=== PATIENT | female | born 1950 | race Caucasian/White ===

== ENCOUNTER → 2021-08-30 08:57 | Outpatient (BNVA) | payer MEDICARE, OTHER, SELFPAY | PROVIDERS: PCP Internal Medicine; Visit Provider Psychiatry & Neurology Neurology | DX: G24.3 Spasmodic torticollis (principal) | CPT/HCPCS: 64616; 99211; J0585 ==

== ENCOUNTER → 2021-12-10 12:55 | Outpatient (BNVA) | payer MEDICARE, OTHER, SELFPAY | PROVIDERS: PCP Internal Medicine; Visit Provider Psychiatry & Neurology Neurology | DX: G24.3 Spasmodic torticollis (principal); Z79.899 Other long term (current) drug therapy | CPT/HCPCS: 64616; 99211; J0585 ==

== ENCOUNTER → 2022-03-28 10:54 | Outpatient (BNVA) | payer MEDICARE, OTHER, SELFPAY | PROVIDERS: PCP Internal Medicine; Visit Provider Psychiatry & Neurology Neurology | DX: G24.3 Spasmodic torticollis (principal); M62.838 Other muscle spasm | CPT/HCPCS: 64616; 99211; J0585 ==

== ENCOUNTER → 2022-07-18 09:16 | Outpatient (BNVA) | payer MEDICARE, OTHER, SELFPAY | PROVIDERS: PCP Internal Medicine; Visit Provider Psychiatry & Neurology Neurology | DX: G24.3 Spasmodic torticollis (principal); M62.838 Other muscle spasm | CPT/HCPCS: 64616; 99211; J0585 ==

== ENCOUNTER → 2022-10-24 12:22 | Outpatient (BNVA) | payer MEDICARE, OTHER, SELFPAY | PROVIDERS: PCP Internal Medicine; Visit Provider Psychiatry & Neurology Neurology | DX: G24.3 Spasmodic torticollis (principal); M62.838 Other muscle spasm | CPT/HCPCS: 64616; 99211; J0585 ==

== ENCOUNTER 2023-02-19 13:50 | Outpatient (AMB) | payer MEDICARE, OTHER, SELFPAY ==
--- NOTE | 2023-02-19 14:03 | MHC.OFFVIS ---
Intake Vital Signs 02/19/23 14:05 Height 5 ft 3 in Weight 131 lb BMI 23.2 BP 120/76 Blood Pressure Location Lt brachial Position Sitting Respiration 17 Pulse 69 Pulse Source Pulse Oximeter Pulse Oximetry (%) 99 Oxygen Delivery Method Room Air Intake Visit Reasons: Botox(B&B)-lvm Intake Note: Pt presents to office for Botox injections. Driver Utility Worker Required: No Allergies pseudoephedrine [From Sudafed] Allergy (Verified 02/19/23 14:04) Unknown Medication List - Last Reconciled 02/19/23 by Salma Zazueta MD albuterol sulfate 90 mcg/actuation 2 puffs inhalation Q4H PRN clonazepam 0.5 mg PO BEDTIME clonazepam 0.5 mg (1/2 x 1 mg) PO BEDTIME 30 days denosumab (Prolia) 60 mg subcut [id number] escitalopram oxalate 20 mg PO DAILY leucovorin calcium mg PO methotrexate (PF) (RediTrex (PF)) 22.5 mg subcut QWEEK omeprazole magnesium (Prilosec) 10 mg PO DAILY rosuvastatin 20 mg PO BEDTIME HPI HPI Comments History of Present Illness Details Spasmodic torticollis.. History of present illness: ? 73y/0 female comes for treatment of her dystonia with Botox.she reports truncal pain while sitting - more like a squeezing sensation for past 5 years . she had an extensive evaluation with imaging studies. ??? Side effects including spread of toxin effect, dysphagia, breathing difficulties , bronchitis etc was discussed in detail and the patient agreed to the procedure. ??? Botulinum toxin Lot [id number] 200 units ??? Expiration date 05/2025 ??? Botulinum toxin type A 200units was diluted with 4 cc of normal saline at a concentration of 25 units in 0.5cc saline. ??? Muscles injected ??? Right Splenius - 50units ??? Right levator 50 units ??? Right trapezius- 25 units Left trapezius 25 units Left levator 25 units ??? Right sternocleidomastoid- 25 units ??? Total used - 200 units PFSH Medical History Spasmodic torticollis Depression Anxiety Surgical History No pertinent past surgical history Family History Brother Colon cancer Social History Household Members: Spouse Alcohol intake: current Alcohol intake frequency: holidays/special occasions only Patient Tobacco Use Status: Former Tobacco user Quit Date: <40 yrs Current occupational status: retired Physical Exam Vital Signs: Last Vital Signs Pulse 69 02/19/23 14:05 Resp 17 02/19/23 14:05 BP 120/76 02/19/23 14:05 Pulse Ox 99 02/19/23 14:05 Oxygen Delivery Method Room Air 02/19/23 14:05 BMI result Body Mass Index 23.2 Neuro Other: Head tremors torticollis Office Procedures Botulinum toxin Injection 59466 - Dystonia Procedure code (CPT) selection complete Office Meds onabotulinumtoxinA 200 unit solution for injection Performing Provider: Salma Zazueta MD Performing Location: [facility] [place] [facility] Administered by: Salma Zazueta MD on 02/19/23 14:38 Dose Route Admin Location Dispensed Lot Number Expiration Date [facility] Metallurgist Helper 200 unit IM 200 units [id number] 05/29/25 8476-1302-72 ALLERGAN/BOTOX Comments: see HPI Assessment & Plan Assessment & Plan (1) Spasmodic torticollis: Code(s): G24.3 - Spasmodic torticollis (2) Muscle spasm: Code(s): M62.838 - Other muscle spasm Plan Patient tolerated the procedure well She will call with any side effects Orders: Orders AMB Botulinum toxin Injection Today G24.3 - Spasmodic torticollis Coding Level of Care Code Est Pt Level 1 (05623) Diagnoses Spasmodic torticollis G24.3 Muscle spasm M62.838 CPT Codes Botox Injection - Botox 4: 04955 - Dystonia ([id number])
[2023-02-19 14:05] VITALS: BP 120/76; PULSE 69; RESP 17; O2SAT 99; BMI 23.2
== END 2023-02-19 14:34 | disposition home or self-care (01) ==
PROVIDERS: PCP Internal Medicine; Visit Provider Psychiatry & Neurology Neurology
DX: G24.3 Spasmodic torticollis (principal)
CPT/HCPCS: 64616

== ENCOUNTER → 2023-02-19 13:50 | Outpatient (BNVA) | payer MEDICARE, OTHER, SELFPAY | PROVIDERS: PCP Internal Medicine; Visit Provider Psychiatry & Neurology Neurology | DX: G24.3 Spasmodic torticollis (principal); M62.838 Other muscle spasm | CPT/HCPCS: 64616; 99211; J0585 ==

== ENCOUNTER → 2023-05-28 12:35 | Outpatient (BNVA) | payer MEDICARE, OTHER, SELFPAY | PROVIDERS: PCP Internal Medicine; Visit Provider Psychiatry & Neurology Neurology ==

== ENCOUNTER 2023-06-02 11:48 | Outpatient (AMB) | payer MEDICARE, OTHER, SELFPAY ==
[2023-06-02 11:52] VITALS: BP 110/64; PULSE 104; RESP 17; O2SAT 97; BMI 23.0
--- NOTE | 2023-06-02 11:52 | A.OFFVIS_ITS ---
Intake Vital Signs 06/02/23 11:52 Height 5 ft 3 in Weight 130 lb BMI 23.0 BP 110/64 Blood Pressure Location Rt brachial Position Sitting Respiration 17 Pulse 104 H Pulse Source Pulse Oximeter Pulse Oximetry (%) 97 Oxygen Delivery Method Room Air Intake Visit Reasons: Botox - CONF Intake Note: Pt presents to the office for Botox injections. Tobacco Sampler Required: No Allergies pseudoephedrine [From Sudafed] Allergy (Verified 06/02/23 11:52) Unknown Medication List - Last Reconciled 06/02/23 by Salma Zzaueta MD albuterol sulfate 90 mcg/actuation 2 puffs inhalation Q4H PRN clonazepam 0.5 mg (1/2 x 1 mg) PO BEDTIME 30 days clonazepam 0.5 mg PO BEDTIME denosumab (Prolia) 60 mg subcut [id number] escitalopram oxalate 20 mg PO DAILY leucovorin calcium mg PO methotrexate (PF) (RediTrex (PF)) 22.5 mg subcut QWEEK omeprazole magnesium (Prilosec) 10 mg PO DAILY rosuvastatin 20 mg PO BEDTIME HPI HPI Comments History of Present Illness Details Spasmodic torticollis.. History of present illness: ? 73y/0 female comes for treatment of her dystonia with Botox.she reports truncal pain while sitting - more like a squeezing sensation for past 5 years . she had an extensive evaluation with imaging studies. ??? Side effects including spread of toxin effect, dysphagia, breathing difficulties , bronchitis etc was discussed in detail and the patient agreed to the procedure. ??? Botulinum toxin Lot [id number] 200 units ??? Expiration date 09/2025 ??? Botulinum toxin type A 200units was diluted with 4 cc of normal saline at a concentration of 25 units in 0.5cc saline. ??? Muscles injected ??? Right Splenius - 50units ??? Right levator 50 units ??? Right trapezius- 25 units Left trapezius 25 units Left levator 25 units ??? Right sternocleidomastoid- 25 units ??? Total used - 200 units PFSH Medical History Spasmodic torticollis Depression Anxiety Surgical History No pertinent past surgical history Family History Brother Colon cancer Social History Household Members: Spouse Alcohol intake: current Alcohol intake frequency: holidays/special occasions only Patient Tobacco Use Status: Former Tobacco user Quit Date: <40 yrs Current occupational status: retired Physical Exam Vital Signs: Last Vital Signs Pulse 104 H 06/02/23 11:52 Resp 17 06/02/23 11:52 BP 110/64 06/02/23 11:52 Pulse Ox 97 06/02/23 11:52 Oxygen Delivery Method Room Air 06/02/23 11:52 BMI result Body Mass Index 23.0 Neuro Other: Head tremors torticollis Office Procedures Botulinum toxin Injection 91574 - Dystonia Procedure code (CPT) selection complete Office Meds onabotulinumtoxinA 200 unit solution for injection Performing Provider: Salma Zazueta MD Performing [place] [facility] [place] [facility] Administered by: Salma Zazueta MD on 06/02/23 12:17 Dose Route Admin Location Dispensed Lot Number Expiration Date [facility] Financial Coordinator 200 unit IM 200 units [id number] 09/26/25 5461-0990-27 ALLERGAN/BOTOX Comments: see HPI Assessment & Plan Assessment & Plan (1) Spasmodic torticollis: Code(s): G24.3 - Spasmodic torticollis (2) Muscle spasm: Code(s): M62.838 - Other muscle spasm Plan Patient tolerated the procedure well She will call with any side effects Orders: Orders AMB Botulinum toxin Injection Today G24.3 - Spasmodic torticollis Coding Level of Care Code Est Pt Level 1 (90730) Diagnoses Spasmodic torticollis G24.3 Muscle spasm M62.838 CPT Codes Botox Injection - Botox 4: 13650 - Dystonia ([id number])
== END 2023-06-02 12:17 | disposition home or self-care (01) ==
PROVIDERS: PCP Internal Medicine; Visit Provider Psychiatry & Neurology Neurology
DX: G24.3 Spasmodic torticollis (principal)
CPT/HCPCS: 64616

== ENCOUNTER → 2023-06-02 11:48 | Outpatient (BNVA) | payer MEDICARE, OTHER, SELFPAY | PROVIDERS: PCP Internal Medicine; Visit Provider Psychiatry & Neurology Neurology | DX: G24.3 Spasmodic torticollis (principal); M62.838 Other muscle spasm | CPT/HCPCS: 64616; 99211; J0585 ==

== ENCOUNTER 2023-08-26 12:16 | Outpatient (AMB) | payer MEDICARE, OTHER, SELFPAY ==
--- NOTE | 2023-08-26 12:34 | MHC.OFFVIS ---
Vital Signs 08/26/23 12:35 Height 5 ft 3 in Weight 130 lb BMI 23.0 BP 104/60 Blood Pressure Location Rt brachial Position Sitting Respiration 16 Pulse 97 Pulse Source Pulse Oximeter Pulse Oximetry (%) 98 Oxygen Delivery Method Room Air Intake Visit Reasons: Botox(B&B)-CONF Intake Note: Pt presents to the office for Botox injections. 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 History of present illness: ? 73y/0 female comes for treatment of her dystonia with Botox.she reports truncal pain while sitting - more like a squeezing sensation for past 5 years . she had an extensive evaluation with imaging studies. ??? Side effects including spread of toxin effect, dysphagia, breathing difficulties , bronchitis etc was discussed in detail and the patient agreed to the procedure. ??? Botulinum toxin Lot [id number] 200 units ??? Expiration date 09/2025 ??? Botulinum toxin type A 200units was diluted with 4 cc of normal saline at a concentration of 25 units in 0.5cc saline. ??? Muscles injected ??? Right Splenius - 50units ??? Right levator 50 units ??? Right trapezius- 25 units Left trapezius 25 units Left levator 25 units ??? Right sternocleidomastoid- 25 units ??? Total used - 200 units PFSH Medical History Spasmodic torticollis Depression Anxiety Surgical History No pertinent past surgical history Family History Brother Colon cancer Social History Household Members: Spouse Alcohol intake: current Alcohol intake frequency: holidays/special occasions only Patient Tobacco Use Status: Former Tobacco user Quit Date: <40 yrs Current occupational status: retired Physical Exam Vital Signs: Last Vital Signs Pulse 97 08/26/23 12:35 Resp 16 08/26/23 12:35 BP 104/60 08/26/23 12:35 Pulse Ox 98 08/26/23 12:35 Oxygen Delivery Method Room Air 08/26/23 12:35 BMI result Body Mass Index 23.0 Neuro Other: Head tremors torticollis Office Procedures Botulinum toxin Injection 84245 - Dystonia Procedure code (CPT) selection complete Office Meds onabotulinumtoxinA 200 unit solution for injection Performing Provider: Salma Zazueta MD Performing [place] [facility] [place] [facility] Administered by: Salma Zazueta MD on 08/26/23 12:59 Dose Route Admin Location Dispensed Lot Number Expiration Date [employer] Intern 200 unit IM 200 units [id number] 09/26/25 4729-8468-95 ALLERGAN/BOTOX Comments: see HPI Assessment & Plan Assessment & Plan (1) Spasmodic torticollis: Code(s): G24.3 - Spasmodic torticollis Category: Medical (2) Muscle spasm: Code(s): M62.838 - Other muscle spasm Category: Medical Plan Patient tolerated the procedure well She will call with any side effects Orders: Orders AMB Botulinum toxin Injection Today G24.3 - Spasmodic torticollis Medications: New onabotulinumtoxinA 200 units IM ONCE 1 ea 0RF G24.3 - Spasmodic torticollis Coding Level of Care Code Est Pt Level 1 (63874) Diagnoses Spasmodic torticollis G24.3 Muscle spasm M62.838 CPT Codes Botox Injection - Botox 4: 14574 - Dystonia ([id number])
[2023-08-26 12:35] VITALS: BP 104/60; PULSE 97; RESP 16; O2SAT 98; BMI 23.0
== END 2023-08-26 13:00 | disposition home or self-care (01) ==
PROVIDERS: PCP Internal Medicine; Visit Provider Psychiatry & Neurology Neurology
DX: G24.3 Spasmodic torticollis (principal)
CPT/HCPCS: 64616

== ENCOUNTER → 2023-08-26 12:16 | Outpatient (BNVA) | payer MEDICARE, OTHER, SELFPAY | PROVIDERS: PCP Internal Medicine; Visit Provider Psychiatry & Neurology Neurology | DX: G24.3 Spasmodic torticollis (principal); M62.838 Other muscle spasm | CPT/HCPCS: 64616; 99211; J0585 ==

== ENCOUNTER 2023-11-26 12:26 | Outpatient (AMB) | payer MEDICARE, OTHER, SELFPAY ==
--- NOTE | 2023-11-26 12:32 | A.OFFVIS_ITS ---
Vital Signs 11/26/23 12:33 Height 5 ft 3 in Weight 130 lb BMI 23.0 BP 112/66 Blood Pressure Location Rt brachial Position Sitting Respiration 16 Pulse 81 Pulse Source Pulse Oximeter Pulse Oximetry (%) 96 Oxygen Delivery Method Room Air Intake Visit Reasons: Botox(B&B) - Confirmed Intake Note: Pt presents to the office for Botox injections for muscle spasms. Actuarial Consultant Required: No Allergies pseudoephedrine [From Sudafed] Allergy (Verified 11/26/23 12:33) Unknown Medication List - Last Reconciled 11/26/23 by Salma Zazueta MD albuterol sulfate 90 mcg/actuation 2 puffs inhalation Q4H PRN clonazepam 0.5 mg (1/2 x 1 mg) PO BEDTIME 30 days clonazepam 0.5 mg PO BEDTIME denosumab (Prolia) 60 mg subcut [id number] escitalopram oxalate 20 mg PO DAILY leucovorin calcium mg PO methotrexate (PF) (RediTrex (PF)) 22.5 mg subcut QWEEK omeprazole magnesium (Prilosec) 10 mg PO DAILY rosuvastatin 20 mg PO BEDTIME HPI Comments Details: Spasmodic torticollis.. History of present illness: ? 73y/0 female comes for treatment of her dystonia with Botox.she reports truncal pain while sitting - more like a squeezing sensation for past 5 years . she had an extensive evaluation with imaging studies. ??? Side effects including spread of toxin effect, dysphagia, breathing difficulties , bronchitis etc was discussed in detail and the patient agreed to the procedure. ??? Botulinum toxin Lot [id number] 200 units ??? Expiration date 03/2026 ??? Botulinum toxin type A 200units was diluted with 4 cc of normal saline at a concentration of 25 units in 0.5cc saline. ??? Muscles injected ??? Right Splenius - 50units ??? Right levator 50 units ??? Right trapezius- 25 units Left trapezius 25 units Left levator 25 units ??? Right sternocleidomastoid- 25 units ??? Total used - 200 units PFSH Medical History Spasmodic torticollis Depression Anxiety Surgical History No pertinent past surgical history Family History Brother Colon cancer Social History Household Members: Spouse Alcohol intake: current Alcohol intake frequency: holidays/special occasions only Patient Tobacco Use Status: Former Tobacco user Current occupational status: retired Physical Exam Vital Signs: Last Vital Signs Pulse 81 11/26/23 12:33 Resp 16 11/26/23 12:33 BP 112/66 11/26/23 12:33 Pulse Ox 96 11/26/23 12:33 Oxygen Delivery Method Room Air 11/26/23 12:33 BMI result Body Mass Index 23.0 Neuro Other: Head tremors torticollis Office Procedures Botulinum toxin Injection 44354 - Dystonia Procedure code (CPT) selection complete Office Meds onabotulinumtoxinA 200 unit solution for injection Performing Provider: Slama Zazueta MD Performing [place] [facility] [place] [facility] Administered by: Salma Zazueta MD on 11/26/23 13:03 Dose Route Admin Location Dispensed Lot Number Expiration Date [facility] Shirt Creaser 200 unit IM 200 units [id number] 03/28/26 0474-4690-16 ALLERGAN/BOTOX Comments: see HPI Assessment & Plan Assessment & Plan (1) Spasmodic torticollis: Code(s): G24.3 - Spasmodic torticollis Category: Medical (2) Muscle spasm: Code(s): M62.838 - Other muscle spasm Category: Medical Plan Patient tolerated the procedure well She will call with any side effects Orders: Orders AMB Botulinum toxin Injection Today G24.3 - Spasmodic torticollis Medications: New onabotulinumtoxinA 200 units IM ONCE 1 ea 0RF spasmodic torticollis G24.3 - Spasmodic torticollis Coding Level of Care Code Est Pt Level 1 (03035) Diagnoses Spasmodic torticollis G24.3 Muscle spasm M62.838 CPT Codes Botox Injection - Botox 4: 91101 - Dystonia ([id number])
[2023-11-26 12:33] VITALS: BP 112/66; PULSE 81; RESP 16; O2SAT 96; BMI 23.0
== END 2023-11-26 13:00 | disposition home or self-care (01) ==
PROVIDERS: PCP Internal Medicine; Visit Provider Psychiatry & Neurology Neurology
DX: G24.3 Spasmodic torticollis (principal)
CPT/HCPCS: 64616

== ENCOUNTER → 2023-11-26 12:26 | Outpatient (BNVA) | payer MEDICARE, OTHER, SELFPAY | PROVIDERS: PCP Internal Medicine; Visit Provider Psychiatry & Neurology Neurology | DX: G24.3 Spasmodic torticollis (principal); M62.838 Other muscle spasm | CPT/HCPCS: 64616; 99211; J0585 ==

== ENCOUNTER 2024-03-04 10:53 | Outpatient (AMB) | payer MEDICARE, OTHER, SELFPAY ==
[2024-03-04 10:56] VITALS: BMI 23.2
--- NOTE | 2024-03-04 10:56 | MHC.OFFVIS ---
Vital Signs 03/04/24 10:56 Height 5 ft 3 in Weight 131 lb BMI 23.2 Intake Visit Reasons: Botox(B&B) Intake Note: Patient presents for botox injection Allergies pseudoephedrine [From Sudafed] Allergy (Verified 03/04/24 10:57) Unknown Medication List - Last Reconciled 03/04/24 by Salma Zazueta MD albuterol sulfate 90 mcg/actuation 2 puffs inhalation Q4H PRN clonazepam 0.5 mg (1/2 x 1 mg) PO BEDTIME 30 days clonazepam 0.5 mg PO BEDTIME denosumab (Prolia) 60 mg subcut [id number] escitalopram oxalate 20 mg PO DAILY leucovorin calcium mg PO methotrexate (PF) (RediTrex (PF)) 22.5 mg subcut QWEEK omeprazole magnesium (Prilosec) 10 mg PO DAILY rosuvastatin 20 mg PO BEDTIME HPI Comments Details: Spasmodic torticollis.. History of present illness: ? 73y/0 female comes for treatment of her dystonia with Botox.she reports truncal pain while sitting - more like a squeezing sensation for past 5 years . she had an extensive evaluation with imaging studies. ??? Side effects including spread of toxin effect, dysphagia, breathing difficulties , bronchitis etc was discussed in detail and the patient agreed to the procedure. ??? Botulinum toxin Lot [id number] 200 units ??? Expiration date 05/2026 ??? Botulinum toxin type A 200units was diluted with 4 cc of normal saline at a concentration of 25 units in 0.5cc saline. ??? Muscles injected ??? Right Splenius - 50units ??? Right levator 50 units ??? Right trapezius- 25 units Left trapezius 25 units Left levator 25 units ??? Right sternocleidomastoid- 25 units ??? Total used - 200 units PFSH Medical History Spasmodic torticollis Depression Anxiety Surgical History No pertinent past surgical history Family History Brother Colon cancer Social History Household Members: Spouse Alcohol intake: current Alcohol intake frequency: holidays/special occasions only Patient Tobacco Use Status: Former Tobacco user Current occupational status: retired Physical Exam Vital Signs: BMI result Body Mass Index 23.2 Neuro Other: Head tremors torticollis Office Procedures Botulinum toxin Injection 14080 - Dystonia Procedure code (CPT) selection complete Office Meds onabotulinumtoxinA 200 unit solution for injection Performing Provider: Salma Zazueta MD [place] [facility] Administered by: Salma Zazueta MD on 03/04/24 11:24 Dose Route Admin Location Dispensed Lot Number Expiration Date [facility] Supervisor [employer] 200 unit IM 200 units [id number] 05/29/26 3083-6709-09 ALLERGAN/BOTOX Comments: see HPI Assessment & Plan Assessment & Plan (1) Spasmodic torticollis: Code(s): G24.3 - Spasmodic torticollis Category: Medical (2) Muscle spasm: Code(s): M62.838 - Other muscle spasm Category: Medical Plan Patient tolerated the procedure well She will call with any side effects Orders: Orders AMB Botulinum toxin Injection Today G24.3 - Spasmodic torticollis Medications: New onabotulinumtoxinA 200 units IM ONCE 1 ea 0RF spasmodic torticollis G24.3 - Spasmodic torticollis Coding Level of Care Code Est Pt Level 1 (33403) Diagnoses Spasmodic torticollis G24.3 Muscle spasm M62.838 CPT Codes Botox Injection - Botox 4: 25641 - Dystonia ([id number])
== END 2024-03-04 11:13 | disposition home or self-care (01) ==
LOC: HO.HSMS 10:53
PROVIDERS: PCP Internal Medicine; Visit Provider Psychiatry & Neurology Neurology
DX: G24.3 Spasmodic torticollis (principal)
CPT/HCPCS: 64616

== ENCOUNTER → 2024-03-04 10:53 | Outpatient (BNVA) | payer MEDICARE, OTHER, SELFPAY | PROVIDERS: PCP Internal Medicine; Visit Provider Psychiatry & Neurology Neurology | DX: G24.3 Spasmodic torticollis (principal) | CPT/HCPCS: 64616; 99211; J0585 ==

== ENCOUNTER 2024-07-06 12:30 | Outpatient (AMB) | payer MEDICARE, OTHER, SELFPAY ==
[2024-07-06 12:51] VITALS: BP 114/72; PULSE 77; O2SAT 99
--- NOTE | 2024-07-06 12:51 | A.OFFVIS_ITS ---
Vital Signs 07/06/24 12:51 Height 5 ft 3 in BP 114/72 Blood Pressure Location Rt brachial Position Sitting Pulse 77 Pulse Source Pulse Oximeter Pulse Oximetry (%) 99 Oxygen Delivery Method Room Air Intake Visit Reasons: Botox(B&B) Intake Note: patient here for botox injection. Practice supplied Allergies pseudoephedrine [From Sudafed] Allergy (Verified 07/06/24 12:56) Unknown Medication List - Last Reconciled 07/06/24 by Salma Zazueta MD albuterol sulfate 90 mcg/actuation 2 puffs inhalation Q4H PRN clonazepam 0.5 mg (1/2 x 1 mg) PO BEDTIME 30 days clonazepam 0.5 mg PO BEDTIME denosumab (Prolia) 60 mg subcut [id number] escitalopram oxalate 20 mg PO DAILY leucovorin calcium mg PO methotrexate (PF) (RediTrex (PF)) 22.5 mg subcut QWEEK omeprazole magnesium (Prilosec) 10 mg PO DAILY rosuvastatin 20 mg PO BEDTIME HPI Comments Details: Spasmodic torticollis.. History of present illness: ? 73y/0 female comes for treatment of her dystonia with Botox.she reports truncal pain while sitting - more like a squeezing sensation for past 5 years . she had an extensive evaluation with imaging studies. ??? Side effects including spread of toxin effect, dysphagia, breathing difficulties , bronchitis etc was discussed in detail and the patient agreed to the procedure. ??? Botulinum toxin Lot [id number] 200 units ??? Expiration date 11/2025 ??? Botulinum toxin type A 200units was diluted with 4 cc of normal saline at a concentration of 25 units in 0.5cc saline. ??? Muscles injected ??? Right Splenius - 50units ??? Right levator 50 units ??? Right trapezius- 25 units Left trapezius 25 units Left levator 25 units ??? Right sternocleidomastoid- 25 units ??? Total used - 200 units PFSH Medical History Spasmodic torticollis Depression Anxiety Surgical History No pertinent past surgical history Family History Brother Colon cancer Social History Household Members: Spouse Alcohol intake: current Alcohol intake frequency: holidays/special occasions only Patient Tobacco Use Status: Former Tobacco user Current occupational status: retired Physical Exam Vital Signs: Last Vital Signs Pulse 77 07/06/24 12:51 BP 114/72 07/06/24 12:51 Pulse Ox 99 07/06/24 12:51 Oxygen Delivery Method Room Air 07/06/24 12:51 Neuro Other: Head tremors torticollis Office Procedures Botulinum toxin Injection 54738 - Dystonia Procedure code (CPT) selection complete Office Meds onabotulinumtoxinA 200 unit solution for injection Performing Provider: Salma Zazueta MD Performing [place] [facility] Administered by: Salma Zazueta MD on 07/06/24 13:34 Dose Route Admin Location Dispensed Lot Number Expiration Date [facility] Heat Plant Specialist 200 unit IM 200 units [id number] ALLERGAN/BOTOX Comments: see HPI Assessment & Plan Assessment & Plan (1) Spasmodic torticollis: Code(s): G24.3 - Spasmodic torticollis Category: Medical (2) Muscle spasm: Code(s): M62.838 - Other muscle spasm Category: Medical Plan Patient tolerated the procedure well She will call with any side effects Orders: Orders AMB Botulinum toxin Injection Today G24.3 - Spasmodic torticollis Medications: New onabotulinumtoxinA 200 units IM ONCE 1 ea 0RF dystonia G24.3 - Spasmodic torticollis Coding Level of Care Code Est Pt Level 1 (64048) Diagnoses Spasmodic torticollis G24.3 Muscle spasm M62.838 CPT Codes Botox Injection - Botox 4: 93767 - Dystonia ([id number])
--- OUTSIDE RECORDS SUMMARY | 2024-07-06 15:05 | XMS_ITS | Encounter Summary ---
Author Organization [facility] Address [address] [place] [address] Care Team Providers Care Seasonal Customer Service Associate Name Role Phone Zia Finley MD Primary Care Provider [phone] Марина Skinner MD Unavailable Jose Alberto Vásquez MD Unavailable Encounter Details Date Type Department Care Team (Late Contact Info) Description 06/14/2024 Orders Only [facility] [address] [place] [address] Sarika Callahan PA-C [address] [place] [address] Social History Tobacco Use Types Packs/Day Years Used Date Smoking Tobacco: Former Smokeless Tobacco: Never Alcohol Use Standard Drinks/Week Comments Yes 0 (1 standard drink = 0.6 oz pur e alcohol) Once every 2 month Sex and Gender Information Value Date Recorded Sex Assigned at Female 04/02/2023 9:50 AM EST Gender Identity Female 04/02/2023 9:50 AM EST Sexual Orientation Heterosexual (straight) 04/02 9:50 AM EST documented as of this encounter Plan of Treatment Upcoming Encounters Date Type Department Care Team (Late Contact Info) Description 10/01/2024 2:40 PM EDT Office Visit [facility] Department of Rheumatology [place] [address] [place] [phone] Annie Correia MD [address] [place] [id number] 12/16/2024 11:00 AM EDT Clinical Support [facility] Department of Endocrinology [place] [address] [place] [phone] Марина Skinner MD [address] [place] [address] documented as of this encounter Procedures Procedure Name Priority Date/Time Associated Diagnosis Comments CT CHEST WITH CONTRAST Routine 06/14/2024 2:27 PM EST documented in this encounter Results * CT CHEST WITH CONTRAST (06/14/2024 2:27 PM EST) Anatomical Region Laterality Modality Other 06/14/2024 2:30 PM EST 06/14/2024 2:30 PM EST Narrative 06/17/2024 3:54 PM EST EXAMINATION: CT CHEST WITH CONTRAST CLINICAL INFORMATION: Pulmonary nodules. ?? COMPARISON: 02/03/2024. TECHNIQUE: Multidetector volumetric CT imaging of the chest was obtained after the administration of 50 mL of Omnipaque 300 intravenous contrast without immediate adverse reactions. Axial MIP volume rendering provided. Sagittal and coronal reformatted images were obtained. This CT examination was performed using dose optimization techniques as appropriate, variously including the following: *Automated exposure control *Adjustment of mA and/or kV according to patient size (this includes techniques or standardized protocols for targeted exams where dose is matched to indication/reason for exam; i.e. extremities or head) *Use of iterative reconstruction technique DLP: 176.14 FINDINGS: LOWER NECK: Slight heterogeneity again noted to both lobes of thyroid. LUNGS/PLEURA: Stable 10 mm nodule along the lateral aspect of the right middle lobe just anterior to the major fissure (image 44 series 3). Stable 4 mm nodule within the posterior aspect of the left lower lobe (image 32 series 3). Stable 3 mm peripheral nodule within the posterior aspect of the left upper lobe (image 14 series 3). Stable additional 3 mm nodule slightly inferior is also in the posterior left upper lobe (image 18 series 3). Stable biapical, left greater than right, pleural- parenchymal scarring. No new or additional significant pulmonary parenchymal or pleural- based abnormalities noted. No pleural effusions. The trachea and mainstem bronchi are patent. MEDIASTINUM: Atherosclerotic coronary artery calcifications. No hilar or mediastinal lymphadenopathy. Small hiatal hernia. AXILLA: No lymphadenopathy. ?? UPPER ABDOMEN: Unremarkable. ?? OSSEOUS STRUCTURES: Unremarkable. ?? IMPRESSION: Stable chest CT. Continued follow-up recommended based on guidelines and clinical grounds. Fleischner guidelines were followed. Electronically signed by: ??Gio Diop MD ??06/17/2024 03:54 PM EST Thank you for referring your patient to us, Gio Diop MD [phone] (Electronically Signed - 06/17/2024 15:54) Copy: [facility] [address] [place] [address] Procedure Note Gio Diop MD - 06/17/2024 EXAMINATION: CT CHEST WITH CONTRAST CLINICAL INFORMATION: Pulmonary nodules. COMPARISON: 02/03/2024. TECHNIQUE: Multidetector volumetric CT imaging of the chest was obtained after theadministration of 50 mL of Omnipaque 300 intravenous contrast withoutimmediate adverse reactions. Axial MIP volume rendering provided. [place]itt[place] coronal reformatted images were obtained. This CT examination was performed using dose optimization techniques asappropriate, variously including the following: *Automated exposure control *Adjustment of mA and/or kV according to patient size (this includestechniques or standardized protocols for targeted exams where dose ismatched to indication/reason for exam; i.e. extremities or head) *Use of iterative reconstruction technique DLP: 176.14 FINDINGS: LOWER NECK: Slight heterogeneity again noted to both lobes of thyroid. LUNGS/PLEURA: Stable 10 mm nodule along the lateral aspect of the rightmiddle lobe just anterior to the major fissure (image 44 series 3). Stable4 mm nodule within the posterior aspect of the left lower lobe (image 32series 3). Stable 3 mm peripheral nodule within the posterior aspect of the left upper lobe (image 14 series3). Stable additional 3 mm nodule slightly inferior is also in theposterior left upper lobe (image 18 series 3). Stable biapical, leftgreater than right, pleural- parenchymal scarring. No new or additional significant pulmonary parenchymal orpleural-based abnormalities noted. No pleural effusions. The trachea andmainstem bronchi are patent. MEDIASTINUM: Atherosclerotic coronary artery calcifications. No hilar ormediastinal lymphadenopathy. Small hiatal hernia. AXILLA: No lymphadenopathy. UPPER ABDOMEN: Unremarkable. OSSEOUS STRUCTURES: Unremarkable. IMPRESSION: Stable chest CT. Continued follow-up recommended based on guidelines andclinical grounds. Fleischner guidelines were followed. Electronically signed by: Gio Diop MD 06/17/2024 03:54 PM EST RPWorkstation: [id number] Thank you for referring your patient to us, Gio Diop MD [phone] (Electronically Signed - 06/17/2024 15:54) Copy: [facility] [address] [place], [place] [address] Sarika Callahan PA-C IMG LEGACY PROCEDURE S documented in this encounter Visit Diagnoses Not on filedocumented in this encounter Care Teams Seasonal Customer Service Associate Relationship Specialty Start Date End Date Zia Finley MD [address] [place] [address] PCP - General Internal Medicine 04/25/20 Марина Skinner MD [address] [facility] [address] [place] [address] Asphalt Patcher Endocrinology 11/27/22 Jose Alberto Vásquez MD [address] [facility] [address] [place] [address] Gastroenterology 07/02/23 documented as of this encounter
--- OUTSIDE RECORDS SUMMARY | 2024-07-06 15:05 | XMS_ITS | Encounter Summary ---
Author Organization [facility] Address [address] [place] [address] Care Team Providers Care Lens Polisher Name Role Phone Zia Finley MD Primary Care Provider [phone] Марина Skinner MD Unavailable Jose Alberto Vásquez MD Unavailable Encounter Details Date Type Department Care Team (Late Contact Info) Description 06/02/2024 Orders Only [facility] Department of Endocrinology [address] [place] [address] Марина Skinner MD [address] [place] [phone] Age-related osteoporosis without current pathological fracture; Vitamin D deficiency Social History Tobacco Use Types Packs/Day Years [...] Office Visit [facility] Department of Rheumatology [address] [place] [address] Annie Correia MD 160 [facility] 100 [place] [address] 12/16/2024 11:00 AM EDT Clinical Support [facility] Department of Endocrinology [place] [address] [facility] [address] [place] [phone] Марина Skinner MD [address] [place] [address] documented as of this encounter Procedures Procedure Name Priority Date/Time Associated Diagnosis Comments VITAMIN D, 25-HYDROXY Routine 06/07/2024 1:37 PM EST Age-related osteoporosis without current pathological fracture Vitamin D deficiency ALBUMIN Routine 06/07/2024 1:37 PM EST Age-related osteoporosis without current pathological fracture BASIC METABOLIC PANEL Routine 06/07/2024 1:37 PM EST Age-related osteoporosis without current pathological fracture documented in this encounter Results * VITAMIN D, 25-HYDROXY (06/07/2024 1:37 PM EST) Vitamin D, 25 OH, Total 50 30 - 100 ng/mL [facility] Blood Blood specimen / Unknown 06/07/2024 1:37 PM EST 06/07/2024 8:00 PM EST Марина Skinner MD LAB BLOOD ORDERABLES [facility] [address] [place] [address], * ALBUMIN (06/07/2024 1:37 PM EST) Albumin 4.3 3.2 - 4.8 g/dL [facility] Blood Blood specimen / Unknown 06/07/2024 1:37 PM EST 06/07/2024 8:00 PM EST Марина Skinner MD LAB BLOOD ORDERABLES Performing Organization Address City/[facility]/ZIP Co de Phone Number [facility] [address] [place] [address] * (ABNORMAL) BASIC METABOLIC PANEL (06/07/2024 1:37 PM EST) Glucose 115(H) 70 - 99 mg/dL [facility] Blood Urea Nitrogen 11 7 - 22 mg/dL [facility] Creatinine, Ser 0.8 0.5 - 1.2 mg/dL [facility] Bun / Creat Ratio 14 11 - 30 [facility] Sodium 146(H) 133 - 145 mmol/L [facility] Potassium 4.3 3.3 - 5.1 mmol/L [facility] Chloride 105 96 - 108 mmol/L [facility] CO2 27 22 - 31 mmol/L [facility] Anion Gap 14 3 - 19 mmol/L [facility] Calcium 10.1 8.8 - 10.6 mg/dL [facility] GFR Estimated (calculated) >60 >60 [facility] Comment: As of 2021, the [facility] has updated the creatinine- based estimated glomerular filtration rate (eGFRcr) to the updated CKD-EPI 2020 equation. ??This change removes the race coefficient of the older calculation, and was made based on recommendations from the National Kidney Foundation and the [place] [employer] Neph[employer]'s Task Force. ??The new eGFRcr has similar overall performance characteristics to the older equation and has been assessed to not have potential consequences that disproportionately affect any one group of individuals. ??However, some mild variation from the older eGFR equation can be expected especially in younger age patients and at higher eGFRcr values. Blood Blood specimen / Unknown 06/07/2024 1:37 PM EST 06/07/2024 8:00 PM EST Марина Skinner MD LAB BLOOD ORDERABLES Performing Organization Address City/[facility]/ZIP Co de Phone Number [facility] [address] [place] [address] documented in this encounter Visit Diagnoses Diagnosis Age-related osteoporosis without current pathological fracture Vitamin D deficiency documented in this encounter Care Teams Lens Polisher Relationship Specialty Start Date End Date Zia Finley MD [address] [place] [address] PCP - General Internal Medicine 04/25/20 Марина Skinner MD [address] [facility] [address] [place] [address] Recreation Attendant Endocrinology 11/27/22 Jose Alberto Vásquez MD [address] [facility] [address] [place] [address] Gastroenterology 07/02/23 documented as of this encounter
--- OUTSIDE RECORDS SUMMARY | 2024-07-06 15:05 | XMS_ITS | Clinical Summary ---
Author Organization [facility] [employer] Address [address] [place] [address] Care Team Providers Care Embossing Calender Operator Name Role Phone No, Pcp MD OPHTHALMOLOGIST Primary Care Provider Unavailabl e Social History Tobacco Use Types Packs/Day Years Used Date Smoking Tobacco: Never Assessed Comments Unknown Sex and Gender Information Value Date Recorded Sex Assigned at Not on file Legal Sex Female 5:02 PM EDT Gender Identity Not on file Sexual Orientation Not on file Plan of Treatment Health Maintenance Due Date Last Done Comments Depression: Screening Annual ly using PHQ-2/9 in Adults 18 yrs or above (or HM Modifier)([facility]) 02/13/1966 Hepatitis C Virus Infection in Adolescents and Adults: Screening (or Modifier) ([facility]) 02/13/1966 SDOH Screening Reminder: Cici liban for all adults ([facility]) 02/13/1966 Tobacco Smoking Cessation: i n Adults excluding Women: Behavioral and Pharmacotherapy Interventions ([facility]) 02/13/1966 Lipid Screening: Every 5 yrs for Women aged 45+ (or HM Modifier) ([facility]) 02/13/1994 Pneumococcal Vaccination Scr eening: Patients 65+ yrs of age ([facility]) (1 of 1 - PCV) 02/13/1998 Zoster/Shingles Vaccine Seri es Screening: Adults aged 18+ yrs (or HM Modifiers)([facility]) (1 of 2) 02/13/1998 Osteoporosis Screening to Pr event Fractures: Women aged 65 years+ ([facility]) 02/13/2013 RSV Vaccines (1 - 1-dose 75+ series) 02/13/2023 Flu Vaccination: Ages 65+: Y early High Dose Recommended (or Modifier)([facility]) 11/27/2023 COVID-19 Vaccine Screening: Initial Series and Booster Status ([facility]) (2023- season) 2023 07/07/2020, 06/14/2020 DTaP/Tdap/Td Vaccines ([facility]) (2 - Td or Tdap) 07/18/2026 07/18/2016 Medical Devices Not on file Insurance MEDICARE Care Teams Embossing Calender Operator Relationship Specialty Start Date End Date No, Pcp, MD OPHTHALMOLOGIST N/A Do not use PCP - General Family Medicine 09/15/19
--- OUTSIDE RECORDS SUMMARY | 2024-07-06 15:05 | XMS_ITS | Encounter Summary ---
Author Organization [facility] Address [address] [place] [address] Care Team Providers Care Train Reservation Clerk Name Role Phone Zia Finley MD Primary Care Provider [phone] Марина Skinner MD Unavailable Jose Alberto Vásquez MD Unavailable [phone] Encounter Details Date Type Department Care Team (Late Contact Info) Description 08/05/2022 Scanned Document [facility] Department Of Rheumatology [address] [place] [phone] Annie Correia MD [address] [place] [phone] Social History Tobacco Use Types Packs/Day Years Used Date Smoking Tobacco: Former Smokeless Tobacco: Never Alcohol Use Standard Drinks/Week Comments Yes 0 (1 standard drink = 0.6 oz pur e alcohol) Sex and Gender Information Value Date Recorded Sex Assigned at Female 04/02/2023 9:50 AM EST Gender Identity Female 04/02/2023 9:50 AM EST Sexual Orientation Heterosexual (straight) 04/02 9:50 AM EST documented as of this encounter Plan of Treatment Upcoming Encounters Date Type Department Care Team (Late Contact Info) Description 10/01/2024 2:40 PM EDT Office Visit [facility] Department of Rheumatology [place] [address] [facility] [address] [place] [phone] Annie Correia MD [address] [place] [phone] 12/16/2024 11:00 AM EDT Clinical Support [facility] Department of Endocrinology [place] [address] [place] [address] [address] [place] [phone] Марина Skinner MD [address] [place] [address] documented as of this encounter Visit Diagnoses Not on filedocumented in this encounter Care Teams Train Reservation Clerk Relationship Specialty Start Date End Date Zia Finley MD 139 [facility] [address] [place] [address] PCP - General Internal Medicine 04/25/20 Марина Skinner MD 1260 [facility] [address] [place] [address] Machine Shop Lead Man Endocrinology 11/27/22 Jose Alberto Vásquez MD 113 [facility] 301 [place] [address] Gastroenterology 07/02/23 documented as of this encounter
--- OUTSIDE RECORDS SUMMARY | 2024-07-06 15:05 | XMS_ITS | Encounter Summary ---
Author Organization Formerly [facility] Address [address] [place] [address] Care Team Providers Care Polystyrene Bead Molder Name Role Phone Zia Finley MD Primary Care Provider [phone] Марина Skinner MD Unavailable Jose Alberto Vásquez MD Unavailable [phone] Encounter Details Date Type Department Care Team (Late st Contact Info) Description 06/17/2024 11:45 AM EST Clinical Support [facility] Department of Endocrinology [place] [address] [facility] [address] [place] [address] Марина Skinner MD [address] [place] [address] [id number] Age-related osteoporosis without current pathological fracture (Primary Dx); Vitamin D deficiency; Post-menopausal Social History Tobacco Use Types Packs/Day Years [...] AM EST documented as of this encounter Progress Notes * Марина Skinner MD - 06/17/2024 11:45 AM EST Images from the original note were not included. [address] [facility] [address] Date: 06/17/2024 Patient Name: Kimmy Cheek Date of : 1950 Reason For Visit Osteoporosis Prolia injection HPI 74 yo F with PMH of neuritis, osteoporosis, vitamin D deficiency, rheumatoid arthritis, GERD on PPIpresenting to follow-up for osteoporosis and Prolia injection #6 today. Last seen by me 12/19. Please see initial consult note from 12/17 for details regarding presentation # Osteoporosis: Fracture history: over 30 yrs ago left foot metatarsal hair line fx. No low trauma fractures. Treatment history: Boniva 2008 - 2011. Prolia 02/2016 - 2016. Was prescribed Forteo at that time but did not take due to concern for side effects and did not want to pursue further tx per records from rheumatology. Started back on Prolia in 11/2021. Dental Work: has crowns. Dental abscess at site of old root canal - tooth was ground down and now covered with gum. Calcium intake: tums 750 mg once daily + milk, yogurt, cheese Vit D intake: 2000 IU daily Exercise: 30 mins walk a few days / week - less in the winter. Tries to go walk in the mall. Patient denies any back pain or height loss 11/2020 DXA: Lumbar spine -1.5 , Left hip -3.0 11/18 bone density: Lumbar spine -1.0, left total hip -2.9. There has been a 6% increase in bone density at the lumbar spine, left hip bone density is stable compared to prior. 06/19: Creatinine 0.7, EGFR >60, calcium 10.0, albumin 4.5, vitamin D 25 OH 47 11/17 albumin 4.5, vitamin D 25 OH 38, creatinine 0.8, calcium 9.6, EGFR >60. 06/21: Vitamin D 25 OH 42, creatinine 0.7, EGFR > 60, calcium 9.4, albumin 4.3 11/18: Vitamin D 25 OH 41, creatinine 0.8, EGFR> 60, calcium 9.3, albumin 4.1 06/22: Vitamin D 25 OH 50, creatinine 0.8, calcium 10.1, EGFR > 60, albumin 4.3 Active Problems Problem List Digestive Gastroesophageal reflux disease with esophagitis Musculoskeletal and Integument Rheumatoid arthritis (HCC) Age-related osteoporosis without current pathological fracture Relevant Medications denosumab (PROLIA) subcutaneous injection 60 mg (Completed) Other Relevant Orders BASIC METABOLIC PANEL ALBUMIN VITAMIN D, 25-HYDROXY Costochondritis Other Personal history of colonic polyps Constipation Diverticulosis of large intestine without hemorrhage Abdominal pain, generalized Breast pain, right Dense breast Atypical ductal hyperplasia of right breast Nausea Immunosuppression Vitamin D deficiency Relevant Orders VITAMIN D, 25-HYDROXY Post-menopausal Lower abdominal pain Family history of malignant neoplasm of breast Medical History Past Medical History: Diagnosis Date Asthma Atypical ductal hyperplasia of right breast 03/20/2021 Breast pain, right 03/20/2021 Cardiac arrhythmia COPD (chronic obstructive pulmonary disease) (HCC) Dense breast 03/20/2021 Depression Diverticulosis Essential tremor Botox Injection Fibrocystic breast GERD (gastroesophageal reflux disease) Hemorrhoids Hepatic hemangioma High cholesterol Hypothyroidism Iron deficiency anemia Osteoporosis Papilloma Pulmonary nodules Skin cancer Skin cancer basal Surgical History Past Surgical History: Procedure Laterality Date BREAST LUMPECTOMY Right 01/07/2000 Atypical Ductal Hyperplasia ENDOSCOPY 06/07/2022 TOE SURGERY Social History Social History Socioeconomic History Marital status: Spouse name: Not on file Number of children: Not on file Years of education: Not on file Highest education level: Not on file Occupational History Not on file Tobacco Use Smoking status: Former Smokeless tobacco: Never Vaping Use Vaping status: Never Used Substance and Sexual Activity Alcohol use: Yes Comment: Once every 2 month Drug use: Not Currently Sexual activity: Not on file Other Topics Concern Not on file Social History Narrative Not on file Social Determinants of Health Financial Resource Strain: Not on file Food Insecurity: Not on file Transportation Needs: Not on file Physical Activity: Not on file Stress: Not on file Social Connections: Not on file Housing Stability: Not on file Medications Current Outpatient Medications Medication Instructions albuterol (PROVENTIL HFA; VENTOLIN HFA) 108 (90 Base) MCG/ACT inhaler INHALE 2 PUFFS NEEDED SHORTNESS OF BREATH NO SOONER THAN EVERY 4 HOURS BD Insulin Syringe U/F 31G X 5/16 1 ML Misc To be used with methotrexate weekly (allowed to substitute for any 1 ml syringe, 1/2 inch needle, 27-31 g) clonazePAM (KlonoPIN) 0.5 MG tablet 1 tablet, Oral, Nightly PRN docusate sodium (COLACE) 100 MG capsule 1 capsule, Oral, 3 times daily escitalopram (LEXAPRO) 20 MG tablet 1 tablet, Oral, Daily fluticasone (FloNASE) 50 mcg/spray nasal spray 1 spray, Nasal, As needed Insulin Syringe-Needle U-100 31G X 5/16 1 ML Misc To be used with methotrexate weekly (Can substitute with 1 ml syringe with 0.5 inch needle (27g through 31 g) leuCOVORIN (WELLCOVORIN) 15 mg, Oral, Weekly methoTREXate (RHEUMATREX) 2.5 mg tablet 25 mg po q week methoTREXate 25 MG/ML injection 22.5 mg subcutaneous q week OMEprazole 20 mg, Oral, Daily before breakfast onabotulinum toxin type A (BOTOX) 100 units Recon Soln injection Intradermal, Every 3 months, For tremors Prolia 60 mg, Subcutaneous, Every 6 months rosuvastatin (CRESTOR) 20 MG tablet Daily Vitamin D 2,000 Units, Oral, Daily Allergies Allergies Allergen Reactions Baclofen Other (See Comments) Feels like she is melting into the ground after taking it Pseudoephedrine Palpitations Family History Family History Problem Relation Age of Onset No Known Problems Mother Lung cancer Father 65 Blood Clots Brother Hypertension Brother Heart attack Brother Rectal cancer Brother Breast cancer Paternal Grandmother 90s Heart attack Paternal Grandfather Review of Systems 12 point ROS completed. As per HPI or if noted below per patient answers, otherwise negative. Vital Signs There were no vitals filed for this visit. There is no height or weight on file to calculate BMI. Physical Exam Physical Exam Constitutional: Appearance: Normal appearance. She is normal weight. She is not ill-appearing. HENT: Head: Atraumatic. Eyes: General: No scleral icterus. Extraocular Movements: Extraocular movements intact. Conjunctiva/sclera: Conjunctivae normal. Pulmonary: Effort: Pulmonary effort is normal. Musculoskeletal: General: Normal range of motion. Cervical back: Normal range of motion. Skin: Findings: No rash. Neurological: General: No focal deficit present. Mental Status: She is alert and oriented to person, place, and time. Mental status is at baseline. Psychiatric: Mood and Affect: Mood normal. Behavior: Behavior normal. Thought Content: Thought content normal. Judgment: Judgment normal. Assessment 74 yo F with PMH of neuritis, osteoporosis, vitamin D deficiency, rheumatoid arthritis, GERD on PPIpresenting to follow-up for osteoporosis and Prolia injection # 6 today. Last seen by me 12/19. Please see initial consult note from 12/17 for details regarding presentation # Osteoporosis: Fracture history: over 30 yrs ago left foot metatarsal hair line fx. No low trauma fractures. Treatment history: Boniva 2008 - 2011. Prolia 02/2016 - 2016. Was prescribed Forteo at that time but did not take due to concern for side effects and did not want to pursue further tx per records from rheumatology. Started back on Prolia in 11/2021. Dental Work: has crowns. Dental abscess at site of old root canal - tooth was ground down and now covered with gum. Calcium intake: tums 750 mg once daily + milk, yogurt, cheese Vit D intake: 2000 IU daily Exercise: 30 mins walk a few days / week - less in the winter. Tries to go walk in the mall. Patient denies any back pain or height loss 11/2020 DXA: Lumbar spine -1.5 , Left hip -3.0 11/18 bone density: Lumbar spine -1.0, left total hip -2.9. There has been a 6% increase in bone density at the lumbar spine, left hip bone density is stable compared to prior. 06/19: Creatinine 0.7, EGFR >60, calcium 10.0, albumin 4.5, vitamin D 25 OH 47 11/17 albumin 4.5, vitamin D 25 OH 38, creatinine 0.8, calcium 9.6, EGFR >60. 06/21: Vitamin D 25 OH 42, creatinine 0.7, EGFR > 60, calcium 9.4, albumin 4.3 11/18: Vitamin D 25 OH 41, creatinine 0.8, EGFR> 60, calcium 9.3, albumin 4.1 06/22: Vitamin D 25 OH 50, creatinine 0.8, calcium 10.1, EGFR > 60, albumin 4.3 - Patient given Prolia injection # 6, 60 mg subcutaneously, left arm, lot # [id number], expiration 10/22 - Continue current calcium and vitamin D supplementation - Continue current exercise. Encouraged at least 30 minutes of weightbearing exercise 3 days a week. - Fall prevention encouraged - Repeat labs in 6 months for calcium, vitamin D 25 OH, albumin, BMP-ordered Follow up in 6 months for next Prolia injection for management of chronic condition of osteoporosis. Medical / Legal: This dictation was performed using voice recognition software, word substitution may have occurred and may have gone unnoticed and uncorrected. Plan Orders Placed This Encounter Procedures BASIC METABOLIC PANEL ALBUMIN VITAMIN D, 25-HYDROXY Марина Skinner MD 06/17/2024 documented in this encounter Plan of Treatment Upcoming Encounters Date Type Department Care Team (Late st Contact Info) Description 10/01/2024 2:40 PM EDT Office Visit [facility] Department of Rheumatology [place] [address] [phone] Annie Correia MD [address] [address] 12/16/2024 11:00 AM EDT Clinical Support [facility] Department of Endocrinology [place] [address] [facility] [address] [place] [address] Марина Skinner MD [address] [place] [address] Scheduled Orders Name Type Priority Associated Diagnoses Orde r Schedule BASIC METABOLIC PANEL Lab Routine Age-related osteoporosis without current pathological fracture Expected: 12/15/2024, Expires: 06/17/2025 ALBUMIN Lab Routine Age-related osteoporosis without current pathological fracture Expected: 12/15/2024, Expires: 06/17/2025 VITAMIN D, 25-HYDROXY Lab Routine Age-related osteoporosis without current pathological fracture Vitamin D deficiency Expected: 12/15/2024, Expires: 06/17/2025 documented as of this encounter Visit Diagnoses Diagnosis Age-related osteoporosis without current pathological fracture- Primary Vitamin D deficiency Post-menopausal Asymptomatic postmenopausal status (age-related) (natural) documented in this encounter Administered Medications Inactive Administered Medications - up to 1 most recent administrations Medication Order MAR Action Action Date Dose Rate Site denosumab (PROLIA) subcutaneous injection 60 mg 60 mg, Subcutaneous, Once, On [place] 2/20/25 at 1200, For 1 dose, Bring to room temp in original container (allow to stand ~15-30 minutes); do not warm by any other method. Avoid vigorous shaking. Administer in the upper arm, upper thigh, or abdomen. Solution may contain trace amounts of translucent to white protein particles; do not use if cloudy, discolored or contains excessive particles or foreign matter. Given 06/17/2024 12:02 PM EST 60 mg Left Arm documented in this encounter Care Teams Polystyrene Bead Molder Relationship Specialty Start Date End Date Zia Finley MD [address] [place] [address] PCP - General Internal Medicine 04/25/20 Марина Skinner MD [address] [facility] [address] [place] [address] Nursing Specialist Endocrinology 11/27/22 Jose Alberto Vásquez MD [address] [facility] [address] [place] [address] Gastroenterology 07/02/23 documented as of this encounter
--- OUTSIDE RECORDS SUMMARY | 2024-07-06 15:05 | XMS_ITS | Encounter Summary ---
Author Organization [facility] Address [address] [place] [id number] Care Team Providers Care Account Strategist Name Role Phone Zia Finley MD Primary Care Provider Марина Skinner MD Unavailable Jose Alberto Vásquez MD Unavailable [phone] Encounter Details Date Type Department Care Team (Late st Contact Info) Description 10/30/2022 Scanned Document [facility] Department of Endocrinology [place] [address] [place] [address] Endocrinology, Scan Social History Tobacco Use Types Packs/Day Years [...] Description 10/01/2024 2:40 PM EDT Office Visit [facility] Department of Rheumatology [address] [place] [phone] Annie Correia MD [address] [place] [address] [address] [place] [address] 12/16/2024 11:00 AM EDT Clinical Support [facility] Department of Endocrinology [place] [address] [facility] [address] [place] [phone] Марина Skinner MD [address] [place] [address] documented as of this encounter Visit Diagnoses Not on filedocumented in this encounter Care Teams Account Strategist Relationship Specialty Start Date End Date Zia Finley MD [address] [facility] [address] [place] [address] PCP - General Internal Medicine 04/25/20 Марина Skinner MD [address] [facility] [address] [place], [place] [phone] Wallcovering Texturer Endocrinology 11/27/22 Jose Alberto Vásquez MD [address] [facility] [address] [place] [address] Gastroenterology 07/02/23 documented as of this encounter
--- OUTSIDE RECORDS SUMMARY | 2024-07-06 15:05 | XMS_ITS ---
Author Name [facility] Organization Unknown Results Test Name/Text Value Interpretation Date Range Source CALCIUM SERPL MCNC 8.9mg/dL Normal [id number] 8.4 - 10 .2 [facility] ANION GAP SERPL SCNC 4mmol/L Below low normal [id number] 5 - 14 [facility] Glomerular filtration rate/1.73 sq M. predicted 90 Normal [id number] 60 - [facility] HCO3 SER SCNC 31mmol/L Normal [id number] 24 - 32 [facility] AST SERPL [facility]NC 15U/L Normal [id number] 5 - [facility] BUN SERPL MCNC 10mg/dL Normal [id number] 7 - 17 [facility] CHLORIDE SERPL SCNC 108mmol/L Above high normal [id number] 98 - 107 [facility] ALBUMIN SERPL BCG MCNC 3.9g/dL Normal [id number] 3.5 - 5 [facility] ALP SERPL-CCNC 53U/L Normal [id number] 34 - 104 [facility] ALT SERPL [facility]NC 16U/L Normal [id number] 7 - 52 [facility] CREAT SERPL MCNC 0.7mg/dL Normal [id number] 0.5 - 1 [facility] SODIUM SERPL SCNC 143mmol/L Normal [id number] 135 - 145 [facility] PROT SERPL MCNC 6.1g/dL Below low normal [id number] 6.4 - 8.5 [facility] BILIRUB SERPL MCNC 0.5mg/dL Normal [id number] 0.3 - 1 [facility] GLUCOSE P FAST SERPL MCNC 85mg/dL Normal [id number] 70 - 99 [facility] POTASSIUM SERPL SCNC 4mmol/L Normal [id number] 3.5 - 5.1 [facility] DIFFERENTIAL TYPE AUTOMATED Normal [id number] [facility] LYMPHOCYTES NO. BLD AUTO 1.6K/uL Normal 1 - 3.2 [facility] EOSINOPHIL NO. BLD AUTO 0.1K/uL Normal 0 - 0.5 [facility] MONOCYTES NFR BLD AUTO 7.5% Normal 2 - 12 [facility] LYMPHOCYTES NFR BLD AUTO 33.3% Normal 20 - 48 [facility] EOSINOPHIL NFR BLD AUTO 2.7% Normal 0 - 6 [facility] NEUTROPHILS NO. BLD AUTO 2.7K/uL Normal 1.8 - 7.8 [facility] BASOPHILS NFR BLD AUTO 0.4% Normal 0 - 2 [facility] MONOCYTES NO. BLD AUTO 0.4K/uL Normal 0 - 0.8 [facility] NEUTROPHILS NFR BLD AUTO 56.1% Normal 44 - 74 [facility] BASOPHILS IN BLOOD BY AUTOMATED COUNT 0K/uL Normal 0 - 0.2 [facility] TSH SerPl DL<=0.005 mIU/L-aCnc 1.13uIU/mL Normal [id number] 0.45 - 5.33 [facility] PLATELET NO. BLD AUTO 279K/uL Normal 150 - 450 [facility] RBC NO. BLD AUTO 3.85M/uL Below low normal 4.2 - 5.4 [facility] MCH RBC QN AUTO 30pg Normal 25 - 33 [facility] MCHC RBC AUTO MCNC 33.2g/dL Normal 32 - 36 [facility] HGB BLD MCNC 11.6g/dL Below low normal 12.5 - 16 [facility] WBC NO. BLD AUTO 4.8K/uL Normal 4 - 10.5 [facility] MCV RBC AUTO 90.5fL Normal 78 - 100 [facility] PMV BLD AUTO 8.1fL Normal 7.4 - 11.4 [facility] RDW RBC AUTO RTO 15.9% Normal [id number] 12.1 - 16. 2 [facility] HCT VFR BLD AUTO 34.8% Below low normal [id number] 37 - 47 [facility] CALCIUM SERPL MCNC 9.5mg/dL Normal [id number] 8.4 - 10 .2 [facility] ANION GAP SERPL SCNC 6mmol/L Normal [id number] 5 - 14 [facility] Glomerular filtration rate/1.73 sq M. predicted 77 Normal [id number] 60 - [facility] HCO3 SER SCNC 30mmol/L Normal [id number] 24 - 32 [facility] AST SERPL CCNC 14U/L Normal [id number] 5 - 40 [facility] BUN SERPL MCNC 11mg/dL Normal [id number] 7 - 17 [facility] CHLORIDE SERPL SCNC 106mmol/L Normal [id number] 98 - 10 7 [facility] ALBUMIN SERPL BCG MCNC 4.1g/dL Normal [id number] 3.5 - 5 [facility] ALP SERPL-CCNC 49U/L Normal [id number] 34 - 104 [facility] ALT SERPL CCNC 9U/L Normal [id number] 7 - 52 [facility] CREAT SERPL MCNC 0.8mg/dL Normal [id number] 0.5 - 1 [facility] SODIUM SERPL SCNC 142mmol/L Normal [id number] 135 - 145 [facility] PROT SERPL MCNC 6.8g/dL Normal [id number] 6.4 - 8.5 [facility] BILIRUB SERPL MCNC 0.4mg/dL Normal [id number] 0.3 - 1 [facility] GLUCOSE P FAST SERPL MCNC 86mg/dL Normal [id number] 70 - 99 [facility] POTASSIUM SERPL SCNC 4.2mmol/L Normal [id number] 3.5 - 5.1 [facility] LDLc SerPl Calc-mCnc 92mg/dL Normal [id number] 50 - 1 30 [facility] TRIGL SERPL-MCNC 56mg/dL Normal [id number] - 150 [facility] CHOLEST SERPL-MCNC 157mg/dL Normal [id number] 0 - 200 [facility] HDLC SERPL-MCNC 54mg/dL Normal [id number] 33 - 92 C [facility] History of Medication Use Medication Directions Dispensed Refills Start Date End Date Status clonazepam 1 mg tablet TAKE 1/2 OF 1MG TABLET BY MOUTH AT BEDTIME 30 MINUTES BEFORE BEDTIME 2023 completed Vimovo 500mg-20mg delayed-release tablet 02/26/202016 active omeprazole (PriLOSEC) 40 MG capsule Take 20 mg by mouth daily. 02/14/20 active Cholecalciferol (VITAMIN D) 2000 units tablet Take 2,000 Units by mouth daily. active moxifloxacin 0.5 % eye drops INSTILL 1 DROP IN RIGHT EYE THREE TIMES DAILY. BEGIN 3 DAYS BEFORE SURGERY 2021 completed predniSONETake 3 Tablet (oral) 1 time per day for 5 [id number] time per [id number] 0mg 04/26/20 suspended pravastatinTakeNo da te recordedNo form recordedNo frequency recordedNo route recordedNo set duration recordedNo set duration amount recordedsuspendedNo dosage strength recordedNo dosage strength units of measure recorded suspended LexaproTakeNo date recordedNo form recordedNo frequency recordedNo route recordedNo set duration recordedNo set duration amount recordedactiveNo dosage strength recordedNo dosage strength units of measure recorded active pantoprazole (PROTONIX) 40 MG tablet Take 1 tablet (40 mg total) by mouth daily. activ e omeprazole (PriLOSEC) [address] capsule 02/14/20 active Lotemax SM 0.38 % eye gel drops INSTILL 1 DROP IN RIGHT EYE THREE TIMES DAILY. BEGIN DIRECTED AFTER SURGERY 2021 completed clonazePAM (KlonoPIN) 0.5 MG tablet TK 1 T PO QD 07/22/19 active insulin syringe-needle U-100 1 mL 27 gauge x 5/8 syringe TO BE USED WITH METHOTREXATE ONCE WEEKLY 01/04/20 active loratadine 10 mg tablet 2017 completed moxifloxacin 0.5 % eye drops 02/19/20 22 2021 completed omeprazole 40 mg capsule,delayed release 2023 completed gabapentin 100 mg capsule 2019 completed omeprazole 40 mg capsule,delayed release active ipratropium bromide 42 mcg (0.06 %) nasal spray 2016 completed oxycodone-acetaminoph en 5 mg-325 mg tablet 2017 completed fluticasone (FLONASE) 50 MCG/ACT nasal spray spray/apply 2 sprays in each nostril as needed. 07/14/19 18 active clonazepam 0.5 mg tablet TAKE 1 TABLET BY MOUTH AT BEDTIME active escitalopram (LEXAPRO) 20 mg tablet TAKE 1 TABLET(20 MG) BY MOUTH DAILY 10/10/19 active promethazine 6.25 mg-codeine 10 mg/5 mL syrup Take 10 mL by mouth every night at bedtime. 07/18/19 19 2018 completed ipratropium bromide 42 mcg (0.06 %) nasal spray 08/21/19 16 2015 completed ondansetron HCl 4 mg tablet 2017 completed omeprazole (PriLOSEC) 40 MG capsule Take 20 mg by mouth daily. 02/14/20 active rosuvastatin 20 mg tablet TAKE 1 TABLET(20 MG) BY MOUTH DAILY active OnabotulinumtoxinA (BOTOX IJ) Inject 1 Dose as directed every 3 (three) months. active amitriptyline 10 mg tablet TAKE 1 TABLET BY MOUTH EVERY DAY AT BEDTIME 2021 completed methotrexate sodium 2.5 mg tablet methotrexate sodium 2.5 mg tablet completed doxycycline hyclate 100 mg capsule Take 1 capsule (100 mg total) by mouth 2 (two) times a day. 03/14/20 16 2015 completed clonazepam 1 mg tablet TAKE 1/2 OF 1MG TABLET BY MOUTH AT BEDTIME 30 MINUTES BEFORE BEDTIME 2023 completed leflunomide 10 mg tablet TAKE 1 TABLET BY MOUTH EVERY OTHER DAY active leucovorin calciumTakeNo date recordedNo form recordedNo frequency recordedNo route recordedNo set duration recordedNo set duration amount recordedactiveNo dosage strength recordedNo dosage strength units of measure recorded active tizanidine 4 mg tablet Take 1 tablet (4 mg total) by mouth every 8 (eight) hours as needed. 06/18/192018 completed rosuvastatin 20 mg tablet rosuvastatin 20 mg tablet completed Colace 1 tab po tid 1 tab po tid completed leucovorin (WELLCOVORIN) 15 MG tablet Take 1 tablet (15 mg total) by mouth every 7 days 02/14/20 active prednisone 10 mg tablet TAPER - 4 TABS DAY 1, 3 TABS DAYS 2 AND 3, 2 TABS DAYS 4 AND 5 ND 6, 1 TAB DAY 7. 07/16/19 18 2017 completed rabeprazole 20 mg tablet,delayed release 2017 completed leucovorin calcium 5 mg tablet active Cholecalciferol (VITAMIN D) 2000 units tablet Take by mouth. active clonazePAM (KLONOPIN) 0.5 MG tablet Take 1 tablet (0.5 mg total) by mouth every night at bedtime as needed. 10/05/19 active methotrexate sodium 25 mg/mL injection solution 22.5 MG SUBCUTANEOUS EVERY WEEK 2023 completed cholecalciferol (VITAMIN D-3) 50 mcg (2,000 unit) tablet Take 2,000 Units by mouth daily. Vitamin D TABS Refills: 0 Active activ e meloxicam 7.5 mg tablet Take 1 tablet (7.5 mg total) by mouth daily. 06/18/19 19 2018 completed azithromycin 250 mg tablet azithromycin 250 mg tablet completed benzonatate 100 mg capsule 2018 completed clonazePAM (KlonoPIN) 0.5 MG tablet Take 1 tablet by mouth nightly as needed. 07/22/19 active baclofen 10 mg tablet TAKE 1 TABLET BY M OUTH TWICE DAILY 2023 completed methotrexate sodium (PF) 25 mg/mL injection solution INJECT 0.8ML UNDER THE SKIN ONCE A WEEK 2023 completed Methotrexate 22.5 MG/0.9ML Solution Prefilled Syringe Inject 22.5 mg under the skin once a week. Inject 22.5 mg once weekly 07/02/19 23 2023 active methotrexate 2.5 mg tablet Take 8 tablets every week by oral route. Take 8 tablets every week by oral route. complete d amoxicillin 875 mg-potassium clavulanate 125 mg tablet TAKE 1 TABLET BY MOUTH TWICE DAILY FOR 10 DAYS TAKE WITH FOOD YOGURT PROBIOTIC 2023 completed escitalopram 20 mg tablet escitalopram 20 mg tablet completed Prolensa 0.07 % eye drops INSTILL 1 DROP IN RIGHT EYE EVERY DAY. BEGIN 3 DAYS BEFORE SURGERY 2021 completed Cholecalciferol (VITAMIN D) 2000 UNITS tablet Take 2,000 Units by mouth daily. Vitamin D TABS Refills: 0 Active activ e doxycycline monohydrate 100 mg tablet 2017 completed propranolol 10 mg tablet 10/05/19 16 2016 completed pantoprazole 40 mg tablet,delayed release Take 1 tablet (40 mg total) by mouth daily. 2023 completed metronidazole 0.75 % topical cream APPLY TWICE DAILY TO FACE active methoTREXate (RHEUMATREX) 2.5 mg tablet 25 mg po q week 07/22/19 19 2023 active acetaminophen 300 mg-codeine 30 mg tablet 2018 completed leuCOVORIN (WELLCOVORIN) 5 MG tablet Take 3 tablets (15 mg total) by mouth once a week. 05/13/19 19 2023 active Lotemax SM 0.38 % eye gel drops APPLY 1 DROP BOTH EYES FOUR TIMES DAILY DIRECTED BY INSTRUCTIONS GIVEN BY 2023 completed pravastatin (PRAVACHOL) 80 MG tablet 06/05/19 19 2022 active albuterol (PROVENTIL HFA; VENTOLIN HFA) 108 (90 Base) MCG/ACT inhaler INHALE 2 PUFFS NEEDED SHORTNESS OF BREATH NO SOONER THAN EVERY 4 HOURS active metronidazole 0.75 % topical cream APPLY TWICE DAILY TO FACE active mometasone 50 mcg/actuation nasal spray 2016 completed albuterol 108 (90 Base) MCG/ACT inhaler albuterol sulfate HFA 90 mcg/actuation aerosol inhaler active KlonopinTakeNo date recordedNo form recordedNo frequency recordedNo route recordedNo set duration recordedNo set duration amount recordedactiveNo dosage strength recordedNo dosage strength units of measure recorded active doxycycline hyclate 100 mg capsule 2016 completed Fluzone High-Dose (PF) 180 mcg/0.5 mL intramuscular syringe 2019 completed Allergies Allergen Reaction Severity Comment Documented Date Source Statu s PSEUDOEPHEDRINE HYDROCHLORIDE 05/05/2012 [facility] active Problems Problem Status Onset Date Problem Type Date of Resolution Source Inconclusive mammogram due to dense breasts active ProblemAct [facility] Rheumatoid arthritis involving multiple sites active ProblemAct [facility] Rib pain active ProblemAct [facility] Rheumatoid arthritis active ProblemAct [facility] Keratoconjunctivitis sicca active EncounterDiagnosisAct [facility] High risk medication use active EncounterDiagno sisAct [facility] Post-menopausal active ProblemAct [facility] Constipation active ProblemAct [facility] Lower abdominal pain active ProblemAct [facility] Costochondritis active ProblemAct [facility] Personal history of colonic polyps active ProblemAct [facility] Seropositive rheumatoid arthritis (HCC) active EncounterDiagnosisAct [facility] Atypical ductal hyperplasia of right breast active ProblemAct [facility] Breast pain, right active ProblemAct [facility] Osteoarthritis of spine, unspecified spinal osteoarthritis complication status, unspecified spinal region active EncounterDiagnosisAct [facility] Nuclear sclerotic cataract active ProblemAct [facility] Thoracic radiculopathy active ProblemAct [facility] Dysthymia active ProblemAct [facility] Gastroesophageal reflux disease active ProblemAct [facility] Contusion of left foot, initial encounter active ProblemAct [facility] Rheumatoid arthritis, right ankle and foot active EncounterDiagnosisAct [facility] Heel pain active ProblemAct [facility] [id number] - Tendonitis of right ankle active EncounterDiagnosisAct [facility] Thoracic radiculopathy active ProblemAct [facility] Dense breast active ProblemAct [facility] Gastroesophageal reflux disease with esophagitis active ProblemAct [facility] Diverticulosis of large intestine without hemorrhage active ProblemAct [facility] Abdominal pain, generalized active ProblemAct [facility] Acute bronchitis, unspecified active EncounterDiagnosisAct [facility] Nuclear sclerotic cataract of left eye active ProblemAct [facility] Nuclear sclerotic cataract of right eye active ProblemAct [facility] Other seasonal allergic rhinitis active ProblemAct [facility] Age-related osteoporosis without current pathological fracture active ProblemAct [facility] Acute upper respiratory infection, unspecified active ProblemAct [facility] Nodule of lung active ProblemAct [facility] Sinusitis active ProblemAct [facility] Mixed anxiety and depressive disorder active ProblemAct [facility] Rheumatoid arthritis active ProblemAct [facility] Taking high risk medication active ProblemAct [facility] Chest wall pain active ProblemAct [facility] Fibrocystic changes of bilateral breasts active ProblemAct [facility] Acute thoracic back pain active 2019-05 ProblemAct [facility] Hereditary essential tremor active ProblemAct [facility] Pain in thoracic spine active ProblemAct [facility] Rib pain active ProblemAct [facility] Body mass index 20-24 - normal active ProblemAct [facility] Thoracic spondylosis active ProblemAct [facility] Gastroesophageal reflux disease without esophagitis active ProblemAct [facility] Inconclusive mammography finding active ProblemAct [facility] ASCVD (arteriosclerotic cardiovascular disease) active EncounterDiagnosisAct [facility] Murmur active EncounterDiagnosisAct [facility] Mixed hyperlipidemia active EncounterDiagnosisA ct [facility] Pure hypercholesterolemia active ProblemAct [facility] Migraine active ProblemAct [facility] Rheumatoid arthritis active ProblemAct [facility] Chronic obstructive lung disease active ProblemAct [facility] Multiple nodules of lung active 2013-04 ProblemAct [facility] Diverticular disease active ProblemAct [facility] Depressive disorder active ProblemAct [facility] Concussion injury of brain active ProblemAct [facility] Pain of breast active ProblemAct [facility] Osteoporosis active ProblemAct [facility] Pain in right foot active EncounterDiagnosisAct [facility] Dropped object, strike by thrown, projected or falling object, subsequent encounter active ProblemAct [facility] Secondary osteoarthritis, right ankle and foot active ProblemAct [facility] Rheumatoid arthritis, left ankle and foot active ProblemAct [facility] Tendonitis of left ankle active 2021-06 ProblemAct [facility] Secondary osteoarthritis, left ankle and foot active ProblemAct [facility] Dropped object, strike by thrown, projected or falling object, initial encounter active ProblemAct [facility] Contusion of left foot, subsequent encounter active ProblemAct [facility] Thoracic spine pain active ProblemAct [facility] PSVT (paroxysmal supraventricular tachycardia) active ProblemAct [facility] Age-related osteoporosis without current pathological fracture active ProblemAct [facility] Immunosuppression active ProblemAct [facility] BMI 22.0-22.9, adult active ProblemAct [facility] High risk medication use active 2016-10 ProblemAct [facility] Gastro-esophageal reflux disease without esophagitis active ProblemAct [facility] Hyperlipidemia, unspecified active ProblemAct [facility] Immunodeficiency disorder active ProblemAct [facility] Seasonal allergic rhinitis due to pollen active ProblemAct [facility] Vitamin D deficiency active ProblemAct [facility] Family history of malignant neoplasm of breast active ProblemAct [facility] Nausea [facility] Thor[facility] spondylosis active ProblemAct [facility] Chest wall pain, chronic active 2022-03 ProblemAct [facility] Benign head tremor active ProblemAct [facility] Fibrocystic breast changes of both breasts active ProblemAct [facility] Nuclear sclerotic cataract active ProblemAct [facility] Spasmodic torticollis active ProblemAct [facility] Gastroesophageal reflux disease without esophagitis active ProblemAct [facility] Anxiety and depression active ProblemAct [facility] Senile osteoporosis active ProblemAct [facility] Palpitations active EncounterDiagnosisAct [facility] ASCVD (arteriosclerotic cardiovascular disease) active ProblemAct [facility] Intercostal neuralgia active ProblemAct [facility] Dyslipidemia active ProblemAct [facility] Immunizations Vaccine Date Source Lot Number Status SARS-COV-2 (COVID-19) vaccin e, mRNA, spike protein, LNP, bivalent booster, preservative free, 30 mcg/0.3 mL dose, kevin-sucrose formulation 04/24/2022 [facility] [id number] complet ed Influenza Quadravalent, 0.5m l (Fluad) 65yo and older 02/07/2023 [facility] [id number] completed Scaleogy (ages 12 & older) JUSTINA S-CoV-2 COVID-19, mRNA, LNP-S, kevin-sucrose, preservative free 07/22/2021 [facility] [id number] completed Pfizer SARS-CoV-2 COVID-19, mRNA, LNP-S, preservative free [facility] Covid-19 (Pfizer) Dilution Required 07/07/2020 [facility] [id number] completed Covid-19 (Pfizer) Dilution Required 06/14/2020 [facility] [id number] completed pneumococcal polysaccharide vaccine, 23 valent 05/06/2018 [facility] [id number] completed pneumococcal conjugate vaccine, 13 valent 02/20/2017 [facility] IVIA [id number] completed Tdap Tetanus diptheria acell ular pertussis (Boostrix; Adacel) 7yo and older 07/18/2016 [facility] [id number] completed Influenza Quadravalent, 0.5m l (Fluzone High-dose) 65yo and older 02/21/2021 [facility] [id number] comple casa Encounters Encounter Type Encounter Reason Primary Diagnosis Location Date Ambulatory [facility] 07/02/2024 Ambulatory Age-related osteoporosis without current pathological fracture Age-related osteoporosis without current pathological fracture [facility] 06/17/2024 Ambulatory Atherosclerotic hear t disease of [place] coronary artery without angina pectoris Atherosclerotic heart disease of [place] coronary artery without angina pectoris [facility] 04/15/2024 Ambulatory [facility] 04/02/2024 Ambulatory Acute bronchitis, unspecified Acute bronchitis, unspecified [facility] 02/23/2024 Ambulatory [facility] 02/19/2024 Ambulatory [facility] 02/03/2024 Ambulatory Follow-up Follow-up [facility] 12/12/2023 [facility] 12/04/2023 Ambulatory Age-related osteoporosis without current pathological fracture Age-related osteoporosis without current pathological fracture [facility] 12/02/2023 Ambulatory Mastodynia Mastodynia [facility] 10/07/2023 Ambulatory Personal history of colonic polyps Personal history of colonic polyps [facility] 09/19/2023 Ambulatory Rheumatoid arthritis , unspecified Rheumatoid arthritis, unspecified [facility] 07/04/2023 Ambulatory 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) (routine) w/o abn findings [facility] 06/04/2023 Ambulatory Age-related osteoporosis without current pathological fracture Age-related osteoporosis without current pathological fracture [facility] 06/03/2023 Ambulatory Gastro-esophageal reflux disease with esophagitis, without bleeding Gastro-esophageal reflux disease with esophagitis, without bleeding [facility] 05/01/2023 Ambulatory Rheumatoid arthritis with rheumatoid factor, unspecified Rheumatoid arthritis with rheumatoid factor, unspecified [facility] 04/04/2023 Ambulatory [facility] 03/04/20 Ambulatory Nausea Nausea [facility] 03/04/20 Ambulatory Hyperlipidemia, unspecified Hyperlipidemia, unspecified [facility] 02/25/2023 Ambulatory Hyperlipidemia, unspecified Hyperlipidemia, unspecified [facility] 02/25/2023 Ambulatory Nausea Nausea [facility] 02/13/2023 Ambulatory Rheumatoid arthritis with rheumatoid factor, unspecified Rheumatoid arthritis with rheumatoid factor, unspecified [facility] 12/27/2022 Ambulatory [facility] 11/28/2022 Ambulatory Rheumatoid arthr itis, unspecified [facility] 09/20/2022 Ambulatory Nausea [facility] 05/08/2022 Ambulatory [facility] 04/19/2022 Ambulatory [facility] 09/18/2021 Ambulatory Inconclusive mammogram [facility] 03/20/2021
--- OUTSIDE RECORDS SUMMARY | 2024-07-06 15:05 | XMS_ITS | Encounter Summary ---
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 Role Phone Zia Finley MD Primary Care Provider Марина Skinner MD Unavailable Jose Alberto Vásquez MD Unavailable [phone] Reason for Visit * Reason Comments Medication Refill Encounter Details Date Type Department Care Team ([facility] st Contact Info) Description 10/09/2021 Refill [facility] [address] [phone] Jose Alberto Vásquez MD [address] [place] [id number] Gastroesophageal reflux disease with esophagitis Social History Tobacco Use Types Packs/Day Years [...] AM EST documented as of this encounter Miscellaneous Notes * Telephone Encounter - Jose Alberto Vásquez MD - 10/09/2021 12:51 PM EDT Needs OV for refills * Telephone Encounter - Funmi Cedillo MA - 10/09/2021 8:10 AM EDT WON 09/26/20 documented in this encounter Plan of Treatment Upcoming Encounters Date Type Department Care Team (Late st Contact Info) Description 10/01/2024 2:40 PM EDT Office Visit [facility] Department of Rheumatology [place] [address] [place] [address] Annie Correia MD [address] [facility] [address] [place] [address] 12/16/2024 11:00 AM EDT Clinical Support [facility] Department of Endocrinology [place] [address] [facility] [address] [place] [phone] Марина Skinner MD [address] [place] [address] documented as of this encounter Visit Diagnoses Diagnosis Gastroesophageal reflux disease with esophagitis documented in this encounter Care Teams [employer] L[employer] Machinist Relationship Specialty Start Date End Date Zia Finley MD [address] [facility] [address] [place] [address] PCP - General Internal Medicine 04/25/20 Марина Skinner MD [address] [facility] [address] [place], [place] [id number] Veterinarian Assistant Endocrinology 11/27/22 Jose Alberto Vásquez MD [address] [facility] [address] [place] [address] Gastroenterology 07/02/23 documented as of this encounter
--- OUTSIDE RECORDS SUMMARY | 2024-07-06 15:05 | XMS_ITS | Clinical Summary ---
Author Organization [facility] Address [address] [place] [address] Care Team Providers Care Scaffolding Helper Name Role Phone Zia Finley MD Primary Care Provider [phone] Марина Skinner MD Unavailable Jose Alberto Vásquez MD Unavailable [phone] Allergies Active Allergy Reactions Criticality Noted Date Comments Baclofen Other (See Comments) Medium 04/03/2022 Feels like she is melting into the ground after taking it Pseudoephedrine Palpitations Medium 05/05/2012 Medications Medication Sig Dispensed Refills Start Date End Date Status onabotulinum toxin type A (BOTOX) 100 units Recon Soln injection Inject into the skin every 3 (three) months. For tremors Active escitalopram (LEXAPRO) 20 MG tablet Take 1 tablet (20 mg total) by mouth daily. 07/17/2018 Active fluticasone (FloNASE) 50 mcg/spray nasal spray 1 spray into each nostril as needed. Active clonazePAM (KlonoPIN) 0.5 MG tablet Take 1 tablet (0.5 mg total) by mouth nightly as needed. 1 07/21/2018 Active Cholecalciferol (VITAMIN D) 2000 units tablet Take 2,000 Units by mouth daily. Active docusate sodium (COLACE) 100 MG capsule Take 1 capsule (100 mg total) by mouth 3 (three) times a day. Active denosumab (Prolia) 60 mg/mL Solution Prefilled Syringe subcutaneous injection Inject 1 mL (60 mg total) under the skin every 6 (six) months. Active rosuvastatin (CRESTOR) 20 MG tablet daily. 05/18/2021 Active albuterol (PROVENTIL HFA; VENTOLIN HFA) 108 (90 Base) MCG/ACT inhaler INHALE 2 PUFFS NEEDED SHORTNESS OF BREATH NO SOONER THAN EVERY 4 HOURS Active OMEprazole 20 MG Tablet Delayed ResponseIndicatio ns:Gastroesophage al reflux disease with esophagitis without hemorrhage Take 20 mg by mouth every morning before breakfast. 90 tablet 4 05/01/2023 Active Insulin Syringe-Needle U-100 31G X 09/10 1 ML MiscIndications:R heumatoid arthritis, involving unspecified site, unspecified whether rheumatoid factor present (HCC) To be used with methotrexate weekly (Can substitute with 1 ml syringe with 0.5 inch needle (27g through 31 g) 12 each 11/27/2023 Active leuCOVORIN (WELLCOVORIN) 5 MG tabletIndications :Seropositive rheumatoid arthritis (HCC) Take 3 tablets (15 mg total) by mouth once a week. 36 tablet 3 04/02/2024 Active BD Insulin Syringe U/F 31G X 16 1 ML MiscIndications:S eropositive rheumatoid arthritis (HCC) To be used with methotrexate weekly (allowed to substitute for any 1 ml syringe, 1/2 inch needle, 27-31 g) 12 each 3 04/02/2024 Active methoTREXate 25 MG/ML injectionIndicati ons:Seropositive rheumatoid arthritis (HCC) 22.5 mg subcutaneous q week 24 mL 07/02/2024 Active methoTREXate (RHEUMATREX) 2.5 mg tabletIndications :Rheumatoid arthritis, involving unspecified site, unspecified whether rheumatoid factor present (HCC) 25 mg po q week 128 tablet 12/24/2023 5 Discontinue d(Therapy completed) methoTREXate 25 MG/ML injectionIndicati ons:Seropositive rheumatoid arthritis (HCC) 22.5 mg subcutaneous q week 24 mL 04/02/2024 5 Discontinue d(Reorder) Hospital, Clinic, or Other Facility Administered Medication Ordered Dose Route Frequency Start Date End Date Status denosumab (PROLIA) subcutaneous injection 60 mgIndications:Age-related osteoporosis without current pathological fracture 60 mg SC Once 06/17/2024 06/17/2024 Ended Active Problems Problem Noted Date Diagnosed Date Costochondritis 10/07/2023 Family history of malignant neoplasm of breast 0 10/07/2023 Lower abdominal pain 05/01/2023 Assessment & Plan (05/01/2023 12:02 PM EST): Large work up in past that has been negative Fleeting pain ?gas Denies constipation with TID colace Seeing LOT BOSS soon Plan for earlier colonoscopy was due this coming February Age-related osteoporosis wit hout current pathological fracture 11/28/2022 Vitamin D deficiency 11/28/2022 Post-menopausal 11/28/2022 Immunosuppression 09/21/2022 Rheumatoid arthritis 09/20/2022 Nausea 05/08/2022 Assessment & Plan (05/01/2023 12:00 PM EST): Improved with PPI switch from pantoprazole to omeprazole Doing well on omeprazole 20mg (ER) OTC - continue this Additionally her GES was noted to be abnormal with mild gastroparesis and her nausea that she has may be related to this. She already eats frequent small meals, continue this Call for worsening symptoms can do zofran prn and advised clear liquid diet until nausea resolves Since mild symptoms will hold on motility specialist Assessment & Plan (02/13/2023 11:42 AM EDT): Chronic CT a/p 12/2021 unremarkable Labs 12/2021 nl EGD 2018: GERD Will check GES If negative will consider pH study if no improvement with change/ increase PPI Doubt biliary without significant abd pain F/u visit in person recommended Assessment & Plan (05/08/2022 3:11 PM EST): Constant nausea x 5 days Some increased indigestion CT a/p 12/2021 unremarkable Labs 12/2021 nl EGD 2018: GERD Diff includes viral gastroenteritis, GERD, ulcers, hepatobiliary origin - obtain labs - continue Pantoprazole 40 mg daily - start Pepcid 40 mg nightly, may use additional dose during the day prn - Patient was advised lifestyle modifications: avoid dietary triggers, ETOH, NSAIDs, overeating or skipping meals, or late night eating. - pt will update on sx next week, consider EGD if no improvement Breast pain, right 03/20/2021 Dense breast 03/20/2021 Atypical ductal hyperplasia of right breast 02/27 Personal history of colonic polyps 08/16/2018 Assessment & Plan (05/01/2023 12:03 PM EST): High fiber diet. Adenoma-carcinoma sequence discussed. Last colon:??02/2019 5 year recall Recall colonoscopy due:??02/2024 - will plan for early colonoscopy due to ongoing pain A colonoscopy will be scheduled based on current indication. The indications, prep, alternatives and the procedure were thoroughly explained. There is no contraindication to colonoscopy. All questions were answered. The potential risks including but not limited to bleeding, infection, and perforation were also explained. Assessment & Plan (09/26/2020 3:27 PM EDT): High fiber diet. Adenoma-carcinoma sequence discussed. Last colon: 02/2019 5 year recall Recall colonoscopy due: 02/2024 Constipation 08/16/2018 Assessment & Plan (05/08/2022 3:10 PM EST): Longstanding h/o constipation Reportedly well controlled with colace TID Recommended 60 oz water daily and high fiber diet May use miralax daily prn Can consider abd xray to eval stool burden as possible cause of nausea Assessment & Plan (09/26/2020 3:27 PM EDT): Continue with colace Discussed patients diet and suggested changes, such as, increasing fiber with more fruits, veggies, or supplements. Pt should also increase fluid intake to at least 60 oz of water or water based drinks daily. We discussed different pharmaceutical options and their risks, benefits, and how to correctly take them and stay consistent. Follow clinically Diverticulosis of large intestine without hemorr arash 08/16/2018 Assessment & Plan (09/26/2020 3:26 PM EDT): High fiber diet Follow clinically Gastroesophageal reflux disease with esophagitis 08/16/2018 Assessment & Plan (05/01/2023 12:01 PM EST): Controlled with omeprazole 20mg ER daily, continue this. Avoid/limit tobacco, alcohol, chocolate, peppermint, caffeine, greasy foods, spicy foods, and acidic foods such as citrus and tomato. Eat smaller, more frequent meals, and do not eat within 2 hours of bedtime. If you have night-time symptoms, elevate the head of the bed 6 to 12 inches. Handout provided. Follow clinically. Assessment & Plan (09/26/2020 3:26 PM EDT): Continue with pantoprazole 40 mg once daily EGD performed in 2018 demonstrated GERD Avoid/limit tobacco, alcohol, chocolate, peppermint, caffeine, greasy foods, spicy foods, and acidic foods such as citrus and tomato. Eat smaller, more frequent meals, and do not eat within 2 hours of bedtime. If you have night-time symptoms, elevate the head of the bed 6 to 12 inches. Follow clinically Abdominal pain, generalized 08/16/2018 Assessment & Plan (09/26/2020 3:29 PM EDT): Will order CT of the abdomen/pelvis to rule out any intra-abdominal causes Currently being treated by Dr. Ott for pain management--pt scheduled for follow-up for further discussion in 2 weeks Will call patient with results Encounters Date Type Department Care Team Description 07/02/2024 10:40 AM EST Office Visit [facility] Department Of Rheumatology [place] [address] [place] [address] Annie Coreria MD Seropositive rheumatoid arthritis (HCC) (Primary Dx); High risk medication use; Immunosuppression; Osteoporosis, unspecified osteoporosis type, unspecified pathological fracture presence; Osteoarthritis of spine, unspecified spinal osteoarthritis complication status, unspecified spinal region; Keratoconjunctivitis sicca 07/02/2024 Orders Only [facility] Department Of Rheumatology [place] [address] [place] [address] Annie Correia MD Seropositive rheumatoid arthritis (HCC); High risk medication use 06/17/2024 11:45 AM EST Clinical Support [facility] Department of Endocrinology [place] [address] [place] [address] Марина Skinner MD Age-related osteoporosis without current pathological fracture (Primary Dx); Vitamin D deficiency; Post-menopausal 06/14/2024 Orders Only [facility] [address] [place] [address] Sarika Callahan PA-C 06/02/2024 Orders Only [facility] Department [facility] Endocrinology [place] [address] [facility] [address] [place] [address] Марина Skinner MD Age-related osteoporosis without current pathological fracture; Vitamin D deficiency 05/21/2024 Telephone [facility] Department of Endocrinology [place] [address] [place] [address] Марина Skinner MD from Last 3 Months Family History Medical History Relation Name Comments Blood Clots Brother Heart attack Brother Hypertension Brother Rectal cancer Brother Lung cancer Father No Known Problems Mother Heart attack Paternal Grandfather Breast cancer Paternal Grandmother 90s Relation Name Status Comments Brother Alive Father Mother Paternal Grandfather Paternal Grandmother Social History Tobacco Use Types Packs/Day Years Used Date Smoking Tobacco: Former Smokeless Tobacco: Never Tobacco Cessation:Counseling Given: Not Answered Alcohol Use Standard Drinks/Week Comments Yes 0 (1 standard drink = 0.6 oz pur e alcohol) Once every 2 month Sex and Gender Information Value Date Recorded Sex Assigned at Female 04/02/2023 9:50 AM EST Gender Identity Female 04/02/2023 9:50 AM EST Sexual Orientation Heterosexual (straight) 04/02 9:50 AM EST Last Filed Vital Signs Vital Sign Reading Time Taken Comments Blood Pressure 110/72 07/02/2024 11:11 AM EST Pulse 92 12/12/2023 3:41 PM EDT Temperature 36.6 ??C (97.8 ??F) 09/20/2022 9:05 AM ED T Respiratory Rate 16 12/02/2023 10:55 AM EDT Oxygen Saturation 96% 12/12/2023 3:41 PM EDT Inhaled Oxygen Concentration - - Weight 59 kg (130 lb) 07/02/2024 11:11 AM EST Height 161.3 cm (5' 3.5 ) 07/02/2024 11:11 AM ES T Body Mass Index 22.67 07/02/2024 11:11 AM EST Plan of Treatment Upcoming Encounters Date Type Department Care Team (Late st Contact Info) Description 10/01/2024 2:40 PM EDT Office Visit [facility] Department of Rheumatology [place] [address] [place] [phone] Annie Correia MD [address] [place] [address] 12/16/2024 11:00 AM EDT Clinical Support [facility] Department of Endocrinology [place] [address] [place] [address] [address] [facility] [address] [place] [address] Марина Skinner MD [address] [place], [place] [address] Health Maintenance Due Date Last Done Comments Hepatitis C Virus Screening 1950 DTaP/Tdap/Td Vaccines (1 - Tdap) 02/13/1967 Pneumococcal Vaccines 50+ (1 of 2 - PCV) 02/13/1967 Zoster (Shingles) Vaccine (1 of 2) 02/13/1967 DXA Bone Density (Females,Ages 65 and older) 02/13/2013 RSV Vaccine 60 years and older and Patients (1 - 1-dose 75+ series) 02/13/2023 COVID-19 Vaccine ( season) 2023 04/24/2022, 07/22/2021, 01/13/2021, Additional history exists Mammogram Discontinued 12/25/2020, 11/28, 01/19/2019, Additional history exists Influenza Vaccine Completed 02/20/2024, , 02/21/2021, Additional history exists Hepatitis B Vaccines Aged Out No long er eligible based on patient's age to complete this topic Procedures Procedure Name Priority Date/Time Associated Diagnosis Comments VITAMIN D, 25-HYDROXY Routine 06/30/2024 2:47 PM EST Vitamin D insufficiency C-REACTIVE PROTEIN Routine 06/30/2024 2: 47 PM EST Rheumatoid arthritis, involving unspecified site, unspecified whether rheumatoid factor present (HCC) ERYTHROCYTE SEDIMENTATION RATE (ESR) Routine 06/30/2024 2:47 PM EST Rheumatoid arthritis, involving unspecified site, unspecified whether rheumatoid factor present (HCC) COMPREHENSIVE METABOLIC PANEL Routine 06/30/2024 2:47 PM EST High risk medication use COMPLETE BLOOD COUNT, WITH DIFFERENTIAL Routine 06/30/2024 2:47 PM EST Rheumatoid arthritis, involving unspecified site, unspecified whether rheumatoid factor present (HCC) CT CHEST WITH CONTRAST Routine 06/14/2024 2:27 PM EST VITAMIN D, 25-HYDROXY Routine 06/07/2024 1:37 PM EST Age-related osteoporosis without current pathological fracture Vitamin D deficiency ALBUMIN Routine 06/07/2024 1:37 PM EST Age-related osteoporosis without current pathological fracture BASIC METABOLIC PANEL Routine 06/07/2024 1:37 PM EST Age-related osteoporosis without current pathological fracture MRI BREAST W W/O CONTRAST-BILATERAL Routine 05/19/2024 2:47 PM EST Family history of malignant neoplasm of breast Atypical ductal hyperplasia of right breast Dense breasts Abnormal finding on breast imaging IMAGING BREAST/BX/MAMMO Routine 12/25/2020 from Last 3 Months or Most Recently Relevant to Health Maintenance Results * (ABNORMAL) Complete Blood Count, with Differential (06/30/2024 2:47 PM EST) WBC 5.08 4.00 - 11.00 Thousand/u L [facility] RBC 4.19 4.04 - 5.48 Million/uL [facility] Hemoglobin 12.4 12.0 - 14.1 g/dL [facility] Hematocrit 38.4 33.5 - 43.3 % [facility] MCV 91.6 80.0 - 97.0 fL [facility] MCH 29.6 27.0 - 31.2 pg [facility] MCHC 32.3 31.8 - 35.4 g/dL [facility] RDW-CV 15.4(H) 11.6 - 14.8 % [facility] Platelet Count 322.0 142.0 - 424.0 Thousand/u L [facility] MPV 10.0 8.0 - 13.0 fL [facility] Neutrophil % 48.0 37.0 - 80.0 % [facility] Lymph % 44.9 10.0 - 50.0 % [facility] Monocytes % 4.9 1.0 - 11.9 % [facility] Eosinophils, % 1.6 0.0 - 6.9 % [facility] Basophils, % 0.4 0.0 - 2.4 % [facility] Absolute Neutrophil Count 2.4 2.0 - 6.9 Thousand/u L [facility] Absolute Lymphocytes 2.3 0.6 - 3.4 Thousand/u L [facility] Absolute Monocytes 0.3 0.1 - 0.8 Thousand/u L [facility] Absolute Eosinophils 0.1 0.0 - 0.6 Thousand/u L [facility] Absolute Basophils 0.0 0.0 - 0.1 Thousand/u L [facility] Immature Granulocytes 0.200 0.001 - 0.900 % [facility] Abs Immature Granulocytes 0.0100 0.0000 - 0.0700 Thousand/u L [facility] Nucleated RBCS (%) 0.0 0.0 - 0.2 % [facility] NRBC, Absolute 0.000 0.000 - 0.012 Thousand/u L [facility] Blood Blood specimen / Unknown 06/30/2024 2:47 PM EST 06/30/2024 9:18 PM EST Narrative [facility] - 06/30/2024 9:28 PM EST Copy to patient Annie Correia MD LAB BLOOD ORDERABLES [facility] [address] [place] [address], [place] * VITAMIN D, 25-HYDROXY (06/30/2024 2:47 PM EST) Only the most recent of2 resultswithin the time period is included. Pathologist [facility] Vitamin D, 25 OH, Total 53 30 - 100 ng/mL [facility] Blood Blood specimen / Unknown 06/30/2024 2:47 PM EST 06/30/2024 9:18 PM EST Narrative [facility] - 06/30/2024 9:56 PM EST Copy to patient Annie Correia MD LAB BLOOD ORDERABLES Performing Organization Address City/[facility] Co de Phone Number [address] * Erythrocyte Sedimentation Rate (ESR) (06/30/2024 2:47 PM EST) Pathologist [facility] Sedimentation Rate 4.0 0.0 - 30.0 mm/Hr [facility] Blood Blood specimen / Unknown 06/30/2024 2:47 PM EST 06/30/2024 9:18 PM EST Narrative [facility] - 06/30/2024 9:29 PM EST Copy to patient Annie Correia MD LAB BLOOD ORDERABLES Performing Organization Address [facility] Co de Phone Number [address] * C-REACTIVE PROTEIN (06/30/2024 2:47 PM EST) Pathologist [facility] C-Reactive Protein <3 <5.0 mg/L [facility] Blood Blood specimen / Unknown 06/30/2024 2:47 PM EST 06/30/2024 9:18 PM EST Narrative [facility] - 06/30/2024 9:56 PM EST Copy to patient Annie Correia MD LAB BLOOD ORDERABLES Performing Organization Address [facility] Co de Phone Number [address] * Comprehensive Metabolic Panel (06/30/2024 2:47 PM EST) Glucose 86 70 - 99 mg/dL [facility] Blood Urea Nitrogen 11 7 - 22 mg/dL [facility] Creatinine, Ser 0.7 0.5 - 1.2 mg/dL [facility] Bun / Creat Ratio 16 11 - 30 [facility] Sodium 145 133 - 145 mmol/L [facility] Potassium 4.8 3.3 - 5.1 mmol/L [facility] Chloride 107 96 - 108 mmol/L [facility] CO2 27 22 - 31 mmol/L [facility] Anion Gap 11 3 - 19 mmol/L [facility] Calcium 9.6 8.8 - 10.6 mg/dL [facility] Total Protein 6.9 6.0 - 8.3 g/dL [facility] Albumin 4.3 3.2 - 4.8 g/dL [facility] Globulin 2.6 2.0 - 3.5 g/dL [facility] Albumin/Globulin Ratio 1.7 1.0 - 5.0 [facility] Aspartate Aminotrans (AST) 19 8 - 37 IU/L [facility] Alanine Aminotrans (ALT) 13 5 - 40 IU/L [facility] Alkaline Phosphatase 69 37 - 145 IU/L [facility] Bilirubin, Total 0.5 0.0 - 1.0 mg/dL [facility] GFR Estimated (calculated) >60 >60 [facility] Comment: As of 2021, the [facility] Laboratory has updated the creatinine- based estimated glomerular filtration rate (eGFRcr) to the updated CKD-EPI 2020 equation. ??This change removes the race coefficient of the older calculation, and was made based on recommendations from the National Kidney Foundation and the [place] [employer]'s Task Force. ??The new eGFRcr has similar overall performance characteristics to the older equation and has been assessed to not have potential consequences that disproportionately affect any one group of individuals. ??However, some mild variation from the older eGFR equation can be expected especially in younger age patients and at higher eGFRcr values. Blood Blood specimen / Unknown 06/30/2024 2:47 PM EST 06/30/2024 9:18 PM EST Narrative [facility] - 06/30/2024 9:56 PM EST Copy to patient Annie Correia MD [place] [address], * CT CHEST WITH CONTRAST (06/14/2024 2:27 [...] your patient to us, Gio Diop MD [phone] (Electronically Signed - 06/17/2024 15:54) Copy: [facility] [address] [place] [address] Procedure Note Gio Diop MD - 06/17/2024 [...] Diop MD 06/17/2024 03:54 PM EST RPWorkstation: [id number] Thank you for referring your patient to us, Gio Diop MD [phone] (Electronically Signed - 06/17/2024 15:54) Copy: [facility] [address] [place] [address] Sarika Callahan PA-C IMG LEGACY PROCEDURE S * ALBUMIN (06/07/2024 1:37 PM EST) Albumin 4.3 3.2 - 4.8 g/dL [facility] Blood Blood specimen / Unknown 06/07/2024 1:37 PM EST 06/07/2024 8:00 PM EST Марина Skinner MD LAB BLOOD ORDERABLES [facility] [address] [place] [address] * (ABNORMAL) BASIC METABOLIC PANEL (06/07/2024 1:37 [...] [facility] GFR Estimated (calculated) >60 >60 [facility] Comment: As of 2021, the [facility] Laboratory has updated the creatinine- based estimated glomerular filtration rate (eGFRcr) to the updated CKD-EPI 2020 equation. ??This change removes the race coefficient of the older calculation, and was made based on recommendations from the National Kidney Foundation and the [place] [employer]'s Task Force. ??The new [...] MD LAB BLOOD ORDERABLES Performing Organization Address City/State/[facility] Co de Phone Number YAZAN LLOYD [address] [place] [id number], * MRI Breast w w/o contrast-Bilateral (05/19/2024 2:47 PM EST) Anatomical Region Laterality Modality Breast Bilateral Magnetic Resonan ce 05/19/2024 2:00 PM EST 05/19/2024 2:00 PM EST Impressions 05/21/2024 1:27 PM EST 1. No significant change in left breast mass at 7 oclock, a known tubular adenoma. Continue yearly follow up. 2. No significant change in left breast mass at 10 oclock. Continue yearly follow up. 3. Potential growth of pulmonary nodule at the right lung base. Short-term follow up chest CT is again recommended. ASSESSMENT: LEFT BREAST: BI-RADS 2 - Benign findings. RIGHT BREAST: BI-RADS 2 - Benign findings. RECOMMENDATIONS: 1. Yearly screening mammography. 2. Repeat bilateral breast MRI in 12 months. 3. Noncontrast chest CT. ?? Electronically signed by: ??Ricardo Ruiz MD ??05/21/2024 01:27 PM EST Thank you for referring your patient to us, Ricardo Ruiz MD [phone] (Electronically Signed - 05/21/2024 13:27) Copy: KAVEH SANTAMARIA MD [facility] [address] [address] PATIENT , ?? Narrative 05/21/2024 1:27 PM EST EXAMINATION: MR BREAST WITHOUT AND WITH CONTRAST, BILATERAL ?? CLINICAL INFORMATION: Short-term follow up of probably benign MR detected left breast mass 10 oclock. Previous benign left breast biopsy 6 oclock. (Tubular adenoma) A right lung nodule. High-risk patient, history of ADH. ?? COMPARISON: Breast MRI 10/29/2023. Chest CT 02/03/2024. TECHNIQUE: Utilizing a high-field scanner and dedicated breast coil, and prior to the administration of contrast, multiplanar localizer images were obtained. Bilateral axial T1-weighted sequences without fat-saturation and fat-saturated axial T2-weighted sequences were acquired. Before and after the administration of contrast, multiple sequential dynamic T1-weighted VIBRANT sequences were obtained through both breasts in the axial plane with fat-saturation. Subtracted images were obtained and reviewed. CAD postprocessing with 3-D reconstructions, maximum intensity projections and kinetic analysis was performed by the interpreting radiologist at an independent workstation and reviewed as a portion of this exam. CONTRAST DOSE: The patient received 6 mL of Gadavist intravenously without incident. FINDINGS: Bilaterally, there are scattered fibroglandular densities. The tissue undergoes mild background enhancement. ?? LEFT BREAST: An oval intensely-enhancing 7 mm mass at 7 oclock (series 100, image 96/150) contains a clip artifact. T2 bright. Type III rapid washout enhancement kinetics, a known tubular adenoma. No significant change compared with priors. Decreased conspicuity on mammography. Continue yearly follow up. An oval 12 mm weakly-enhancing left breast mass at 10 oclock (series 100, image 75), approximately 4 cm from the nipple. T2 bright. Subthreshold and type I enhancement kinetics. No significant interval change. Continue yearly follow up. Additional scattered foci of non-mass enhancement unchanged. RIGHT BREAST: Scattered foci of non-mass enhancement predominating inferiorly, unchanged. Duct ectasia in the lateral right breast with T2 signal void shows no enhancement. Stable MR and mammographic appearance. Clinical follow up. No new right breast mass, dominant non-mass enhancement or architectural distortion. The axillary lymph nodes are morphologically normal. No suspicious internal mammary lymph nodes are seen. An oval T2 bright nodule at the anterior right lung base (series 100, image 99/150) demonstrates weak enhancement. ??On MRI of lesion this currently measures 11 mm in transverse dimension (nonbreath-hold study). CT follow-up is again recommended. Recommend a CT scan of the chest without contrast at this time to reevaluate right lung base nodule. Procedure Note Ricardo Ruiz MD - 01/24/2025 EXAMINATION: MR BREAST WITHOUT AND WITH CONTRAST, BILATERAL CLINICAL INFORMATION: Short-term follow up of probably benign MR detected left breast mass 10oclock. Previous benign left breast biopsy 6 oclock. (Tubular adenoma) A right lung nodule. High-risk patient, history of ADH. COMPARISON: Breast MRI 10/29/2023. Chest CT 02/03/2024. TECHNIQUE: Utilizing a high-field scanner and dedicated breast coil, and prior to theadministration of contrast, multiplanar localizer images were obtained.Bilateral axial T1-weighted sequences without fat-saturation andfat-saturated axial T2- weighted sequences were acquired. Before and after the administration of contrast, multiplesequential dynamic T1-weighted VIBRANT sequences were obtained throughboth breasts in the axial plane with fat-saturation. Subtracted imageswere obtained and reviewed. CAD postprocessing with 3-D reconstructions, maximum intensity projections andkinetic analysis was performed by the interpreting radiologist at anindependent workstation and reviewed as a portion of this exam. CONTRAST DOSE: The patient received 6 mL of Gadavist intravenously without incident. FINDINGS: Bilaterally, there are scattered fibroglandular densities. The tissueundergoes mild background enhancement. LEFT BREAST: An oval intensely-enhancing 7 mm mass at 7 oclock ([id number], image 96/150) contains a clip artifact. T2 bright. Type III rapidwashout enhancement kinetics, a known tubular adenoma. No significantchange compared with priors. Decreased conspicuity on mammography. Continue yearly follow up. An oval 12 mm weakly-enhancing left breast mass at 10 oclock (series 100,image 75), approximately 4 cm from the nipple. T2 bright. Subthreshold andtype I enhancement kinetics. No significant interval change. Continueyearly follow up. Additional scattered foci of non-mass enhancement unchanged. RIGHT BREAST: Scattered foci of non-mass enhancement predominatinginferiorly, unchanged. Duct ectasia in the lateral right breast with T2 signal void shows noenhancement. Stable MR and mammographic appearance. Clinical follow up. No new right breast mass, dominant non-mass enhancement or architecturaldistortion. The axillary lymph nodes are morphologically normal. No suspiciousinternal mammary lymph nodes are seen. An oval T2 bright nodule at the anterior right lung base (series 100,image 99/150) demonstrates weak enhancement. On MRI of lesion thiscurrently measures 11 mm in transverse dimension (nonbreath-hold study).CT follow-up is again recommended. Recommend a CT scan of the chest without contrast at this time toreevaluate right lung base nodule. IMPRESSION: 1. No significant change in left breast mass at 7 oclock, a known tubularadenoma. Continue yearly follow up. 2. No significant change in left breast mass at 10 oclock. Continue yearlyfollow up. 3. Potential growth of pulmonary nodule at the right lung base. Short-termfollow up chest CT is again recommended. ASSESSMENT: LEFT BREAST: BI-RADS 2 - Benign findings. RIGHT BREAST: BI-RADS 2 - Benign findings. RECOMMENDATIONS: 1. Yearly screening mammography. 2. Repeat bilateral breast MRI in 12 months. 3. Noncontrast chest CT. Electronically signed by: Ricardo Ruiz MD 05/21/2024 01:27 PM EST RPWorkstation: [id number] Thank you for referring your patient to us, Ricardo Ruiz MD [phone] (Electronically Signed - 05/21/2024 13:27) Copy: KAVEH SANTAMARIA MD [address] [address] PATIENT , Fransisca SHARIF MRI ORDERABLES * IMAGING BREAST/BX/MAMMO (12/25/2020) Anatomical Region Laterality Modality Other External Provider MD SHARIF LEGAC[employer] PROCEDUR ES from Last 3 Months or Most Recently Relevant to Health Maintenance Care Teams Scaffolding Helper Relationship Specialty Start Date End Date Zia Finley MD [address] [place] [address] PCP - General Internal Medicine 04/25/20 Марина Skinner MD [address] [facility] [address] [place] [address] Children'S Attendant Endocrinology 11/27/22 Jose Alberto Vásquez MD [address] [facility] [address] [place] [address] Gastroenterology 07/02/23
--- OUTSIDE RECORDS SUMMARY | 2024-07-06 15:05 | XMS_ITS | Encounter Summary ---
Author Organization [facility] Address [address] [place] [address] Care Team Providers Care Lines Tender Name Role Phone Zia Finley MD Primary Care Provider [phone] Марина Skinner MD Unavailable Jose Alberto Vásquez MD Unavailable [phone] Encounter Details Date Type Department Care Team (Late st Contact Info) Description 06/18/2022 Scanned Document [facility]in[facility] [place] [address] [place] [address] [address] [place] [address] Endocrinology, Scan Social History Tobacco Use Types [...] Office Visit [facility] of Rheumatology [address] [place] [phone] Annie Correia MD [address] [facility] [address] [place] [address] 12/16/2024 11:00 AM EDT Clinical Support [facility] [place] [address] [facility] [address] [place] [phone] Марина Skinner MD [address] [place] [address] documented as of this encounter Visit Diagnoses Not on filedocumented in this encounter Care Teams Lines Tender Relationship Specialty Start Date End Date Zia Finley MD [address] [facility] [address] [place] [address] PCP - General Internal Medicine 04/25/20 Марина Skinner MD [address] [facility] [address] [place], [place] [id number] Admissions Representative Endocrinology 11/27/22 Jose Alberto Vásquez MD [address] [facility] [address] [place], [place] [phone] Gastroenterology 07/02/23 documented as of this encounter
--- OUTSIDE RECORDS SUMMARY | 2024-07-06 15:05 | XMS_ITS | Encounter Summary ---
Author Organization [facility] [place] [address] Care Team Providers Care Barrel Rifler Hook Name Role Phone Zia Finley Primary Care Provider [phone] Encounter Details Date Type Department Care Team (Latest Contact Info) Description 02/24/2024 9:59 AM EDT Hospital Encounter TH HISTORIC ENCOUNTERS EASTERN CONVERSION ONLY Rheumatoid arthritis, unspecified (CMS/HCC) Social History Tobacco Use Types Packs/Day Years [...] 04/14/2025 11:30 AM EST Office Visit [facility] [place] [address] [facility] [address] [place] [phone] Howie Jimenez MD [address] [address] documented as of this encounter Procedures Procedure Name Priority Date/Time Associated Diagnosis Comments XR ANKLE COMPLETE - BILATERAL Routine 02/24/2024 10:40 AM EDT Rheumatoid arthritis, unspecified (CMS/HCC) documented in this encounter Results * XR ANKLE COMPLETE - BILATERAL (02/24/2024 10:40 AM EDT) Anatomical Region Laterality Modality Radiographic Barb ging 02/20/2024 12:1 3 PM EDT Narrative 02/24/2024 11:16 AM EDT X-ray ankle complete bilateral Rheumatoid arthritis Prior 02/05/2023 FINDINGS: No erosive arthropathy. ??Small calcaneal spurs noted. ??No joint effusion. ??No fracture or dislocation. ??Mild degenerative OA. ??No joint effusion. ??The ankle mortises are symmetric bilaterally. IMPRESSION: No erosive arthropathy or acute process Report reviewed and signed by : Dr. Christiano Garland MD on 02/24/2024 11:16 AM. Workstation Name - [id number] Procedure Note Christiano Garland MD - 02/28/2024 X-ray ankle complete bilateral Rheumatoid arthritis Prior 02/05/2023 FINDINGS: No erosive arthropathy. Small calcaneal spurs noted. No joint effusion.No fracture or dislocation. Mild degenerative OA. No joint effusion.The ankle mortises are symmetric bilaterally. IMPRESSION: No erosive arthropathy or acute process Report reviewed and signed by : Dr. Christiano Garland MD on 1:16 AM. Workstation Name - [id number] Annie Correia MD IMG XR PROCEDURES Final Result documented in this encounter Visit Diagnoses Diagnosis Rheumatoid arthritis, unspecified (CMS/HCC) documented in this encounter Care Teams Barrel Rifler Hook Relationship Specialty Start Date End Date Zia Finley [address] [place] [address] PCP - General Internal Medicine 2/4/20 documented as of this encounter
--- OUTSIDE RECORDS SUMMARY | 2024-07-06 15:05 | XMS_ITS | Encounter Summary ---
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 of each region. 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 A mild degree of degenerative spurring is noted in the DIP joint of the right middle finger. Erosive arthritis within the wrists. Please see wrist films. CONCLUSION: Chronic erosive arthritis involving the 1st MCP joints, right worse than left. Mild degenerative arthritis in the DIP joint of the right middle finger. Report reviewed and signed by : Dr. Benson Morgan MD on 10/23/2021 8:42 AM. Workstation Name - [id number] Principle Associate Professor Of Chemistry: ALEX GUADALUPE Reports Copied To: CT ABD AND PELVIS W/ CONTRAST - [id number] 11:15AMProvider, CMG Referring Test NameResultFlagReferenceCT ABD AND PELVIS W/ CONTRAST - [id number] (Report) Ordering Provider: AMISH CONDON EXAMINATION: CT ABDOMEN AND PELVIS WITH CONTRAST CLINICAL INFORMATION: Pain COMPARISON: 04/16/2013 TECHNIQUE: Multidetector volumetric imaging was performed of the abdomen and pelvis following administration of oral and 100 mL Omnipaque 300 intravenous contrast. Sagittal and coronal reformatted images were obtained on the technologists workstation. This CT examination was performed using dose optimization techniques as appropriate, variously including the following: *Automated exposure control *Adjustment of mA and/or kV according to patient size (this includes techniques or standardized protocols for targeted exams where dose is matched to indication/reason for exam; i.e. extremities or head) *Use of iterative reconstruction technique DLP: 236 mGy-cm FINDINGS: LUNG BASES: Stable small nodule at the right lung base. This is incompletely visualized here and seen on the topmost cut only. Not significantly changed from 2013 study. LIVER, GALLBLADDER, AND BILIARY TREE: Some small areas of low density in the liver felt to be stable from previous exam. The gallbladder is unremarkable with no evidence of radiopaque gallstones, gallbladder wall thickening, or obvious pericholecystic inflammatory changes. PANCREAS: Unremarkable SPLEEN: Unremarkable ADRENAL GLANDS: Unremarkable KIDNEYS AND URETERS: The kidneys are normal in size, shape, and attenuation. No hydronephrosis, hydroureter, or calculi seen. No perinephric stranding. BLADDER: Unremarkable GASTROINTESTINAL TRACT: Possible small hiatal hernia. Some scattered areas of diverticulosis in the large bowel. No evidence for diverticulitis. ABDOMINAL WALL: No significant hernia is appreciated. LYMPH NODES: Normal VASCULAR: Unremarkable PELVIC VISCERA: Once again prominent uterus for age. Probable fibroid change associated. OSSEOUS STRUCTURES: Unremarkable IMPRESSION: No acute finding. The bowel pattern is within normal limits. No free fluid. Thank you for referring your patient to us, Harshil Esquivel MD [phone] (Electronically Signed - 10/18/2020 16:05) Copy: OLIVIA HUNTLEY MD [facility] [address] [place] [address] ZIA FINLEY MD [facility] [place] [address] [facility] [address] [place] [address] [email or web address] Principle Associate Professor Of Chemistry: Ayush BRYANT RADIOLOGYReports Copied To: OLIVIA FINLEY 22 Oct 2021 2:31 PM CBC w/diff - 58232 WBC 5.99 RBC 4.02 HGB 11.7 HCT 37.0 MCV 92.0 MCH 29.1 MCHC 31.6 RDW-CV 14.6 PLT 352.0 MPV 9.8 NEUT% 62.5 LYM% 27.9 MONO% 6.8 EOS% 1.7 BASO% 0.8 ABSOLUTE LUCILLE (ANC) 3.7 ABSOLUTE LYM 1.7 ABSOLUTE MONO 0.4 ABSOLUTE EOS (SI units) 0.1 ABSOLUTE BASO 0.1 IG% 0.300 IG# 0.0200 NRBC% 0.0 NRBC# 0.000 22 Oct 2021 2:31 PM Comprehensive Metabolic Panel - 45976 - STAR GLUCOSE 105 BUN 11 CREATININE,serum 0.8 B/C RATIO(calculated) 14 SODIUM 142 POTASSIUM 4.1 22 Oct 2021 2:31 PM Erythrocyte Sedimentation Rate ( ESR ) - 87386 SED RATE 9.0 CHLORIDE 106 CO2 28 ANION GAP (calculated) 8 CALCIUM 9.4 TOTAL PROTEIN 6.5 ALBUMIN 4.2 GLOBULIN (calculated) 2.3 A/G RATIO (calculated) 1.8 AST 12 ALT 9 ALK PHOS 84 TOTAL BILIRUBIN 0.3 GFR Estimated (calculated) >60 22 Oct 2021 2:31 PM C-Reactive Protein ( CRP ) - 79335 C-REACTIVE PROTEIN <3 22 Oct 2021 2:31 PM 25- Hydroxy Vitamin D, EIA - 76473 VITAMIN D, 25 OH, TOTAL 51 22 Oct 2021 12:00 AM [facility] - X-Ray Ankle Complete - Bilateral X-Ray Ankle Complete - Bilateral 22 Oct 2021 12:00 AM [facility] - X-Ray Wrist Complete - Bilateral X-Ray Wrist Complete - Bilateral 22 Oct 2021 12:00 AM [facility] - X-Ray Foot Complete Non Wt Bearing (3 view) - Bilateral X-Ray Foot Complete Non Wt Bearing (3 view) - Bilateral 22 Oct 2021 12:00 AM [facility] - X-Ray Hand Complete (3 view) - Bilateral X-Ray Hand Complete (3 view) - Bilateral Latest Reference Range & Units 07/30/22 12:23 Quantiferon NIL IU/mL 0.00 QFT Criteria Comment QFT Incubate Incubation performed. QFT Mitogen Value IU/mL >10.00 QFT TB1 Ag Value IU/mL 0.02 QFT TB2 Ag Value IU/mL 0.04 QFT-TB Gold Plus Negative Negative Latest Reference Range & Units 07/30/22 12:30 09/11/22 20:14 RBC 4.04 - 5.48 10 4.28 4.17 Hemoglobin 12.0 - 14.1 g/dL 12.2 12.2 Hematocrit 33.5 - 43.3 % 39.6 38.1 MCV 80.0 - 97.0 fL 92.5 91.4 MCH 27.0 - 31.2 pg 28.5 29.3 MCHC 31.8 - 35.4 g/dL 30.8 (L) 32.0 Platelet Count 142.0 - 424.0 10 340.0 321.0 MPV 8.0 - 13.0 fL 10.3 10.5 Immature Granulocytes 0.001 - 0.900 % 0.500 0.200 Abs Immature Granulocytes 0.0000 - 0.0700 10 0.0300 0.0100 Lymph % 10.0 - 50.0 % 27.9 35.4 NRBC, Absolute 0.000 - 0.012 10 0.000 0.000 Absolute Lymphocytes 0.6 - 3.4 10 1.8 2.1 WBC 4.00 - 11.00 10 6.42 6.01 Sedimentation Rate 0.0 - 30.0 mm/Hr 13.0 7.0 Sodium 133 - 145 mmol/L 141 139 Potassium 3.3 - 5.1 mmol/L 4.2 4.3 Chloride 96 - 108 mmol/L 106 102 CO2, POC 22 - 31 mmol/L 28 27 Anion Gap 3 - 19 mmol/L 7 10 BUN 7 - 22 mg/dL 11 11 Creatinine 0.5 - 1.2 mg/dL 0.7 0.7 Bun / Creat Ratio 11 - 30 16 16 Glucose 70 - 99 mg/dL 81 99 Calcium 8.8 - 10.6 mg/dL 9.2 9.3 Total Protein 6.0 - 8.3 g/dL 6.7 6.5 Albumin 3.2 - 4.8 g/dL 4.3 4.1 Globulin 2.0 - 3.5 g/dL 2.4 2.4 A/G Ratio 1.0 - 5.0 1.8 1.7 Bilirubin, Total 0.0 - 1.0 mg/dL 0.4 0.3 Aspartate Aminotrans (AST/SGOT) 8 - 37 IU/L 16 15 Alanine Aminotrans (ALT) 5 - 40 IU/L 9 8 Alkaline Phosphatase 37 - 145 IU/L 57 58 C-Reactive Protein <5.0 mg/L <3 <3 Vitamin D, 25 OH, Total 30 - 100 ng/mL 42 Absolute Basophils 0.0 - 0.1 10 0.0 0.0 Absolute Eosinophils 0.0 - 0.6 10 0.1 0.1 Absolute Monocytes 0.1 - 0.8 10 0.4 0.4 Absolute Neutrophil Count 2.0 - 6.9 10 4.1 3.4 Basophils % 0.0 - 2.4 % 0.5 0.5 Eosinophils % 0.0 - 6.9 % 0.9 1.8 GFR Estimated (calculated) >60 >60 >60 Monocytes % 1.0 - 11.9 % 6.4 5.8 Neutrophil % 37.0 - 80.0 % 63.8 56.3 Nucleated RBCS (%) 0.0 - 0.2 % 0.0 0.0 RDW-CV 11.6 - 14.8 % 15.4 (H) 14.9 (H) (L): Data is abnormally low (H): Data is abnormally high Latest Reference Range & Units 04/01/23 20:43 05/29/23 20:26 07/01/23 20:22 10/29/23 09:36 11/12/23 16:23 11/21/23 13:16 RBC 4.04 - 5.48 Million/uL 4.16 4.01 (L) 4.01 (L) Hemoglobin 12.0 - 14.1 g/dL 12.2 11.9 (L) 11.7 (L) Hematocrit 33.5 - 43.3 % 39.0 37.4 36.6 MCV 80.0 - 97.0 fL 93.8 93.3 91.3 MCH 27.0 - 31.2 pg 29.3 29.7 29.2 MCHC 31.8 - 35.4 g/dL 31.3 (L) 31.8 32.0 Platelet Count 142.0 - 424.0 Thousand/uL 337.0 280.0 328.0 MPV 8.0 - 13.0 fL 9.7 9.9 10.0 Immature Granulocytes 0.001 - 0.900 % 0.300 0.200 0.400 Abs Immature Granulocytes 0.0000 - 0.0700 Thousand/uL 0.0200 0.0100 0.0300 Lymph % 10.0 - 50.0 % 31.8 34.6 31.9 NRBC, Absolute 0.000 - 0.012 Thousand/uL 0.000 0.000 0.000 Absolute Lymphocytes 0.6 - 3.4 Thousand/uL 2.2 2.3 2.3 WBC 4.00 - 11.00 Thousand/uL 6.80 6.57 7.06 Sedimentation Rate 0.0 - 30.0 mm/Hr 5.0 6.0 7.0 Sodium 133 - 145 mmol/L 133 - 145 mmol/L 141 139 143 141 141 Potassium 3.3 - 5.1 mmol/L 3.3 - 5.1 mmol/L 4.4 4.5 4.4 4.1 4.1 Chloride 96 - 108 mmol/L 96 - 108 mmol/L 103 101 104 105 105 CO2, POC 22 - 31 mmol/L 22 - 31 mmol/L 29 30 30 25 25 Anion Gap 3 - 19 mmol/L 3 - 19 mmol/L 9 8 9 11 11 BUN 7 - 22 mg/dL 7 - 22 mg/dL 13 10 11 12 12 Creatinine 0.5 - 1.2 mg/dL 0.5 - 1.2 mg/dL 0.7 0.7 0.6 0.8 0.8 Bun / Creat Ratio 11 - 30 11 - 30 19 14 18 15 15 Glucose 70 - 99 mg/dL 70 - 99 mg/dL 122 (H) 77 83 101 (H) 101 (H) Calcium 8.8 - 10.6 mg/dL 8.8 - 10.6 mg/dL 9.7 9.4 9.3 9.3 9.3 Total Protein 6.0 - 8.3 g/dL 6.6 6.5 6.4 Albumin 3.2 - 4.8 g/dL 3.2 - 4.8 g/dL 4.3 4.3 3.9 4.1 4.1 Globulin 2.0 - 3.5 g/dL 2.3 2.6 2.3 A/G Ratio 1.0 - 5.0 1.9 1.5 1.8 Bilirubin, Total 0.0 - 1.0 mg/dL 0.3 0.2 0.3 Aspartate Aminotrans (AST/SGOT) 8 - 37 IU/L 14 12 16 Alanine Aminotrans (ALT) 5 - 40 IU/L 10 6 8 Alkaline Phosphatase 37 - 145 IU/L 65 67 56 C-Reactive Protein <5.0 mg/L <3 4.1 <3 Vitamin D, 25 OH, Total 30 - 100 ng/mL 37 42 41 MRI BREAST W W/O CONTRAST-BILATERAL Rpt Absolute Basophils 0.0 - 0.1 Thousand/uL 0.0 0.0 0.0 Absolute Eosinophils 0.0 - 0.6 Thousand/uL 0.1 0.1 0.1 Absolute Monocytes 0.1 - 0.8 Thousand/uL 0.5 0.5 0.4 Absolute Neutrophil Count 2.0 - 6.9 Thousand/uL 4.0 3.7 4.3 Basophils % 0.0 - 2.4 % 0.3 0.3 0.4 BONE DENSITY STUDY Rpt Eosinophils % 0.0 - 6.9 % 1.3 1.8 1.0 GFR Estimated (calculated) >60 >60 >60 >60 >60 >60 >60 Monocytes % 1.0 - 11.9 % 7.2 6.8 5.2 Neutrophil % 37.0 - 80.0 % 59.1 56.3 61.1 Nucleated RBCS (%) 0.0 - 0.2 % 0.0 0.0 0.0 RDW-CV 11.6 - 14.8 % 15.7 (H) 14.8 15.1 (H) (L): Data is abnormally low (H): Data is abnormally high Rpt: View report in Results Review for more information Latest Reference Range & Units 03/31/24 17:00 05/19/24 14:47 06/07/24 13:37 06/14/24 14:27 06/30/24 14:47 RBC 4.04 - 5.48 Million/uL 3.93 (L) 4.19 Hemoglobin 12.0 - 14.1 g/dL 12.1 12.4 Hematocrit 33.5 - 43.3 % 37.7 38.4 MCV 80.0 - 97.0 fL 95.9 91.6 MCH 27.0 - 31.2 pg 30.8 29.6 MCHC 31.8 - 35.4 g/dL 32.1 32.3 Platelet Count 142.0 - 424.0 Thousand/uL 281.0 322.0 MPV 8.0 - 13.0 fL 10.2 10.0 Immature Granulocytes 0.001 - 0.900 % 0.200 0.200 Abs Immature Granulocytes 0.0000 - 0.0700 Thousand/uL 0.0100 0.0100 Lymph % 10.0 - 50.0 % 33.6 44.9 NRBC, Absolute 0.000 - 0.012 Thousand/uL 0.000 0.000 Absolute Lymphocytes 0.6 - 3.4 Thousand/uL 2.2 2.3 WBC 4.00 - 11.00 Thousand/uL 6.40 5.08 Sedimentation Rate 0.0 - 30.0 mm/Hr 4.0 4.0 Sodium 133 - 145 mmol/L 141 146 (H) 145 Potassium 3.3 - 5.1 mmol/L 4.4 4.3 4.8 Chloride 96 - 108 mmol/L 104 105 107 CO2, POC 22 - 31 mmol/L 30 27 27 Anion Gap 3 - 19 mmol/L 7 14 11 BUN 7 - 22 mg/dL 12 11 11 Creatinine 0.5 - 1.2 mg/dL 0.7 0.8 0.7 Bun / Creat Ratio 11 - 30 17 14 16 Glucose 70 - 99 mg/dL 91 115 (H) 86 Calcium 8.8 - 10.6 mg/dL 9.1 10.1 9.6 Total Protein 6.0 - 8.3 g/dL 6.6 6.9 Albumin 3.2 - 4.8 g/dL 4.1 4.3 4.3 Globulin 2.0 - 3.5 g/dL 2.5 2.6 A/G Ratio 1.0 - 5.0 1.6 1.7 Bilirubin, Total 0.0 - 1.0 mg/dL 0.3 0.5 Aspartate Aminotrans (AST/SGOT) 8 - 37 IU/L 20 19 Alanine Aminotrans (ALT) 5 - 40 IU/L 10 13 Alkaline Phosphatase 37 - 145 IU/L 64 69 C-Reactive Protein <5.0 mg/L <3 <3 Vitamin D, 25 OH, Total 30 - 100 ng/mL [address] CHEST WITH CONTRAST Rpt MRI BREAST W W/O CONTRAST-BILATERAL Rpt Absolute Basophils 0.0 - 0.1 Thousand/uL 0.0 0.0 Absolute Eosinophils 0.0 - 0.6 Thousand/uL 0.1 0.1 Absolute Monocytes 0.1 - 0.8 Thousand/uL 0.4 0.3 Absolute Neutrophil Count 2.0 - 6.9 Thousand/uL 3.7 2.4 Basophils % 0.0 - 2.4 % 0.6 0.4 Eosinophils % 0.0 - 6.9 % 1.3 1.6 GFR Estimated (calculated) >60 >60 >60 >60 Monocytes % 1.0 - 11.9 % 6.7 4.9 Neutrophil % 37.0 - 80.0 % 57.6 48.0 Nucleated RBCS (%) 0.0 - 0.2 % 0.0 0.0 RDW-CV 11.6 - 14.8 % 14.9 (H) 15.4 (H) (L): Data is abnormally low (H): Data is abnormally high Rpt: View report in Results Review for more information Bone density study Indication and risk factors: Postmenopausal female. History of osteoporosis, assess for interval change. Comparisons: 12/25/2020 Study acquired on a [email or web address] densitometer. Imaging of the lumbar spine and hip was completed. FINDINGS: LUMBAR SPINE Averaged L1 through L4: Bone density: 1.06 g/cm2 Z score: 0.9 T score: -1.0 Lumbar spine bone density has increased by 6%. LEFT HIP Left total hip: Bone density: 0.65 g/cm2 Z score: -1.0 T score: -2.9 Left hip bone density has not changed significantly. CONCLUSION: 1. Lumbar spine: Interval increase in bone density, now measuring within normal limits. 2. Left hip: Stable osteoporosis. SESSION: Not applicable World Health Organization Definitions of Osteoporosis: T score at or below -1.0: Normal BMD T score between -1.0 and -2.5: Osteopenia T score at or below -2.5: Osteoporosis DEXA guidelines: Diagnosis : Treatment : Follow-up DEXA Normal BMD : Prevention : 2-3 years Osteopenia : Prevention/therapy :1-2 years Osteoporosis : Therapy : Yearly Report reviewed and signed by : Dr. Zuleika Church on 11/12/2023 4:20 PM. Workstation Name - [employer] X-ray wrist bilateral No erosive arthropathy, arthritis Prior: 02/05/2023 FINDINGS: Stable erosive arthropathy. Osteopenia and degenerative OA noted without fracture or destructive lesion. Again noted are erosive changes of the left distal ulna. IMPRESSION: Stable degenerative and erosive changes noted. Stable osteopenia. No fracture or dislocation. Report reviewed and signed by : Dr. Christiano Garland MD on 02/24/2024 11:22 AM. Workstation Name - [id number] X-ray hand complete bilateral History of osteoarthritis [...] on 02/24/2024 11:20 AM. Workstation Name - [id number] X-ray foot complete nonweightbearing bilateral Rheumatoid arthritis [...] on 02/24/2024 11:18 AM. Workstation Name - [id number] X-ray ankle complete bilateral Rheumatoid arthritis Prior 02/05/2023 FINDINGS: No erosive arthropathy. Small calcaneal spurs noted. No joint effusion. No fracture or dislocation.Mild degenerative OA. No joint effusion. The ankle mortises are symmetric bilaterally. IMPRESSION: No erosive arthropathy or acute process Report reviewed and signed by : Dr. Christiano Garland MD on 02/24/2024 11:16 AM. Workstation Name - [id number] Vitals Vitals: 07/02/24 1111 BP: 110/72 Weight: 59 kg (130 lb) Height: 1.613 m (5' 3.5 ) PE Pleasant, slim, older female with no acute distress Vital signs as noted HEENT- no scalp or sinus tenderness to palpation or percussion, eyes- eomi, sclera clear. Mask was in place (denial of oral ulcers). There was temporomandibular joint crepitus but no pain elicited with range of motion of the temporomandibular joints. No parotid gland fullness Neck- decreased range of motion with trapezial muscle spasms, no appreciable thyromegaly No appreciable cervical or supraclavicular lymphadenopathy Heart- rrr Lungs- no rales, no wheezes, no rhonchi Chest without costochondral tenderness to palpation but slight discomfort was noted overlying the right chest wall and ribs in March 2021 and which was not noted afterwards Abdomen- bowel sounds present, soft and no tenderness to palpation, no appreciable organomegaly Ext. 4. no edema, no witnessed Raynaud's, and distal pulses palpable in the arms and feet Back- no vertebral tenderness to palpation. Muscle spasms were present. Trigger points negative Joints- Right second finger with no triggering (previously affected by stenosing tenosynovitis) butthere was synovitis of the right second mcp joint on December 12, 2021 and there continued to be synovitis in this joint in January and February 2022, There was tenosynovitis noted of the right volar wrist on 03/15/2022. On 06/14/2022, the right second mcp synovitis and tenosynovitis of the right volar wrist were not prominent. In August 2022, there was slight pannus of the right second mcp joint but there was definition of the joint with no active synovitis and tenderness with palpation and with hand supervisor waterproofing. On 12/27/2022, there was synovial hypertrophy and tenderness of the right second mcp joint, and this findings was not prominent in March 2023. In June 2023, there was synovial hypertrophy ofthe right second mcp joint but no notable tenderness with palpation and with hand supervisor waterproofing. In November and March 2024 but less notably in June 2024, there was synovial hypertrophy of both second mcp joints (of which the right was more involved than the left) but no overt tenderness with hand supervisor waterproofing. Otherwise, there were no overt effusions or synovitis of the other joints. Left wrist with no synovitis. Feet with deformity of the toes but no active synovitis or metatarsalgia. Probable subluxation of mtps of which the left foot was more notable than right. No tenderness with palpation or with range of motion of the ankle joints, knees, hips, shoulders, elbows, wrists, and the other fingers. There was subtle ulnar deviation. Left hand finger did have prior stenosing flexor tenosynovitis Skin- sun-induced changes and freckling, no nodules, and no palpable purpura Neurologic- alert with appropriate affect, insight appeared intact, speech fluent, muscle strength 5/5. Sensation was perceived to soft touch. Tinel signs were negative. Continual tremor of the neck.Reflexes were present at the patellae but were equivocal at the Achilles and the plantar surfaces. Discussion/Summary The patient has a history of seropositive rheumatoid arthritis. The patient exhibited ulnar deviation of the hands but only her toes had marked deformities. There was a concern previously for possible pulmonary involvement from rheumatoid arthritis. The patient did appear to have control of the rheumatoid arthritis in March 2021 while taking methotrexate 20 mg po q week with leucovorin. The patient did not tolerate the taking of plaquenil because of headaches and did not continue to take it after trying this medication in July 2014. Previously, there had been consideration of the addition of sulfasalazine and/or switching to subcutaneous methotrexate which would have better bioavailability if there were a need for better control of rheumatoid arthritis prior to consideration ofbiologic treatments. Addition of leflunomide was a consideration at a low dose as well. She had an indeterminate quantiferon tb test, and we would consider repeating this test prior to any consideration of biologic treatment in the future. In the past, she was reluctant to consider biologic treatments anyway. The x-rays performed in July 2013 did reveal further erosive disease compared to prior films in . Her x-rays in October 2014 were consistent with disease in remission, and she stopped having joint swelling and prolonged morning stiffness. X-rays did not reveal disease progression in October 2015. However, those x-rays in May 2017 were not compared to prior x-rays, but although there was erosive disease, the erosions were deemed to be chronic. Further x-rays to monitor for disease progression were performed in November 2018, but once more, these x-rays were not compared to prior. The x-rays did not reveal further erosive disease in June 2020. Further x-rays were requested in June 2021 and they were performed in September 2021. There was evidence of progression of erosive disease in thewrists. In October 2021, the patient described having more notable symptoms of joint pain and swelling of the mcps but there was no synovitis at the time of the visit on October 26, 2021. She did note morning stiffness of approximately 30 minutes on average. We agreed to change the route of methotrexate to 20 mg sc q week with consideration of adding sulfasalazine in the subsequent few months. In November 2021, she did have synovitis of the right second mcp after taking methotrexate 20 mg sc q week for approximately six doses. The patient stated that she was traveling in December 2021 and requested a short course of prednisone 10 mg po qd for 14 days for the trip. The patient did not wish to add sulfasalazine on December 12, 2021. We planned to consider the addition of sulfasalazine further. Low dose leflunomide, 10 mg po qod was a consideration as well. The patient appeared to be clinically stable in January 2022. She stated that the right second mcp had been feeling better since her visit in November 2021. Nonetheless, there was mild synovial hypertrophy and synovitis of this joint but not of any other observed joints. The patient and I discussed apossible increase in the methotrexate or the addition of either sulfasalazine or leflunomide. She wished to continue taking methotrexate 20 mg sc q week with leucovorin 15 mg po q week, the day aftermethotrexate at that time. In February 2022, the patient had synovitis of the right second mcp joint and tenosynovitis of the volar right wrist. She stated that these symptoms were worse in the morning and would improve with progression of the day. The patient stated that she had difficulty with swallowing large pills such as those of sulfasalazine. Therefore, we agreed to to a trial of adding leflunomide 10 mg po qod to her medication regimen. I did request the noted tests prior to her reevaluation. The patient stated that she took leflunomide 10 mg po qod for 3 weeks but stopped the medication because of gastrointestinal distress. She continued to take methotrexate 20 mg sc q week. Although sheappeared to have improvement in the prior symptoms and signs of tenosynovitis of the right wrist and synovitis of the right second mcp joint on 06/14/2022, the concern was that she would have a flare again. The patient's laboratory tests revealed no toxicity or contraindication to a dose increase inthe methotrexate. Therefore, after discussion, the patient did agree to a trial of methotrexate 22.5 mg sc q week on June 14, 2022. The patient was advised to have laboratory tests in 3-4 weeks and if there were to be no contraindication, she would continue with this dose of methotrexate. In late August 2022, the patient appeared to be clinically stable. The patient did have slight pannus at the right second mcp joint but there was definition of the joint. Symptomatically, the patient denied having morning stiffness and did not have pain with hand supervisor waterproofing. There was no other synovitis. Laboratory tests were consistent with disease in remission. The plan was that she continue methotrexate 22.5 mg subcutaneously weekly (preference for prefilled syringes, non-generic). However, the patient was unable to get injectable Methotrexate. She did take split dosing methotrexate 22.5 mg po q week (5 tablets at night and 4 tablets in the morning), but she described more aches in December 2022 but not joint swelling. She did increase the methotrexate to 25 mg po q week (split dosing) after the visit in December 2022. The patient stated that she was feeling better in March 2023 with the joint pain, but she was having some abdominal discomfort. She did have a gastricemptying study which revealed gastroparesis by her report. The patient did have mild synovial hypertrophy of the right second mcp with tenderness on 12/27/2022 and although there continued to be mild synovial hypertrophy, there was no pain in that location. The patient did not describe morning stiffness. The patient did take oral methotrexate 25 mg po q week in split dosing and described gastrointestinal symptoms but had not had recurrent symptoms of joint pain associated with swelling and prolonged morning stiffness prior to the visit in March 2023. She had no synovitis at that time. There w as no toxicity and no immune system activation in March 2023. We had agreed that she continue taking methotrexate 25 mg po q week (split dosing of 5 tablets at night and 5 tablets in the morning). In June 2023, the patient did have synovial hypertrophy of the right second finger mcp joint but which was not significantly tender to palpation and hand supervisor waterproofing. She described intermittent soreness ofthe right shoulder, and the patient did have positive impingement testing consistent with a rotatorcuff disorder. Laboratory tests did not reveal toxicity and immune system activation. However, because the injectable methotrexate was available, the patient wished to have a trial of methotrexate 22.5 mg subcutaneous q week. The reason she wished to switch to subcutaneous methotrexate was because oral dosing of methotrexate 25 mg po q week led to gastrointestinal discomfort. I requested that shehave the noted tests prior to her reevaluation. The patient declined physical therapy for the rightshoulder rotator cuff tendonitis in June 2023. In March 2024, the patient did describe having similar pain in the second mcp joints. She statedthat the pain was intermittent and would vary with changes in barometric pressure. Otherwise, she denied having joint pain associated with swelling and prolonged morning stiffness. The patient deniedhaving mouth sores, shortness of breath, and cough. She did have synovial hypertrophy of the right s econd mcp joint but no active synovitis. The patient's laboratory tests revealed no toxicity and nonotable immune system activation. Previously, the patient reported having difficulty getting injectable methotrexate, and so, she did resume methotrexate 25 (split dosing) mg po q week. However, in March 2024, the patient requested subcutaneous methotrexate since she did experience more nausea with oral methotrexate. Therefore, methotrexate 22.5 mg subcutaneous q week was prescribed. In June 2024, the patient reported feeling better with the injectable methotrexate 22.5 mg subcutaneous q week with leucovorin 15 mg po q week, the day after methotrexate. She denied having morning stiffness. The patient stated that she had a flare of the left wrist with mild swelling which lasted1.5 days. She did not have synovitis on 07/02/2024 and her laboratory tests were consistent with disease in remission without toxicity. The plan was that she continue treatment with methotrexate 22.5 mg subcutaneous q week with leucovorin. I requested that she have laboratory tests prior to her reevaluation. X-rays were performed in January 2024. There was no evidence of progression of disease from rheumatoid arthritis. The patient had a ct scan of the chest which revealed pulmonary nodules of which one had grown prior to the visit in March 2024. She was advised to get a ct scan three months subsequently. By her report, the ct scan did not reveal notable findings upon repetition. She stated that she scheduled apulmonary evaluation in July 2024. The patient was aware that biologic therapy was the recommendation if her disease were refractory to subcutaneous methotrexate and if there were evidence of disease progression in the future. The patient reported having keratoconjunctivitis sicca in June 2016. I advised that she use preservative free artificial tears and to see the family law specialist. She reported seeing the ophthalmologistwho suggested systane eye drops. She stated that she was using systane eye drops which proved to behelpful subsequently. The symptoms of keratoconjunctivitis sicca had not had a notable exacerbationprior to November 2023. The patient was advised to get orthotics with metatarsal pads so that she would walk on the pad without putting pressure on the mtps of which the left appeared to be more subluxed than the right in June 2021. She did so prior to the visit in October 2021. She did have another fall and hit her head in late April 2014. She had tenderness of the right head with a headache. She was unaware of her reason for poor balance but she reported having this problem for years. She continued to have headaches but occasionally. She has a history of osteopenia/osteoporosis. The patient did have osteoporosis by dexa in July 2014. The patient and I discussed treatment for osteoporosis with reclast or prolia since she has severe gerd. She did take boniva in the past for at least 5 years. She did initiate treatment with prolia in February 2016. However, this medication was stopped in 2016. In late 2016, the patient stated that she would initiate treatment with forteo. However, it was not evident that she had initiated this therapy by the fall. She stated that she was concerned about the adverse effects and she did not wish to pursue this matter in 2018. Nonetheless, the patient did state that she did have another dexa scan after the visit in November 2018. The result of this test was not forwarded to my attention. The patient stated that she would be seeing an coordinator cardiopulmonary services in June 2019 to discuss treatment for osteopenia/ osteoporosis. She had not started treatment prior to December 2020 because of the COVID 19 pandemic. I advised the patient to consider getting an evaluation by an coordinator cardiopulmonary services and a plan for treatment in the first half 2020. She stated that she would be having an evaluationat an coordinator cardiopulmonary services at [facility]. She did not do so prior to December 2020. She scheduled an appointment with the coordinator cardiopulmonary services at [facility] in February 2021 and an coordinator cardiopulmonary services in [facility] in March 2021. The patient did have her appointment postponed until September 2021 and then to November 2021. She did have this evaluation with the coordinator cardiopulmonary services and was prescribed prolia every six months. I requested she have testing of the 25 hydroxy vitamin D periodically. 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 She was prescribed physical therapy in September 2017. The patient did describe having vice like pain in the thorax which radiated forward from the back. The question was thoracic spine nerve impingement syndrome. I requested x-rays of the thoracic spine. We did discuss a trial of gabapentin, but since the patient did have a neurologist, we deferred such a trial until she had an evaluation by the neurologist. The patient did start to take gabapentin 100 mg po qhs prior to the telemedicine evaluation in August 2019. The patient stated that the gabapentin was helpful and that she would be requesting a dose increase in the morning since she would have pain during the day as well. The patient was advised to have a trial of otc 4% lidocaine cream. The patient did have an evaluation by a cigar sorter later in 2019. The patient did participate in physical therapy but denied having improvement from this intervention. The patient stated that she did have physiatric care in 2020. In addition, she had treatment by other specialists. However, she continued to have symptoms afterwards. The quantiferon tb test was negative in July 2022. The patient did get the prevnar. The patient received the Pfizer COVID 19 vaccination prior to July 17, 2020. The patient did get the third dose of Pfizer COVID 19 vaccination in 2020. The patient did get the 4th dose of the COVID 19 vaccine in the spring. The patient did get COVID 19 infection in December 2021. She did take three days of paxlovid but was unable to tolerate the medication because of gastrointestinal adverse effects. The patient did get the bivalent COVID 19 vaccine for 2021- 2022. The patient was advised about theCOVID 19 vaccination boosters in her age group and because of immunosuppression in August 2022. She was advised to get the Shingrix. The patient did get the attenuated influenza vaccine for 2023- 2024. The patient and I spent the greater part of our visit in discussion of the presented medical problems, and I answered questions. The patient was advised to have a reevaluation in three months. Information is being carried forward from prior records for informational purposes only and is being cited so that the efficiency, safety, and quality of care are not compromised. Prep to see pt (e.g. review of tests) Performing the medically appropriate exam/hattie Counseling and educating pt / fam / caregiver Ordering meds, tests or procedures Independently interpreting resultsand communicating results Documenting clinical info in the EHR Total Time Spent: 30 minutes 1. Seropositive rheumatoid arthritis (HCC) - methoTREXate 25 MG/ML injection; 22.5 mg subcutaneous q week Dispense: 24 mL; Refill: 0 - Complete Blood Count, with Differential; Future - Erythrocyte Sedimentation Rate (ESR); Future - C-REACTIVE PROTEIN; Future 2. High risk medication use - Comprehensive Metabolic Panel; Future documented in this encounter Plan of Treatment Upcoming Encounters Date Type Department Care Team (Late st Contact Info) Description 10/01/2024 2:40 PM EDT Office Visit [facility] Department of Rheumatology [address] [place] [phone] Thao Esquivel MD [address] [place] [address] [address] [place] [address] 12/16/2024 11:00 AM EDT Clinical Support [facility] Department of Endocrinology [place] [address] [place] [address] [address] [place] [address] Марина Skinner MD [address] [place] [address] Scheduled Orders Name Type Priority Associated Diagnoses Orde r Schedule Complete Blood Count, with Differential Lab Routine Seropositive rheumatoid arthritis (HCC) Expected: 07/02/2024, Expires: 07/02/2025 Comprehensive Metabolic Panel Lab Routine High risk medication use Expected: 07/02/2024, Expires: 07/02/2025 Erythrocyte Sedimentation Rate (ESR) Lab Routine Seropositive rheumatoid arthritis (HCC) Expected: 07/02/2024, Expires: 07/02/2025 C-REACTIVE PROTEIN Lab Routine Seropositive rheumatoid arthritis (HCC) Expected: 07/02/2024, Expires: 07/02/2025 documented as of this encounter Visit Diagnoses Diagnosis Seropositive rheumatoid arthritis (HCC)- Primary High risk medication use Immunosuppression Osteoporosis, unspecified osteoporosis type, unspecified pathological fracture presence Osteoarthritis of spine, unspecified spinal osteoarthritis complication status, unspecified spinal region Keratoconjunctivitis sicca Sicca syndrome documented in this encounter Care Teams Child Day Care Provider Relationship Specialty Start Date End Date Zia Finley MD [address] [facility] [address] [place] [address] PCP - General Internal Medicine 04/25/20 Марина Skinner MD 12[address] [facility] [address] [place] [address] Orthopedic Nurse Endocrinology 11/27/22 Jose Alberto Vásquez MD 113 [facility] [address] [place] [address] Gastroenterology 07/02/23 documented as of this encounter
--- OUTSIDE RECORDS SUMMARY | 2024-07-06 15:05 | XMS_ITS | Encounter Summary ---
Author Organization [facility] Address [address] [place] [address] Care Team Providers Care Mobile Heavy Equipment Operator Name Role Phone Zia Finley MD Primary Care Provider [phone] Марина Skinner MD Unavailable Jose Alberto Vásquez MD Unavailable [phone] Encounter Details Date Type Department Care Team (Late st Contact Info) Description 11/27/2021 Scanned Document [address] [phone] Provider, Generic Social History Tobacco Use Types Packs/Day Years [...] Description 10/01/2024 2:40 PM EDT Office Visit [facility] Department of Rheumatology [place] [address] [phone] Annie Correia MD [address] [address] 12/16/2024 11:00 AM EDT Clinical Support [facility] Department of Endocrinology [place] [address] [facility] [address] [place] [address] Марина Skinner MD [address] [place] [address] documented as of this encounter Visit Diagnoses Not on filedocumented in this encounter Care Teams Mobile Heavy Equipment Operator Relationship Specialty Start Date End Date Zia Finley MD 139 [facility] [address] [place] [address] PCP - General Internal Medicine 04/25/20 Марина Skinner MD 1260 [facility] [address] [place] [address] Automobile Rental Agent Endocrinology 11/27/22 Jose Alberto Vásquez MD 113 [facility] 301 [place] [address] Gastroenterology 07/02/23 documented as of this encounter
--- OUTSIDE RECORDS SUMMARY | 2024-07-06 15:05 | XMS_ITS | Encounter Summary ---
Author Organization [facility] Address [address] [place] [address] Care Team Providers Care Analyzer Sales Name Role Phone Zia Finley MD Primary Care Provider Марина Skinner MD Unavailable Jose Alberto Vásquez MD Unavailable [phone] Encounter Details Date Type Department Care Team (Late Contact Info) Description 07/02/2024 Orders Only [facility] Department Of Rheumatology [address] [place] [phone] Annie Correia MD [address] [place] [address] Seropositive rheumatoid arthritis (HCC); High risk medication use Social History Tobacco Use Types Packs/Day Years [...] Office Visit [facility] Department of Rheumatology [place] [address] [facility] [address] [place] [phone] Annie Correia MD 160 [facility] 100 [place] [address] 12/16/2024 11:00 AM EDT Clinical Support [facility] Department of Endocrinology [place] [address] [facility] [address] [place] [phone] Марина Skinner MD 300 [place] [address] documented as of this encounter Visit Diagnoses Diagnosis Seropositive rheumatoid arthritis (HCC) High risk medication use documented in this encounter Care Teams Analyzer Sales Relationship Specialty Start Date End Date Zia Finley MD 139 [facility] [address] [place] [address] PCP - General Internal Medicine 04/25/20 Марина Skinner MD 1260 [facility] [address] [place] [address] Cigarette Making Machine Hopper Feeder Endocrinology 11/27/22 Jose Alberto Vásquez MD 113 [facility] [address] [place] [address] Gastroenterology 07/02/23 documented as of this encounter
--- OUTSIDE RECORDS SUMMARY | 2024-07-06 15:06 | XMS_ITS | Encounter Summary ---
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 ??Degenerative OA and osteopenia additionally noted. ??There is no evidence of fracture or dislocation. IMPRESSION: Stable appearance of erosive arthropathy, degenerative OA and osteopenia No fracture or dislocation Report reviewed and signed by : Dr. Christiano Garland MD on 02/24/2024 11:20 AM. Workstation Name - [id number] Procedure Note Christiano Garland MD - 02/28/2024 [...] MD on 1:20 AM. Workstation Name - [id number] Annie Correia MD IMG XR PROCEDURES Final Result documented in this encounter Visit Diagnoses Diagnosis Rheumatoid arthritis, unspecified (CMS/HCC) documented in this encounter Care Teams Forming Roll Operator Relationship Specialty Start Date End Date Tushar Zacharyaly [address] [place] [address] PCP - General Internal Medicine 06/01/19 documented as of this encounter
--- OUTSIDE RECORDS SUMMARY | 2024-07-06 15:06 | XMS_ITS | Clinical Summary ---
Author Organization [facility] Protection Analyst [place] Address [address] [place] [address] Phone Care Team Providers Care Account Executive Key Accounts Name Role Phone Zia Finley Primary Care Provider [phone] Allergies Active Allergy Reactions Criticality Noted Date Comments Baclofen Other Medium 04/03/2022 Feels like she is melting into the ground after taking it Pseudoephedrine Palpitations Medium 05/05/2012 Medications insulin syringe-needle U-100 1 mL 27 gauge x 5/8 syringe TO BE USED WITH METHOTREXATE ONCE WEEKLY 2 Active methotrexate sodium/PF (methotrexate PF) 25 mg/mL injection Inject under the skin every 7 days. 2 Active albuterol HFA (PROAIR HFA ; PROVENTIL HFA ; VENTOLIN HFA) 90 mcg/actuation inhaler albuterol sulfate HFA 90 mcg/actuation aerosol inhaler Active cholecalciferol (VITAMIN D-3) 50 mcg (2,000 unit) tablet Take 2,000 Units by mouth daily. Vitamin D TABS Refills: 0 Active Active clonazePAM (KlonoPIN) 0.5 mg tablet Take 1 tablet (0.5 mg total) by mouth every night at bedtime as needed. 6 Active denosumab (Prolia) 60 mg/mL syringe syringe Inject 1 mL (60 mg total) under the skin every 6 months. Active docusate sodium (COLACE) 100 mg capsule Take 1 capsule (100 mg total) by mouth 3 (three) times a day. Active escitalopram (LEXAPRO) 20 mg tablet TAKE 1 TABLET(20 MG) BY MOUTH DAILY 2 Active fluticasone propionate (FLONASE) 50 mcg/actuation nasal spray spray/apply 2 sprays in each nostril as needed. 8 Active leucovorin 15 mg tablet Take 1 tablet (15 mg total) by mouth once a week 2 Active loratadine (CLARITIN) 10 mg tablet TK 1 T PO PRN 7 Active omeprazole (PriLOSEC) [address] capsule 3 Active rosuvastatin (CRESTOR) 20 mg tablet TAKE 1 TABLET(20 MG) BY MOUTH DAILY 4 Active onabotulinumtox Al (BOTOX) 200 unit injection Inject 1 Dose as directed every 3 (three) months. Active Active Problems Problem Noted Date Diagnosed Date ASCVD (arteriosclerotic cardiovascular disease) 04/15/2024 PSVT (paroxysmal supraventricular tachycardia) 1 06/16/2023 Chest wall pain, chronic 04/04/2022 Thoracic spondylosis 02/21/2022 Thoracic radiculopathy 02/05/2022 Thoracic spine pain 02/05/2022 Intercostal neuralgia 08/12/2020 Nuclear sclerotic cataract 06/20/2020 Rib pain 06/22/2019 Acute bilateral thoracic back pain 06/22/2019 Benign head tremor 07/17/2018 Anxiety and depression 03/27/2017 Dyslipidemia 03/27/2017 Gastroesophageal reflux disease without esophagi tis 03/27/2017 Rheumatoid arthritis involving multiple sites Seasonal allergic rhinitis due to pollen 017 Senile osteoporosis 03/27/2017 Spasmodic torticollis 11/11/2016 Fibrocystic breast changes of both breasts 10/19 Inconclusive mammogram due to dense breasts 09/27 Encounters Date Type Department Care Team Description 04/15/2024 11:00 AM EST Office Visit [facility] - [place] [address] [phone] Howie Jimenez MD ASCVD (arteriosclerotic cardiovascular disease) (Primary Dx); Palpitations; PSVT (paroxysmal supraventricular tachycardia) (CMS/HCC) from Last 3 Months Immunizations Name Administration Dates Next Due Influenza Quadravalent, 0.5ml (Fluad) 65yo and o lder 02/07/2023 Influenza Quadravalent, 0.5m l (Fluzone High-dose) 65yo and older 02/21/2021 Pfizer (ages 12 & older) JUSTINA S-CoV-2 COVID-19, mRNA, LNP-S, kevin-sucrose, preservative free 07/22/2021 Pfizer SARS-CoV-2 COVID-19, mRNA, LNP-S, preservative free 01/13/2021 Tdap Tetanus diptheria acell ular pertussis (Boostrix; Adacel) 7yo and older 07/18/2016 Surgical History Surgery Date Site/Laterality Comments SKIN CANCER EXCISION PROCEDURE:SKIN CANCER EXCISION;COMMENT:basal cell- nose, squamos from hand UPPER GASTROINTESTINAL ENDOSCOPY PROCEDURE:UPPER GASTROINTESTINAL ENDOSCOPY UPPER GASTROINTESTINAL ENDOSCOPY 08/22/2017 N/A PROCEDURE:UPPER GASTROINTESTINAL ENDOSCOPY;COMMENT:Procedure: UPPER ENDOSCOPY-EGD with biopsies; Surgeon: Jose Alberto Vásquez MD; Location: [facility]; Service: Gastroenterology; Laterality: N/A; TOE SURGERY PROCEDURE:CORRECTION HAMMER TOE COLONOSCOPY PROCEDURE:COLONOSCOPY COLONOSCOPY 03/05/2019 N/A PROCEDURE:COLONOSCOPY;COMMENT :Procedure: COLONOSCOPY; Surgeon: Jose Alberto Vásquez MD; Location: [facility]; Service: Gastroenterology; Laterality: N/A; BREAST LUMPECTOMY W/ NEEDLE LOCALIZATION 01/07/2000 Right PROCEDURE:BREAST LUMPECTOMY W/ NEEDLE LOCALIZATION;COMMENT:ADH BREAST BIOPSY 1999 Right PROCEDURE:BREAST BIOPSY;COMMENT:atypical BREAST BIOPSY 2003 Right PROCEDURE:BREAST BIOPSY;COMMENT:BENIGN BREAST BIOPSY 2015 Left PROCEDURE:BREAST BIOPSY;COMMENT:BENIGN BREAST CYST ASPIRATION Right PROCEDURE:BREAST CYST ASPIRATION CATARACT EXTRACTION W/ INTRAOCULAR LENS IMPLANT 06/26/2020 Left PROCEDURE:CATARACT EXTRACTION W/ INTRAOCULAR LENS IMPLANT;COMMENT:Procedure: LEFT EXTRACTION CATARACT WITH IOL IMPLANT; Surgeon: Fransisca Connell MD; Location[facility]; Service: Ophthalmology; Laterality: Left; CATARACT EXTRACTION W/ INTRAOCULAR LENS IMPLANT 03/11/2022 Right PROCEDURE:CATARACT EXTRACTION W/ INTRAOCULAR LENS IMPLANT;COMMENT:Procedure: RIGHT EXTRACTION CATARACT WITH IOL IMPLANT; Surgeon: Fransisca Connell MD; Location: [facility]; Service: Ophthalmology; Laterality: Right; UPPER GASTROINTESTINAL ENDOSCOPY 06/06/2022 N/A PROCEDURE:UPPER GASTROINTESTINAL ENDOSCOPY;COMMENT:Procedure: UPPER ENDOSCOPY-EGD; Surgeon: Jose Alberto Vásquez MD; [place] [facility]; Service: Gastroenterology; Laterality: N/A; COLONOSCOPY 09/19/2023 N/A PROCEDURE:COLONOSCOPY;COMMENT :Procedure: COLONOSCOPY; Surgeon: Jose Alberto Vásquez MD; [place] [facility]; Service: Gastroenterology; Laterality: N/A; Medical History Medical History Date Comments Anxiety DX:Anxiety Abnormal finding on breast imaging DX:Abnormal finding on breas t imaging;COMMENT:left Hyperlipidemia DX:Hyperlipidemi a History of breast biopsy 07/1994, 12/1999, 09/2003 DX:History of breast biopsy;COMMENT:2 from right breast, 1 from left Osteoporosis DX:Osteoporosis Atypical ductal hyperplasia of right breast 12/1999 DX:Atypical ductal hyperplas ia of right breast Nipple discharge DX:Nipple discharge;COMMENT:left breast with intermittent burning Dystonia DX:Dystonia;COMM ENT:neck, botox injections Inconclusive mammogram due t o dense breasts 10/20/2015 DX:Inconclusive mammogram du e to dense breasts Fibrocystic breast changes o f both breasts 10/20/2015 DX:Fibrocystic breast change s of both breasts Acid reflux DX:Acid reflux Depression DX:Depression Rheumatoid arthritis (CMS/HCC) D X:Rheumatoid arthritis (HCC) Skin cancer DX:Skin cancer Tremor DX:Tremor;COMMEN T:head Bronchitis DX:Bronchitis Cataract DX:Cataract Covid-19 12/2021 DX:COVID-19 Anemia DX:Anemia Bronchitis DX:Bronchitis Nausea DX:Nausea Family History Medical History Relation Name Comments Cancer Brother Clotting disorder Brother Hyperlipidemia Brother Cancer Father Lung cancer Father smoker Hyperlipidemia Mother Breast cancer Paternal Grandmother 90's Colon cancer Neg Hx Endometrial cancer Neg Hx Ovarian cancer Neg Hx Relation Name Status Comments Brother Father Mother Paternal Grandmother Social History Tobacco Use Types [...] on file Sexual Orientation Not on file Obstetrics History Last Filed Vital Signs Vital Sign Reading Time Taken Comments Blood Pressure 106/72 04/15/2024 11:14 AM EST Pulse 86 04/15/2024 11:14 AM EST Temperature - - Respiratory Rate - - Oxygen Saturation 98% 04/15/2024 11:14 AM EST Inhaled Oxygen Concentration - - Weight 59 kg (130 lb) 04/15/2024 11:14 AM EST Height 161.3 cm (5' 3.5 ) 04/15/2024 11:14 AM ES T Body Mass Index 22.67 04/15/2024 11:14 AM EST Plan of Treatment Upcoming Encounters Date Type Department Care Team (Late st Contact Info) Description 04/14/2025 11:30 AM EST Office Visit [facility] - [place] [address] [facility] [address] [place] [id number] Howie Jimenez MD [address] [facility] [address] [place], [place] [id number] Health Maintenance Due Date Last Done Comments Zoster Vaccines (1 of 2) 02/13/1969 Depression Screening 04/04/2022 Falls Risk Assessment 04/04/2022 Social Influencers of Health Screening 04/04/2022 RSV Immunization Patients 60+ Years Old (1 - 1-dose 75+ series) 02/13/2023 COVID-19 Vaccine ( season) 2023 04/24/2022, 07/22/2021, 01/13/2021, Additional history exists Medicare Annual Wellness Visit 01/31/2024 01/30/2023 Hypertension/CHF/CAD Annual BMP Blood Test 02/22/2025 02/23/2024, 02/23/2024, 02/23/2024, Additional history exists DTaP,Tdap,and Td Vaccines (2 - Td or Tdap) 07/18/2026 07/18/2016 Cholesterol Screening (Lipid Panel) 04/15/2029 04/15/2024, 02/25/2023, 02/25/2023, Additional history exists Osteoporosis Screening (Bone Density Screening) 11/11/2033 11/12/2023, 12/25/2020, 12/21/2018 Pneumococcal Vaccine: 50+ Years Completed 05/06/2018, 02/20/2017 Hepatitis C Screening Completed 06/04/2019 Breast Cancer Screening Discontinued 02/22/20, 02/13/2022, 12/25/2020, Additional history exists Colorectal Cancer Screening: Colonoscopy Discontinued 09/19/2023 Influenza Vaccine Completed 02/20/2024, , 02/21/2021 HIB Vaccines Aged Out No longer eligi ble based on patient's age to complete this topic HPV Vaccines Aged Out No longer eligi ble based on patient's age to complete this topic Hepatitis A Vaccines Aged Out No long er eligible based on patient's age to complete this topic Hepatitis B Vaccines Aged Out No long er eligible based on patient's age to complete this topic IPV Vaccines Aged Out No longer eligi ble based on patient's age to complete this topic MMR Vaccines Aged Out No longer eligi ble based on patient's age to complete this topic Meningococcal ACWY Vaccine Aged Out N o longer eligible based on patient's age to complete this topic Meningococcal B Vacine Aged Out No lo nger eligible based on patient's age to complete this topic RSV Immunization Patients Under 20 months Aged Out No longer eligible based on patient's age to complete this topic Varicella Vaccines Aged Out No longer eligible based on patient's age to complete this topic Medical Devices Implanted Type Area Rn Oncology Clinical Device Identifier Shelf Expiration Date Model / Serial / Lot Lens Sky Swanson [employer] Prote[employer] Tri-Fix +20.5 Diopter - [id number] - [id number] Implanted:Qty: 1 on 06/26/2020 by Fransisca Connell MD Implants Left: Eye [employer] 07/19/2021 [id number] / [id number] / . Dib00 21.0 Implanted:Qty: 1 on 03/11/2022 by Fransisca Connell MD Implants Right: Eye [employer] 11/28/2024 [id number] / [id number] / Procedures Procedure Name Priority Date/Time Associated Diagnosis Comments ECG 12-LEAD Routine 04/15/2024 11:37 AM EST ASCVD (arteriosclerotic cardiovascular disease) LIPID PANEL Routine 04/15/2024 10:27 AM EST Hyperlipemia ANNUAL BMP BLOOD TEST Routine 02/23/2024 BONE DENSITY STUDY Routine 11/12/2023 11 :45 AM EDT Encounter for screening for osteoporosis Asymptomatic menopausal state Age-related osteoporosis without current pathological fracture MAMMOGRAM SCREENING BILATERAL 3D MAK WITH CAD Routine 02/21/2023 1:44 PM EDT Encounter for screening mammogram for malignant neoplasm of breast HEPATITIS C SCREENING Routine 06/04/2019 from Last 3 Months or Most Recently Relevant to Health Maintenance Results * ECG 12 lead (04/15/2024 11:37 AM EST) Narrative Howie Jimenez MD - 04/15/2024 11:37 AM EST Sinus rhythm. Normal ECG. us Howie Jimenez MD ECG ORDERABLES Final Result * Lipid panel (04/15/2024 10:27 AM EST) Cholesterol 188 0 - 200 mg/dL LAB CHEMISTRY METHOD 04/15/2024 3:34 PM EST [facility] Triglycerides 72 <150 mg/dL LAB CHEMISTRY METHOD 04/15/2024 3:34 PM EST [facility] HDL 67 33 - 92 mg/dL LAB CHEMISTRY METHOD 04/15/2024 3:34 PM EST [facility] LDL Calculated 107 50 - 130 mg/dL LAB CHEMISTRY METHOD 04/15/2024 3:34 PM EST [facility] VLDL Cholesterol Jovany 14.4 mg/dL LAB CHEMISTRY METHOD 04/15/2024 3:34 PM EST [facility] Comment:No established refer ence range. Blood Venous blood specimen / Unknown Venipuncture / Unknown 04/15/2024 10:27 AM EST 04/15/2024 10:27 AM EST us Sarika NAVAS LAB BLOOD ORDERABLES Final Resu lt [facility] [address] [place] [address], [place] [phone] * Annual BMP Blood Test (02/23/2024) Annual BMP Blood Test abstracted Historical Provider HEALTH MAINTENANCE Final Result * BONE DENSITY STUDY (11/12/2023 11:45 AM EDT) Anatomical Region Laterality Modality Bone Densitometr y 06/04/2023 11:3 1 AM EST Narrative 11/12/2023 4:20 PM EDT Bone density study Indication and risk factors: Postmenopausal female. ??History of osteoporosis, assess for interval change. ?? Comparisons: 12/25/2020 Study acquired on a Apokalyyis densitometer. Imaging of the lumbar spine and hip was completed. FINDINGS: LUMBAR SPINE Averaged L1 through L4: Bone density: 1.06 g/cm2 Z score: 0.9 T score: -1.0 Lumbar spine bone density has increased by 6%. LEFT HIP Left total hip: Bone density: 0.65 g/cm2 Z score: -1.0 T score: -2.9 Left hip bone density has not changed significantly. CONCLUSION: 1. ??Lumbar spine: ??Interval increase in bone density, now measuring within normal limits. 2. ??Left hip: ??Stable osteoporosis. SESSION: Not applicable World Health Organization [...] on 11/12/2023 4:20 PM. Workstation Name - ELIDA- Procedure Note Zuleika Church MD - 02/10/2024 Bone density study Indication and risk factors: Postmenopausal female. History ofosteoporosis, assess for interval change. Comparisons: 12/25/2020 Study acquired on a Apokalyyis densitometer. Imaging of thelumbar spine and hip was completed. FINDINGS: LUMBAR [...] Interval increase in bone density, now measuring withinnormal limits. 2. Left hip: Stable osteoporosis. SESSION: [...] : Dr. Zuleika Church on 11/12/2023 4:20 PM.Workstation Name - [id number]-PC Марина Skinner MD IMG DXA PROCEDURES Final Result * MAMMOGRAM SCREENING BILATERAL 3D MAK WITH CAD (02/21/2023 1:44 PM EDT) Anatomical Region Laterality Modality Mammography 01/30/2023 2:43 PM EDT Narrative 02/24/2023 8:22 AM EDT This is a summary report. The complete report is available in the patient's medical record. If you cannot access the medical record, please contact the sending organization for a detailed fax or copy. EXAM PERFORMED: ??MAMMOGRAM SCREENING BILATERAL 3D MAK WITH CAD EXAM HISTORY: Screening COMPARISON: 02/13/2022 TECHNIQUE: Bilateral full field digital mammography synthesized (2-D) and Tomosynthesis (3-D) was performed using standard CC and MLO projections. FINDINGS: Stable left breast anterior lower inner quadrant nodule and biopsy clip. ??Unremarkable right breast. There are no dominant mass lesions, skin thickening, or nipple retraction. No cluster of suspicious microcalcifications is seen. BREAST DENSITY: ??Heterogeneously dense breast parenchyma (50-75% fibroglandular tissue; density C).This may lower the sensitivity of mammography. IMPRESSION: 1. ??No radiographic evidence of malignancy. Followup is recommended in one year. The results of this examination have been communicated to the patient through a lay letter in accordance with the Mammography Quality Standards Act. BI-RADS 2: Benign. Session: Examination and interpretation performed during a separate session. [id number] Report reviewed and signed by : Dr. Christiano Bailon MD on 02/24/2023 8:22 AM. Workstation Name - [id number] Procedure Note Christiano Bailon MD - 06/03/2023 This is a summary report. The complete report is available in thepatient's medical record. If you cannot access the medical record, pleasecontact the sending organization for a detailed fax or copy. EXAM PERFORMED: MAMMOGRAM SCREENING BILATERAL 3D MAK WITH CAD EXAM HISTORY: Screening COMPARISON: 02/13/2022 TECHNIQUE: Bilateral full field digital mammography synthesized (2-D) andTomosynthesis (3-D) was performed using standard CC and MLO projections. FINDINGS: Stable left breast anterior lower inner quadrant nodule and biopsy clip.Unremarkable right breast. There are no dominant mass lesions, skinthickening, or nipple retraction. No cluster of suspiciousmicrocalcifications is seen. BREAST DENSITY: Heterogeneously dense breast parenchyma (50-75%fibroglandular tissue; density C).This may lower the sensitivity ofmammography. IMPRESSION: 1. No radiographic evidence of malignancy. Followup is recommended in oneyear. The results of this examination have been communicated to the patientthrough a lay letter in accordance with the Mammography Quality StandardsAct. BI-RADS 2: Benign. Session: Examination and interpretation performed during a separatesession. 3341 Report reviewed and signed by : Dr. Christiano Bailon MD on 02/24/2023 8:22AM. Workstation Name - [id number] us Cindy Garcia MD IMG BI PROCEDURES Final Resu lt * Hepatitis C Screening (06/04/2019) Pathologist [facility] Hepatitis C Screening abstracted us Historical Provider HEALTH MAINTENANCE Final Result from Last 3 Months or Most Recently Relevant to Health Maintenance Insurance [facility] [place] [id number] Care Teams Account Executive Key Accounts Relationship Specialty Start Date End Date Zia Finley [address] [place] [id number] PCP - General Internal Medicine 06/01/19
--- OUTSIDE RECORDS SUMMARY | 2024-07-06 15:06 | XMS_ITS | Clinical Summary ---
Author Organization [facility] Address [address] [place] [address] Care Team Providers Care Infrastructure Analyst Name Role Phone Zia Finley MD Primary Care Provider [phone] Allergies Active Allergy Reactions Criticality Noted Date Comments Baclofen Other (See Comments) Medium 04/03/2022 Feels like she is melting into the ground after taking it Pseudoephedrine Palpitations Medium 05/05/2012 Medications Medication Sig Dispensed Refills Start Date End Date Status clonazePAM (KLONOPIN) 0.5 MG tablet Take 1 tablet (0.5 mg total) by mouth every night at bedtime as needed. 5 10/05/2015 Active Cholecalciferol (VITAMIN D) 2000 UNITS tablet Take 2,000 Units by mouth daily. Vitamin D TABS Refills: 0 Active 0 Active OnabotulinumtoxinA (BOTOX IJ) Inject 1 Dose as directed every 3 (three) months. 0 Active loratadine (CLARITIN) 10 MG tablet TK 1 T PO PRN 2 02/12/2017 Active fluticasone (FLONASE) 50 MCG/ACT nasal spray spray/apply 2 sprays in each nostril as needed. 0 07/13/2017 Active docusate sodium (COLACE) 100 MG capsule Take 1 capsule (100 mg total) by mouth 3 (three) times a day. 0 Active escitalopram (LEXAPRO) 20 MG tablet TAKE 1 TABLET(20 MG) BY MOUTH DAILY 90 tablet 3 10/09/2021 Active albuterol 108 (90 Base) MCG/ACT inhaler albuterol sulfate HFA 90 mcg/actuation aerosol inhaler 0 Active leucovorin (WELLCOVORIN) 15 MG tablet Take 1 tablet (15 mg total) by mouth every 7 days 0 02/13/2022 Active BD SafetyGlide Syringe/Needle 27G X 5/8 1 ML MISC TO BE USED WITH METHOTREXATE ONCE WEEKLY 0 01/03/2022 Active Methotrexate Sodium (methotrexate, PF,) 50 MG/2ML injection Inject under the skin every 7 days. 0 02/08/2022 Active denosumab (Prolia) 60 MG/ML SOSY injection Inject 1 mL (60 mg total) under the skin every 6 (six) months. 0 Active omeprazole (PriLOSEC) 40 MG capsule Take 20 mg by mouth daily. 0 02/13/2023 Active rosuvastatin (CRESTOR) tablet 20 mgIndications:Mixed hyperlipidemia TAKE 1 TABLET(20 MG) BY MOUTH DAILY 90 tablet 3 09/08/2023 Active Active Problems Problem Noted Date Diagnosed Date Chest wall pain, chronic 04/04/2022 Nuclear sclerotic cataract of right eye 03/05/20 Thoracic spondylosis 02/21/2022 Thoracic spine pain 02/05/2022 Thoracic radiculopathy 02/05/2022 Intercostal neuralgia 08/12/2020 Nuclear sclerotic cataract of left eye 1 Rib pain 06/22/2019 Acute bilateral thoracic back pain 06/22/2019 Benign head tremor 07/17/2018 Seasonal allergic rhinitis due to pollen 017 Anxiety and depression 03/27/2017 Gastroesophageal reflux disease without esophagi tis 03/27/2017 Dyslipidemia 03/27/2017 BMI 22.0-22.9, adult 03/27/2017 Senile osteoporosis 03/27/2017 Rheumatoid arthritis involving multiple sites High risk medication use 11/11/2016 Spasmodic torticollis 11/11/2016 Inconclusive mammogram due to dense breasts 09/27 Fibrocystic breast changes of both breasts 10/19 Resolved Problems Problem Noted Date Diagnosed Date Resolved Date Acute bronchitis 07/15/2017 07/17/2018 Bronchospasm 07/15/2017 07/17/2018 Wellness examination 03/27/2017 020 Osteoporosis 11/11/2016 07/17/2018 Rheumatoid arthritis, unspecified 11/11/2016 07/17/2018 Depression 11/11/2016 07/17/2018 Discharge from left nipple 10/20/2015 0 07/17/2018 Atypical ductal hyperplasia of right breast 10/20/2015 12/06/2016 Immunizations Name Administration Dates Next Due Covid-19 (Pfizer) Dilution Required 01/13/2021,0 07/07/2020,06/14/2020 Influenza Quad (High Dose Fl uzone) 0.7mL >65Yrs (HD-IIV4) 02/21/2021 Tdap 07/18/2016 Family History Medical History Relation Name Comments Blood Clots Brother Cancer Brother Hyperlipidemia Brother Cancer Father Lung cancer Father smoker Hyperlipidemia Mother Breast cancer Paternal Grandmother 90's Colon cancer Neg Hx Endometrial cancer Neg Hx Ovarian cancer Neg Hx Relation Name Status Comments Brother Father Mother Paternal Grandmother Social History Tobacco Use Types Packs/Day Years Used Date Smoking Tobacco: Former Cigarettes 2 12 Q uit: 1970 Passive Smoke Exposure: Past Smokeless Tobacco: Never Alcohol Use Standard Drinks/Week Comments Yes 0 (1 standard drink = 0.6 oz pur e alcohol) rare Sex and Gender Information Value Date Recorded Sex Assigned at Female 12/01/2018 1:55 PM EDT Gender Identity Female 12/01/2018 1:55 PM EDT Sexual Orientation Straight 02/27/2022 2 :43 PM EDT Job Start Date Occupation Industry Not on file Not on file Not on file Last Filed Vital Signs Vital Sign Reading Time Taken Comments Blood Pressure 128/69 09/19/2023 10:24 AM EDT Pulse 75 09/19/2023 10:24 AM EDT Temperature 36.6 ??C (97.9 ??F) 09/19/2023 10:02 AM E DT Respiratory Rate 15 09/19/2023 10:24 AM EDT Oxygen Saturation 100% 09/19/2023 10:24 AM EDT Inhaled Oxygen Concentration - - Weight 59 kg (130 lb) 09/19/2023 9:20 AM EDT Height 160 cm (5' 3 ) 09/19/2023 9:20 AM EDT Body Mass Index 23.03 09/19/2023 9:20 AM EDT Plan of Treatment Health Maintenance Due Date Last Done Comments Shingrix-Zoster Vaccine (1 of 2) 02/13/1998 Depression Screening 12/27/2022 12/27/2021, 12/27/2021, 12/27/2021, Additional history exists Fall Risk Assessment 12/27/2022 12/27/2021, 12/27/2021, 12/27/2021, Additional history exists Preventative Health Evaluation 12/27/2022 12/27/2021, 12/27/2021, 12/25/2020, Additional history exists RSV Adult > 60+ Yrs or (1 - 1-dose 75+ series) 02/13/2023 COVID-19 Vaccine ( season) 2023 04/24/2022, 07/22/2021, 01/13/2021, Additional history exists Influenza Vaccine (#1) 2023 02/07/2023, 2020 Osteoporosis Screening (DEXA Scan) 11/11/2025 11/12/2023, 12/25/2020, 12/25/2020, Additional history exists DTap / Tdap / Td (2 - Td or Tdap) 07/18/2026 07/18/2016 Pneumococcal Vaccine Completed 05/06/2018, 02/21/20 17 Hepatitis C Screening Completed 06/04/2019 Hepatitis B Vaccines Aged Out No long er eligible based on patient's age to complete this topic RSV Ped < 20 months Aged Out No longe r eligible based on patient's age to complete this topic Medical Devices Implanted Type Area Drafter Directional Survey Device Identifier Shelf Expiration Date Model / Serial / Lot Lens Sky Swanson Itec Protec Tri-Fix +20.5 Diopter - [id number] - [id number] Implanted:Qty: 1 on 06/26/2020 by Fransisca Connell MD at [facility] Location Lens Left: Eye [employer] 07/19/2021 [id number] / [id number] / . [id number] 21.0 Implanted:Qty: 1 on 03/11/2022 by Fransisca Connell MD at [facility] Location Lens Right: Eye [employer] 11/28/2024 [id number] / [id number] / Advance Directives For more information, please contact: [phone] Documents on File Type Date Recorded Patient Marketing Database Coordinator Expl anation Advance Directive and Living Will 06/10/2017 10:14 AM Power of Recovery Assistant 09/26/2016 2:45 PM Latest Code Status on File Code Status Date Activated Date Inactivated Comments Full Code 09/19/2023 10:03 AM 09/19/2023 4:43 PM This code status was ascertained in the following way: discussion with patient. Code Status History Code Status Date Activated Date Inactivated Comments Full Code 06/06/2022 7:46 AM 06/06/2022 2:18 PM This co de status was ascertained in the following way: discussion with patient. Full Code 03/05/2019 1:13 PM 03/05/2019 7:55 PM This code status was ascertained in the following way: discussion with patient. Full Code 08/22/2017 3:16 PM 08/22/2017 9:53 PM This code status was ascertained in the following way: discussion with patient. Care Teams Infrastructure Analyst Relationship Specialty Start Date End Date Zia Finley MD PCP - General Internal Medicine 06/01/19
--- OUTSIDE RECORDS SUMMARY | 2024-07-06 15:06 | XMS_ITS | Clinical Summary ---
Author Organization [facility] Address [address] [place] [address] Care Team Providers Care Carpenter Ship Name Role Phone Pcp, No MD Primary Care Provider Unavailabl e Social History Tobacco Use Types Packs/Day Years Used Date Smoking Tobacco: Never Assessed Comments Unknown Sex and Gender Information Value Date Recorded Sex Assigned at Not on file Legal Sex Female 1:31 AM EST Gender Identity Not on file Sexual Orientation Not on file Plan of Treatment Health Maintenance Due Date Last Done Comments Bone Density Screening 1950 HIV Screening 1950 Zoster Vaccines (1 of 2) 02/13/1998 Pneumococcal Vaccine, 65+ Years (1 of 1 - PCV) 02/13/2013 COVID-19 Vaccine (3 - season) 2023 07/07/2020, 06/14/2020 Influenza Vaccine (#1) 2023 DTaP,Tdap,and Td Vaccines (2 - Td or Tdap) 07/18/2026 07/18/2016 Medicare Annual Wellness (AWV) Discontinued 12/25/2020, 12/22/2019, 12/10/2018, Additional history exists HPV Vaccines Aged Out No longer eligi ble based on patient's age to complete this topic Hepatitis A Vaccines Aged Out No long er eligible based on patient's age to complete this topic Meningococcal Vaccine Aged Out No supriya satinder eligible based on patient's age to complete this topic Insurance MEDICARE PART A & B Care Teams Carpenter Ship Relationship Specialty Start Date End Date Cheri Son MD [address] [place] [address] PCP - General Internal Medicine 03/01/21
--- OUTSIDE RECORDS SUMMARY | 2024-07-06 15:06 | XMS_ITS | Encounter Summary ---
Author Organization [facility] [place] [address] Care Team Providers Care Drosser Name Role Phone Zia Finley Primary Care Provider [phone] Encounter Details Date Type Department Care Team [...] 04/14/2025 11:30 AM EST Office Visit [facility] [place] [address] [facility] [address] [place] [phone] Howie Jimenez MD [address] [address] documented as of this encounter Procedures Procedure [...] FINDINGS: Stable degenerative changes without erosive arthropathy. ??Mild osteopenia noted. ??There is no fracture or dislocation. ??Soft tissues are unremarkable. ??Stable lateral subluxation of the 3rd and 4th digits bilaterally. IMPRESSION: Degenerative OA and osteopenia without erosive arthropathy or acute process Report reviewed and signed by : Dr. Christiano Garland MD on 02/24/2024 11:18 AM. Workstation Name - [employer] [id number] Procedure Note Christiano Garland MD - 02/28/2024 [...] MD on 1:18 AM. Workstation Name - [id number] Annie Correia MD IMG XR PROCEDURES Final Result documented in this encounter Visit Diagnoses Diagnosis Rheumatoid arthritis, unspecified (CMS/HCC) documented in this encounter Care Teams Drosser Relationship Specialty Start Date End Date Zia Finley [address] [place] [address] PCP - General Internal Medicine 06/01/19 documented as of this encounter
--- OUTSIDE RECORDS SUMMARY | 2024-07-06 15:06 | XMS_ITS | Encounter Summary ---
Author Organization [facility] Address [address] [place] [address] Care Team Providers Care Wort Extractor Name Role Phone Zia Finley MD Primary Care Provider [phone] Марина Skinner MD Unavailable Jose Alberto Vásquez MD Unavailable [phone] Encounter Details Date Type Department Care Team (Late st Contact Info) Description 06/03/2023 Scanned Document [facility] Department of Endocrinology [place] [address] [place] [address] [address] [place] [address] Endocrinology, Scan Social History Tobacco [...] Description 10/01/2024 2:40 PM EDT Office Visit [facility] Department of Rheumatology [place] [address] [place] [phone] Annie Correia MD [address] [facility] [address] [place] [address] 12/16/2024 11:00 AM EDT Clinical Support [facility] Department of Endocrinology [place] [address] [facility] [address] [place] [phone] Марина Skinner MD [address] [place] [address] documented as of this encounter Visit Diagnoses Not on filedocumented in this encounter Care Teams Wort Extractor Relationship Specialty Start Date End Date Zia Finley MD [address] [facility] [address] [place] [address] PCP - General Internal Medicine 04/25/20 Марина Skinner MD [address] [facility] [address] [place] [address] Cupola Operator Endocrinology 11/27/22 Jose Alberto Vásquez MD [address] [facility] [address] [place] [address] Gastroenterology 07/02/23 documented as of this encounter
--- OUTSIDE RECORDS SUMMARY | 2024-07-06 15:06 | XMS_ITS | Encounter Summary ---
Author Organization [facility] [place] [address] Care Team Providers Care Other Sports Official Name Role Phone Zia Finley Primary Care Provider [phone] Encounter Details Date Type Department Care Team [...] EST Office Visit [facility] [place] [facility] [place] [address] [facility] [address] [place] [phone] Howie Jimenez MD [address] [place] [address] documented as of this encounter Procedures Procedure [...] arthritis Prior: 02/05/2023 FINDINGS: Stable erosive arthropathy. ??Osteopenia and degenerative OA noted without fracture or destructive lesion. ??Again noted are erosive changes of the left distal ulna. IMPRESSION: Stable degenerative and erosive changes noted. ??Stable osteopenia. ??No fracture or dislocation. Report reviewed and signed by : Dr. Christiano Garland MD on 02/24/2024 11:22 AM. Workstation Name - [id number] Procedure Note Christiano Garland MD - 02/28/2024 [...] MD on 1:22 AM. Workstation Name - [id number] Annie Correia MD IMG XR PROCEDURES Final Result documented in this encounter Visit Diagnoses Diagnosis Rheumatoid arthritis, unspecified (CMS/HCC) documented in this encounter Care Teams Other Sports Official Relationship Specialty Start Date End Date Zia Finley [address] [place] [address] PCP - General Internal Medicine 06/01/19 documented as of this encounter
--- OUTSIDE RECORDS SUMMARY | 2024-07-06 15:06 | XMS_ITS | Data Portability ---
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 Lab pap, IG + reflex HPV 2021 022 [facility], [address] [place] [address], [id number] 2 07:37:59 pap, IG + reflex HPV 2019 020 [facility], [address] [place], [address] 0 10:05:04 urinalysis , dipstick 2019 020 [email or web address] 2 In-Office Order, Internal Use Only DO Not Attach Compendium DO Not Attach Compendium, Do Not Delete/merge, [id number] 0 12:07:37 Referral None recorded. Procedures None recorded. Surgeries None recorded. Imaging MAMMO, screening, digital, bilateral, w/ CAD 2023 024 [email or web address] 2 [facility], [address] [place] [address], [address], [place], [address], 4 14:46:37 US, breast, bilateral 2023 024 [email or web address] 2 [facility], [address], [address], [place], [address], 4 14:46:37 MAMMO, screening, digital, bilateral, w/ CAD 2021 022 [facility], [address], [address], [place], [address], 3 08:26:41 US, breast, bilateral 2021 022 [facility], [address], [address], [place], [address], 3 14:11:36 MAMMO, screening, digital, bilateral, w/ CAD 2021 022 [facility], [address], [address], [place], [address], 2 09:07:38 US, breast, bilateral 2021 022 [facility], [address], [address], [place], [address], 2 17:32:46 MAMMO, screening, digital, bilateral, w/ CAD 2019 020 [email or web address] 2 [facility], [address], [address], [place], [address], 0 12:07:37 Medication Orders None recorded. Patient TargetsNo targets recorded. Patient Instructions Encounter Date Encounter Id Patient Instructions Last Modified By Organization Details Last Modified Time 2020 [id number] mammogram: about this test Not available 2020 12:07:37 tips to help you stay healthy Not available 2020 12:07:37 [facility] screening completed and reviewed with patient. Negative findings. Not available 2020 12:59:33 04/19/2022 [id number] breast pain: car e instructions Not available 04/19/2022 16:35:00 tips to help you stay healthy Not available 04/19/2022 14:24:17 Behavioral healt h screening completed and reviewed with patient. Negative findings. Not available 04/18/2022 11:33:49 06/04/2023 [id number] tips to help you stay healthy Not available 06/04/2023 14:46:37 Behavioral healt h screening completed and reviewed with patient. Negative findings. Not available 06/03/2023 10:04:45 Reason for Referral None Reported. Results Created Date Observation Date Name Description Value Unit Range Abnormal Flag Note LastModifiedBy Organization Detail LastModifiedTime 02/14/2002/14/2020 urina lysis , dipst ick Interpretati on negati ve Not Available In-Office Order Internal Use Only DO Not Attach Compendium DO Not Attach Compendium, Do Not Delete/merge, [id number] 2020 11:23:37 02/14/2002/14/2020 pap, IG + refle x HPV report Report Final Gynec ologi danielle Cytol ogy Repor t ----- ----- ----- ----- ----- ----- ----- ----- ----- ----- ----- ----- ThinP rep Pap Test with HPV Refle x SPECI MEN ADEQU ACY: SATIS FACTO RY FOR EVALU ATION . INTER PRETA TION: NEGAT BERE FOR INTRA EPITH RENETTA Alfaro OR TAQUERIA CHO . Atrop hy Vini Li d: Barrett Hester, CT (ASCP ) ----- ----- ----- ----- ----- ----- ----- ----- ----- ----- ----- ----- CLINI DANIELLE INFOR ARISTEO N: LMP: NG Speci men [facility] e: Vagin a, Cervi x, Endoc ervix Previ ous Pap Date: 09/10 CPT Codes : 64704 ICD Codes : Z01.4 19 Not Available [facility] [address] [place], [address] 02/16/2020 10:05:04 04/19/20 22 04/25/2022 THINP REP TIS PAP W/REF L HPV MRNA E6/E7 clinical information: normal None given Not Available [facility] [address], [address], 04/26/2022 07:37:58 04/19/20 22 04/25/2022 THINP REP TIS PAP W/REF L HPV MRNA E6/E7 LMP: normal NONE GIVEN Not Available [facility] [address], [address], 04/26/2022 07:37:58 04/19/20 22 04/25/2022 THINP REP TIS PAP W/REF L HPV MRNA E6/E7 prev. Pap: normal NONE GIVEN Not Available [facility] [address], [address], 04/26/2022 07:37:58 04/19/20 22 04/25/2022 THINP REP TIS PAP W/REF L HPV MRNA E6/E7 prev. BX: normal NONE GIVEN Not Available [facility] [address], [address], 04/26/2022 07:37:58 04/19/20 22 04/25/2022 THINP REP TIS PAP W/REF L HPV MRNA E6/E7 source: normal Cervi x, Endoc ervix Not Available [facility] [address], [address], 04/26/2022 07:37:58 04/19/20 22 04/25/2022 THINP REP TIS PAP W/REF L HPV MRNA E6/E7 statement of adequacy: normal SATIS FACTO RY FOR EVALU ATION Not Available [facility] [address], [address], 04/26/2022 07:37:58 04/19/20 22 04/25/2022 THINP REP TIS PAP W/REF L HPV MRNA E6/E7 interpretati on/result: Negat bere for intra epith elial lesio n or malig bhavna . Atrop semaj marroquin rn; predo alecia sutton parab anthony cells Not Available [facility] [address], [address], 04/26/2022 07:37:58 04/19/20 22 04/25/2022 THINP REP TIS PAP W/REF L HPV MRNA E6/E7 comment: normal This Pap test has been evalu ated with compu ter carl casa techn ology . Not Available [facility] [address], [address], 04/26/2022 07:37:58 04/19/20 22 04/25/2022 THINP REP TIS PAP W/REF L HPV MRNA E6/E7 cytotechnolo gist: normal JNA, CT( CP) CT scree dominick locat ion: [facility] [address], [place] [address] Not Available [facility] [address], [address], 04/26/2022 07:37:58 04/19/20 22 04/25/2022 THINP REP TIS PAP W/REF L HPV MRNA E6/E7 comment EXPLA NATOR Y NOTE: The Pap is a scree dominick test for cervi danielle cance r. It is not a diagn ostic test and is subje ct to false negat bere and false posit bere resul ts. It is most relia ble when a satis facto ry sampl e, regul daiana obtai aleyda, is submi tted with relev ant clini danielle findi ngs and histo ry, and when the Pap resul t is evalu ated along with histo corina and curre nt clini danielle infor matio n. Not Available [facility] [address], [place], [address], 04/26/2022 07:37:58 12/26/19 21 12/25/2020 MAMMO , scree dominick, digit al, bilat eral, w/ CAD No observ ation record ed. [facility] [address] [place], [address], 12/26/2020 12:25:28 12/27/19 21 12/25/2020 DEXA, axial skele ton No observ ation record ed. [facility] [address] [place], [address], 12/26/2020 12:25:28 12/29/19 21 12/25/2020 US, ez alvarez, bilat eral No observ ation record ed. [address] ([facility]) [address] [place], [address], 12/29/2020 20:55:53 02/15/20 22 02/13/2022 US, ez alvarez, bilat eral No observ ation record ed. [place] [id number] [facility] ([facility]) [address] [place], [address], 02/15/2022 15:51:51 02/16/20 22 02/13/2022 MAMMO , scree dominick, digit al, bilat eral, w/ CAD No observ ation record ed. [place] [id number] [facility] ([facility]) [address], [place], [address], 02/15/2022 15:53:26 02/24/20 23 02/21/2023 US, breas t, bilat eral No observ ation record ed. [email or web address] [address], [place], [address], 02/23/2023 22:40:16 02/25/20 23 02/24/2023 MAMMO , scree dominick, digit al, bilat eral, w/ CAD No observ ation record ed. [facility] [address], [place], [address], 02/25/2023 08:54:31 11/06/19 24 10/29/2023 MRI, breas t, bilat eral, w/wo contr ast EXAMIN ATION: MR BREAST WITHOU T AND WITH CONTRA ST, BILATE RAL CLINIC AL INFORM ATION: rt breast pain. hx ADH. COMPAR AYAAN: 2022, 2021, 2018 TECHNI QUE: Utiliz ing a high-f ield scanne r and dedica casa breast coil, and prior to the admini strati on of contra st, multip lanar locali zer images were obtain ed. Bilate ral axial T1-oscar ghted sequen gera withou t fat-sa turati on and fat-sa turate d axial T2-oscar ghted sequen gera were acquir ed. Before and after the admini strati on of contra st, multip le sequen tial dynami c T1-oscar ghted VIBRAN T sequen gera were obtain ed throug h both breast s in the?ax ial?pl ane with fat-sa turati on. Subtra cted images were obtain ed and review ed. CAD postpr ocessi ng with 3-D recons tructi ons, maximu m intens ity projec tions and kineti c analys is was perfor [facility] and review ed as a portio n of this exam. CONTRA ST DOSE: The patien t receiv ed [address] intrav enousl y withou t incide nt. FINDIN GS: Bilate rally, there are scatte red fibrog landul ar densit ies. The tissue underg oes mild backgr ound enhanc ement. LEFT BREAST : Avidly enhanc ing round mass at 6:00 2 cm from the nipple measur ing 6 mm with associ ated biopsy clip. Biopsy reveal ed benign pathol ogy and has remain ed unchan ged in size on subseq uent imagin g since 2019. Oval enhanc ing circum scribe d mass at 10:00 4 cm from the nipple measur ing 1.1 cm with persis tent kineti cs and T2 hyperi ntensi ty (image 84/150 series 100, 39/128 series 6) no defini te correl ate is seen for this area on recent mammog jaylene or ultras ound from 2022. No additi onal suspic ious mass or nonmas s enhanc ement. Review of the T2-oscar ghted images and kineti c images reveal s no additi onal suspic ious findin gs. RIGHT BREAST : Ducts in the 9:00 area of the right breast with T1 hyperi ntense intrin sic signal and no suspic ious enhanc ement. No suspic ious mass or non-ma ss enhanc ement. Review of the T2-oscar ghted images and kineti c images reveal s no additi onal suspic ious findin gs. The axilla ry lymph nodes are morpho logica lly normal . No suspic ious program management intern al mammar y lymph nodes are seen. Hepati c cyst is visual ized. Right lung base nodule measur ing 9 mm (image 257/60 0 series 5, image 38/53 series 4) was partia lly visual ized on prior CT abdome n and pelvis from 2020 and has possib ly increa sed in size. IMPRES SOHEILA: 1. Probab ly benign oval enhanc ing circum scribe d mass at 10:00 4 cm from the nipple in the left breast . No defini te correl ate is seen for this area on recent mammog jaylene or ultras ound from 10/27/ 2023. MRI in 6 months is recomm ended. 2. Avidly enhanc ing round mass at 6:00 2 cm from the nipple measur ing 6 mm with associ ated biopsy clip in the left breast . Biopsy reveal ed benign pathol ogy and has remain ed unchan ged in size on subseq uent imagin g since 2019. 3. Indete rminat e stabil ity of right lung base nodule measur ing 9 mm, which has possib ly increa sed in size since CTAP from 021. Dedica casa CT chest is recomm ended. ASSESS MENT: LEFT BREAST : BI-RAD S 3 - Probab ly benign findin g(s) - short interv al follow -up sugges casa. RIGHT BREAST : BI-RAD S 2 - Benign findin gs. RECOMM ENDATI ONS: MRI in 6 months is recomm ended. Dedica casa CT chest is recomm ended. Recomm endati on given to Michael sunshine LPN on 4 @ 3:45pm by sheldon staff. Thank you for referr ing your patien t to us, Heather Wilhelmlety [phone] (Elect brittany ward Signed - 2023 16:01) Copy: KAVEH PERAZA IS [facility] D [address] [place] [address] [phone] [email or web address] [facility] ([facility]) [address], [address], 11/12/2023 09:28:21 05/21/19 25 05/19/2024 MRI, breas t, bilat eral, w/wo contr ast EXAMIN ATION: MR BREAST WITHOU T AND WITH CONTRA ST, BILATE RAL CLINIC AL INFORM ATION: Short- term follow up of probab ly benign MR detect ed left breast mass 10 oclock . Previo us benign left breast biopsy 6 oclock . (Tubul ar adenom a) A right lung nodule . High-r isk patien t, histor y of ADH. COMPAR AYAAN: Breast MRI 2023. Chest CT 2023. TECHNI QUE: Utiliz ing a high-f ield scanne r and dedica casa breast coil, and prior to the admini strati on of contra st, multip lanar locali zer images were obtain ed. Bilate ral axial T1-oscar ghted sequen gera withou t fat-sa turati on and fat-sa turate d axial T2-oscar ghted sequen gera were acquir ed. Before and after the admini strati on of contra st, multip le sequen tial dynami c T1-oscar ghted VIBRAN T sequen gera were obtain ed throug h both breast s in the axial plane with fat-sa turati on. Subtra cted images were obtain ed and review ed. CAD postpr ocessi ng with 3-D recons tructi ons, maximu m intens ity projec tions and kineti c analys is was perfor med by the [facility] reting radiol ogist at an indepe ndent workst ation and review ed as a portio n of this exam. CONTRA ST DOSE: The patien t receiv ed [address] intrav enousl y withou t incide nt. FINDIN GS: Bilate rally, there are scatte red fibrog landul ar densit ies. The tissue underg oes mild backgr ound enhanc ement. LEFT BREAST : An oval intens brody-en hancin g 7 mm mass at 7 oclock (serie s 100, image 96/150 ) contai ns a clip artifa ct. T2 bright . Type III rapid washou t enhanc ement kineti cs, a known tubula r adenom a. No signif icant change compar ed with priors . Decrea sed conspi cuity on mammog sharonda. Contin ue yearly follow up. An oval 12 mm weakly -enhan cing left breast mass at 10 oclock (serie s 100, image 75), approx imatel y 4 cm from the nipple . T2 bright . Subthr eshold and type I enhanc ement kineti cs. No signif icant interv al change . Contin ue yearly follow up. Additi onal scatte red foci of non-ma ss enhanc ement unchan ged. RIGHT BREAST : Scatte red foci of non-ma ss enhanc ement predom inatin g inferi gentry, unchan ged. Duct ectasi a in the latera l right breast with T2 signal void shows no enhanc ement. Stable MR and mammog raphic appear ance. Clinic al follow up. No new right breast mass, domina nt non-ma ss enhanc ement or bernardo ectura l distor tion. The axilla ry lymph nodes are morpho logica lly normal . No suspic ious program management intern al mammar y lymph nodes are seen. An oval T2 bright nodule at the anteri or right lung base (serie s 100, image 99/150 ) demons trates weak enhanc ement. On MRI of lesion this curren tly measur es 11 mm in transv erse dimens ion (nonbr eath-h old study) . CT follow -up is again recomm ended. Recomm end a CT scan of the chest withou t contra st at this time to reeval uate right lung base nodule . IMPRES SOHEILA: 1. No signif icant change in left breast mass at 7 oclock , a known tubula r adenom a. Contin ue yearly follow up. 2. No signif icant change in left breast mass at 10 oclock . Contin ue yearly follow up. 3. Potent ial growth of pulmon chantell nodule at the right lung base. Short- term follow up chest CT is again recomm ended. ASSESS MENT: LEFT BREAST : BI-RAD S 2 - Benign findin gs. RIGHT BREAST : BI-RAD S 2 - Benign findin gs. RECOMM ENDATI ONS: 1. Yearly screen ing mammog sharonda. 2. Repeat bilate ral breast MRI in 12 months . 3. Noncon trast chest CT. Electr onical ly signed by: Ricardo Ruiz MD 2024 01:27 PM EST RP Workst ation: [id number] Thank you for referr ing your erumen t to us, Ricardo Ruiz MD [phone] (Elect brittany ward Signed - 2024 13:27) Copy: KAVEH PERAZA IS [facility] [address] [place] [address], [place] [id number] [phone] MILADYS T , [address] [facility] ([facility]) [address] [place] [address], [place], [address], 05/24/2024 15:46:26 Result Notes None recorded. Problems Name Problem SNOMED Code Status Onset Date Resolution Date Notes Provider Name and Address Organization Details Recorded Time Essential tremor Completed 201305/08/2015 Gin bautista, [facility] 6 10:32:34 Diverticula r disease 862422441 Completed 201305/08/2015 Gin bautista, [facility] 6 10:32:34 Pure hypercholes terolemia 810330720 Completed 201205/08/2015 Gin Jean null, [facility] 6 10:32:34 Rheumatoid arthritis 22858661 Completed 201205/08/2015 Gin bautista, [facility] 6 10:32:34 Osteoporosi s 11772934 Completed 201205/08/2015 Gin Jean null, [facility] 6 10:32:34 Depressive disorder 08541580 Completed 201305/08/2015 Gin bautista, [facility] 6 10:32:34 Dysthymia 86129897 Completed 201205/08/2015 Gin bautista, [facility] 6 10:32:34 Gastroesoph ageal reflux disease 359719623 Completed 201205/08/2015 Gin Jean null, [facility] 6 10:32:34 Multiple nodules of lung 949687765 Completed 201305/08/2015 Gin bautisat, [facility] 6 10:32:34 Chronic obstructive pulmonary disease 35948434 Completed 201305/08/2015 Gin bautista, [facility] 6 10:32:34 Dysthymia 43489207 Active 2012 Gin Jean null, [place] - [facility] 6 10:32:34 Diverticula r disease 144121014 Active 2013 Gin Jean null, [facility] 6 10:32:34 Gastroesoph ageal reflux disease 613654392 Active 2012 Gin Jean null, [facility] 6 10:32:34 Chronic obstructive pulmonary disease 91232776 Active 2013 Gin Jean null, [facility] 6 10:32:34 Depressive disorder 34513251 Active 2013 Gin Jean null, [facility] 6 10:32:34 Pure hypercholes terolemia 909292465 Active 2012 Gin Jean null, [facility] 6 10:32:34 Multiple nodules of lung 541509751 Active 2013 Gin Jean null, [facility] 6 10:32:34 Rheumatoid arthritis 35666617 Active 2012 Gin Jean null, [facility] 6 10:32:34 Essential tremor Active 2013 Gin Jean null, [facility] 6 10:32:34 Osteoporosi s 77963246 Active 2012 KAVEH SANTAMARIA MD [address] [place] [address], [address] Floor, [place], [address] [place] [address] 6 11:50:58 Migraine 50329891 Active Gin Jean null, [facility] 6 10:32:34 Concussion injury of brain 958661761 Active Gin Jean null, [facility] 6 10:32:34 Pain of breast 04758417 Active Za Mac null, [place] - [facility] 6 12:00:50 Problem Notes None recorded. Procedures Surgical History Date Name Laterality Status Provider Name and Address Organization Details Recorded Time 4 [id number] completed Radha Casas [place] - [facility] 06/03/2023 10:04:44 3 Date of Last Mammogram completed Radha Casas [place] - [facility] 06/03/2023 10:06:27 2 [id number] completed Rylie Hollins CT - [facility] 04/18/2022 11:33:49 2 Date of Last Pap Smear completed Radhastephania Casas [place] - [facility] 06/03/2023 10:05:36 0 [id number] completed Janelle Abby [place] - [facility] 2020 06:52:41 9 Date of Last Colonoscopy completed Janelle Mora [place] - [facility] 2020 11:17:38 9 [id number]-KML completed Janelle Abby [place] - [facility] 10/06/2018 11:32:19 biopsy of breast completed KAVEH SANTAMARIA MD [address], [address] [place] [address], [phone], [facility] 02/20/2019 22:26:00 Breast Surgery completed KAVEH SANTAMARIA MD [address], [address] [place] [address], [phone], [facility] 01/21/2019 09:18:40 Breast Biopsy completed KAVEH SANTAMARIA MD [address], [address] [place] [address], [phone], [facility] 01/21/2019 09:20:43 Orthopedic Surgery completed KAVEH SANTAMARIA MD [address], [address] [place] [address], [phone], [facility] 12/08/2016 18:52:43 Other completed KAVEH SANTAMARIA MD [address] [facility], 3rd Floor, [place], [address], [place] - [facility] 12/08/2016 18:53:26 Imaging Results Imaging Date Name Status LastModified by Organiz ation Details LastModified Time 12/25/2020 MAMMO, screening, digital, bilateral, w/ CAD completed [facility] [address], [place], [address], 12/26/2020 12:25:28 12/25/2020 DEXA, axial skeleton completed [facility] [address] [place], [address], 12/26/2020 12:25:28 12/25/2020 US, breast, bilateral completed [facility]) [address] [place], [address], 12/29/2020 20:55:53 02/13/2022 US, breast, bilateral completed [facility] ([facility]) [address], [place], [address], 02/15/2022 15:51:51 02/13/2022 MAMMO, screening, digital, bilateral, w/ CAD completed [facility] ([facility]) [address], [place], [address], 02/15/2022 15:53:26 02/21/2023 US, breast, bilateral completed [facility] [address] [facility], [place], [address], 02/23/2023 22:40:16 02/24/2023 MAMMO, screening, digital, bilateral, w/ CAD completed [facility] [address], [place], [address], 02/25/2023 08:54:31 10/29/2023 MRI, breast, bilateral, w/wo contrast completed [email or web address] [facility] [address] [facility] [address], [place], [address], 11/12/2023 09:28:21 05/19/2024 MRI, breast, bilateral, w/wo contrast completed [email or web address] [facility]) [address] [facility] [address], [place], [address], 05/24/2024 15:46:26 Procedure Notes None recorded. Medical Equipment None Reported. Allergies Allergen ID Allergen Name Allergen Category Reaction Reaction Severity Criticality Documentation Date Start Date Code Code System Note Provider Name and Address Organization Details Recorded Time 494385 pseudoeph edrine hydrochlo ride medicatio n Not available Not available Not available 09/27/20142012 84451 RxNorm COMME NT: CAUSA TIVE AGENT : [facility] ED; Not Available [facility] 18:04:40 Medications Name Sig Start Date Stop Date Status Note LastModified by Organization Details LastModified Time cyclobenzap rine 10 mg tablet 09/10 completed Not Available Not Available Not Available prednisone 10 mg tablet TAKE 1 TABLET BY MOUTH EVERY DAY FOR 14 DAYS 04/19 completed Not Available Not Available Not Available rabeprazole 20 mg tablet,gill yed release 09/10 completed Not Available Not Available Not Available doxycycline hyclate 100 mg capsule 05/29 completed Not Available Not Available Not Available leucovorin calcium 25 mg tablet Take 1 tablet every day by oral route. 06/04 completed Not Available Not Available Not Available azithromyci n 250 mg tablet 06/04 completed Not Available Not Available Not Available tizanidine 4 mg tablet 10/06 completed Not Available Not Available Not Available sucralfate 100 mg/mL oral suspension 06/04 completed Not Available Not Available Not Available ondansetron HCl 4 mg tablet 09/10 completed Not Available Not Available Not Available famotidine 40 mg tablet 06/04 completed Not Available Not Available Not Available prednisone 20 mg tablet TAKE 3 TABLETS BY MOUTH ONCE DAILY FOR 5 DAYS 06/04 completed Not Available Not Available Not Available clonazepam 0.5 mg tablet TAKE 1 TABLET BY MOUTH AT BEDTIME active Not Available Not Available No t Available fluorouraci l 5 % topical cream 10/05 completed Not Available Not Available Not Available clonazepam 1 mg tablet TAKE 1/2 OF 1MG TABLET BY MOUTH AT BEDTIME 30 MINUTES BEFORE BEDTIME 06/04 completed Not Available Not Available Not Available promethazin e 6.25 mg-codeine 10 mg/5 mL syrup 10/06 completed Not Available Not Available Not Available leflunomide 10 mg tablet TAKE 1 TABLET BY MOUTH EVERY OTHER DAY active Not Available Not Available No t Available acetaminoph en 300 mg-codeine 30 mg tablet 10/06 completed Not Available Not Available Not Available omeprazole 40 mg capsule,del ayed release active Not Available Not Available Not Available doxycycline monohydrate 100 mg tablet 09/10 completed Not Available Not Available Not Available leucovorin calcium 15 mg tablet 06/04 completed Not Available Not Available Not Available meloxicam 7.5 mg tablet 10/06 completed Not Available Not Available Not Available oxycodone-a cetaminophe n 5 mg-325 mg tablet 09/10 completed Not Available Not Available Not Available propranolol 10 mg tablet 09/10 completed Not Available Not Available Not Available amoxicillin 875 mg tablet TAKE 1 TABLET BY MOUTH TWICE DAILY FOR 10 DAYS 06/04 completed Not Available Not Available Not Available pravastatin 80 mg tablet Take 1 tablet every day by oral route. 06/04 completed Not Available Not Available Not Available methotrexat e sodium 2.5 mg tablet TAKE 5 TABLETS BY MOUTH AT NIGHT AND 5 TABLETS THE FOLLOWING MORNING ONCE A WEEK active Not Available Not Available No t Available amitriptyli ne 10 mg tablet TAKE 1 TABLET BY MOUTH EVERY DAY AT BEDTIME 04/19 completed Not Available Not Available Not Available baclofen 10 mg tablet TAKE 1 TABLET BY MOUTH TWICE DAILY 06/04 completed Not Available Not Available Not Available benzonatate 100 mg capsule 10/06 completed Not Available Not Available Not Available pantoprazol e 40 mg tablet,gill yed release 06/04 completed Not Available Not Available Not Available metronidazo le 0.75 % topical cream APPLY TWICE DAILY TO FACE active Not Available Not Available No t Available Advair Diskus 250 mcg-50 mcg/dose powder for inhalation 09/10 completed Not Available Not Available Not Available mometasone 50 mcg/actuati on nasal spray 05/29 completed Not Available Not Available Not Available leucovorin calcium 5 mg tablet active Not Available Not Available No t Available montelukast 10 mg tablet 09/10 completed Not Available Not Available Not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
== END 2024-07-06 13:13 | disposition home or self-care (01) ==
LOC: HO.HSMS 12:31
PROVIDERS: PCP Internal Medicine; Visit Provider Psychiatry & Neurology Neurology
DX: G24.3 Spasmodic torticollis (principal)
CPT/HCPCS: 64616

== ENCOUNTER → 2024-07-06 12:30 | Outpatient (BNVA) | payer MEDICARE, OTHER, SELFPAY | PROVIDERS: PCP Internal Medicine; Visit Provider Psychiatry & Neurology Neurology | DX: G24.3 Spasmodic torticollis (principal); M62.838 Other muscle spasm | CPT/HCPCS: 64616; 99211; J0585 ==

== ENCOUNTER 2024-10-05 12:50 | Outpatient (AMB) | payer MEDICARE, OTHER, SELFPAY ==
--- NOTE | 2024-10-05 12:59 | A.OFFVIS_ITS ---
Vital Signs 10/05/24 12:59 Height 5 ft 3 in Intake Visit Reasons: Botox(B&B) Intake Note: Patient presents for botox injection. practice supplied Allergies pseudoephedrine [From Sudafed] Allergy (Verified 10/05/24 12:59) Unknown Medication List - Last Reconciled 10/05/24 by Salma Zazueta MD albuterol sulfate 90 mcg/actuation 2 puffs inhalation Q4H PRN clonazepam 0.5 mg (1/2 x 1 mg) PO BEDTIME 30 days clonazepam 0.5 mg PO BEDTIME denosumab (Prolia) 60 mg subcut [id number] escitalopram oxalate 20 mg PO DAILY leucovorin calcium mg PO methotrexate (PF) (RediTrex (PF)) 22.5 mg subcut QWEEK omeprazole magnesium (Prilosec) 10 mg PO DAILY rosuvastatin 20 mg PO BEDTIME HPI Comments Details: Spasmodic torticollis.. History of present illness: ? 74y/0 female comes for treatment of her dystonia with Botox.she reports truncal pain while sitting - more like a squeezing sensation for past 5 years . she had an extensive evaluation with imaging studies. ??? Side effects including spread of toxin effect, dysphagia, breathing difficulties , bronchitis etc was discussed in detail and the patient agreed to the procedure. ??? Botulinum toxin Lot [id number] 200 units ??? Expiration date 01/2027 ??? Botulinum toxin type A 200units was diluted with 4 cc of normal saline at a concentration of 25 units in 0.5cc saline. ??? Muscles injected ??? Right Splenius - 50units ??? Right levator 50 units ??? Right trapezius- 25 units Left trapezius 25 units Left levator 25 units ??? Right sternocleidomastoid- 25 units ??? Total used - 200 units PFSH Medical History Spasmodic torticollis Depression Anxiety Surgical History No pertinent past surgical history Family History Brother Colon cancer Social History Household Members: Spouse Alcohol intake: current Alcohol intake frequency: holidays/special occasions only Patient Tobacco Use Status: Former Tobacco user Current occupational status: retired Physical Exam Neuro Other: Head tremors torticollis Office Procedures Botulinum toxin Injection 53375 - Dystonia Procedure code (CPT) selection complete Office Meds onabotulinumtoxinA 200 unit solution for injection Performing Provider: Salma Zazueta MD Performing Location: [facility] Administered by: Salma Zazueta MD on 10/05/24 13:23 Dose Route Admin Location Dispensed Lot Number Expiration Date [facility] [employer] 200 unit IM 200 units [id number] ALLERGAN/BOTOX Comments: see HPI Assessment & Plan Assessment & Plan (1) Spasmodic torticollis: Code(s): G24.3 - Spasmodic torticollis Category: Medical (2) Muscle spasm: Code(s): M62.838 - Other muscle spasm Category: Medical Plan Patient tolerated the procedure well She will call with any side effects Orders: Orders AMB Botulinum toxin Injection Today G24.3 - Spasmodic torticollis Medications: New onabotulinumtoxinA 200 units IM ONCE 1 ea 0RF spasmodic torticollis G24.3 - Spasmodic torticollis Coding Level of Care Code Est Pt Level 1 (24375) Diagnoses Spasmodic torticollis G24.3 Muscle spasm M62.838 CPT Codes Botox Injection - Botox 4: 22843 - Dystonia ([id number])
--- OUTSIDE RECORDS SUMMARY | 2024-10-05 15:02 | XMS_ITS | Encounter Summary ---
Author Organization [facility] Address [address] [place] [address] Care Team Providers Care Entry Level Buyer Name Role Phone Zia Finley MD Primary Care Provider [phone] Марина Skinner MD Unavailable Jose Alberto Vásquez MD Unavailable [phone] Encounter Details Date Type Department Care Team (Late st Contact Info) Description 11/27/2021 Scanned Document [address] [phone] Provider, Generic Social History Tobacco Use Types Packs/Day Years Used Date Smoking Tobacco: Former Smokeless Tobacco: Never Alcohol Use Standard Drinks/Week Comments Yes 0 (1 standard drink = 0.6 oz pur e alcohol) Comments Unknown Sex and Gender Information Value Date Recorded Sex Assigned at Female 04/02/2023 9:50 AM EST Legal Sex Female 7:07 PM EST Gender Identity Female 04/02/2023 9:50 AM EST Sexual Orientation Heterosexual (straight) 04/02 9:50 AM EST documented as of this encounter Plan of Treatment Upcoming Encounters Date Type Department Care Team (Late st Contact Info) Description 12/16/2024 11:00 AM EDT Clinical Support [facility] Department of Endocrinology [place] [address] [facility] [address] [place] [address] Марина Skinner MD [address] [place], [place] [phone] 02/04/2025 1:00 PM EDT Office Visit [facility] Department of Rheumatology [place] [address] [place] [phone] Annie Correia MD 160 [facility] 100 [place] [address] 05/06/2025 1:00 PM EST Office Visit [facility] Department of Rheumatology [place] [address] [place] [address] Annie Correia MD 160 [facility] 100 [place] [address] documented as of this encounter Visit Diagnoses Not on filedocumented in this encounter Care Teams Entry Level Buyer Relationship Specialty Start Date End Date Zia Finley MD [address] [place] [address] PCP - General Internal Medicine 04/25/20 Марина Skinner MD [address] [facility] [address] [place] [address] Plant Mechanic Endocrinology 11/27/22 Jose Alberto Vásquez MD 113 [facility] [address] [place] [id number] Gastroenterology 07/02/23 documented as of this encounter
== END 2024-10-05 13:20 | disposition home or self-care (01) ==
LOC: HO.HSMS 12:51
PROVIDERS: PCP Internal Medicine; Visit Provider Psychiatry & Neurology Neurology
DX: G24.3 Spasmodic torticollis (principal); M62.838 Other muscle spasm
CPT/HCPCS: 64616

== ENCOUNTER → 2024-10-05 12:50 | Outpatient (BNVA) | payer MEDICARE, OTHER, SELFPAY | PROVIDERS: PCP Internal Medicine; Visit Provider Psychiatry & Neurology Neurology | DX: G24.3 Spasmodic torticollis (principal); M62.838 Other muscle spasm | CPT/HCPCS: 64616; 99211; J0585 ==

== ENCOUNTER 2025-01-11 10:56 | Outpatient (AMB) | payer MEDICARE, OTHER, SELFPAY ==
--- OUTSIDE RECORDS SUMMARY | 2024-02-24 09:59 | XMS_ITS | Encounter Summary ---
Author Organization [facility] [place] [address] Care Team Providers Care Tap And Die Maker Technician Name Role Phone Zia Finley Primary Care Provider [phone] Encounter Details Date Type Department Care Team (Latest Contact Info) Description 02/24/2024 9:59 AM EDT Hospital Encounter TH HISTORIC ENCOUNTERS [facility]AST[facility] CONVERSION ONLY Rheumatoid arthritis, unspecified (CMS/HCC V24, CMS/[facility] V28) Social History Tobacco Use Types Packs/Day Years Used Date Smoking Tobacco: Former Cigarettes Q uit: 04/28/1969 Smokeless Tobacco: Never Alcohol Use Standard Drinks/Week Comments Yes 0 (1 standard drink = 0.6 oz pur e alcohol) Comments Unknown Sex and Gender Information Value Date Recorded Sex Assigned at Not on file Legal Sex Female 7:23 PM EST Gender Identity Not on file Sexual Orientation Not on file documented as [...] Description 04/14/2025 11:30 AM EST Office Visit [facility] [place] [address] [place] [phone] Howie Jimenez MD [address] [address] documented as of this encounter Procedures Procedure Name Priority Date/Time Associated Diagnosis Comments XR FOOT COMPLETE NON WT BEARING (3 VIEW) - BILATERAL Routine 02/24/2024 10:40 AM EDT Rheumatoid arthritis, unspecified ([facility] V24, [facility] V28) documented in this encounter Results [...] on 02/24/2024 11:18 AM. Workstation Name - [id number] Procedure Note Christiano Garland MD - 02/28/2024 [...] MD on 1:18 AM. Workstation Name - [id number] Annie Correia MD IMG XR PROCEDURES Final Result documented in this encounter Visit Diagnoses Diagnosis Rheumatoid arthritis, unspecified ([facility] V24, [facility] V28) documented in this encounter Care Teams Tap And Die Maker Technician Relationship Specialty Start Date End Date Zia Finley [address] [place] [address] PCP - General Internal Medicine 06/01/19 documented as of this encounter
--- OUTSIDE RECORDS SUMMARY | 2024-02-24 09:59 | XMS_ITS | Encounter Summary ---
Author Organization [facility] [place] [address] Care Team Providers Care Social Media Marketer Name Role Phone Zia Finley Primary Care Provider [phone] Encounter Details Date Type Department Care Team (Latest Contact Info) Description 02/24/2024 9:59 AM EDT Hospital Encounter TH HISTORIC ENCOUNTERS [facility] CONVERSION ONLY Rheumatoid arthritis, unspecified (CMS/HCC V24, CMS/[facility] V28) Social History Tobacco Use Types Packs/Day [...] 04/14/2025 11:30 AM EST Office Visit [facility] [place] [facility] [place] [address] [place] [phone] Howie Jimenez MD 19 [facility] [address] [place] [address] documented as of this encounter Procedures Procedure Name Priority Date/Time Associated Diagnosis Comments XR ANKLE COMPLETE - BILATERAL Routine 02/24/2024 10:40 AM EDT Rheumatoid arthritis, unspecified ([facility] V24, [facility] V28) documented in this encounter Results * [...] on 02/24/2024 11:16 AM. Workstation Name - [id number] Procedure Note Christiano Garland MD - 02/28/2024 X-ray ankle complete bilateral Rheumatoid arthritis Prior 02/05/2023 FINDINGS: No erosive arthropathy. Small calcaneal spurs noted. No joint effusion.No fracture or dislocation. Mild degenerative OA. No joint effusion.The ankle mortises are symmetric bilaterally. IMPRESSION: No erosive arthropathy or acute process Report reviewed and signed by : Dr. Christiano Garland MD on 1:16 AM. Workstation Name - [id number] Annie Correia MD IMG XR PROCEDURES Final Result documented in this encounter Visit Diagnoses Diagnosis Rheumatoid arthritis, unspecified (CMS/HCC V24, CMS/[facility] V28) documented in this encounter Care Teams Social Media Marketer Relationship Specialty Start Date End Date Tushar Zia [address] [place] [id number] PCP - General Internal Medicine 06/01/19 documented as of this encounter
--- OUTSIDE RECORDS SUMMARY | 2024-02-24 10:00 | XMS_ITS | Encounter Summary ---
Author Organization [facility] [place] [place] [address] Care Team Providers Care Manager Market Development Name Role Phone Zia Finley Primary Care Provider [phone] Encounter Details Date Type Department Care Team (Latest Contact Info) Description 02/24/2024 10:00 AM EDT Hospital Encounter TH HISTORIC ENCOUNTERS [facility] CONVERSION ONLY Rheumatoid arthritis, unspecified (CMS/HCC V24, CMS/[facility] V28) Social History Tobacco Use Types [...] 04/14/2025 11:30 AM EST Office Visit [facility] [place] [facility] [place] [address] [place] [phone] Howie Jimenez MD 19 [facility] [address] [place] [address] documented as of this encounter Procedures Procedure Name Priority Date/Time Associated Diagnosis Comments XR WRIST COMPLETE - BILATERAL Routine 02/24/2024 10:40 AM EDT Rheumatoid arthritis, unspecified ([facility] V24, [facility] V28) documented in this encounter Results [...] on 02/24/2024 11:22 AM. Workstation Name - [id number] Procedure Note Christiano Garland MD - 02/28/2024 [...] MD on 1:22 AM. Workstation Name - [id number] Annie Correia MD IMG XR PROCEDURES Final Result documented in this encounter Visit Diagnoses Diagnosis Rheumatoid arthritis, unspecified ([facility] V24, [facility] V28) documented in this encounter Care Teams Manager Market Development Relationship Specialty Start Date End Date Zia Finley [address] [place] [phone] PCP - General Internal Medicine 06/01/19 documented as of this encounter
--- OUTSIDE RECORDS SUMMARY | 2024-02-24 10:00 | XMS_ITS | Encounter Summary ---
Author Organization [facility] [place] [address] Care Team Providers Care Boarding House Cook Name Role Phone Zia Finley Primary Care Provider [phone] Encounter Details Date Type Department Care Team (Latest Contact Info) Description 02/24/2024 10:00 AM EDT Hospital Encounter TH HISTORIC ENCOUNTERS [facility] CONVERSION ONLY Rheumatoid arthritis, unspecified (CMS/HCC V24, CMS/[facility] V28) Social History Tobacco Use Types [...] 04/14/2025 11:30 AM EST Office Visit [facility] [place] [facility] [place] [address] [place] [phone] Howie Jimenez MD 19 [facility] [address] [place] [address] documented as of this encounter Procedures Procedure Name Priority Date/Time Associated Diagnosis Comments XR HAND COMPLETE - BILATERAL Routine 02/24/2024 10:40 AM EDT Rheumatoid arthritis, unspecified (CMS/[facility] V24, CMS/[facility] V28) documented in this encounter Results [...] on 02/24/2024 11:20 AM. Workstation Name - [id number] Procedure Note Christiano Garland MD - 02/28/2024 [...] MD on 1:20 AM. Workstation Name - [id number] Annie Correia MD IMG XR PROCEDURES Final Result documented in this encounter Visit Diagnoses Diagnosis Rheumatoid arthritis, unspecified (CMS/HCC V24, CMS/[facility] V28) documented in this encounter Care Teams Boarding House Cook Relationship Specialty Start Date End Date Zia Finley [address] [place] [phone] PCP - General Internal Medicine 06/01/19 documented as of this encounter
--- NOTE | 2025-01-11 11:01 | A.OFFVIS_ITS ---
Vital Signs 01/11/25 11:02 Height 5 ft 3 in Weight 133 lb 8 oz BMI 23.6 BP 118/74 Blood Pressure Location Rt brachial Position Sitting Pulse 79 Pulse Source Pulse Oximeter Pulse Oximetry (%) 98 Oxygen Delivery Method Room Air Intake Visit Reasons: BOTOX Intake Note: Botox Thread Grinder Required: No Accompanied by: Self / Same As Patient Allergies pseudoephedrine (From Sudafed) Allergy (Verified 01/11/25 11:02) Unknown Medication List - Last Reconciled 01/11/25 by Salma Zazueta MD albuterol sulfate 90 mcg/actuation 2 puffs inhalation Q4H PRN clonazepam 0.5 mg PO BEDTIME denosumab (Prolia) 60 mg subcut [id number] escitalopram oxalate 20 mg PO DAILY ipratropium bromide 2 sprays intranasal BID leucovorin calcium mg PO methotrexate (PF) (RediTrex (PF)) 22.5 mg subcut QWEEK metronidazole 0.75% appl topical BID omeprazole magnesium (Prilosec) 10 mg PO DAILY rosuvastatin 20 mg PO BEDTIME syringe with needle (BD SafetyGlide Tuberculin Regular Bevel) As directed HPI Comments Details: Spasmodic torticollis.. History of present illness: ? 74y/0 female comes for treatment of her dystonia with Botox.she reports truncal pain while sitting - more like a squeezing sensation for past 5 years . she had an extensive evaluation with imaging studies. ??? Side effects including spread of toxin effect, dysphagia, breathing difficulties , bronchitis etc was discussed in detail and the patient agreed to the procedure. ??? Botulinum toxin Lot [id number] 200 units ??? Expiration date ??? Botulinum toxin type A 200units was diluted with 4 cc of normal saline at a concentration of 25 units in 0.5cc saline. ??? Muscles injected ??? Right Splenius - 50units ??? Right levator 50 units ??? Right trapezius- 25 units Left trapezius 25 units Left levator 25 units ??? Right sternocleidomastoid- 25 units ??? Total used - 200 units PFSH Medical History Spasmodic torticollis Depression Anxiety Surgical History No pertinent past surgical history Family History Brother Colon cancer Social History Household Members: Spouse Alcohol intake: current Alcohol intake frequency: holidays/special occasions only Patient Tobacco Use Status: Former Tobacco user Current occupational status: retired Physical Exam Vital Signs: Last Vital Signs Pulse 79 01/11/25 11:02 BP 118/74 01/11/25 11:02 Pulse Ox 98 01/11/25 11:02 Oxygen Delivery Method Room Air 01/11/25 11:02 BMI result Body Mass Index 23.6 Neuro Other: Head tremors torticollis Office Procedures Botulinum toxin Injection 11304 - Dystonia Procedure code (CPT) selection complete Office Meds onabotulinumtoxinA 200 unit solution for injection Performing Provider: Salma Zazueta MD Performing Location: [facility] Administered by: Salma Zazueta MD on 01/11/25 11:29 Dose Route Admin Location Dispensed Lot Number Expiration Date [facility] Political Reporter 200 unit IM 200 units [id number] ALLERGAN /BOTOX Total Dispensed Waste 200 units 0 % Comments: see HPI Assessment & Plan Assessment & Plan (1) Spasmodic torticollis: Code(s): G24.3 - Spasmodic torticollis Category: Medical (2) Muscle spasm: Code(s): M62.838 - Other muscle spasm Category: Medical Plan Patient tolerated the procedure well She will call with any side effects will check for antibodies for botulinum toxin next visit Orders: Orders AMB Botulinum toxin Injection Today G24.3 - Spasmodic torticollis Coding Level of Care Code Est Pt Level 1 (99960) Diagnoses Spasmodic torticollis G24.3 Muscle spasm M62.838 CPT Codes Botox Injection - Botox 4: 56563 - Dystonia ([id number])
[2025-01-11 11:02] VITALS: BP 118/74; PULSE 79; O2SAT 98; BMI 23.6
--- OUTSIDE RECORDS SUMMARY | 2025-01-11 14:47 | XMS_ITS | Encounter Summary ---
Author Organization [facility] Address [address] [place] [address] Care Team Providers Care Armature Varnisher Name Role Phone Zia Finley MD Primary Care Provider [phone] Марина Skinner MD Unavailable Jose Alberto Vásquez MD Unavailable [phone] Reason for Visit * Reason Comments Medication Refill Encounter Details Date Type Department Care Team ([facility] st Contact Info) Description 10/09/2021 Refill [facility] [address] [phone] Jose Alberto Vásquez MD [address] [place] [address] Gastroesophageal reflux disease with esophagitis Social History [...] Care Team (Late st Contact Info) Description 01/14/2025 10:40 AM EDT Office Visit [facility] Department of Rheumatology [place] [address] [place] [phone] Annie Correia MD [address] [address] 05/06/2025 1:00 PM EST Office Visit [facility] Department of Rheumatology [place] [address] [facility] [address] [phone] Annie Correia MD [address] [address] 06/30/2025 11:00 AM EST Clinical Support [facility] Department of Endocrinology [place] [address] [facility] [address] [place] [phone] Марина Skinner MD [address] [place] [address] documented as of this encounter Visit Diagnoses Diagnosis Gastroesophageal reflux disease with esophagitis documented in this encounter Care Teams Armature Varnisher Relationship Specialty Start Date End Date Zia Finley MD [address] [place] [address] PCP - General Internal Medicine 04/25/20 Марина Skinner MD 1260 [facility] [address] [place] [address] Hand Brush Filler Endocrinology 11/27/22 Jose Alberto Vásquez MD 113 [facility] 301 [place] [address] Gastroenterology 07/02/23 documented as of this encounter
--- OUTSIDE RECORDS SUMMARY | 2025-01-11 14:47 | XMS_ITS | Clinical Summary ---
Author Organization [facility] Address [address] [place] [address] Care Team Providers Care General Operator Name Role Phone No, Pcp ANALYSIS MANAGER Primary Care Provider Unavailabl e Social History [...] Adults 18 yrs or above (or HM Modifier)([facility]) 02/13/1966 Hepatitis C Virus Infection in Adolescents and Adults: Screening (or Modifier) ([facility]) 02/13/1966 SDOH Screening Reminder: Cici liban for all adults ([facility]) 02/13/1966 Tobacco Smoking Cessation: i n Adults excluding Women: Behavioral and Pharmacotherapy Interventions ([facility]) 02/13/1966 Pneumococcal Vaccination Scr eening: Patients 50+ yrs of age ([facility]) (1 of 1 - PCV) 02/13/1998 Zoster/Shingles Vaccine Seri es Screening: Adults aged 18+ yrs (or HM Modifiers)([facility]) (1 of 2) 02/13/1998 Osteoporosis Screening to Pr event Fractures: Women aged 65 years+ ([facility]) 02/13/2013 RSV Vaccines (1 - 1-dose 75+ series) 02/13/2023 Flu Vaccination: Ages 65+: Y early High Dose Recommended (or Modifier)([facility]) 11/26/2024 COVID-19 Vaccine Screening: Initial Series and Booster Status ([facility]) ( - 2023- season) 2024 07/07/2020, 06/14/2020 DTaP/Tdap/Td Vaccines ([facility]) (2 - Td or Tdap) 07/18/2026 07/18/2016 Medical Devices Not on file Insurance MEDICARE Care Teams General Operator Relationship Specialty Start Date End Date No, Pcp, ANALYSIS MANAGER N/A Do not use PCP - General Family Medicine 09/15/19
--- OUTSIDE RECORDS SUMMARY | 2025-01-11 14:47 | XMS_ITS | Encounter Summary ---
Author Organization [facility] Address [address] [place] [address] Care Team Providers Care Superintendent Landfill Operations Name Role Phone Zia Finley MD Primary Care Provider [phone] Марина Skinner MD Unavailable Jose Alberto Vásquez MD Unavailable [phone] Encounter Details Date Type Department Care Team (Late st Contact Info) Description 11/27/2021 Scanned Document [facility] 100 [facility] 101 [place] [phone] Provider, Generic Social History Tobacco Use Types [...] Department Care Team (Late Contact Info) Description 01/14/2025 10:40 AM EDT Office Visit [facility] Department of Rheumatology [place] 160 [facility] [address] [place] [phone] Annie Correia MD 160 [facility] 100 [place] [address] 05/06/2025 1:00 PM EST Office Visit [facility] Department of Rheumatology [place] 160 [facility] [address] [place] [phone] Annie Correia MD 160 [facility] 100 [place] [address] 06/30/2025 11:00 AM EST Clinical Support [facility] Department of Endocrinology [place] 1260 [facility] [address] [place] [address] Марина Skinner MD 300 [place] [address] documented as of this encounter Visit Diagnoses Not on filedocumented in this encounter Care Teams Superintendent Landfill Operations Relationship Specialty Start Date End Date Zia Finley MD 139 [facility] [address] [place] [phone] PCP - General Internal Medicine 04/25/20 Марина Skinner MD 1260 [facility] [address] [place] [address] Inspector Optical Instrument Endocrinology 11/27/22 Jose Alberto Vásquez MD 113 [facility] 301 [place] [address] Gastroenterology 07/02/23 documented as of this encounter
--- OUTSIDE RECORDS SUMMARY | 2025-01-11 14:48 | XMS_ITS | Clinical Summary ---
Author Organization [facility] [employer] [place] Address [address] [place] [address] Phone Care Team Providers Care Mesh Cutter Name Role Phone Zia Finley Primary Care Provider [phone] Allergies Active Allergy Reactions Criticality Noted Date [...] (PriLOSEC) [address] capsule 3 Active onabotulinumtox Al (BOTOX) 200 unit injection Inject 1 Dose as directed every 3 (three) months. Active rosuvastatin (CRESTOR) 20 mg tablet TAKE 1 TABLET(20 MG) BY MOUTH DAILY 90 tablet 2 5 Active Active Problems Problem Noted Date Diagnosed Date ASCVD (arteriosclerotic cardiovascular disease) 04/15/2024 PSVT (paroxysmal supraventri cular tachycardia) ([facility] V24) 04/15/2024 Chest wall pain, chronic 04/04/2022 Thoracic spondylosis 02/21/2022 Thoracic radiculopathy 02/05/2022 Thoracic spine pain 02/05/2022 Intercostal neuralgia 08/12/2020 Nuclear sclerotic cataract 06/20/2020 Rib pain 06/22/2019 Acute bilateral thoracic back pain 06/22/2019 Benign head tremor 07/17/2018 Anxiety and depression 03/27/2017 Dyslipidemia 03/27/2017 Gastroesophageal reflux disease without esophagi tis 03/27/2017 Rheumatoid arthritis involvi ng multiple sites ([facility] V24, [facility] V28) 03/27/2017 Seasonal allergic rhinitis due to pollen 017 Senile osteoporosis 03/27/2017 Spasmodic torticollis 11/11/2016 Fibrocystic breast changes of both breasts 10/19 Inconclusive mammogram due to dense breasts 09/27 Immunizations Name Administration Dates Next Due Influenza Quadravalent, 0.5ml (Fluad) 65yo and o lder 02/07/2023 Influenza Quadravalent, 0.5m l (Fluzone High-dose) 65yo and older 02/21/2021 Airspan (ages 12 & older) JUSTINA S-CoV-2 COVID-19, [...] biopsies; Surgeon: Jose Alberto Vásquez MD; Location: [facility]; Service: Gastroenterology; Laterality: N/A; TOE SURGERY PROCEDURE:CORRECTION HAMMER TOE COLONOSCOPY PROCEDURE:COLONOSCOPY COLONOSCOPY 03/05/2019 N/A PROCEDURE:COLONOSCOPY;COMMENT :Procedure: COLONOSCOPY; Surgeon: Jose Alberto Vásquez MD; Location: [facility]; Service: Gastroenterology; Laterality: N/A; BREAST LUMPECTOMY [...] IOL IMPLANT; Surgeon: Fransisca Connell MD; Location: [facility]; Service: Ophthalmology; Laterality: Left; CATARACT EXTRACTION W/ INTRAOCULAR LENS IMPLANT 03/11/2022 Right PROCEDURE:CATARACT EXTRACTION W/ INTRAOCULAR LENS IMPLANT;COMMENT:Procedure: RIGHT EXTRACTION CATARACT WITH IOL IMPLANT; Surgeon: Fransisca Connell MD; Location: [facility]; Service: Ophthalmology; Laterality: Right; UPPER GASTROINTESTINAL ENDOSCOPY 06/06/2022 N/A PROCEDURE:UPPER GASTROINTESTINAL ENDOSCOPY;COMMENT:Procedure: UPPER ENDOSCOPY-EGD; Surgeon: Jose Alberto Vásquez MD; Location: [facility]; Service: Gastroenterology; Laterality: N/A; COLONOSCOPY 09/19/2023 N/A PROCEDURE:COLONOSCOPY;COMMENT :Procedure: COLONOSCOPY; Surgeon: Jose Alberto Vásquez MD; Location: [facility]; Service: Gastroenterology; Laterality: N/A; Medical History [...] reflux DX:Acid reflux Depression DX:Depression Rheumatoid arthritis (CMS/HC C V24, CMS/HCC V28) DX:Rheumatoid arthritis (HCC ) Skin cancer DX:Skin cancer Tremor DX:Tremor;COMMEN T:head [...] 04/14/2025 11:30 AM EST Office Visit [facility] [place] [address] [place] [id number] Howie Jimenez MD [address] [facility] [address] [place], [place] [id number] Health Maintenance Due Date Last Done Comments Zoster Vaccines (1 of 2) 02/13/1969 Falls Risk Assessment 04/04/2022 Social Influencers of Health Screening 04/04/2022 RSV Immunization Adult Patients (1 - 1-dose 75+ series) 02/13/2023 Medicare Annual Wellness Visit 01/31/2024 01/30/2023 Depression Screening 04/28/2024 COVID-19 Vaccine ( season) 2024 04/24/2022, 07/22/2021, 01/13/2021, Additional history exists Influenza Vaccine (#1) 2024 , 02/07/2023, 02/21/2021 Hypertension/CHF/CAD Annual BMP Blood Test 06/07/2025 06/07/2024, 02/23/2024, 02/23/2024, Additional history exists DTaP,Tdap,and Td Vaccines (2 - Td or Tdap) 07/18/2026 07/18/2016 Cholesterol Screening (Lipid Panel) 04/15/2029 04/15/2024, 02/25/2023, 02/25/2023, Additional history exists Osteoporosis Screening (Bone Density Screening) 11/11/2033 11/12/2023, 12/25/2020, 12/21/2018 Pneumococcal Vaccine: 50+ Years Completed 05/06/2018, 02/20/2017 Hepatitis C Screening Completed 06/04/2019 Breast Cancer Screening Discontinued 02/22/20 23, 02/13/2022, 12/25/2020, Additional history exists Colorectal Cancer Screening: Colonoscopy Discontinued 09/19/2023 HIB Vaccines Aged Out No longer eligi [...] age to complete this topic Meningococcal B Vaccine Aged Out No l onger eligible based on patient's age to complete this topic RSV Immunization Patients Under 20 months Aged Out No longer eligible based on patient's age to complete this topic Varicella Vaccines Aged Out No longer eligible based on patient's age to complete this topic Medical Devices Implanted Type Area Supervisor Looping Device Identifier Shelf Expiration Date Model / Serial / Lot Lens Teccarlos Teccarlos [employer] Prote[employer] Tri-Fix +20.5 Diopter - [id number] - [id number] Implanted:Qty: 1 on 06/26/2020 by Fransisca Connell MD Implants Left: Eye [employer] 07/19/2021 [id number] / [id number] / . Dib00 21.0 Implanted:Qty: 1 on 03/11/2022 by Fransisca Connell MD Implants Right: Eye [employer] 11/28/2024 [id number] / [id number] / Procedures Procedure Name Priority Date/Time Associated Diagnosis Comments LIPID PANEL Routine 04/15/2024 10:27 AM EST [...] Recently Relevant to Health Maintenance Results * Lipid panel (04/15/2024 10:27 AM EST) Cholesterol 188 0 - 200 mg/dL LAB CHEMISTRY METHOD 04/15/2024 3:34 PM EST [facility] Triglycerides 72 <150 mg/dL LAB CHEMISTRY METHOD 04/15/2024 3:34 PM EST [facility] HDL 67 33 - 92 mg/dL LAB CHEMISTRY METHOD 04/15/2024 3:34 PM EST [facility] LDL Calculated 107 50 - 130 mg/dL LAB CHEMISTRY METHOD 04/15/2024 3:34 PM EST [facility] VLDL Cholesterol Jovany 14.4 mg/dL LAB CHEMISTRY METHOD 04/15/2024 3:34 PM EST [facility] Comment:No established refer ence range. Blood Venous blood specimen / Unknown Venipuncture / Unknown 04/15/2024 10:27 AM EST 04/15/2024 10:27 AM EST Sarika NAVAS LAB BLOOD ORDERABLES Final Resu lt [facility] [address] [place] [address], * Annual BMP Blood Test (02/23/2024) Annual BMP Blood Test abstracted us Historical Provider MD HEALTH MAINTENANCE Final Result * BONE DENSITY STUDY (11/12/2023 11:45 AM EDT) Anatomical Region Laterality Modality Bone Densitometr y 06/04/2023 11:3 1 AM EST Narrative 11/12/2023 4:20 PM EDT Bone density study Indication and risk factors: Postmenopausal female. History of osteoporosis, assess for interval change. Comparisons: 12/25/2020 Study acquired on a SuppreMol densitometer. Imaging of the lumbar spine and [...] on 11/12/2023 4:20 PM. Workstation Name - [id number] Procedure Note Zuleika Church MD - 02/10/2024 Bone density study Indication and risk factors: Postmenopausal female. History ofosteoporosis, assess for interval change. Comparisons: 12/25/2020 Study acquired on a SuppreMol densitometer. Imaging of thelumbar spine and hip [...] PM.Workstation Name - [id number] Марина Skinner MD IM DXA PROCEDURES Final Result * MAMMOGRAM SCREENING [...] lower inner quadrant nodule and biopsy clip. Unremarkable right breast. There are no dominant mass lesions, skin thickening, or nipple retraction. No cluster of suspicious microcalcifications is seen. BREAST DENSITY: Heterogeneously dense breast parenchyma (50-75% fibroglandular tissue; density C).This may lower the sensitivity of mammography. IMPRESSION: 1. No radiographic evidence of malignancy. Followup is recommended in one year. The results of this examination have been communicated to the patient through a lay letter in accordance with the Mammography Quality Standards Act. BI-RADS 2: Benign. Session: Examination and interpretation performed during a separate session. 3342 F Report reviewed and signed by : Dr. Christiaon Bailon MD on 02/24/2023 8:22 AM. Workstation Name - [id number] Procedure Note Christiano Bailon MD - 06/03/2023 [...] Examination and interpretation performed during a separatesession. 3342 F Report reviewed and signed by : Dr. Christiano Bailon MD on 02/24/2023 8:22AM. Workstation Name - [id number] Cindy Garcia MD IMG BI PROCEDURES Final Resu lt * Hepatitis C Screening (06/04/2019) Pathologist [facility] Hepatitis C Screening abstracted Historical Provider HEALTH MAINTENANCE Final Result from Last 3 Months or Most Recently Relevant to Health [place] [address] [facility] MEDICARE Care Teams Mesh Cutter Relationship Specialty Start Date End Date Zia Finley [address] [place] [id number] PCP - General Internal Medicine 06/01/19
--- OUTSIDE RECORDS SUMMARY | 2025-01-11 14:48 | XMS_ITS | Clinical Summary ---
Author Organization Formerly [facility] Address [address] [place] [address] Care Team Providers Care Program Lead Name Role Phone Zia Finley MD Primary Care Provider [phone] Марина Siknner MD Unavailable Jose Alberto Vásquez MD Unavailable [phone] Allergies Active Allergy Reactions Criticality Noted Date Comments Baclofen Other (See Comments) Medium 04/03/2022 Feels like she is melting into the ground after taking it Pseudoephedrine Palpitations Medium 05/05/2012 Medications onabotulinum toxin type A (BOTOX) 100 units Recon Soln injection Inject into the skin every 3 (three) months. For tremors Active escitalopram (LEXAPRO) 20 MG tablet Take 1 tablet (20 mg total) by mouth daily. 9 Active fluticasone (FloNASE) 50 mcg/spray nasal spray 1 spray into each nostril as needed. Active clonazePAM (KlonoPIN) 0.5 MG tablet Take 1 tablet (0.5 mg total) by mouth nightly as needed. 1 9 Active Cholecalciferol (VITAMIN D) 2000 units tablet Take 2,000 Units by mouth daily. Active docusate sodium (COLACE) 100 MG capsule Take 1 capsule (100 mg total) by mouth 3 (three) times a day. Active denosumab (Prolia) 60 mg/mL Solution Prefilled Syringe subcutaneous injection Inject 1 mL (60 mg total) under the skin every 6 (six) months. Active rosuvastatin (CRESTOR) 20 MG tablet daily. 2 Active albuterol (PROVENTIL HFA; VENTOLIN HFA) 108 (90 Base) MCG/ACT inhaler INHALE 2 PUFFS NEEDED SHORTNESS OF BREATH NO SOONER THAN EVERY 4 HOURS Active OMEprazole 20 MG Tablet Delayed ResponseIndicati ons:Gastroesopha geal reflux disease with esophagitis without hemorrhage Take 20 mg by mouth every morning before breakfast. 90 tablet 4 4 Active Insulin Syringe-Needle U-100 31G X 09/10 1 ML MiscIndications: Rheumatoid arthritis, involving unspecified site, unspecified whether rheumatoid factor present (HCC) To be used with methotrexate weekly (Can substitute with 1 ml syringe with 0.5 inch needle (27g through 31 g) 12 each 4 Active leuCOVORIN (WELLCOVORIN) 5 MG tabletIndication s:Seropositive rheumatoid arthritis (HCC) Take 3 tablets (15 mg total) by mouth once a week. 36 tablet 3 4 Active BD Insulin Syringe U/F 31G X 09/10 1 ML MiscIndications: Seropositive rheumatoid arthritis (HCC) To be used with methotrexate weekly (allowed to substitute for any 1 ml syringe, 1/2 inch needle, 27-31 g) 12 each 3 4 Active methoTREXate 25 MG/ML injectionIndicat ions:Seropositiv e rheumatoid arthritis (HCC) 22.5 mg subcutaneous q week 12 mL 5 Active Hospital, Clinic, or Other Facility Administered Medication Ordered Dose Route Frequency Start Date End Date Status denosumab (PROLIA) subcutaneous injection 60 mgIndications:Age-related osteoporosis without current pathological fracture 60 mg SC Once 12/30/2024 12/30/2024 Ended Active Problems Problem Noted Date Diagnosed Date Acute midline thoracic back pain 12/30/2024 Multinodular goiter 09/07/2024 Costochondritis 10/07/2023 Family history of malignant neoplasm of breast 0 10/07/2023 Lower abdominal pain 05/01/2023 Assessment & Plan (05/01/2023 12:02 PM EST): Large work up in past that has been negative Fleeting pain ?gas Denies constipation with TID colace Seeing PATIENT SERVICES CLERK soon Plan for earlier colonoscopy was due [...] 5 year recall Recall colonoscopy due: 02/2024 - will plan for early colonoscopy due [...] Encounters Date Type Department Care Team Description 12/30/2024 8:50 AM EDT Clinical Support [facility] Endocrinology [place] [address] [place] [phone] Марина Skinner MD Age-related osteoporosis without current pathological fracture (Primary Dx); Vitamin D deficiency; Post-menopausal; Acute midline thoracic back pain; Multinodular goiter 12/29/2024 Travel 12/15/2024 Orders Only [facility] [place], [facility] [address] [phone] Марина Skinner MD Age-related osteoporosis without current pathological fracture ; Vitamin D deficiency 11/01/2024 Telephone [facility] Department Endocrinology [place] [address] [place] [address] Марина Skinner MD 10/22/2024 Orders Only [facility] [place], [facility] [address] [place] [address] [address] [address] Angel Arevalo MD 10/19/2024 Telephone [facility] Endocrinology [place] [address] [place] [address] Марина Skinner MD 10/15/2024 3:30 PM EDT - 10/15/2024 11:59 PM EDT Hospital Encounter [facility] [address] [place] [address] Shalonda Hernandez PA Discharge Disposition: Home or Self Care 10/15/2024 Orders Only [facility] [address] [place] [address] Марина Skinner MD from Last 3 Months [...] pur e alcohol) Once every 2 month Comments Unknown Sex and Gender Information Value Date Recorded Sex Assigned at Female 04/02/2023 9:50 AM EST Legal Sex Female 7:07 PM EST Gender Identity Female 04/02/2023 9:50 AM EST Sexual Orientation Heterosexual (straight) 04/02 9:50 AM EST Last Filed Vital Signs Vital Sign Reading Time Taken Comments Blood Pressure 114/75 10/01/2024 2:46 PM EDT Pulse 83 10/01/2024 2:46 PM EDT Temperature 36.7 C (98.1 F) 10/01/2024 2:46 PM EDT Respiratory Rate 16 12/02/2023 10:55 AM EDT Oxygen Saturation 99% 10/01/2024 2:46 PM EDT Inhaled Oxygen Concentration - - Weight 60.6 kg (133 lb 9.6 oz) 10/01/2024 2:46 P M EDT Height 161.3 cm (5' 3.5 ) 10/01/2024 2:46 PM EDT Body Mass Index 23.29 10/01/2024 2:46 PM EDT Plan of Treatment Upcoming Encounters Date Type Department Care Team (Late st Contact Info) Description 01/14/2025 10:40 AM EDT Office Visit [facility] Department of Rheumatology [place] [address] [facility] [address] [place] [phone] Thao Correia MD [address] [phone] 05/06/2025 1:00 PM EST Office Visit [facility] Department of Rheumatology [place] [address] [facility] [address] [place] [phone] Thao Correia MD [address] [address] 06/30/2025 11:00 AM EST Clinical Support [facility] Department of Endocrinology [place] [address] [facility] [address] [place] [phone] Марина Skinner MD [address] [place] [address] Health Maintenance Due Date Last Done Comments Advance Care Planning 1950 Hepatitis C Virus Screening 1950 DTaP/Tdap/Td Vaccines (1 - Tdap) 02/13/1967 Pneumococcal Vaccines 50+ (1 of 2 - PCV) 02/13/1967 Zoster (Shingles) Vaccine (1 of 2) 02/13/1967 DXA Bone Density (Females,Ages 65 and older) 02/13/2013 RSV Vaccine 60 years and older and Patients (1 - 1-dose 75+ series) 02/13/2023 Influenza Vaccine 11/26/2024 02/20/2024, , 02/21/2021, Additional history exists COVID-19 Vaccine ( season) 2024 04/24/2022, 07/22/2021, 01/13/2021, Additional history exists Mammogram Discontinued 12/25/2020, 11/28, 01/19/2019, Additional history exists Hepatitis B Vaccines Aged Out No long er eligible based on patient's age to complete this topic Procedures Procedure Name Priority Date/Time Associated Diagnosis Comments VITAMIN D, 25-HYDROXY Routine 12/14/2024 3:24 PM EDT Age-related osteoporosis without current pathological fracture Vitamin D deficiency ALBUMIN Routine 12/14/2024 3:24 PM EDT Age-related osteoporosis without current pathological fracture BASIC METABOLIC PANEL Routine 12/14/2024 3:24 PM EDT Age-related osteoporosis without current pathological fracture HX OUTSIDE ORDER Routine 10/15/2024 9:51 PM EDT IR US GUIDED THYROID BIOPSY - [id number] Routine 10/15/2024 3:46 PM EDT CYTOLOGY REPORT Routine 10/15/2024 3:30 PM EDT PATHOLOGY ENDOCRINE Routine 10/15/2024 11:52 AM EDT IMAGING BREAST/BX/MAMMO Routine 12/25/2020 from Last 3 Months or Most Recently Relevant to Health Maintenance Results * VITAMIN D, 25-HYDROXY (12/14/2024 3:24 PM EDT) Vitamin D, 25 OH, Total 53 30 - 100 ng/mL [facility] Blood Blood specimen / Unknown 12/14/2024 3:24 PM EDT 12/14/2024 8:54 PM EDT us Марина Skinner MD LAB BLOOD ORDERABLES Final Resul t Performing Organization Address City/State/[facility] Co de Phone Number [facility] [address] [place] [phone], * ALBUMIN (12/14/2024 3:24 PM EDT) Albumin 4.2 3.2 - 4.8 g/dL [facility] Blood Blood specimen / Unknown 12/14/2024 3:24 PM EDT 12/14/2024 8:54 PM EDT Марина Skinner MD LAB BLOOD ORDERABLES Final Resul t Performing Organization Address City/[facility]/ZIP Co de Phone Number [facility] [address] [place] [address], * BASIC METABOLIC PANEL (12/14/2024 3:24 PM EDT) Glucose 85 70 - 99 mg/dL [facility] Blood Urea Nitrogen 8 7 - 22 mg/dL [facility] Creatinine, Ser 0.7 0.5 - 1.2 mg/dL [facility] Bun / Creat Ratio 11 11 - 30 [facility] Sodium 143 133 - 145 mmol/L [facility] Potassium 4.5 3.3 - 5.1 mmol/L [facility] Chloride 105 96 - 108 mmol/L [facility] CO2 27 22 - 31 mmol/L [facility] Anion Gap 11 3 - 19 mmol/L [facility] Calcium 9.7 8.8 - 10.6 mg/dL [facility] GFR Estimated (calculated) >60 >60 [facility] Comment: As of 2021, the [facility] has updated the creatinine- based estimated glomerular filtration rate (eGFRcr) to the updated CKD-EPI 2020 equation. This change removes the race coefficient of the older calculation, and was made based on recommendations from the National Kidney Foundation and the [place] [employer]'s Task Force. The new eGFRcr has similar overall performance characteristics to the older equation and has been assessed to not have potential consequences that disproportionately affect any one group of individuals. However, some mild variation from the older eGFR equation can be expected especially in younger age patients and at higher eGFRcr values. Blood Blood specimen / Unknown 12/14/2024 3:24 PM EDT 12/14/2024 8:54 PM EDT us Марина Skinner MD LAB BLOOD ORDERABLES Final Resul t Performing Organization Address [facility]/ZIP Co de Phone Number [facility] [address] [address], * OUTSIDE ORDER (10/15/2024 9:51 PM EDT) us External Provider HX AMB PROCEDURES Final Res ult * IR US GUIDED THYROID BIOPSY - [id number] (10/15/2024 3:46 PM EDT) Anatomical Region Laterality Modality Other 10/15/2024 3:00 PM EDT 10/15/2024 3:00 PM EDT Impressions 10/15/2024 7:22 PM EDT Image-guided biopsy of 2 thyroid nodules: 1.The 1.6 cm left superior lobe thyroid nodule 2.The 1.8 cm right midpole thyroid nodule PLAN: Specimen(s) sent for cytology with reflex to Af[facility] as requested. PROCEDURE SUMMARY: - Percutaneous ultrasound-guided fine-needle aspiration - Additional procedure(s): None PROCEDURE DETAILS: PREPROCEDURE: Reference imaging for biopsy target: Thyroid ultrasound September 21, 2024 Consent: Informed consent for the procedure including risks, benefits and alternatives was obtained and time-out was performed prior to the procedure. Preparation: The site was prepared and draped using maximal sterile barrier technique including cutaneous antisepsis. ANESTHESIA/SEDATION: Level of anesthesia/sedation: Not applicable Anesthesia/sedation administered by: Not applicable Total intra-service sedation time (minutes): Not applicable IMAGING PRIOR TO BIOPSY: The patient was positioned supine on the ultrasound table. Initial imaging was performed. Biopsy targets: Nodule #1 - Maximal diameter (cm): 1.6 - Location: Left thyroid - Other findings: None Nodule #2 - Maximal diameter (cm): 1.8 - Location: Right thyroid -Other findings: None BIOPSY: 4mL 1% Lidocaine local anesthesia was administered. Under direct ultrasound guidance as stated in the procedure summary, the biopsy needle was advanced to the target and biopsy was performed. Nodule #1 - Maximal diameter (cm): 1.6 - Location: Left thyroid - Other findings: None Fine needle aspiration device: 10 mL syringe Fine needle size: 25 gauge Number of FNA specimens: 5 Nodule #2 - Maximal diameter (cm): 1.8 - Location: Right thyroid - Other findings: None Fine needle aspiration device: 10 mL syringe Fine needle size: 25 gauge Number of FNA specimens: 5 On-site biopsy touch preparation: No Additional sampling recommendations: None Preliminary assessment of sample adequacy: Not applicable NEEDLE REMOVAL: The biopsy needle was removed and a sterile dressing was applied. IMAGING FOLLOWING BIOPSY: Postbiopsy imaging: Ultrasound Postbiopsy imaging findings: Expected post biopsy findings. No large hematoma. ADDITIONAL DETAILS: Additional description of procedure: None Equipment details: None Specimens removed: Biopsy samples as detailed above Estimated blood loss (mL): Less than 5 Standardized report: [email or web address] This procedure was performed and dictated by Shalonda Hernandez PA-C. Interpreted by: Shalonda Hernandez PA-C I personally reviewed the images and the residents preliminary report and AGREE with the report as it is now presented ([email or web address]). Electronically signed by: Nisha Garcia MD 10/15/2024 07:22 PM EDT Thank you for referring your patient to us, Nisha Garcia MD [phone] (Electronically Signed - 10/15/2024 19:22) Copy: THAO CORREIA MD [facility] [address] [facility] [address] [place] [address] LEONOR NAVAS [facility] [address] [place] [address] Narrative 10/15/2024 7:22 PM EDT Addendum: ADDENDUM #1 CYTOPATHOLOGY REPORT Spec #: [id number] DIAGNOSIS A. 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 B. 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 A copy of this addended report with the pathology findings will be sent to the referring provider. Electronically signed by: Nisha Garcia MD 11/01/2024 12:26 PM EDT RP Thank you for referring your patient to us, Nisha Garcia MD [phone] (Electronically Signed - 11/01/2024 12:26) Copy: THAO CORREIA MD [facility] [address] [place] [address] LEONOR DECKER [facility] [address] [facility] [place] [address] Original Report: PROCEDURE: IR THYROID FINE NEEDLE ASPIRATION REFERRING PROVIDER: Марина Skinner MD PROCEDURAL PERSONNEL: Advanced Practice Provider(s): Shalonda Hernandez PA-C PREPROCEDURE DIAGNOSIS: Thyroid nodules POSTPROCEDURE DIAGNOSIS: Same INDICATION: Histopathologic diagnosis Previous biopsy of same target (QCDR): No ADDITIONAL CLINICAL HISTORY: Thyroid nodules. COMPLICATIONS: No immediate complications. Procedure Note Nisha Garcia MD - 11/01/2024 Addendum: ADDENDUM #1 CYTOPATHOLOGY REPORT Spec #: [id number] DIAGNOSIS A. 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 B. 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 A copy of this addended report with the pathology findings will be sent tothe referring provider. Electronically signed by: Nisha Garcia MD 11/01/2024 12:26 PM EDT RPWorkstation: [id number] Thank you for referring your patient to us, Nisha Garcia MD [phone] (Electronically Signed - 11/01/2024 12:26) Copy: THAO CORREIA MD [facility] [address] [place] [address] LEONOR NAVAS [facility] [address] [place] [address] Original Report: PROCEDURE: IR THYROID FINE NEEDLE ASPIRATION REFERRING PROVIDER: Марина Skinner MD PROCEDURAL PERSONNEL: Advanced Practice Provider(s): Shalonda Hernandez PA-C PREPROCEDURE DIAGNOSIS: Thyroid nodules POSTPROCEDURE DIAGNOSIS: Same INDICATION: Histopathologic diagnosis Previous biopsy of same target (QCDR): No ADDITIONAL CLINICAL HISTORY: Thyroid nodules. COMPLICATIONS: No immediate complications. IMPRESSION: Image-guided biopsy of 2 thyroid nodules: 1.The 1.6 cm left superior lobe thyroid nodule 2.The 1.8 cm right midpole thyroid nodule PLAN: Specimen(s) sent for cytology with reflex to Afirma as requested. PROCEDURE SUMMARY: - Percutaneous ultrasound-guided fine-needle aspiration - Additional procedure(s): None PROCEDURE DETAILS: PREPROCEDURE: Reference imaging for biopsy target: Thyroid ultrasound September 21, 2024 Consent: Informed consent for the procedure including risks, benefits andalternatives was obtained and time-out was performed prior to theprocedure. Preparation: The site was prepared and draped using maximal sterilebarrier technique including cutaneous antisepsis. ANESTHESIA/SEDATION: Level of anesthesia/sedation: Not applicable Anesthesia/sedation administered by: Not applicable Total intra-service sedation time (minutes): Not applicable IMAGING PRIOR TO BIOPSY: The patient was positioned supine on the ultrasound table. Initial imagingwas performed. Biopsy targets: Nodule #1 - Maximal diameter (cm): 1.6 - Location: Left thyroid - Other findings: None Nodule #2 - Maximal diameter (cm): 1.8 - Location: Right thyroid -Other findings: None BIOPSY: 4mL 1% Lidocaine local anesthesia was administered. Under directultrasound guidance as stated in the procedure summary, the biopsy needlewas advanced to the target and biopsy was performed. Nodule #1 - Maximal diameter (cm): 1.6 - Location: Left thyroid - Other findings: None Fine needle aspiration device: 10 mL syringe Fine needle size: 25 gauge Number of FNA specimens: 5 Nodule #2 - Maximal diameter (cm): 1.8 - Location: Right thyroid - Other findings: None Fine needle aspiration device: 10 mL syringe Fine needle size: 25 gauge Number of FNA specimens: 5 On-site biopsy touch preparation: No Additional sampling recommendations: None Preliminary assessment of sample adequacy: Not applicable NEEDLE REMOVAL: The biopsy needle was removed and a sterile dressing was applied. IMAGING FOLLOWING BIOPSY: Postbiopsy imaging: Ultrasound Postbiopsy imaging findings: Expected post biopsy findings. No largehematoma. ADDITIONAL DETAILS: Additional description of procedure: None Equipment details: None Specimens removed: Biopsy samples as detailed above Estimated blood loss (mL): Less than 5 Standardized report: [email or web address] This procedure was performed and dictated by Shalonda Hernandez PA-C. Interpreted by: Shalonda Hernandez PA-C I personally reviewed the images and the residents preliminary report andAGREE with the report as it is now presented ([email or web address]). Electronically signed by: Nisha Garcia MD 10/15/2024 07:22 PM EDT RPWorkstation: [id number] Thank you for referring your patient to us, Nisha Garcia MD [phone] (Electronically Signed - 10/15/2024 19:22) Copy: THAO CORREIA MD [facility] [address] [facility] [address] [place] [address] LEONOR NAVAS [facility] [address] [place] [address] us Марина Skinner MD IMG LEGACY PROCEDURES Edited Res ult - Final * Cytology Report (10/15/2024 3:30 PM EDT) Report [facility] [id number] CLIA ID [id number] [address] [place] [address] / 4 [phone] Cytopathology Report PATIENT NAME: KIMMY MISHRA [facility] REC NUMBER: [id number] (AGE): 1950 (Age: 74) SPECIMEN NUMBER: [id number] DATE OBTAINED: 10/15/2024 DIAGNOSIS: A. LEFT SUPERIOR THYROID, FINE NEEDLE ASPIRATION: BENIGN (BETHESDA CATEGORY II); CONSISTENT WITH LYMPHOCYTIC (BARBARA'S) THYROIDITIS IN THE PROPER CLINICAL CONTEXT. B. RIGHT MID THYROID, FINE NEEDLE ASPIRATION: BENIGN (BETHESDA CATEGORY II); CONSISTENT WITH LYMPHOCYTIC (BARBARA'S) THYROIDITIS IN THE PROPER CLINICAL CONTEXT. 10/18/2024 Electronically Signed Out KAIN DARBY MD Clinical Diagnosis and History: FNA BIOPSY THYROID NODULES PART A- LEFT SUPERIOR 1.6 CM RELEX AFIRMA PART B- RIGHT MID 1.8 CM REFLEX AFIRMA Tissue(s) Submitted: A: LEFT SUPERIOR Thyroid, Fine Needle Aspiration B: RIGHT MID Thyroid, Fine Needle Aspiration Specimen Description: PART A- RECEIVED 30 MLS CLEAR PINK IN CYTOLYT [1 THINPREP MADE] PLUS 2 LABELED SMEARS IN ETOH 3 SLIDES TOTAL WITH AFIRMA PART B- RECEIVED 30 MLS CLEAR RED IN CYTOLYT [1 THINPREP MADE] PLUS 3 LABELED SMEARS IN ETOH 4 SLIDES TOTAL WITH AFIRMA ICD Codes: E04.2 Nontoxic multinodular goiter [facility] 10/15/2024 3:30 PM EDT 10/18/2024 3:00 AM EDT Comment:LEFT SUPERIOR Thyroi d, Fine Needle Aspiration&RIGHT MID Thyroid, Fine Needle Aspiration Марина Skinner MD PATHOLOGY/CYTOLOGY ORDERABLES Fi nal Result HOSPITAL LAB See Below * PATHOLOGY ENDOCRINE (10/15/2024 11:52 AM EDT) Angel Arevalo MD [facility] HX PATH PROCEDURES Fin al Result * IMAGING BREAST/BX/MAMMO (12/25/2020) Anatomical Region Laterality Modality Other External Provider IMG LEGACY PROCEDURES Final Result from Last 3 Months or Most Recently Relevant to Health Maintenance Insurance MEDICARE PART A & B [employer] MEDICARE PART A & B [employer] MEDICARE PART A & B FOR LIFE Care Teams Program Lead Relationship Specialty Start Date End Date Zia Finley MD [address] [place] [address] PCP - General Internal Medicine 04/25/20 Марина Skinner MD [address] [facility] [address] [place] [address] [employer] Endocrinology 11/27/22 Jose Alberto Vásquez MD [address] [facility] [address] [place] [address] Gastroenterology 07/02/23
--- OUTSIDE RECORDS SUMMARY | 2025-01-11 14:48 | XMS_ITS | Encounter Summary ---
Author Organization [facility] Address [address] [place] [address] Care Team Providers Care Property Insurance Agent Name Role Phone Zia Finley MD Primary Care Provider Марина Skinner MD Unavailable Jose Alberto Vásquez MD Unavailable [phone] Encounter Details Date Type Department Care Team (Late Contact Info) Description 08/05/2022 Scanned Document [facility] Department Of Rheumatology [address] [place] [phone] Annie Correia MD [address] [place] [address] Social History Tobacco Use Types Packs/Day Years [...] Description 01/14/2025 10:40 AM EDT Office Visit [facility] Department of Rheumatology [place] [address] [facility] [address] [place] [phone] Annie Correia MD [address] [facility] [address] [place] [address] 05/06/2025 1:00 PM EST Office Visit [facility] Department of Rheumatology [place] [address] [facility] [address] [place] [address] Annie Correia MD [address] [facility] [address] [place] [address] 06/30/2025 11:00 AM EST Clinical Support [facility] Department of Endocrinology [place] [address] [facility] [address] [place] [phone] Марина Skinner MD [address] [place] [address] documented as of this encounter Visit Diagnoses Not on filedocumented in this encounter Care Teams Property Insurance Agent Relationship Specialty Start Date End Date Zia Finley MD [address] [facility] [address] [place] [address] PCP - General Internal Medicine 04/25/20 Марина Skinner MD [address] [facility] [address] [place] [address] Professor Of Architecture Endocrinology 11/27/22 Jose Alberto Vásquez MD [address] [facility] [address] [place] [address] Gastroenterology 07/02/23 documented as of this encounter
--- OUTSIDE RECORDS SUMMARY | 2025-01-11 14:48 | XMS_ITS | Clinical Summary ---
Author Organization [facility] Address [address] [place] [address] Care Team Providers Care Shiatsu Therapist Name Role Phone Pcp, No MD Primary [...] Bone Density Screening 1950 HIV Screening 1950 Hepatitis C Screening 02/13/1966 Pneumococcal Vaccine, 50+ Years (1 of 2 - PCV) 02/13/1967 Zoster Vaccines (1 of 2) 02/13/1967 Medicare Annual Wellness (AWV) 12/28/2022 12/27/2021, 12/25/2020, 12/22/2019, Additional history exists COVID-19 Vaccine ( season) 2024 07/22/2021, 01/13/2021, 07/07/2020, Additional history exists Influenza Vaccine (#1) 2024 02/07/2023, 2020 DTaP,Tdap,and Td Vaccines (2 - Td or Tdap) 07/18/2026 07/18/2016 HPV Vaccines Aged Out No longer eligi ble based on patient's age to complete this topic Hepatitis A Vaccines Aged Out No long er eligible based on patient's age to complete this topic Meningococcal Vaccine Aged Out No supriya satinder eligible based on patient's age to complete this topic Insurance MEDICARE PART A & B Care Teams Shiatsu Therapist Relationship Specialty Start Date End Date Cheri Son MD [address] [place] [id number] PCP - General Internal Medicine 03/01/21
--- OUTSIDE RECORDS SUMMARY | 2025-01-11 14:48 | XMS_ITS ---
Author Name [facility] Organization Unknown Results Test Name/Text Value Interpretation Date Range Source LYMPHOCYTES NFR BLD AUTO 33.3 % Normal 02/23/2024 20 - 48 [facility] LYMPHOCYTES NO. BLD AUTO 1.6 K/uL Normal 02/23/2024 1 - 3.2 [facility] EOSINOPHIL NFR BLD AUTO 2.7 % Normal 02/23/2024 0 - 6 [facility] EOSINOPHIL NO. BLD AUTO 0.1 K/uL Normal 02/23/2024 0 - 0 .[facility] BASOPHILS NFR BLD AUTO 0.4 % Normal 02/23/2024 0 - 2 [facility] NEUTROPHILS NO. BLD AUTO 2.7 K/uL Normal 02/23/2024 1.8 - 7.8 [facility] MONOCYTES NO. BLD AUTO 0.4 K/uL Normal 02/23/2024 0 - 0. 8 [facility] DIFFERENTIAL TYPE AUTOMATED Normal 02/23/2024 C [facility] BASOPHILS IN BLOOD BY AUTOMATED COUNT 0.0 K/uL Normal 02/23/2024 0 - 0.2 [facility] MONOCYTES NFR BLD AUTO 7.5 % Normal 02/23/2024 2 - 12 [facility] NEUTROPHILS NFR BLD AUTO 56.1 % Normal 02/23/2024 44 - 74 [facility] PMV BLD AUTO 8.1 fL Normal 02/23/2024 7.4 - 11.4 [facility] MCV RBC AUTO 90.5 fL Normal 02/23/2024 78 - 100 [facility] MCHC RBC AUTO MCNC 33.2 g/dL Normal 02/23/2024 32 - 36 [facility] WBC NO. BLD AUTO 4.8 K/uL Normal 02/23/2024 4 - 10.5 CT [facility] RDW RBC AUTO RTO 15.9 % Normal 02/23/2024 12.1 - 16.2 [facility] PLATELET NO. BLD AUTO 279.0 K/uL Normal 02/23/2024 150 - 450 [facility] RBC NO. BLD AUTO 3.85 M/uL Below low normal 02/23/2024 4.2 - 5.4 [facility] MCH RBC QN AUTO 30.0 pg Normal 02/23/2024 25 - 33 [facility] HGB BLD MCNC 11.6 g/dL Below low normal 02/23/2024 12.5 - 16 [facility] HCT VFR BLD AUTO 34.8 % Below low normal 02/23/2024 37 - 47 [facility] ALP SERPL-CCNC 53.0 U/L Normal 02/23/2024 34 - 104 [facility] HCO3 SER SCNC 31.0 mmol/L Normal 02/23/2024 24 - 32 [facility] POTASSIUM SERPL SCNC 4.0 mmol/L Normal 02/23/2024 3.5 - 5 .1 [facility] CHLORIDE SERPL SCNC 108.0 mmol/L Above high normal 98 - 107 [facility] BUN SERPL MCNC 10.0 mg/dL Normal 02/23/2024 7 - 17 [facility] ALBUMIN SERPL BCG MCNC 3.9 g/dL Normal 02/23/2024 3.5 - 5 [facility] ALT SERPL CCNC 16.0 U/L Normal 02/23/2024 7 - 52 [facility] SODIUM SERPL SCNC 143.0 mmol/L Normal 02/23/2024 135 - 14 5 [facility] ANION GAP SERPL SCNC 4.0 mmol/L Below low normal 02/23/2024 5 - 14 [facility] GLUCOSE P FAST SERPL MCNC 85.0 mg/dL Normal 02/23/2024 70 - 99 [facility] AST SERPL CCNC 15.0 U/L Normal 02/23/2024 5 - 40 [facility] CREAT SERPL MCNC 0.7 mg/dL Normal 02/23/2024 0.5 - 1 [facility] BILIRUB SERPL MCNC 0.5 mg/dL Normal 02/23/2024 0.3 - 1 [facility] PROT SERPL MCNC 6.1 g/dL Below low normal 02/23/2024 6.4 - 8.5 [facility] CALCIUM SERPL MCNC 8.9 mg/dL Normal 02/23/2024 8.4 - 10.2 [facility] Glomerular filtration rate/1.73 sq M. predicted 90.0 Normal 02/23/2024 60 - [facility] TSH SerPl DL<=0.005 mIU/L-aCnc 1.13 uIU/mL Normal 02/23/2024 0.45 - 5.33 [facility] TRIGL SERPL-MCNC 56.0 mg/dL Normal 02/25/2023 - 150 [facility] LDLc SerPl Calc-mCnc 92.0 mg/dL Normal 02/25/2023 50 - 13 0 [facility] HDLC SERPL-MCNC 54.0 mg/dL Normal 02/25/2023 33 - 92 [facility] CHOLEST SERPL-MCNC 157.0 mg/dL Normal 02/25/2023 0 - 200 [facility] BILIRUB SERPL MCNC 0.4 mg/dL Normal 02/25/2023 0.3 - 1 [facility] CHLORIDE SERPL SCNC 106.0 mmol/L Normal 02/25/2023 98 - 1 07 [facility] ALBUMIN SERPL BCG MCNC 4.1 g/dL Normal 02/25/2023 3.5 - 5 [facility] PROT SERPL MCNC 6.8 g/dL Normal 02/25/2023 6.4 - 8.5 [facility] BUN SERPL MCNC 11.0 mg/dL Normal 02/25/2023 7 - 17 [facility] Glomerular filtration rate/1.73 sq M. predicted 77.0 Normal 02/25/2023 60 - [facility] ALP SERPL-CCNC 49.0 U/L Normal 02/25/2023 34 - 104 [facility] ALT SERPL CCNC 9.0 U/L Normal 02/25/2023 7 - 52 [facility] SODIUM SERPL SCNC 142.0 mmol/L Normal 02/25/2023 135 - 14 5 [facility] AST SERPL CCNC 14.0 U/L Normal 02/25/2023 5 - 40 [facility] CREAT SERPL MCNC 0.8 mg/dL Normal 02/25/2023 0.5 - 1 [facility] HCO3 SER SCNC 30.0 mmol/L Normal 02/25/2023 24 - 32 [facility] CALCIUM SERPL MCNC 9.5 mg/dL Normal 02/25/2023 8.4 - 10.2 [facility] POTASSIUM SERPL SCNC 4.2 mmol/L Normal 02/25/2023 3.5 - 5 .1 [facility] GLUCOSE P FAST SERPL MCNC 86.0 mg/dL Normal 02/25/2023 70 - 99 [facility] ANION GAP SERPL SCNC 6.0 mmol/L Normal 02/25/2023 5 - 14 [facility] History of Medication Use Medication Directions Dispensed Refills Start Date End Date Status benzonatate 100 mg capsule Take 1 capsule 3 times a day by oral route. 02/03/20 active predniSONETake 3 Tablet (oral) 1 time per day for 5 [id number] time per [id number] 0mg 04/26/20 suspended omeprazole (PriLOSEC) [address] capsule 02/14/20 active omeprazole (PriLOSEC) 40 MG capsule Take 20 mg by mouth daily. 02/14/20 23 active omeprazole (PriLOSEC) 40 MG capsule Take 20 mg by mouth daily. 02/14/20 active Methotrexate 22.5 MG/0.9ML Solution Prefilled Syringe Inject 22.5 mg under the skin once a week. Inject 22.5 mg once weekly 07/02/19 23 2023 active moxifloxacin 0.5 % eye drops 02/19/20 22 2021 completed leucovorin (WELLCOVORIN) 15 MG tablet Take 1 tablet (15 mg total) by mouth every 7 days 02/14/20 active insulin syringe-needle U-100 1 mL 27 gauge x 5/8 syringe TO BE USED WITH METHOTREXATE ONCE WEEKLY 01/04/20 active escitalopram (LEXAPRO) 20 mg tablet TAKE 1 TABLET(20 MG) BY MOUTH DAILY 10/10/19 22 active methoTREXate (RHEUMATREX) 2.5 mg tablet 25 mg po q week 07/22/19 19 2023 active clonazePAM (KlonoPIN) 0.5 MG tablet Take 1 tablet by mouth nightly as needed. 07/22/19 active clonazePAM (KlonoPIN) 0.5 MG tablet TK 1 T PO QD 07/22/19 active promethazine 6.25 mg-codeine 10 mg/5 mL syrup Take 10 mL by mouth every night at bedtime. 07/18/19 19 2018 completed meloxicam 7.5 mg tablet Take 1 tablet (7.5 mg total) by mouth daily. 06/18/19 19 2018 completed tizanidine 4 mg tablet Take 1 tablet (4 mg total) by mouth every 8 (eight) hours as needed. 06/18/19 19 2018 completed pravastatin (PRAVACHOL) 80 MG tablet 06/05/19 19 2022 active leuCOVORIN (WELLCOVORIN) 5 MG tablet Take 3 tablets (15 mg total) by mouth once a week. 05/13/19 19 2023 active prednisone 10 mg tablet TAPER - 4 TABS DAY 1, 3 TABS DAYS 2 AND 3, 2 TABS DAYS 4 AND 5 ND , 1 TAB DAY 7. 07/16/19 18 2017 completed fluticasone (FLONASE) 50 MCG/ACT nasal spray spray/apply 2 sprays in each nostril as needed. 07/14/19 18 active Vimovo 500mg-20mg delayed-release tablet 02/26/20 17 2016 active doxycycline hyclate 100 mg capsule Take 1 capsule (100 mg total) by mouth 2 (two) times a day. 03/14/20 16 2015 completed propranolol 10 mg tablet 10/05/19 16 2016 completed clonazePAM (KLONOPIN) 0.5 MG tablet Take 1 tablet (0.5 mg total) by mouth every night at bedtime as needed. 10/05/19 16 active ipratropium bromide 42 mcg (0.06 %) nasal spray 08/21/19 16 2015 completed amoxicillin 875 mg-potassium clavulanate 125 mg tablet TAKE 1 TABLET BY MOUTH TWICE DAILY FOR 10 DAYS TAKE WITH FOOD YOGURT PROBIOTIC 2023 completed clonazepam 1 mg tablet TAKE 1/2 OF 1MG TABLET BY MOUTH AT BEDTIME 30 MINUTES BEFORE BEDTIME 2023 completed Lotemax SM 0.38 % eye gel drops APPLY 1 DROP BOTH EYES FOUR TIMES DAILY DIRECTED BY INSTRUCTIONS GIVEN BY 2023 completed methotrexate sodium 25 mg/mL injection solution 22.5 MG SUBCUTANEOUS EVERY WEEK 2023 completed omeprazole 40 mg capsule,delayed release 2023 completed pantoprazole 40 mg tablet,delayed release Take 1 tablet (40 mg total) by mouth daily. 2023 completed baclofen 10 mg tablet TAKE 1 TABLET BY M OUTH TWICE DAILY 2023 completed clonazepam 1 mg tablet TAKE 1/2 OF 1MG TABLET BY MOUTH AT BEDTIME 30 MINUTES BEFORE BEDTIME 2023 completed methotrexate sodium (PF) 25 mg/mL injection solution INJECT 0.8ML UNDER THE SKIN ONCE A WEEK 2023 completed amitriptyline 10 mg tablet TAKE 1 TABLET BY MOUTH EVERY DAY AT BEDTIME 2021 completed Lotemax SM 0.38 % eye gel drops INSTILL 1 DROP IN RIGHT EYE THREE TIMES DAILY. BEGIN DIRECTED AFTER SURGERY 2021 completed moxifloxacin 0.5 % eye drops INSTILL 1 DROP IN RIGHT EYE THREE TIMES DAILY. BEGIN 3 DAYS BEFORE SURGERY 2021 completed Prolensa 0.07 % eye drops INSTILL 1 DROP IN RIGHT EYE EVERY DAY. BEGIN 3 DAYS BEFORE SURGERY 2021 completed Fluzone High-Dose 2019-20 (PF) 180 mcg/0.5 mL intramuscular syringe 2019 completed gabapentin 100 mg capsule 2019 completed acetaminophen 300 mg-codeine 30 mg tablet 2018 completed benzonatate 100 mg capsule 2018 completed doxycycline monohydrate 100 mg tablet 2017 completed loratadine 10 mg tablet 2017 completed ondansetron HCl 4 mg tablet 2017 completed oxycodone-acetaminoph en 5 mg-325 mg tablet 2017 completed rabeprazole 20 mg tablet,delayed release 2017 completed doxycycline hyclate 100 mg capsule 2016 completed ipratropium bromide 42 mcg (0.06 %) nasal spray 2016 completed mometasone 50 mcg/actuation nasal spray 2016 completed KlonopinTakeNo date recordedNo form recordedNo frequency recordedNo route recordedNo set duration recordedNo set duration amount recordedactiveNo dosage strength recordedNo dosage strength units of measure recorded active leucovorin calciumTakeNo date recordedNo form recordedNo frequency recordedNo route recordedNo set duration recordedNo set duration amount recordedactiveNo dosage strength recordedNo dosage strength units of measure recorded active LexaproTakeNo date recordedNo form recordedNo frequency recordedNo route recordedNo set duration recordedNo set duration amount recordedactiveNo dosage strength recordedNo dosage strength units of measure recorded active pravastatinTakeNo da te recordedNo form recordedNo frequency recordedNo route recordedNo set duration recordedNo set duration amount recordedsuspendedNo dosage strength recordedNo dosage strength units of measure recorded suspended azithromycin 250 mg tablet active clonazepam 0.5 mg tablet TAKE 1 TABLET BY MOUTH AT BEDTIME active leflunomide 10 mg tablet TAKE 1 TABLET BY MOUTH EVERY OTHER DAY active leucovorin calcium 5 mg tablet active metronidazole 0.75 % topical cream APPLY TWICE DAILY TO FACE active metronidazole 0.75 % topical cream APPLY TWICE DAILY TO FACE active omeprazole 40 mg capsule,delayed release active rosuvastatin 20 mg tablet TAKE 1 TABLET(20 MG) BY MOUTH DAILY active albuterol (PROVENTIL HFA; VENTOLIN HFA) 108 (90 Base) MCG/ACT inhaler INHALE 2 PUFFS NEEDED SHORTNESS OF BREATH NO SOONER THAN EVERY 4 HOURS active albuterol 108 (90 Base) MCG/ACT inhaler albuterol sulfate HFA 90 mcg/actuation aerosol inhaler active azithromycin 250 mg tablet azithromycin 250 mg tablet completed cholecalciferol (VITAMIN D-3) 50 mcg (2,000 unit) tablet Take 2,000 Units by mouth daily. Vitamin D TABS Refills: 0 Active activ e Cholecalciferol (VITAMIN D) 2000 units tablet Take by mouth. active Cholecalciferol (VITAMIN D) 2000 units tablet Take 2,000 Units by mouth daily. active Cholecalciferol (VITAMIN D) 2000 UNITS tablet Take 2,000 Units by mouth daily. Vitamin D TABS Refills: 0 Active activ e Colace 1 tab po tid 1 tab po tid completed escitalopram 20 mg tablet escitalopram 20 mg tablet completed methotrexate 2.5 mg tablet Take 8 tablets every week by oral route. Take 8 tablets every week by oral route. complete d methotrexate sodium 2.5 mg tablet methotrexate sodium 2.5 mg tablet completed OnabotulinumtoxinA (BOTOX IJ) Inject 1 Dose as directed every 3 (three) months. active pantoprazole (PROTONIX) 40 MG tablet Take 1 tablet (40 mg total) by mouth daily. activ e rosuvastatin 20 mg tablet rosuvastatin 20 mg tablet completed Allergies Allergen Reaction Severity Comment Documented Date Source Status BACLOFEN OTHEROTHER (SEE COMMENTS) Feels like she is melting into the ground after taking it 04/03/2022 [facility] active PSEUDOEPHEDRINE PALPITATIONS 05/05/2012 [facility] active PSEUDOEPHEDRINE HYDROCHLORIDE 05/05/2012 [facility] active PSEUDOEPHEDRINE HCL [facility] SUDAFED ENS_PODCRC T Problems Problem Status Onset Date Problem Type Date of Resolution Source Gastro-esophageal reflux disease without esophagitis active ProblemAct CT_PHYSONE Other seasonal allergic rhinitis active ProblemAct [facility] Hyperlipidemia, unspecified active ProblemAct [facility] Age-related osteoporosis without current pathological fracture active ProblemAct CT_PHY SONE Acute upper respiratory infection, unspecified active ProblemAct [facility] Nuclear sclerotic cataract active ProblemAct [facility] Thoracic spine pain active ProblemAct [facility] Senile osteoporosis active ProblemAct [facility] Rib pain active ProblemAct [facility] Inconclusive mammogram due to dense breasts active ProblemAct [facility] Spasmodic torticollis active ProblemAct [facility] Thoracic radiculopathy active ProblemAct [facility] ASCVD (arteriosclerotic cardiovascular disease) active ProblemAct [facility] Fibrocystic breast changes of both breasts active ProblemAct [facility] Thoracic spondylosis active ProblemAct [facility] Gastroesophageal reflux disease without esophagitis active ProblemAct [facility] Chest wall pain, chronic active 2022-03 ProblemAct [facility] Murmur active EncounterDiagnosisAct [facility] Dyslipidemia active ProblemAct [facility] Benign head tremor active ProblemAct [facility] ASCVD (arteriosclerotic cardiovascular disease) active EncounterDiagnosisAct [facility] Rheumatoid arthritis involving multiple sites active ProblemAct [facility] Palpitations active EncounterDiagnosisAct [facility] Anxiety and depression active ProblemAct [facility] Seasonal allergic rhinitis due to pollen active ProblemAct [facility] PSVT (paroxysmal supraventricular tachycardia) active ProblemAct [facility] Intercostal neuralgia active ProblemAct [facility] Mixed hyperlipidemia active EncounterDiagnosisA ct [facility] Nuclear sclerotic cataract of right eye active ProblemAct [facility] Nuclear sclerotic cataract of left eye active ProblemAct [facility] BMI 22.0-22.9, adult active ProblemAct [facility] Acute bronchitis, unspecified active EncounterDiagnosisAct [facility]J H High risk medication use active 2016-10 ProblemAct [facility] Gastroesophageal reflux disease with esophagitis active ProblemAct [facility] Dense breast active ProblemAct [facility] Post-menopausal active ProblemAct [facility] Family history of malignant neoplasm of breast active ProblemAct [facility] Costochondritis active ProblemAct [facility] Multinodular goiter active ProblemAct [facility] Constipation active ProblemAct [facility] Immunosuppression active ProblemAct [facility] Breast pain, right active ProblemAct [facility] Lower abdominal pain active ProblemAct [facility] Rheumatoid arthritis active ProblemAct [facility] Abdominal pain, generalized active ProblemAct [facility] Diverticulosis of large intestine without hemorrhage active ProblemAct [facility] Nausea active ProblemAct [facility] Atypical ductal hyperplasia of right breast active ProblemAct [facility] Vitamin D deficiency active ProblemAct [facility] Age-related osteoporosis without current pathological fracture active ProblemAct [facility] Personal history of colonic polyps active ProblemAct [facility] Nodule of lung active ProblemAct [facility]IV[facility] Sinusitis active ProblemAct [facility] Mixed anxiety and depressive disorder active ProblemAct [facility] Nuclear sclerotic cataract active ProblemAct [facility] Rheumatoid arthritis active ProblemAct [facility]_PRIV[facility] Taking high risk medication active ProblemAct [facility] Immunodeficiency disorder active ProblemAct [facility] Chest wall pain active ProblemAct [facility]_PRIV[facility] Fibrocystic changes of bilateral breasts active ProblemAct [facility]_PRIV[facility] Acute thoracic back pain active 2019-05 ProblemAct [facility] Hereditary essential tremor active ProblemAct [facility] Pain in thoracic spine active ProblemAct [facility] Thoracic radiculopathy active ProblemAct [facility] Rib pain active ProblemAct [facility] Body mass index 20-24 - normal active ProblemAct [facility] Thoracic spondylosis active ProblemAct [facility] Gastroesophageal reflux disease without esophagitis active ProblemAct [facility] Inconclusive mammography finding active ProblemAct [facility]_PR[facility]IA Pure hypercholesterolemia active ProblemAct [facility] Migraine active ProblemAct [facility] Rheumatoid arthritis active ProblemAct [facility] Chronic obstructive lung disease active ProblemAct [facility] Multiple nodules of lung active 2013-04 ProblemAct [facility] Diverticular disease active ProblemAct [facility] Depressive disorder active ProblemAct [facility] Concussion injury of brain active ProblemAct [facility] Pain of breast active ProblemAct [facility] Dysthymia active ProblemAct [facility] Osteoporosis active ProblemAct [facility] Gastroesophageal reflux disease active ProblemAct [facility] Contusion of left foot, initial encounter active ProblemAct ENS_PODCRCT Pain in right foot active EncounterDiagnosisAct ENS_PODCRCT Dropped object, strike by thrown, projected or falling object, subsequent encounter active ProblemAct ENS_PODCRCT Secondary osteoarthritis, right ankle and foot active ProblemAct ENS_PODCRCT Rheumatoid arthritis, right ankle and foot active EncounterDiagnosisAct ENS_PODCRCT Heel pain active ProblemAct ENS_PODCRCT [id number] - Tendonitis of right ankle active EncounterDiagnosisAct ENS_PODCRCT Rheumatoid arthritis, left ankle and foot active ProblemAct ENS_PODCRCT Tendonitis of left ankle active 2021-06 ProblemAct ENS_PODCRCT Secondary osteoarthritis, left ankle and foot active ProblemAct ENS_PODCRCT Dropped object, strike by thrown, projected or falling object, initial encounter active ProblemAct ENS_PODCRCT Contusion of left foot, subsequent encounter active ProblemAct ENS_PODCRCT Immunizations Vaccine Date Source Lot Number Status Influenza Quadravalent, 0.5m l (Fluad) 65yo and older 02/07/2023 [id number] completed SARS-COV-2 (COVID-19) vaccin e, mRNA, spike protein, LNP, bivalent booster, preservative free, 30 mcg/0.3 mL dose, kevin-sucrose formulation 04/24/2022 CT_ELIZABETH [id number] [facility] (ages 12 & older) JUSTINA S-CoV-2 COVID-19, mRNA, LNP-S, kevin-sucrose, preservative free 07/22/2021 [facility]_GE [id number] completed Influenza Quadravalent, 0.5m l (Fluzone High-dose) 65yo and older 02/21/2021 CT_GE [id number] [facility] SARS-CoV-2 COVID-19, mRNA, LNP-S, preservative free 01/13/2021 CT_GE completed Covid-19 ([facility]) Dilution Required 07/07/2020 [facility] [id number] completed Covid-19 ([facility]) Dilution Required 06/14/2020 [facility] [id number] completed pneumococcal polysaccharide vaccine, 23 valent 05/06/2018 CT_ELIZABETH [id number] completed pneumococcal conjugate vaccine, 13 valent 02/20/2017 CT_JOCELYN JASMINE [id number] completed Tdap Tetanus diptheria acell ular pertussis (Boostrix; Adacel) 7yo and older 07/18/2016 CT_LAURA [id number] completed Encounters Encounter Type Encounter Reason Primary Diagnosis [facility] Age-related osteoporosis without current pathological fracture Age-related osteoporosis without current pathological fracture [employer] 12/30/2024 Ambulatory Nontoxic multinodula r goiter Nontoxic multinodular goiter [employer] [facility]24 Ambulatory Age-related osteoporosis without current pathological fracture Age-related osteoporosis without current pathological fracture [facility] 06/17/[facility]24 Ambulatory 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 [facility] 04/15/2024 Ambulatory [employer] 04/02/2024 Ambulatory Acute bronchitis, unspecified Acute bronchitis, unspecified [facility] 02/23/2024 [facility] [employer] [facility] [employer] [facility] 02/03/2024 [facility]2023 [facility] 12/04/2023 Ambulatory Age-related osteoporosis without current pathological fracture Age-related osteoporosis without current pathological fracture [employer] 12/02/2023 Amb[facility] Mastodynia [facility]odynia [facility]/07/[facility]23 Ambulatory Personal history of colonic polyps Personal history of colonic polyps [facility] 09/19/2023 Ambulatory Rheumatoid arthritis , unspecified Rheumatoid arthritis, unspecified [facility] 07/04/2023 Ambulatory 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) w/o abn findings [facility] [email or web address] 06/04/2023 Ambulatory Age-related osteoporosis without current pathological fracture Age-related osteoporosis without current pathological fracture [facility] 06/03/2023 Ambulatory Gastro-esophageal reflux disease with esophagitis, without bleeding Gastro-esophageal reflux disease with esophagitis, without bleeding [facility] 05/01/2023 Ambulatory Rheumatoid arthritis with rheumatoid factor, unspecified Rheumatoid arthritis with rheumatoid factor, unspecified [facility] 04/04/2023 Ambulatory [facility] 03/04/20 Ambulatory Nausea Nausea [facility] 03/04/20 Ambulatory Hyperlipidemia, unspecified Hyperlipidemia, unspecified [facility] 02/25/2023 Ambulatory Hyperlipidemia, unspecified Hyperlipidemia, unspecified [facility] 02/25/2023 [facility] 02/13/2023 Ambulatory Rheumatoid arthritis with rheumatoid factor, unspecified Rheumatoid arthritis with rheumatoid factor, unspecified [facility] 12/27/2022 [facility] 11/28/2022 Ambulatory Rheumatoid arthr itis, unspecified [facility] 09/20/2022 [facility] 05/08/2022 [facility]ulatory [facility] 04/19/2022 Ambulatory [facility] [email or web address] 09/18/2021 Ambulatory Inconclusive mammogram [facility] 03/20/2021 Care Team Organization Name Specialty Phone Email Start Date End Da te [facility] 10/11/2024 [facility] 09/07/2024 [facility] Primary [facility] 04/19/2024 [facility] Primary [facility] 04/15/2024 [facility] 12/04/2023 [facility] 08/12/2023 024 [facility] 08/12/2023 024 [facility] 05/18/2023 [facility] [place] [facility] 04/18/2023 04/18/2023 [facility] 04/18/2023 [facility] 02/27/2023 [facility] 02/25/2023 [facility]/09[facility] 02/25/2023 [facility] 09/28/2022 [facility] 03/05/2022 [facility] 09/19/202111/24 [facility] 09/18/202104/19 [facility] [place] [facility] 03/21/2021 [facility] 03/20/202104/[address] [facility]
--- OUTSIDE RECORDS SUMMARY | 2025-01-11 14:48 | XMS_ITS | Encounter Summary ---
Author Organization [facility] Address [address] [place] [address] Care Team Providers Care Remote Advisor Name Role Phone Zia Finley MD Primary Care Provider Марина Skinner MD Unavailable Jose Alberto Vásquez MD Unavailable [phone] Encounter Details Date Type Department Care Team (Late Contact Info) Description 06/18/2022 Scanned Document [facility] Department of Endocrinology [place] [address] [place] [address] [address] [place] [address] Endocrinology, Scan Social History Tobacco [...] Description 01/14/2025 10:40 AM EDT Office Visit [facility] Department of Rheumatology [address] [place] [address] Annie Correia MD 160 [facility] 100 [place] [address] 05/06/2025 1:00 PM EST Office Visit [facility] Department of Rheumatology [place] 160 [facility] 100 [place] [address] Annie Correia MD 160 [facility] 100 [place] [address] 06/30/2025 11:00 AM EST Clinical Support [facility] Department of Endocrinology [place] 1260 [facility] 105[place] [address] Марина Skinner MD 300 [place] [address] documented as of this encounter Visit Diagnoses Not on filedocumented in this encounter Care Teams Remote Advisor Relationship Specialty Start Date End Date Zia Finley MD 139 [facility] 2, [address] 6 [place] [address] PCP - General Internal Medicine 04/25/20 Мар[place] [address] [place] [address] [address] [place] [address] 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
--- OUTSIDE RECORDS SUMMARY | 2025-01-11 14:48 | XMS_ITS | Encounter Summary ---
Author Organization [facility] Address [address] [place] [address] Care Team Providers Care Stained Glass Artist Name Role Phone Zia Finley MD Primary Care Provider Марина Skinner MD Unavailable Jose Alberto Vásquez MD Unavailable [phone] Encounter Details Date Type Department Care Team (Late st Contact Info) Description 10/30/2022 Scanned Document [facility] Department of Endocrinology [place] 300 [place] [address] Endocrinology, Scan Social History Tobacco [...] Description 01/14/2025 10:40 AM EDT Office Visit [facility] Department of Rheumatology [address] [place] [address] Annie Correia MD [address] [place] [address] [place] 100 [place] [address] 05/06/2025 1:00 PM EST Office Visit [facility] Department of Rheumatology [place] 160 [facility] 100 [place] [address] Annie Correia MD 160 [facility] 100 [place] [address] 06/30/2025 11:00 AM EST Clinical Support [facility] Department of Endocrinology [place] 1260 [facility] [address] [place] [address] Марина Skinner MD 300 [place] [address] documented as of this encounter Visit Diagnoses Not on filedocumented in this encounter Care Teams Stained Glass Artist Relationship Specialty Start Date End Date Zia Finley MD 139 [facility] 2, [address] 6 [place] [address] PCP - General Internal Medicine 04/25/20 Мар[place] [address] [place] [address] [address] [place] [address] Flight Attendant [employer] Endocrinology 11/27/22 Jose Alberto Vásquez MD 113 [facility] [address] [place] [address] Gastroenterology 07/02/23 documented as of this encounter
--- OUTSIDE RECORDS SUMMARY | 2025-01-11 14:48 | XMS_ITS | Encounter Summary ---
Author Organization [facility] Address [address] [place] [address] Care Team Providers Care Drip Pumper Name Role Phone Zia Finley MD Primary Care Provider [phone] Марина Skinner MD Unavailable Jose Alberto Vásquez MD Unavailable [phone] Encounter Details Date Type Department Care Team (Late Contact Info) Description 06/03/2023 Scanned Document [facility] Department of Endocrinology [place] [address] [place] [address] [address] [place] [address] Endocrinology, Scan Social History Tobacco [...] Description 01/14/2025 10:40 AM EDT Office Visit [facility] Department of Rheumatology [address] [place] [address] Annie Correia MD [address] [place] [address] 100 [place] [address] 05/06/2025 1:00 PM EST Office Visit [facility] Department of Rheumatology [place] 160 [facility] 100 [place] [address] Annie Correia MD 160 [facility] 100 [place] [address] 06/30/2025 11:00 AM EST Clinical Support [facility] Department of Endocrinology [place] 1260 [facility] [address] [place] [address] Марина Skinner MD 300 [place], [place] [address] documented as of this encounter Visit Diagnoses Not on filedocumented in this encounter Care Teams Drip Pumper Relationship Specialty Start Date End Date Zia Finley MD 139 [facility] 2, [address] 6 [place] [address] PCP - General Internal Medicine 04/25/20 Мар[place] [address] [place] [address] [address] [place] [address] Canvas Worker Endocrinology 11/27/22 Jose Alberto Vásquez MD 113 [facility] 301 [place] [address] Gastroenterology 07/02/23 documented as of this encounter
== END 2025-01-11 11:31 | disposition home or self-care (01) ==
LOC: HO.HSMS 10:57
PROVIDERS: PCP Internal Medicine; Visit Provider Psychiatry & Neurology Neurology
DX: G24.3 Spasmodic torticollis (principal)
CPT/HCPCS: 64616

== ENCOUNTER → 2025-01-11 10:56 | Outpatient (BNVA) | payer MEDICARE, OTHER, SELFPAY | PROVIDERS: PCP Internal Medicine; Visit Provider Psychiatry & Neurology Neurology | DX: G24.3 Spasmodic torticollis (principal) | CPT/HCPCS: 64616; 99211; J0585 ==

== ENCOUNTER 2025-04-12 10:14 | Outpatient (AMB) | payer MEDICARE, OTHER, SELFPAY ==
--- OUTSIDE RECORDS SUMMARY | 2024-02-24 08:59 | XMS_ITS | Encounter Summary ---
Author Organization [facility] [place] [address] Care Team Providers Care Flood Control Engineer Name Role Phone Zia Finley Primary Care Provider [phone] Encounter Details Date Type Department Care Team (Latest Contact Info) Description 02/24/2024 9:59 AM EDT Hospital Encounter TH HISTORIC ENCOUNTERS [facility]AST[place] CONVERSION ONLY Rheumatoid arthritis, unspecified (CMS/HCC V24, CMS/HCC V28) Social History Tobacco Use Types Packs/Day Years Used Date Smoking Tobacco: Former Cigarettes 2 Q uit: 04/28/1969 Smokeless Tobacco: Never Alcohol Use Standard Drinks/Week Comments Yes 0 (1 standard drink = 0.6 oz pur e alcohol) Comments Unknown Sex and Gender Information Value Date Recorded Sex Assigned at Female 04/06/2025 9:14 AM EST Legal Sex Female 7:23 PM EST Gender Identity Female 04/06/2025 9:14 AM EST Sexual Orientation Not on file documented as of this encounter Last Filed Vital Signs Vital Sign Reading Time Taken Comments Blood Pressure - - Pulse - - Temperature - - Respiratory Rate - - Oxygen Saturation - - Inhaled Oxygen Concentration - - Weight 59 kg (130 lb) 09/19/2023 9:20 AM EDT Height 160 cm (5' 3 ) 09/19/2023 9:20 AM EDT Body Mass Index 23.03 09/19/2023 9:20 AM EDT documented in this encounter Plan of Treatment Upcoming Encounters Date Type Department Care Team (Late st Contact Info) Description 04/14/2025 11:30 AM EST Office Visit [facility] Cardiology [facility] [address] [phone] Howie Jimenez MD [address] [facility] [address] [place] [address] documented as of this encounter Procedures Procedure Name Priority Date/Time Associated Diagnosis Comments XR ANKLE COMPLETE - BILATERAL Routine 02/24/2024 10:40 AM EDT Rheumatoid arthritis, unspecified ([facility] V24, [facility] V28) documented in this encounter Results * XR ANKLE COMPLETE - BILATERAL (02/24/2024 10:40 AM EDT) Anatomical Region Laterality Modality Radiographic Barb ging 02/20/2024 12:1 3 PM EDT Narrative 02/24/2024 11:16 AM EDT X-ray ankle complete bilateral Rheumatoid arthritis Prior 02/05/2023 FINDINGS: No erosive arthropathy. Small calcaneal spurs noted. No joint effusion. No fracture or dislocation. Mild degenerative OA. No joint effusion. The ankle mortises are symmetric bilaterally. IMPRESSION: No erosive arthropathy or acute process Report reviewed and signed by : Dr. Christiano Garland MD on 02/24/2024 11:16 AM. Workstation Name - [id number] Procedure Note Christiano Garland MD - 02/28/2024 X-ray ankle complete bilateral Rheumatoid arthritis Prior 02/05/2023 FINDINGS: No erosive arthropathy. Small calcaneal spurs noted. No joint effusion.No fracture or dislocation. Mild degenerative OA. No joint effusion.The ankle mortises are symmetric bilaterally. IMPRESSION: No erosive arthropathy or acute process Report reviewed and signed by : Dr. Christiano Garland MD on 1:16 AM. Workstation Name - [id number] Annie Correia MD IMG XR PROCEDURES Final Result documented in this encounter Visit Diagnoses Diagnosis Rheumatoid arthritis, unspecified ([facility] V24, [facility] V28) documented in this encounter Care Teams Flood Control Engineer Relationship Specialty Start Date End Date Zia Finley [address] [place] [address] PCP - General Internal Medicine 06/01/19 03/27/25 documented as of this encounter
--- OUTSIDE RECORDS SUMMARY | 2024-02-24 08:59 | XMS_ITS | Encounter Summary ---
Author Organization [facility] [place] [address] Care Team Providers Care Repairer Recreational Vehicle Name Role Phone Zia Finley Primary Care Provider [phone] Encounter Details Date Type Department Care Team [...] Description 04/14/2025 11:30 AM EST Office Visit [facility] Cardiology [facility] [address] [phone] Howie Jimenez MD [address] [facility] [address] [place] [address] documented as of this encounter Procedures Procedure Name Priority Date/Time Associated Diagnosis Comments XR FOOT COMPLETE NON WT BEARING (3 VIEW) - BILATERAL Routine 02/24/2024 10:40 AM EDT Rheumatoid arthritis, unspecified ([facility] V24, [facility] V28) documented in this encounter Results * XR FOOT COMPLETE NON WT BEARING (3 VIEW) - BILATERAL (02/24/2024 10:40 AM EDT) Anatomical Region Laterality Modality Radiographic Barb ging 02/20/2024 12:1 1 PM EDT Narrative 02/24/2024 11:18 AM EDT X-ray foot complete nonweightbearing bilateral Rheumatoid arthritis Prior: 02/05/2023 FINDINGS: Stable degenerative changes without erosive arthropathy. Mild osteopenia noted. There is no fracture or dislocation. Soft tissues are unremarkable. Stable lateral subluxation of the 3rd and 4th digits bilaterally. IMPRESSION: Degenerative OA and osteopenia without erosive arthropathy or acute process Report reviewed and signed by : Dr. Christiano Garland MD on 02/24/2024 11:18 AM. Workstation Name - [id number] Procedure Note Christiano Garland MD - 02/28/2024 X-ray foot complete nonweightbearing bilateral Rheumatoid arthritis Prior: 02/05/2023 FINDINGS: Stable degenerative changes without erosive arthropathy. Mild osteopenianoted. There is no fracture or dislocation. Soft tissues areunremarkable. Stable lateral subluxation of the 3rd and 4th digitsbilaterally. IMPRESSION: Degenerative OA and osteopenia without erosive arthropathy or acuteprocess Report reviewed and signed by : Dr. Christiano Garland MD on 1:18 AM. Workstation Name - [id number] Annie Correia MD IMG XR PROCEDURES Final Result documented in this encounter Visit Diagnoses Diagnosis Rheumatoid arthritis, unspecified ([facility] V24, [facility] V28) documented in this encounter Care Teams Repairer Recreational Vehicle Relationship Specialty Start Date End Date Zia Finley [address] [place] [id number] PCP - General Internal Medicine 06/01/19 03/27/25 documented as of this encounter
--- OUTSIDE RECORDS SUMMARY | 2024-02-24 09:00 | XMS_ITS | Encounter Summary ---
Author Organization [facility] [place] [address] Care Team Providers Care Piano And Organ Refinisher Name Role Phone Zia Finley Primary Care Provider [phone] Encounter Details Date Type Department Care Team (Latest Contact Info) Description 02/24/2024 10:00 AM EDT Hospital Encounter TH HISTORIC ENCOUNTERS [...] Description 04/14/2025 11:30 AM EST Office Visit [facility] Cardiology [facility] [address] [phone] Howie Jimenez MD [address] [facility] [address] [place] [address] documented as of this encounter Procedures Procedure Name Priority Date/Time Associated Diagnosis Comments XR WRIST COMPLETE - BILATERAL Routine 02/24/2024 10:40 AM EDT Rheumatoid arthritis, unspecified ([facility] V24, [facility] V28) documented in this encounter Results * XR WRIST COMPLETE - BILATERAL (02/24/2024 10:40 AM EDT) Anatomical Region Laterality Modality Radiographic Barb ging 02/20/2024 12:1 0 PM EDT Narrative 02/24/2024 11:22 AM EDT X-ray wrist bilateral No erosive arthropathy, arthritis Prior: 02/05/2023 FINDINGS: Stable erosive arthropathy. Osteopenia and degenerative OA noted without fracture or destructive lesion. Again noted are erosive changes of the left distal ulna. IMPRESSION: Stable degenerative and erosive changes noted. Stable osteopenia. No fracture or dislocation. Report reviewed and signed by : Dr. Christiano Garland MD on 02/24/2024 11:22 AM. Workstation Name - [id number] Procedure Note Christiano Garland MD - 02/28/2024 X-ray wrist bilateral No erosive arthropathy, arthritis Prior: 02/05/2023 FINDINGS: Stable erosive arthropathy. Osteopenia and degenerative OA noted withoutfracture or destructive lesion. Again noted are erosive changes of theleft distal ulna. IMPRESSION: Stable degenerative and erosive changes noted. Stable osteopenia. Nofracture or dislocation. Report reviewed and signed by : Dr. Christiano Garland MD on 1:22 AM. Workstation Name - [id number] Annie Correia MD IMG XR PROCEDURES Final Result documented in this encounter Visit Diagnoses Diagnosis Rheumatoid arthritis, unspecified ([facility] V24, [facility] V28) documented in this encounter Care Teams Piano And Organ Refinisher Relationship Specialty Start Date End Date Zia Finley [address] [place] [address] PCP - General Internal Medicine 06/01/19 03/27/25 documented as of this encounter
--- OUTSIDE RECORDS SUMMARY | 2024-02-24 09:00 | XMS_ITS | Encounter Summary ---
Author Organization [facility] [place] [address] Care Team Providers Care Social Science Professor Name Role Phone Zia Finley Primary Care Provider [phone] Encounter Details Date Type Department Care Team [...] Description 04/14/2025 11:30 AM EST Office Visit [facility] Cardiology [facility] [address] [phone] Howie Jimenez MD 2065 [facility] [address] [place] [address] documented as of this encounter Procedures Procedure Name Priority Date/Time Associated Diagnosis Comments XR HAND COMPLETE - BILATERAL Routine 02/24/2024 10:40 AM EDT Rheumatoid arthritis, unspecified (CMS/[facility] V24, CMS/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 Degenerative OA and osteopenia additionally noted. There is no evidence of fracture or dislocation. IMPRESSION: Stable appearance of erosive arthropathy, degenerative OA and osteopenia No fracture or dislocation Report reviewed and signed by : Dr. Christiano Garland MD on 02/24/2024 11:20 AM. 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 There is no evidenceof fracture or dislocation. IMPRESSION: Stable appearance of erosive arthropathy, degenerative OA and osteopenia No fracture or dislocation Report reviewed and signed by : Dr. Christiano Garland MD on 1:20 AM. Workstation Name - [id number] Annie Correia MD IMG XR PROCEDURES Final Result documented in this encounter Visit Diagnoses Diagnosis Rheumatoid arthritis, unspecified (CMS/HCC V24, CMS/[facility] V28) documented in this encounter Care Teams Social Science Professor Relationship Specialty Start Date End Date Zia Finley [address] [place] [address] PCP - General Internal Medicine 06/01/19 03/27/25 documented as of this encounter
[2025-04-12 10:18] VITALS: BP 120/78; PULSE 82; O2SAT 97; BMI 23.1
--- NOTE | 2025-04-12 10:18 | A.OFFVIS_ITS ---
Vital Signs 04/12/25 10:18 Height 5 ft 3 in Weight 130 lb 4 oz BMI 23.1 BP 120/78 Blood Pressure Location Rt brachial Position Sitting Pulse 82 Pulse Source Pulse Oximeter Pulse Oximetry (%) 97 Oxygen Delivery Method Room Air Intake Visit Reasons: Botox Intake Note: Botox 200 Electric Blasting Cap Assembler Required: No Accompanied by: Self / Same As Patient Allergies pseudoephedrine (From Sudafed) Allergy (Verified 01/11/25 11:02) Unknown Medication List - Last Reconciled 04/12/25 by Salma Zazueta MD albuterol sulfate 90 mcg/actuation 2 puffs inhalation Q4H PRN clonazepam 0.5 mg PO BEDTIME denosumab (Prolia) 60 mg subcut [id number] docusate sodium (Colace) 100 mg PO BID escitalopram oxalate 20 mg PO DAILY ipratropium bromide 2 sprays intranasal BID leucovorin calcium mg PO methotrexate (PF) (RediTrex (PF)) 22.5 mg subcut QWEEK metronidazole 0.75% appl topical BID omeprazole magnesium (Prilosec) 10 mg PO DAILY rosuvastatin 20 mg PO BEDTIME syringe with needle (BD SafetyGlide Tuberculin Regular Bevel) As directed HPI Comments Details: Spasmodic torticollis.. History of present illness: ? 75y/0 female comes for treatment of her dystonia with Botox.she reports truncal pain while sitting - more like a squeezing sensation for past 5 years . she had an extensive evaluation with imaging studies. ??? Side effects including spread of toxin effect, dysphagia, breathing difficulties , bronchitis etc was discussed in detail and the patient agreed to the procedure. ??? Botulinum toxin Lot [id number] 200 units ??? Expiration date ??? Botulinum toxin type A 200units was diluted with 4 cc of normal saline at a concentration of 25 units in 0.5cc saline. ??? Muscles injected ??? Right Splenius - 50units ??? Right levator 50 units ??? Right trapezius- 25 units Left trapezius 25 units Left levator 25 units ??? Right sternocleidomastoid- 25 units ??? Total used - 200 units PFSH Medical History Spasmodic torticollis Depression Anxiety Surgical History No pertinent past surgical history Family History Brother Colon cancer Social History Household Members: Spouse Alcohol intake: current Alcohol intake frequency: holidays/special occasions only Patient Tobacco Use Status: Former Tobacco user Current occupational status: retired Physical Exam Vital Signs: Last Vital Signs Pulse 82 04/12/25 10:18 BP 120/78 04/12/25 10:18 Pulse Ox 97 04/12/25 10:18 Oxygen Delivery Method Room Air 04/12/25 10:18 BMI result Body Mass Index 23.1 Neuro Other: Head tremors torticollis Office Procedures Botulinum toxin Injection 37621 - Dystonia Procedure code (CPT) selection complete Office Meds onabotulinumtoxinA 200 unit solution for injection Performing Provider: Salma Zazueta MD Performing Location: [facility] Administered by: Salma Zazueta MD on 04/12/25 11:41 Dose Route Admin Location Dispensed Lot Number Expiration Date [facility] Dispute Coordinator 200 unit IM 200 units [id number] ALLERGAN /BOTOX Total Dispensed Waste 200 units 0 % Comments: see HPI Assessment & Plan Assessment & Plan (1) Spasmodic torticollis: Code(s): G24.3 - Spasmodic torticollis Category: Medical (2) Muscle spasm: Code(s): M62.838 - Other muscle spasm Category: Medical Plan Patient tolerated the procedure well She will call with any side effects will check for antibodies for botulinum toxin next visit Orders: Orders AMB Botulinum toxin Injection Today G24.3 - Spasmodic torticollis Coding Level of Care Code Est Pt Level 1 (34200) Diagnoses Spasmodic torticollis G24.3 Muscle spasm M62.838 CPT Codes Botox Injection - Botox 4: 54602 - Dystonia ([id number])
--- OUTSIDE RECORDS SUMMARY | 2025-04-12 12:42 | XMS_ITS | Encounter Summary ---
Author Organization [facility] Address [address] [place] [address] Care Team Providers Care Banbury Mixer Operator Name Role Phone Zia Finley MD Primary Care Provider [phone] Марина Skinner MD Unavailable Jose Alberto Vásquez MD Unavailable [phone] Sarika CallahanC Primary Care Provider [phone] Encounter Details Date Type Department Care Team (Late st Contact Info) Description 06/18/2022 Scanned Document [facility] Department of Endocrinology [address], [place] [address] Endocrinology, Scan Social History Tobacco [...] Department Care Team (Late Contact Info) Description 05/06/2025 1:00 PM EST Office Visit [facility] Department of Rheumatology [address] [place] [address] Annie Correia MD 160 [facility] 100 [place] [address] 06/23/2025 9:30 AM EST Office Visit [facility] 113 [facility] 303 [place] [address] Yuridia Mazariegos PA 113 [facility] 303 [place], [place] [address] 06/30/2025 11:00 AM EST Clinical Support [facility] Department of Endocrinology [place] [address] [place] [address], [place] [address] Марина Skinner MD 300 [place] [address] 08/12/2025 1:00 PM EDT Office Visit [facility] Department of Rheumatology [place] 160 [facility] 100 [place] [address] Annie Correia MD [address] [address] documented as of this encounter Visit Diagnoses Not on filedocumented in this encounter Care Teams Banbury Mixer Operator Relationship Specialty Start Date End Date Zia Finley MD [address] [place] [address], [address] [place] [address] PCP - General Internal Medicine 04/25/20 04/04/25 Sarika Callahan PA-C [address] [place] [address] [place] [address] PCP - General 04/05/25 Марина Skinner MD 1260 [facility] [address] [place], [place] [address] Hydroelectric Plant Technician Endocrinology 11/27/22 Jose Alberto Vásquez MD [address] [place] [address] Gastroenterology 07/02/23 documented as of this encounter
--- OUTSIDE RECORDS SUMMARY | 2025-04-12 12:42 | XMS_ITS | Clinical Summary ---
Author Organization [facility] [employer] Address 1 [place] [address] Care Team Providers Care Paginator Name Role Phone No, Pcp MARINE ENGINE MECHANIC Primary Care Provider Unavailabl e Immunizations Immunization Administration Dates Next Due Fluzone Trivalent High Dose (65+ years) 01/16/20 25 Pfizer Cominarty Covid-19 Prefilled Syringe (12+ yrs) 01/15/2025 Social History Tobacco Use Types Packs/Day Years [...] Adults 18 yrs or above (or HM Modifier)([facility]) 02/13/1966 Hepatitis C Virus Infection in Adolescents and Adults: Screening (or Modifier) ([facility]) 02/13/1966 SDOH Screening Reminder: Cici liban for all adults ([facility]) 02/13/1966 Tobacco Smoking Cessation: i n Adults excluding Women: Behavioral and Pharmacotherapy Interventions ([facility]) 02/13/1966 Pneumococcal Vaccination Scr eening: Patients 50+ yrs of age ([facility]) (1 of 1 - PCV) 02/13/1998 Zoster/Shingles Vaccine Seri es Screening: Adults aged 18+ yrs (or HM Modifiers)([facility]) (1 of 2) 02/13/1998 Osteoporosis Screening to Pr event Fractures: Women aged 65 years+ ([facility]) 02/13/2013 RSV Vaccines (1 - 1-dose 75+ series) 02/13/2023 COVID-19 Vaccine Screening: Initial Series and Booster Status ([facility]) (2 - 2024- season) 2025 01/15/2025, 07/07/2020, 06/14/2020 DTaP/Tdap/Td Vaccines ([facility]) (2 - Td or Tdap) 07/18/2026 07/18/2016 Flu Vaccination: Ages 65+: Y early High Dose Recommended (or Modifier)([facility]) Completed 01/15/2025 Medical Devices Not on file Insurance MEDICARE Care Teams Paginator Relationship Specialty Start Date End Date No, Pcp, MARINE ENGINE MECHANIC N/A Do not use PCP - General Family Medicine 09/15/19
--- OUTSIDE RECORDS SUMMARY | 2025-04-12 12:42 | XMS_ITS | Encounter Summary ---
Author Organization [facility] Address [address] [place] [address] Care Team Providers Care Seed Analysis Laboratory Assistant Name Role Phone Zia Finley MD Primary Care Provider [phone] Марина Skinner MD Unavailable Jose Alberto Vásquez MD Unavailable [phone] Sarika CallahanC Primary Care Provider [phone] Encounter Details Date Type Department Care Team (Late st Contact Info) Description 11/27/2021 Scanned Document [address] 101 [place] [address] Provider, Generic Social History Tobacco Use [...] Care Team (Late st Contact Info) Description 05/06/2025 1:00 PM EST Office Visit [facility] Department of Rheumatology [address] 100 [place] [address] Annie Correia MD 160 [facility] 100 [place], [place] [address] 06/23/2025 9:30 AM EST Office Visit [facility] 113 [facility] [address] [place] [address] Yuridia Mazariegos PA 113 [facility] 303 [place] [address] 06/30/2025 11:00 AM EST Clinical Support [facility] Department of Endocrinology [place] [address] [place] [address], [place] [address] Марина Skinner MD 300 [place] [address] 08/12/2025 1:00 PM EDT Office Visit [facility] Department of Rheumatology [place] 160 [facility] [address] [place] [address] Annie Correia MD 160 [facility] 100 [place] [address] documented as of this encounter Visit Diagnoses Not on filedocumented in this encounter Care Teams Seed Analysis Laboratory Assistant Relationship Specialty Start Date End Date Zia Finley MD [address] [place] [address], [address] [place] [id number] PCP - General Internal Medicine 04/25/20 04/04/25 Sarika Callahan PA-C [address] [place] [address] [place] [address] PCP - General 04/05/25 Марина Skinner MD 1260 [facility] [address] [place], [place] [address] Receivable Manager Endocrinology 11/27/22 Jose Alberto Vásquez MD [address] [place] [address] Gastroenterology 07/02/23 documented as of this encounter
--- OUTSIDE RECORDS SUMMARY | 2025-04-12 12:43 | XMS_ITS | Clinical Summary ---
Author Organization [facility] Prior to 09/25/[address] [place] [address] Care Team Providers Care Healthcare Management Consultant Name Role Phone Zia Finley MD Primary Care Provider [phone] Allergies Active Allergy Reactions Criticality Noted Date [...] 08/12/2020 Nuclear sclerotic cataract of left eye Rib pain 06/22/2019 Acute bilateral thoracic back [...] 1:55 PM EDT Sexual Orientation Straight 02/27/2022 2: 43 PM EDT Job Start Date Occupation Industry Not on file Not on file Not on file Last Filed Vital Signs Vital Sign Reading Time Taken Comments Blood Pressure 128/69 09/19/2023 10:24 AM EDT Pulse 75 09/19/2023 10:24 AM EDT Temperature 36.6 C (97.9 F) 09/19/2023 10:02 AM EDT Respiratory Rate 15 09/19/2023 10:24 AM EDT [...] 75+ series) 02/13/2023 COVID-19 Vaccine ( season) 2024 04/24/2022, 07/22/2021, 01/13/2021, Additional history exists Influenza Vaccine (#1) 2024 02/07/2023, 2020 Osteoporosis Screening (DEXA Scan) 11/11/2025 [...] this topic Medical Devices Implanted Type Area Rotary Shear Operator Device Identifier Shelf Expiration Date Model / Serial / Lot Lens Sky Swanson Itec Protec Tri-Fix +20.5 Diopter - [id number] - [id number] Implanted:Qty: 1 on 06/26/2020 by Fransisca Connell MD at [facility] Location Lens Left: Eye [employer] 07/19/2021 [id number] / [id number] / . Dib00 21.0 Implanted:Qty: 1 on 03/11/2022 by Fransisca Connell MD at [facility] Location Lens Right: Eye [employer] 11/28/2024 [id number] / [id number] / Advance Directives For more information, please contact: [phone] Documents on File Type Date Recorded Patient Freight Air Brake Fitter Expl anation Advance Directive and Living Will 06/10/2017 10:14 AM Power of Marine Propulsion Technician 09/26/2016 2:45 PM Latest Code Status on [...] following way: discussion with patient. Care Teams Healthcare Management Consultant Relationship Specialty Start Date End Date Zia Finley MD PCP - General Internal Medicine 06/01/19
--- OUTSIDE RECORDS SUMMARY | 2025-04-12 12:43 | XMS_ITS | Clinical Summary ---
Author Organization [facility] Hospitality Team Member [place] Address [address] [place] [address] Phone Care Team Providers Care Staffing Administrator Name Role Phone Sarika Callahan Primary Care Provider [phone] Allergies Active Allergy Reactions Criticality Noted Date [...] Encounters Date Type Department Care Team Description 04/06/2025 9:15 AM EST Lab Draw Station [facility] [place] [address] [place] [address] Hyperlipemia from Last 3 Months Immunizations Immunization Administration Dates Next Due Influenza Quadravalent, 0.5ml [...] biopsies; Surgeon: Jose Alberto Vásquez MD; Location: [facility]; Service: Gastroenterology; Laterality: N/A; TOE SURGERY PROCEDURE:CORRECTION HAMMER TOE COLONOSCOPY PROCEDURE:COLONOSCOPY COLONOSCOPY 03/05/2019 N/A PROCEDURE:COLONOSCOPY;COMMENT :Procedure: COLONOSCOPY; Surgeon: Jose Alberto Vásquez MD; Location: [facility]; Service: Gastroenterology; Laterality: N/A; BREAST LUMPECTOMY [...] IOL IMPLANT; Surgeon: Fransisca Connell MD; Location: [facility]; Service: Ophthalmology; Laterality: Left; CATARACT EXTRACTION W/ INTRAOCULAR LENS IMPLANT 03/11/2022 Right PROCEDURE:CATARACT EXTRACTION W/ INTRAOCULAR LENS IMPLANT;COMMENT:Procedure: RIGHT EXTRACTION CATARACT WITH IOL IMPLANT; Surgeon: Fransisca Connell MD; Location: [facility]; Service: Ophthalmology; Laterality: Right; UPPER GASTROINTESTINAL ENDOSCOPY 06/06/2022 N/A PROCEDURE:UPPER GASTROINTESTINAL ENDOSCOPY;COMMENT:Procedure: UPPER ENDOSCOPY-EGD; Surgeon: Jose Alberto Vásquez MD; Location: [facility]; Service: Gastroenterology; Laterality: N/A; COLONOSCOPY 09/19/2023 N/A PROCEDURE:COLONOSCOPY;COMMENT :Procedure: COLONOSCOPY; Surgeon: Jose Alberto Vásquez MD; Location: [facility]; Service: Gastroenterology; Laterality: N/A; Medical History [...] (CMS/HC C V24, CMS/HCC V28) DX:Rheumatoid arthritis ([facility] ) Skin cancer DX:Skin cancer Tremor DX:Tremor;COMMEN [...] AM EST Sexual Orientation Not on file Last Filed Vital Signs [...] EST Office Visit [facility] [place] [address] [phone] Howie Jimenez MD [address] [id number] Health Maintenance Due Date Last Done Comments Drug Screen 1950 Non-Opioid Controlled Substance Agreement 1950 Zoster Vaccines (1 of 2) 02/13/1967 Falls Risk Assessment 04/04/2022 Social Influencers of Health Screening 04/04/2022 RSV Immunization Adult Patients (1 - 1-dose 75+ series) 02/13/2023 Medicare Annual Wellness Visit 01/31/2024 01/30/2023 Depression Screening 04/28/2024 COVID-19 Vaccine (7 - Pfizer risk 2024- season) 2025 01/15/2025, 04/24/2022, 07/22/2021, Additional history exists Hypertension/CHF/CAD Annual BMP Blood Test 12/14/2025 12/14/2024, 06/07/2024, 02/23/2024, Additional history exists DTaP,Tdap,and Td Vaccines (2 - Td or Tdap) 07/18/2026 07/18/2016 Cholesterol Screening (Lipid Panel) 04/06/2030 04/06/2025, 04/15/2024, 02/25/2023, Additional history exists Osteoporosis Screening (Bone Density Screening) 11/11/2033 11/12/2023, 12/25/2020, 12/21/2018 Pneumococcal Vaccine: 50+ Years Completed 05/06/2018, 02/20/2017 Hepatitis C Screening Completed 06/04/2019 Breast Cancer Screening Discontinued 02/22/20, 02/13/2022, 12/25/2020, Additional history exists Colorectal Cancer Screening: Colonoscopy Discontinued 09/19/2023 Influenza Vaccine Completed 01/15/2025, , 02/07/2023, Additional history exists HIB Vaccines Aged Out No longer eligi [...] this topic Medical Devices Implanted Type Area Commiss[employer] Clerk Device Identifier Shelf Expiration Date Model / Serial / Lot Lens Sky Swanson Itec Protec Tri-Fix +20.5 Diopter - [id number] - [id number] Implanted:Qty: 1 on 06/26/2020 by Fransisca Connell MD Implants Left: Eye [employer] 07/19/2021 [id number] / [id number] / . [id number] 21.0 Implanted:Qty: 1 on 03/11/2022 by Fransisca Connell MD Implants Right: Eye [employer] 11/28/2024 [id number] / [id number] / Procedures Procedure Name Priority Date/Time Associated Diagnosis Comments LIPID PANEL Routine 04/06/2025 9:18 AM EST Hyperlipemia THYROID STIMULATING HORMONE WITH REFLEX FREE T4 Routine 04/06/2025 9:18 AM EST Hyperlipemia ANNUAL BMP BLOOD TEST [...] Recently Relevant to Health Maintenance Results * Thyroid stimulating hormone with reflex free T4 (04/06/2025 9:18 AM EST) TSH 1.85 0.45 - 5.33 mcIU/mL LAB CHEMISTRY METHOD 04/06/2025 2:46 PM EST [facility] Blood Venous blood specimen / Unknown Venipuncture / Unknown 04/06/2025 9:18 AM EST 04/06/2025 9:18 AM EST us Sarika NAVAS LAB BLOOD ORDERABLES Final Resu lt [facility] [address] [place] [address], [place] [phone] * Lipid panel (04/06/2025 9:18 AM EST) Cholesterol 176 0 - 200 mg/dL LAB CHEMISTRY METHOD 04/06/2025 2:38 PM EST [facility] Triglycerides 82 <150 mg/dL LAB CHEMISTRY METHOD 04/06/2025 2:38 PM EST [facility] HDL 63 33 - 92 mg/dL LAB CHEMISTRY METHOD 04/06/2025 2:38 PM EST [facility] LDL Calculated 97 50 - 130 mg/dL LAB CHEMISTRY METHOD 04/06/2025 2:38 PM EST [facility] Comment:Estimated LDL is danielle culated using the Friedewald equation: Total cholesterol - HDL cholesterol - (Triglycerides/5) VLDL Cholesterol Danielle 16.4 mg/dL LAB CHEMISTRY METHOD 04/06/2025 2:38 PM EST [facility] Comment:No established refer ence range. Blood Venous blood specimen / Unknown Venipuncture / Unknown 04/06/2025 9:18 AM EST 04/06/2025 9:18 AM EST us Sarika NAVAS LAB BLOOD ORDERABLES Final Resu lt [facility] [address] [place] [address], [place] [phone] * Annual BMP Blood Test (02/23/2024) Annual BMP Blood Test abstracted Historical Provider MD HEALTH MAINTENANCE Final Result * BONE DENSITY STUDY (11/12/2023 11:45 AM EDT) Anatomical Region Laterality Modality Bone Densitometr y 06/04/2023 11:3 1 AM EST Narrative 11/12/2023 4:20 PM EDT Bone density study Indication and risk factors: Postmenopausal female. History of osteoporosis, assess for interval change. Comparisons: 12/25/2020 Study acquired on a [employer]erm[employer] densitometer. Imaging of the lumbar spine and [...] on 11/12/2023 4:20 PM. Workstation Name - Zhilian Zhaopin Procedure Note Zuleika Church MD - 02/10/2024 Bone density study Indication and risk factors: Postmenopausal female. History ofosteoporosis, assess for interval change. Comparisons: 12/25/2020 Study acquired on a [employer] densitometer. Imaging of thelumbar spine and hip [...] Church on 11/12/2023 4:20 PM.Workstation Name - Zhilian Zhaopin us Марина Skinner MD IMG DXA PROCEDURES Final [...] on 02/24/2023 8:22 AM. Workstation Name - [id number] Procedure Note Christiano Bailon MD - 06/03/2023 [...] MD on 02/24/2023 8:22AM. Workstation Name - ART Cindy Garcia MD IMG BI PROCEDURES Final Resu lt * Hepatitis C Screening (06/04/2019) Hepatitis C Screening abstracted us Historical Provider MD HEALTH MAINTENANCE Final Result from Last 3 Months or Most Recently Relevant to Health [place] [address] [place] [address] [facility] MEDICARE Care Teams Staffing Administrator Relationship Specialty Start Date End Date Sarika Callahan PA [address] [place] [address] PCP - General Internal Medicine 03/28/25
--- OUTSIDE RECORDS SUMMARY | 2025-04-12 12:43 | XMS_ITS | Continuity of Care Document ---
Author Organization [place] - [place] Swathi Bethea wvictn, [email or web address] [place] Address [address] [place] [address] Assessment Encounter Date Assessment Date Assessment LastModified by Organization Details LastModified Time 03/28/2025 03/28/2025 Reminders 1. Have you reviewed all current prescriptions and noted which they have discontinued with the patient? Reviewed with patient 2. Have you asked the patient if they are experiencing any new or recurring issues with bladder control? Reviewed with patient 3. Have you asked the patient about their current physical fitness routine and goals? Reviewed with patient priming powder premix blender Not available 03/28/2025 14:27:11 Plan of Treatment Reminders Order Date Submit Date Provider Last Modified By Organization Details Last Modified Time Details Appointments AWV (Medica re) 2025 01:00P GABBY Piper Not available Not available Not available Lab TSH, serum, reflex free T4 2024 025 [facility], [address] [place], [address], 04/04/2025 09:31:11 lipid panel, serum 2024 025 [facility], [address] [place], [address], 04/04/2025 09:31:11 Referral None recorde d. Procedures None recorde d. Surgeries None recorde d. Imaging None recorde d. Medication Orders None recorde d. Patient TargetsNo targets recorded. Patient Instructions Encounter Date Encounter Id Patient Instructions Last Modified By Organization Details Last Modified Time 03/28/2025 [id number] well visit, over 65: care instructions priming powder premix blender Not available 03/28/2025 14:46:09 preventing falls : care instructions priming powder premix blender Not available 03/28/2025 14:46:09 advance directiv es: care instructions priming powder premix blender Not available 03/28/2025 14:46:08 To promote good health please follow these recommendations: Diet, Physical Activity and Healthy Weight: -Eat a diet low in trans and saturated fats and high in fiber, fruits and vegetables -Take 1960-3271 mg of calcium through diet and supplements -Engage in regular physical activity and weight bearing exercise -Aim to achieve and maintain ideal body mass index Tobacco and Alcohol Use: -Don't smoke or use other tobacco products -Avoid excessive alcohol intake Medications: -If you use any medications (prescriptions, uipn-ihl-eipaqej, supplements, herbal), always do so as directed by your health care provider -Avoid misuse of any substances in a manner that is not in accordance with appropriate use Safety: -Use seat belts whenever in the car -Use sunscreen regularly to reduce the risk of skin cancer -Test smoke detectors and CO detectors every 6 months -Remove loose rugs and use hand rails on steps and in bath Cognition: -Being intellectually engaged may benefit the brain. Lots of activities can keep your mind active. For example, read books and magazines. Play games. Take or teach a class. Learn a new skill or hobby. Work or volunteer. -People who engage in meaningful activities, like volunteering or hobbies, say they feel happier and healthier. Vaccinations: -Get your yearly influenza vaccine and follow all immunization recommendations outlined in your personal wellness plan. [email or web address] Not available 03/28/2025 13:53:01 Reason for Referral None Reported. Results Created Date Observation Date Name Description Value Unit Range Abnormal Flag Note LastModifiedBy Organization Detail LastModifiedTime 03/21/20 25 03/21/2025 US, abdom en, limit ed No observ ation record ed. [facility] ([facility]) [address] [place], [address], 03/29/2025 12:48:21 03/29/20 25 03/29/2025 US pelvi c doppl er limit ed No observ ation record ed. [facility] ([facility]) [address] [facility], [place], [address], 04/09/2025 23:19:22 Result Notes None recorded. Problems Name Problem SNOMED Code Status Onset Date Resolution Date Notes Provider Name and Address Organization Details Recorded Time Problem 27906213 Active No known active problems Not Available [facility] 3 19:42:54 Fibrocyst ic changes of bilateral breasts 95472818021 207791 Active 2015 Fibrocyst ic breast changes of both breasts Nataliia Minor MD [address] [place] [address], [address] , [place] [facility] 5 16:02:45 Inconclus shanti mammograp hy finding 17711865773 9104 Active 2015 Inconclus shanti mammogram due to dense breasts Not Available [facility] 3 19:42:50 Taking high risk medicatio n 84624384749 4107 Active 2016 High risk medicatio n use Nataliia Minor MD [address] [place] [address], [address] , [place] [facility] 5 16:02:46 Spasmodic torticoll is 68920809 Active 2016 Spasmodic torticoll is Not Available [facility] 3 19:42:49 Senile osteoporo sis 87171124 Active 2016 Senile osteoporo sis Nataliia Minor MD [address] [place] [address], [address] , [place] [facility] 5 16:02:45 Allergic rhinitis caused by pollen 37905756 Active 2016 Seasonal allergic rhinitis due to pollen Nataliia Minor MD [address] [place] [address], [address] , [place] [facility] 5 16:02:45 Rheumatoi d arthritis of multiple joints 392734668 Active 2016 Rheumatoi d arthritis involving multiple sites Nataliia Minor MD [address] [place], [place] [address], [place], [address] , [place] [facility] 5 16:02:46 Gastroeso phageal reflux disease without esophagit is 286336271 Active 2016 Gastroeso phageal reflux disease without esophagit is Nataliia Minor MD [address] [place] [address], [address] [place] [address], [place], [address] , [place] [facility] 5 16:02:45 Body mass index 20-24 - normal 824571667 Active 2016 BMI 22.0-22.9 , adult Not Available [facility] 3 19:42:49 Mixed anxiety and depressiv e disorder 295938993 Active 2016 Anxiety and depressio n Nataliia Minor MD [address] [place] [address], [address] [place] [address], [place], [address] , [place] [facility] 5 16:02:45 Dyslipide pranav 298474956 Active 2016 Dyslipide GABBY Olson [address] [place] [address], [address] [place] [address], [address] , [place] [facility] 5 14:46:04 Hereditar y essential tremor 960108192 Active 2018 Benign head tremor Nataliia Minor MD [address] [place] [address], [address] [place] [address], [place], [address] , [place] [facility] 5 16:02:46 Rib pain 901363843 Active 2019 Rib pain Not Available [facility] 3 19:42:48 Acute thoracic back pain 839936898 Active 2019 Acute bilateral thoracic back pain Not Available [facility] 3 19:42:49 Nuclear sclerotic cataract 168172680 Active 2020 Nuclear sclerotic cataract of left eye Nucle ar sclerotic cataract of right eye Nataliia Minor MD [address] [place] [address], [address] [place] [address], [place], [address] , [place] [facility] 5 16:02:46 Intercost al neuralgia 129870703 Active 2020 Intercost al neuralgia Nataliia Minor MD [address] [place] [address], [address] [place] [address], [place], [address] , [place] [facility] 5 16:02:45 Thoracic radiculop athy 16541275 Active 2021 Thoracic radiculop athy Nataliia Minor MD [address] [place] [address], [address] [place] [address], [place], [address] , [place] [facility] 5 16:02:46 Pain in thoracic spine 672526324 Active 2021 Thoracic spine pain Not Available [facility] 3 19:42:51 Thoracic spondylos is 067345401 Active 2021 Thoracic spondylos is Nataliia Minor MD [address] [place] [address], [address] [place] [address], [place], [address] , [place] [facility] 5 16:02:46 Chest wall pain 536099421 Active 2021 Chest wall pain, chronic Not Available [facility] 3 19:42:49 Immunodef iciency disorder 085220425 Active 2022 Zia Finley MD [address] [place] [address], [address] [place] [address], [place], [address] , [place] [facility] 3 11:41:29 Sinusitis 82545337 Active 2023 iZa Finley MD [address] [place] [address], [address] [place] [address], [address] , [place] [facility] 4 11:03:06 Nodule of lung 070393214 Active 2023 Nataliia Minor MD [address] [place] [address], [address] [place] [address], [place], [address] , [place] [facility] 5 16:02:46 Rheumatoi d arthritis 14303910 Active 2023 GABBY Sheppard [address] [place] [address], [address] [place] [address], [place], [address] , [place] [facility] 4 09:03:51 Acute bronchiti s 83292598 Active 2023 Sarika Callahan, PAC [address] [place] [address], [address] [place] [address], [place], [address] , [place] [facility] 4 11:25:33 Cyst of thyroid 55361569 Active 2024 Sarika Asencioer, PAC [address] [place] [address], [address] [place] [address], [place], [address] , [place] [facility] 5 09:30:57 Problem Notes None recorded. Procedures Surgical History Date Name Laterality Status Provider Name and Address Organization Details Recorded Time 03/28/20 AWV - female prevention plan completed Mark Donohueano [facility] - [facility] 03/28/2025 13:53:01 03/28/20 25 AWV - safety evaluation completed Nanyletviviana Yeboah [facility] 03/28/2025 13:53:01 02/03/20 24 AWV - female prevention plan completed candelario Yeboah [facility] - [facility] 02/03/2024 10:44:07 02/03/20 24 Advance Care Planning Consultation completed candelario Donohueano CT - [facility] 02/03/2024 10:44:07 02/03/20 24 AWV - safety evaluation completed Mark Yeboah [facility] 02/03/2024 10:44:07 09/19/19 24 colonoscopy completed Nataliia Minor MD [address] [place] [address], [address] [place] [address], [place], [address], [place] [facility] 03/16/2025 16:23:26 01/31/20 23 Advance Care Planning Consultation completed Zia Finley MD [address] [place] [address], [address] [place] [address], [place], [address], [place] [facility] 01/30/2023 11:20:43 01/31/20 23 AWV - safety evaluation completed Zia Finley MD [address] [place] [address], [address] [place] [address], [place], [address], [place] [facility] 01/30/2023 11:20:43 01/31/20 23 AWV - female prevention plan completed Zia Finley MD [address] [facility], [address], [place], [address], [place] [facility] 01/30/2023 11:20:43 02/06/20 22 Date of Last Pap Smear completed Zia Finley MD [address] [place] [address], [address] [place] [address], [place], [address], [place] [facility] 01/30/2023 11:24:10 02/06/20 22 Date of Last Mammogram completed Zia Finley MD [address] [place] [address], [address] [place] [address], [place], [address], [place] [facility] 01/30/2023 11:24:28 02/08/20 20 Most Recent Bone Density completed Zia Finley MD [address] [place] [address], [address] [place] [address], [place], [address], [place] [facility] 01/30/2023 11:24:40 Imaging Results None recorded. Procedure Notes None recorded. Medical Equipment None Reported. Allergies Allergen ID Allergen Name Allergen Category Reaction Reaction Severity Criticality Documentation Date Start Date Code Code System Note Provider Name and Address Organization Details Recorded Time 290573 pseudoeph edrine Not available palpitati ons Not available high 08/23/20222012 8896 RxNorm Mark bautista, [facility] 13:57:49 492683 baclofen medicatio n other Not available high 08/23/20222021 1292 RxNorm Feels like she is melti ng into the groun d after takin g it Mark bautista, [facility] 13:57:39 Medications Name Sig Start Date Stop Date Status Note LastModified by Organization Details LastModified Time amoxicillin 500 mg capsule TAKE 1 CAPSULE BY MOUTH THREE TIMES DAILY UNTIL GONE 03/16 completed Not Available Not Available Not Available prednisone 10 mg tablet TAPER - 4 TABS DAY 1, 3 TABS DAYS 2 AND 3, 2 TABS DAYS 4 AND 5 ND 6, 1 TAB DAY 7. 08/12 completed Not Available Not Available Not Available doxycycline hyclate 100 mg capsule Take 1 capsule (100 mg total) by mouth 2 (two) times a day. 03/14 completed Not Available Not Available Not Available azithromyci n 250 mg tablet TAKE 2 TABLETS BY MOUTH FOR 1 DAY THEN TAKE 1 TABLET BY MOUTH DAILY UNTIL ALL TAKEN 03/16 completed Not Available Not Available Not Available alprazolam 1 mg tablet TAKE 1/2 TO 1 TABLET BY MOUTH IN THE EVENING BEFORE DENTAL APPOINTME NT AND 1 HOUR BEFORE DENTAL APPOINTME NT 03/28 completed Not Available Not Available Not Available tizanidine 4 mg tablet Take 1 tablet (4 mg total) by mouth every 8 (eight) hours as needed. 07/17 completed Not Available Not Available Not Available ondansetron HCl 4 mg tablet Take 1 tablet (4 mg total) by mouth 3 (three) times a day as needed for nausea. 07/15 completed Not Available Not Available Not Available famotidine 40 mg tablet 12/03 completed Not Available Not Available Not Available prednisone 20 mg tablet TAKE 2 TABLETS BY MOUTH DAILY FOR 5 DAYS 03/16 completed Not Available Not Available Not Available clonazepam 0.5 mg tablet TAKE 1 TABLET BY MOUTH AT BEDTIME active Not Available Not Available No t Available fluorouraci l 5 % topical cream APPLY TO THE AFFECTED AREA TWICE DAILY FOR 3 WEEKS DIRECTED 03/28 completed Not Available Not Available Not Available clonazepam 1 mg tablet TAKE 1/2 OF 1MG TABLET BY MOUTH AT BEDTIME 30 MINUTES BEFORE BEDTIME 12/03 completed Not Available Not Available Not Available promethazin e 6.25 mg-codeine 10 mg/5 mL syrup Take 10 mL by mouth every night at bedtime. 12/10 completed Not Available Not Available Not Available leflunomide 10 mg tablet Take 1 tablet (10 mg total) by mouth every other day. 01/30 completed Not Available Not Available Not Available methotrexat e sodium 25 mg/mL injection solution 22.5 MG SUBCUTANE OUS EVERY WEEK 12/03 completed Not Available Not Available Not Available omeprazole 40 mg capsule,del ayed release 12/03 completed Not Available Not Available Not Available doxycycline monohydrate 100 mg tablet Take 1 tablet (100 mg total) by mouth 2 (two) times a day. 11/11 completed Not Available Not Available Not Available leucovorin calcium 15 mg tablet Take 1 tablet (15 mg total) by mouth every 7 days active Not Available Not Available No t Available meloxicam 7.5 mg tablet Take 1 tablet (7.5 mg total) by mouth daily. 07/17 completed Not Available Not Available Not Available propranolol 10 mg tablet 07/18 completed Not Available Not Available Not Available amoxicillin 875 mg tablet TAKE 1 TABLET BY MOUTH TWICE DAILY FOR 10 DAYS 12/03 completed Not Available Not Available Not Available pravastatin 80 mg tablet TAKE 1 TABLET NIGHTLY AT BEDTIME 05/18 completed Not Available Not Available Not Available methotrexat e sodium 2.5 mg tablet TAKE 10 TABLETS BY MOUTH ONCE A WEEK 03/16 completed Not Available Not Available Not Available benzonatate 100 mg capsule TAKE 1 CAPSULE BY MOUTH THREE TIMES DAILY 03/16 completed Not Available Not Available Not Available pantoprazol e 40 mg tablet,gill yed release Take 1 tablet (40 mg total) by mouth daily. 12/03 completed Not Available Not Available Not Available metronidazo le 0.75 % topical cream APPLY TO FACE TWICE DAILY active Not Available Not Available No t Available docusate sodium 100 mg capsule Take 1 capsule (100 mg total) by mouth 3 (three) times a day. active Not Available Not Available No t Available leucovorin calcium 5 mg tablet Take 15 mg by mouth once a week. 02/02 completed Not Available Not Available Not Available cefuroxime axetil 500 mg tablet TAKE 1 TABLET BY MOUTH EVERY 12 HOURS FOR 10 DAYS 12/03 completed Not Available Not Available Not Available albuterol sulfate HFA 90 mcg/actuati on aerosol inhaler INHALE 2 PUFFS NEEDED FOR SHORTNESS OF BREATH NO SOONER THAN EVERY 4 HOURS active Not Available Not Available No t Available ipratropium bromide 42 mcg (0.06 %) nasal spray USE 2 SPRAYS IN EACH NOSTRIL TWICE DAILY active Not Available Not Available No t Available fluticasone propionate 50 mcg/actuati on nasal spray,suspe nsion spray/cam ly 2 sprays in each nostril as needed. 03/28 completed Not Available Not Available Not Available loratadine 10 mg tablet TK 1 T PO PRN 2016 active Not Available Not Available Not Avai lable amoxicillin 875 mg-potassiu m clavulanate 125 mg tablet TAKE 1 TABLET BY MOUTH TWICE DAILY FOR 10 DAYS TAKE WITH FOOD YOGURT PROBIOTIC 12/03 completed Not Available Not Available Not Available azithromyci n 500 mg tablet Take 1 tablet (500 mg total) by mouth daily for 3 days. Take 1 tablet daily for 3 days. 07/21 completed Not Available Not Available Not Available escitalopra m 20 mg tablet TAKE 1 TABLET(20 MG) BY MOUTH DAILY active Not Available Not Available No t Available methotrexat e sodium (PF) 25 mg/mL injection solution Inject under the skin every 7 days. 12/03 completed Not Available Not Available Not Available moxifloxaci n 0.5 % eye drops 04/04 completed Not Available Not Available Not Available rosuvastati n 20 mg tablet TAKE 1 TABLET(20 MG) BY MOUTH DAILY active Not Available Not Available No t Available Botox active Not Available Not Availa ble Not Available hydrocodone 5 mg-acetamin ophen 300 mg tablet Take 1 tablet by mouth every 6 (six) hours as needed for pain. 11/30 completed Not Available Not Available Not Available [id number] 100 gram-sod sulf 7.5 gram-NaCl-K Cl-ascorbat e-C oral pwdr pack TAKE DIRECTED FOR COLONOSCO PY/GI PROCEDURE . SEE ADMINISTR ATION INSTRUCTI ONS 12/03 completed Not Available Not Available Not Available omeprazole 20 mg tablet,gill yed release active Not Available Not Available Not Available cholecalcif evans (vitamin D3) 50 mcg (2,000 unit) tablet Take 2,000 Units by mouth daily. Vitamin D TABS Refills: 0 Active active Not Available Not Available No t Available Prolia 60 mg/mL subcutaneou s syringe Inject 1 mL (60 mg total) under the skin every 6 (six) months. active Not Available Not Available No t Available BD Insulin Syringe Ultra-Fine 1 mL 31 gauge x 5/16 TO BE USED WITH METHOTREX ATE WEEKLY active Not Available Not Available No t Available Prolensa 0.07 % eye drops 01/30 completed Not Available Not Available Not Available methotrexat e (PF) 22.5 mg/0.45 mL subcutaneou s auto-inject or Inject 0.45 mL every week by subcutane ous route. active Not Available Not Available No t Available Lotemax SM 0.38 % eye gel drops APPLY 1 DROP BOTH EYES FOUR TIMES DAILY DIRECTED BY INSTRUCTI ONS GIVEN BY 12/03 completed Not Available Not Available Not Available RediTrex (PF) 22.5 mg/0.9 mL subcutaneou s syringe INJECT 22.5MG UNDER THE SKIN ONCE A WEEK 12/03 completed Not Available Not Available Not Available Vitals Date Recorded Body height Body mass index (BMI) Body weight Body temperature Respiratory rate Heart rate Oxygen saturation Systolic And Diastolic Provider Name and Address Organization Details Last Updated DateTime 160.02 cm 23 kg/m2 45624.0 1 g 97.7 [degF] 16 /min 94 /min 98 % 110/62 mm[Hg] Mark Yeboah [facility] - [facility] 5 13:57:11 Social History Question Answer Notes LastModified by Organizat ion Details LastModified Time Tobacco Smoking Status Former Smoker Not Available [facility] 11/29/2022 06:23:52 Do You Have An Advance Directive? No Information not available 01/30/2023 Do You Wear A Helmet When Biking? No [email or web address] Information not available 01/30/2023 Are You Blind Or Do You Have Difficulty Seeing? No [email or web address] Information not available 01/30/2023 What Is Your Level Of Caffeine Consumption? Occasional [employer] priming powder premix Information not available 02/03/2024 Are You A Caregiver? No [email or web address] Information not available 01/30/2023 Are You Deaf Or Do You Have Serious Difficulty Hearing? No [email or web address] Information not available 01/30/2023 What Type Of Diet Are You Following? REGULAR [email or web address] Information not available 01/30/2023 What Is The Highest Grade Or Level Of School You Have Completed Or The Highest Degree You Have Received? [id number] [email or web address] Information not available 01/30/2023 When Did You Quit Smoking? 16+yearssincelastci laura [email or web address] Information not available 01/30/2023 Are There Any Guns Present In Your Home? No [email or web address] Information not available 01/30/2023 Do You Use Insect Repellent Routinely? No [email or web address] Information not available 01/30/2023 Where Do You Live? SingleLevelHouse [email or web address] Information not available 01/30/2023 How Long Have You Lived There? 12 [email or web address] Information not available 01/30/2023 Do You Have A Medical Power Of Employee'S Representative? No [email or web address] Information not available 01/30/2023 What Was The Date Of Your Most Recent Tobacco Screening? 03/28/2025 priming powder premix Information not available 03/28/2025 How Many Children Do You Have? 1 [email or web address] Information not available 01/30/2023 Do You Have An Out Of Hospital DNR? No [email or web address] Information not available 01/30/2023 What Is Your Current Pack Years? 10packyears Information not available 01/30/2023 Do You Have Any Pets? No [email or web address] Information not available 01/30/2023 What Is Your Relationship Status? [email or web address] Information not available 01/30/2023 Do You Use Your Seat Belt Or Car Seat Routinely? Yes Information not available 01/30/2023 Are You Sexually Active? No [email or web address] Information not available 01/30/2023 Do You Have Smoke And Carbon Monoxide Detectors In Your Home? Yes [email or web address] Information not available 01/30/2023 Are You Passively Exposed To Smoke? No [email or web address] Information not available 01/30/2023 Are There Any Smokers In Your House? No [email or web address] Information not available 01/30/2023 Do You Use Sunscreen Routinely? Yes Information not available 01/30/2023 Has Tobacco Cessation Counseling Been Provided? No [email or web address] Information not available 01/30/2023 How Many Years Have You Smoked Tobacco? 10 [email or web address] Information not available 01/30/2023 Do You Have Difficulty Walking Or Climbing Stairs? No [email or web address] Information not available 01/30/2023 How Many Days In The Past Year Have You Consumed 4 Or More Drinks? 0 [email or web address] Information not available 01/30/2023 Sex: Female Functional Status Question Answer Note LastModified by Organizat ion Details LastModified Time Do you use any illicit or recreational drugs? No [email or web address] Information not available 01/30/2023 Do you or have you ever used any other forms of tobacco or nicotine? No [email or web address] Information not available 01/30/2023 What is your level of alcohol consumption? Occasional [email or web address] Information not available 01/30/2023 Are you currently employed? No [email or web address] Information not available 01/30/2023 Do you have transportation difficulties? No [email or web address] Information not available 01/30/2023 Are you able to walk independently without assistance or assistive devices? YESWOREST [email or web address] Information not available 01/30/2023 Do you have difficulty doing errands alone? No [email or web address] Information not available 01/30/2023 Are you able to care for yourself independently? Yes [email or web address] Information not available 01/30/2023 Do you have difficulty dressing, bathing, grooming, or toileting? No Information not available 01/30/2023 What is your exercise level? Occasional [email or web address] Information not available 01/30/2023 Mental Status Question Answer Note LastModified by Organizat ion Details LastModified Time Do you feel stressed (tense, restless, nervous, or anxious, or unable to sleep at night)? [id number] [email or web address] Information not available 01/30/2023 Do you have difficulty concentrating, remembering or making decisions? No [email or web address] Information no t available 01/30/2023 Family History Nothing Reported Notes:Mother-- around ag e 73, severe asthma, COPD, alcohol use disorder Father-- around age 64, lung cancer 3 brothers--1 had colon cancer, 1 has polycythemia vera with blood clots, 1 brother had a heart attack in his 50s with stent placement, also had prostate cancer 1 sister in a car accident around age 45 2 children--1 son with asthma, 1 daughter with allergies Paternal grandmother had breast cancer in her 90s Medical History Condition Response HIV or AIDS N Gout N Kidney Stones N Mary N Depression Y Pacemaker N Anemia Y Hyperthyroidism (over active) N Meningitis N Allergies (environmental/food) Y Reflux/GERD (heartburn) Y Anesthesia Complications N Ringing in ears Tinnitus N Diabetes Mellitus N Chronic Obstructive Pulmonary Disease (C OPD) N Hypercholesterolemia (high cholesterol) Y Genetic / Hereditary Disorder N Arthritis Y Autism Spectrum Disorder N Seizures / Epilepsy N Heart Murmur N Hypertension (high blood pressure) N Hypothyroidism (under active) N Congestive Heart Failure (CHF) N Cancer Y Past Medical History as per Problem List Y Asthma N Sleep Apnea N Convulsions N Cerebrovascular Accident (Stroke) N Colon Polyp N Hepatic / Liver Disease N Proptosis N Myocardial Infarction (heart attack) N Headaches / Migraines N Gynecological History Statement/Question Response Abnormal Pap N Date of Last Mammogram 02/05/2022 Post Menopausal Bleeding N STIs/STDs N If Post Menopausal, Age at Menopause 50 Date of Last Colonoscopy Most Recent Bone Density 02/08/2020 Sexually Active? N Mammogram Result Normal Date of Last Pap Smear 02/05/2022 Sexual Problems? N Hormone Replacement Therapy N Obstetrics History GPAL:G 0 P 0 0 0 0 Immunizations Vaccine Type Date Status Note Provider Nam e and Address Organization Details Recorded Time Influenza, adjuvanted, quadrivalent, PF 3 completed Sarika Callahan, [address], [address] [place] [address], [id number], [place] [facility] 02/03/2024 11:18:23 COVID-19, mRNA, LNP-S, PF, 30 mcg/0.3 mL dose, ekvin-sucrose 2 completed Sarika Callahan, PAC [address] [place] [address], [address] [place] [address], [place], [phone], [place] [facility] 02/03/2024 11:18:23 COVID-19, mRNA, LNP-S, bivalent, PF, 30 mcg/0.3 mL dose 2 completed Sarika Callahan, PAC [address] [place] [address], [address] [place] [address], [id number], [place] [facility] 02/03/2024 11:18:23 pneumococcal polysaccharide PPV23 9 completed Sarika Asencioer, PAC [address] [facility], [address], [place], [address], [place] - [facility] 02/03/2024 11:18:23 Pneumococcal conjugate PCV 13 7 completed Sarika Luis Mer, PAC [address] [facility], [address], [place], [address], [place] - [facility] 02/03/2024 11:18:23 Influenza, high-dose, trivalent, PF 4 completed Not Available [facility] 03/28/2025 13:42:40 COVID-19, mRNA, LNP-S, PF, kevin-sucrose, 30 mcg/0.3 mL 5 completed Not Available [facility] 03/28/2025 13:42:40 Influenza, high-dose, trivalent, PF 5 completed Not Available [facility] 03/28/2025 13:42:40 Tdap 7 completed Not Available [facility] 08/23/2022 23:38:39 COVID-19, mRNA, LNP-S, PF, 30 mcg/0.3 mL dose 1 completed Not Available [facility] 08/23/2022 23:38:45 COVID-19, mRNA, LNP-S, PF, 30 mcg/0.3 mL dose 1 completed Not Available [facility] 08/23/2022 23:38:45 COVID-19, mRNA, LNP-S, PF, 30 mcg/0.3 mL dose 1 completed Not Available [facility] 08/23/2022 23:38:45 Influenza, high-dose, quadrivalent, PF 1 completed Not Available [facility] 08/23/2022 23:38:46 Past Encounters Encounter ID Performer Location Encounter Start Date Encounter Closed Date Diagnosis/Indication Diagnosis SNOMED-CT Code Diagnosis ICD10 Code Diagnosis IMO Codes Diagnosis Note [id number] Nataliia Minor MD [facility] [address] [place] [address] 03/16/2025 15:38:09 03/16/2025 16:34:00 Rheumatoid arthritis of multiple joints 641576729 M06.9 - well controlled - cont reg f/u with rheumatolo gy- cont methotrexa te 22.5mg SC every week Right uppe r quadrant pain 275975691 R10.11 294186 - ddx includes gallstones , GERD- will obtain US RUQ- CMP from 01/11/25 reviewed, normal LFTs Pain in female pelvis 42 5036949 R10.20 071179 - ddx includes pelvic floor dysfunctio n vs ovarian/ut erine pathology (?mass) vs ?constipat ion- UA negative for infection from urgent care on 03/11/25, no vaginal discharge- will obtain pelvic ultrasound [id number] Nataliia Minor MD [facility] [facility] [address] [place] [address] 03/28/2025 13:42:10 03/28/2025 14:49:50 General examination of patient 347793653 Z00.00 [id number] Age-approp riate vaccinatio ns and screenings reviewed. Adult heal th examination 549497338 Z00.00 [id number] Age-approp riate vaccinatio ns and screenings reviewed.S he has a follow up pending with Dr. Champion.She is provided a copy of advance directives . She has scheduled transvagin al u/s. Consider CT Abdomen and Pelvis and/or GI consult if symptoms persist. Dyslipidemia 282621962 E 78.5 [id number] Health Concerns Section Related Observation LastModified by Organization Detai ls LastModified Time None Recorded Concern Status LastModified by Organization Details LastModified Time None Recorded Payers Encounter Date Sequence Insurance Name Policy Number Policy Guevara Covered Member ID Guevara Member ID Guarantor Name 03/28/2025 1 MEDICARE B-CT: NGS Kimmy Cheek [id number] Kimmy Cheek 03/28/2025 2 FOR LIFE () Kimmy Cheek [id number] Kimmy Cheek Notes Date Note Type Note Provider Name and Address Organization Details Recorded Time 5 text/html Medicare Annual Wellness Visit Health Risk AssessmentReported by PatientSocial/Behavioral HistoryFor diet and nutrition, patient reportsdiet is high in fat, low in fiberbut reportsno dental changes. For fracture risk, patient reportshistory of fracturesbut reportslast dexa abnormal. For fatigue, patient reportsfatigue. For medication review, patient reportshas medications at home and can afford medications. For physical activity, patient reportsexercises on a regular basis. For sexual activity, patient reportsdifficulty with sexual activity or cannot perform(not sexually active). For current level of pain, patient reportsmoderate pain: 3/10 to 5/10. For behavioral history, patient reportsdenies alcohol use or practices limited (social only) alcohol use,denies misuse of prescription medications, anddenies drug use, including marijuana, cocaine or crack, heroin, methamphetamine (crystal meth), hallucinogens, ecstasy/mdma.Mental Status:For orientation, patient reportsdisorientation to time,disorientation to date, anddisorientation to place. For concentration and memory, patient reportsforgetting words. For speech/motor difficulties, patient reportsdifficulty with fine manipulative tasksanddifficulty writing/copyingbut reportsdoes not knock things over when trying to pick them up. For loneliness/ social isolation, patient reportsloneliness(at times). For life satisfaction, patient reportscurrently satisfied with life. For stress, patient reportsnot stressed. For anger/agitation, patient reportsno anger/agitation. For suicidality, patient reportsdenied active suicidal ideation.Functional AbilityFor hearing, patient reportsloss of hearing in both earsanddifficulty hearing over background noise. For vision, patient reportsincreased sensitivity to glareanddifficulty seeing in bright lightbut reportswears eyeglasses/contacts(for reading). For home safety, patient reportsdoes not wear protective head gear for biking/high velocityanddoes not have hand bars in the bathroom/showerbut reportsno unsafe tad hazards,no unsafe stairs,no unsafe gas appliances,working smoke/co detectors,use of seatbelts,no vision or hearing loss while driving,no fire arms,good lighting in the home, andnumber of motor vehicle accidents none. For activities of daily living, patient reportsable to bathe with limited or no assistance,able to control urination and bowels,able to dress with limited or no assistance,able to groom with limited or no assistance,able to feed self with limited or no assistance,able to get out of chair or bed with limited or no assistance, andable to toilet with limited or no assistance. For instrumental activities of daily living, patient reportsable to do house work with limited or no assistance,able to grocery shop with limited or no assistance,able to manage medications with limited or no assistance,able to manage money with limited or no assistance,able to prepare meals with limited or no assistance,able to use the phone with limited or no assistance,able to use public transportation, andable to do laundry with limited or no assistance. Kimmy is here today for a subsequent AWV. Specialists:Pulmonary: Dr. JosephRheumatology: Dr. Correia--to have labs in ardiology: Dr. Vicente: Dr. Zonia Aquino: Dr. Girard: Dr. Landeros: Dr. SalinasyPodiatry: Dr. Clancy: Dr. Vásquez/CT GIGYN: Dr. Gardiner surgeon: Dr. Champion Screenings:CT chest due 06/14/25Mammogram/MRI breast: 05/19/24; continues to follow with Dr. Champion.Colonoscopy: 09/20/23 Dr. Vásquez 7 year recallDEXA 11/12/2023 through [facility]: 06/04/2019 per old records Family history:Mother-- around age 73, severe asthma, COPD, alcohol use disorderFather-- around age 64, lung cancer, smoker, alcohol use3 brothers--1 had colon cancer, 1 has polycythemia vera with blood clots, 1 brother had a heart attack in his 50s with stent placement, also had prostate cancer1 sister in a car accident around age 452 children--1 son with asthma, 1 daughter with allergiesPaternal grandmother had breast cancer in her 90s Social history: No advance directives Sarika Callahan, [address], [place], [address], [place] [facility] 03/29/2025 17:43:04 OBGyn Episode No OBEpisode recorded.
--- OUTSIDE RECORDS SUMMARY | 2025-04-12 12:43 | XMS_ITS | Data Portability ---
Author Organization [place] - [place] Swathi Bethea miicin, [id number] [facility] Address [address] [place] [address] Assessment Encounter Date Assessment Date Assessment LastModified by Organization Details LastModified Time 02/03/2024 02/03/2024 Reminders 1. Have you reviewed all current prescriptions and noted which they have discontinued with the patient? Reviewed with patient 2. Have you asked the patient if they are experiencing any new or recurring issues with bladder control? Reviewed with patient 3. Have you asked the patient about their current physical fitness routine and goals? Reviewed with patient disposal operator Not available 02/03/2024 11:11:42 03/28/2025 03/28/2025 Reminders 1. Have you reviewed all current prescriptions and noted which they have discontinued with the patient? Reviewed with patient 2. Have you asked the patient if they are experiencing any new or recurring issues with bladder control? Reviewed with patient 3. Have you asked the patient about their current physical fitness routine and goals? Reviewed with patient disposal operator Not available 03/28/2025 14:27:11 Plan of Treatment Reminders Order Date Submit Date Provider Last Modified By Organization Details Last Modified Time Details Appointments AWV (Medicar e) 2025 01:00P GABBY Piper Not available Not available Not available Lab TSH, serum, reflex free T4 2024 025 [facility], [address] [place], [address], 04/04/2025 09:31:11 lipid panel, serum 2024 025 [facility], [address] [place], [address], 04/04/2025 09:31:11 CBC w/ auto diff 2023 [facility], [address] [place], [address], 02/03/2024 11:32:35 CMP, serum or plasma 2023 [facility], [address], [place], [address], 02/03/2024 11:32:35 lipid panel, serum 2023 [facility], [address], [place], [address], 02/03/2024 11:32:35 TSH, serum, reflex free T4 2023 [facility], [address], [place], [address], 02/03/2024 11:32:35 Referral None recorded . Procedures None recorded . Surgeries None recorded . Imaging US, pelvis, transabd ominal + transvag inal - Chronic pelvic pressure , R>L, please r/o ovarian patholog y 2024 [email or web address] [facility] ([facility]), [address], [place], [address], 03/29/2025 11:36:41 US, abdomen, limited - RUQ/epig astric pain, please r/o biliary disease 2024 025 [place] [facility] ([facility]), [address], [address], [place], [address], 03/21/2025 14:09:37 CT, chest, w/ contrast - 73 year old F with R lung base nodule measurin g 9 mm on MRI breasts 2023 024 [facility] [place], [address], [address], [place], [address], 03/04/2024 14:46:52 Medication Orders azithrom ycin 250 mg tablet 2023 [id number], [address], [id number], 03/16/2025 16:13:57 predniso ne 20 mg tablet 2023 [facility] #[id number], [address], [place], [place], [id number], 03/16/2025 16:13:18 benzonat ate 100 mg capsule 2023 [facility] #[id number], [address] [place], [place], [id number], 03/16/2025 16:14:13 cefuroxi me axetil 500 mg tablet 2023 024 [facility][id number], [address], [id number], 12/04/2023 14:29:36 Patient TargetsNo targets recorded. Patient Instructions Encounter Date Encounter Id Patient Instructions Last Modified By Organization Details Last Modified Time 02/03/2024 [id number] well visit, over 65: care instructions disposal operator Not available 02/03/2024 11:27:06 preventing falls : care instructions disposal operator Not available 02/03/2024 11:27:07 advance directiv es: care instructions disposal operator Not available 02/03/2024 11:27:07 To promote good health please follow these recommendations: Diet, Physical Activity and Healthy Weight: -Eat a diet low in trans and saturated fats and high in fiber, fruits and vegetables -Take 5071-9019 mg of calcium through diet and supplements -Engage in regular physical activity and weight bearing exercise -Aim to achieve and maintain ideal body mass index Tobacco and Alcohol Use: -Don't smoke or use other tobacco products -Avoid excessive alcohol intake Medications: -If you use any medications (prescriptions, yaai-iqm-mejesxl, supplements, herbal), always do so as directed [...] recommendations outlined in your personal wellness plan. [email or web address] Not available 02/03/2024 10:44:06 03/28/2025 [id number] well visit, over 65: care instructions disposal operator Not available 03/28/2025 14:46:09 preventing falls : care instructions disposal operator Not available 03/28/2025 14:46:09 advance directiv es: care instructions disposal operator Not available 03/28/2025 14:46:08 To promote good health please follow these recommendations: Diet, Physical Activity and Healthy Weight: -Eat a diet low in trans and saturated fats and high in fiber, fruits and vegetables -Take 8231-8000 mg of calcium through diet and supplements -Engage in regular physical activity and weight bearing exercise -Aim to achieve and maintain ideal body mass index Tobacco and Alcohol Use: -Don't smoke or use other tobacco products -Avoid excessive alcohol intake Medications: -If you use any medications (prescriptions, fbrt-zgo-erdglav, supplements, herbal), always do so as directed [...] recommendations outlined in your personal wellness plan. [email or web address] Not available 03/28/2025 13:53:01 Reason for Referral None Reported. Results Created Date Observation Date Name Description Value Unit Range Abnormal Flag Note LastModifiedBy Organization Detail LastModifiedTime 04/15/20 24 04/15/2024 LIPID PANEL cholesterol 188 mg/dL 0-200 Not Available [address], [address], 04/15/2024 15:52:58 04/15/20 24 04/15/2024 LIPID PANEL triglyceride s 72 mg/dL <150 Not Available [address], [address], 04/15/2024 15:52:58 04/15/20 24 04/15/2024 LIPID PANEL HDL 67 mg/dL 33-92 Not Available [address], [address], 04/15/2024 15:52:58 04/15/20 24 04/15/2024 LIPID PANEL LDL calculated 107 mg/dL 50-130 Not Available [address], [address], 04/15/2024 15:52:58 04/15/20 24 04/15/2024 LIPID PANEL VLDL cholesterol danielel 14.4 mg/dL No estab lishe d refer ence range . Not Available [address], [address], 04/15/2024 15:52:58 04/15/20 24 04/15/2024 LIPID PANEL note See Report [facility], [address] [place] [address] ord, [place] [address] Not Available [facility] [address], [address], 04/15/2024 15:52:58 01/12/2001/11/2025 C react shanti prote in, QN, serum or plasm a C reactive protein, qn, serum or plasma high: 5mg/L Not Available Not Available 03/16/2025 16:21:27 01/12/2001/11/2025 C react shanti prote in, QN, serum or plasm a no coding or coding display name was found copy to [facility] Not Available Not Available 16:21:27 01/12/2001/11/2025 ESR (eryt hocyt e sedim entat ion rate) , blood ESR (erythocyte sedimentatio n rate), blood 13 text: 0.0 - 30.0 mm/HR Not Available Not Available 03/16/2025 16:21:26 01/12/2001/11/2025 ESR (eryt hocyt e sedim entat ion rate) , blood no coding or coding display name was found copy to [facility]im [facility] Not Available Not Available 16:21:26 01/12/2001/11/2025 CBC w/ auto diff WBC, auto, blood 6.61 text: 4.00 - 11.00 thousa nd/uL Not Available Not Available 03/16/2025 16:21:25 01/12/2001/11/2025 CBC w/ auto diff RBC count, blood 4.04 text: 4.04 - 5.48 millio n/uL Not Available Not Available 03/16/2025 16:21:25 01/12/2001/11/2025 CBC w/ auto diff hemoglobin (Hb), blood 11.9 g/dL low: 12g/dL high: 14.1g/ dL low Not Available Not Available 03/16/2025 16:21:25 01/12/20 25 01/11/2025 CBC w/ auto diff hematocrit, automated count, blood 37.9 % low: 33.5%h igh: 43.3% Not Available Not Available 03/16/2025 16:21:25 01/12/2001/11/2025 CBC w/ auto diff MCV, blood 93.8 fL low: 80fLhi gh: 97fL Not Available Not Available 03/16/2025 16:21:25 01/12/2001/11/2025 CBC w/ auto diff MCH, qn, automated (obs) 29.5 pg low: 27pghi gh: 31.2pg Not Available Not Available 03/16/2025 16:21:25 01/12/2001/11/2025 CBC w/ auto diff MCHC, qn, automated (obs) 31.4 g/dL low: 31.8g/ dLhigh : 35.4g/ dL low Not Available Not Available 03/16/2025 16:21:01/12/2001/11/2025 CBC w/ auto diff erythrocyte distribution width, ratio, automated (obs) 14.6 % low: 11.6%h igh: 14.8% Not Available Not Available 03/16/2025 16:21:25 01/12/2001/11/2025 CBC w/ auto diff platelets, auto, blood 322 text: 142.0 - 424.0 thousa nd/uL Not Available Not Available 03/16/2025 16:21:01/12/2001/11/2025 CBC w/ auto diff platelet mean volume, qn, automated, blood (obs) 10 fL low: 8fLhig h: 13fL Not Available Not Available 03/16/2025 16:21:01/12/2001/11/2025 CBC w/ auto diff neutrophils/ 100 leukocytes, automated, blood (obs) 54.9 % low: 37%hig h: 80% Not Available Not Available 03/16/2025 16:21:01/12/2001/11/2025 CBC w/ auto diff lymphocytes/ 100 leukocytes, automated, blood (obs) 37.1 % low: 10%hig h: 50% Not Available Not Available 03/16/2025 16:21:25 01/12/2001/11/2025 CBC w/ auto diff monocytes/10 0 leukocytes, automated, blood (obs) 6.2 % low: 1%high : 11.9% Not Available Not Available 03/16/2025 16:21:01/12/2001/11/2025 CBC w/ auto diff eosinophils/ 100 leukocytes, automated, blood (obs) 1.1 % low: 0%high : 6.9% Not Available Not Available 03/16/2025 16:21:01/12/2001/11/2025 CBC w/ auto diff basophils/10 0 leukocytes, automated, blood (obs) 0.5 % low: 0%high : 2.4% Not Available Not Available 03/16/2025 16:21:01/12/2001/11/2025 CBC w/ auto diff neutrophil count, absolute (anc), blood (obs) 3.6 text: 2.0 - 6.9 thousa nd/uL Not Available Not Available 03/16/2025 16:21:01/12/2001/11/2025 CBC w/ auto diff lymphocytes, quantitative , blood, automated count (obs) 2.5 text: 0.6 - 3.4 thousa nd/uL Not Available Not Available 03/16/2025 16:21:01/12/2001/11/2025 CBC w/ auto diff monocytes, count, automated, blood (obs) 0.4 text: 0.1 - 0.8 thousa nd/uL Not Available Not Available 03/16/2025 16:21:01/12/2001/11/2025 CBC w/ auto diff eosinophils, auto, blood, absolute 0.1 text: 0.0 - 0.6 thousa nd/uL Not Available Not Available 03/16/2025 16:21:01/12/2001/11/2025 CBC w/ auto diff basophils, quant, auto, blood (obs) 0 text: 0.0 - 0.1 thousa nd/uL Not Available Not Available 03/16/2025 16:21:01/12/2001/11/2025 CBC w/ auto diff immature granulocytes /100 leukocytes, automated, blood (obs) 0.2 % low: 0.001% high: 0.9% Not Available Not Available 03/16/2025 16:21:01/12/2001/11/2025 CBC w/ auto diff immature granulocytes , count, automated, blood (obs) 0.01 text: 0.0000 - 0.0700 thousa nd/uL Not Available Not Available 03/16/2025 16:21:25 01/12/2001/11/2025 CBC w/ auto diff nucleated erythrocytes /100 leukocytes, ratio, automated, blood (obs) 0 % low: 0%high : 0.2% Not Available Not Available 03/16/2025 16:21:25 01/12/2001/11/2025 CBC w/ auto diff nucleated erythrocytes , count, automated, blood 0 text: 0.000 - 0.012 thousa nd/uL Not Available Not Available 03/16/2025 16:21:25 01/12/2001/11/2025 CBC w/ auto diff no coding or coding display name was found copy to jim alvarez and [facility] Not Available Not Available 16:21:25 01/12/2001/11/2025 CBC w/ auto diff lab interpretati on abnorm al Not Available Not Available 16:21:25 01/12/2001/11/2025 CMP, serum or plasm a glucose, qn [mass/volume ], serum or plasma 112 mg/dL low: 70mg/d Lhigh: 99mg/d L high Not Available Not Available 03/16/2025 16:21:17 01/12/2001/11/2025 CMP, serum or plasm a BUN (blood urea nitrogen), serum or plasma 11 mg/dL low: 7mg/dL high: 22mg/d L Not Available Not Available 03/16/2025 16:21:17 01/12/2001/11/2025 CMP, serum or plasm a creatinine, serum or plasma 0.7 mg/dL low: 0.5mg/ dLhigh : 1.2mg/ dL Not Available Not Available 03/16/2025 16:21:17 01/12/2001/11/2025 CMP, serum or plasm a BUN/creatini ne, ratio, serum 16 low: 11high : 30 Not Available Not Available 03/16/2025 16:21:01/12/2001/11/2025 CMP, serum or plasm a sodium, serum or plasma 144 mmol/ L low: 133mmo l/Lhig h: 145mmo l/L Not Available Not Available 03/16/2025 16:21:17 01/12/2001/11/2025 CMP, serum or plasm a potassium, serum or plasma 4.4 mmol/ L low: 3.3mmo l/Lhig h: 5.1mmo l/L Not Available Not Available 03/16/2025 16:21:17 01/12/2001/11/2025 CMP, serum or plasm a chloride, serum or plasma 107 mmol/ L low: 96mmol /Lhigh : 108mmo l/L Not Available Not Available 03/16/2025 16:21:01/12/2001/11/2025 CMP, serum or plasm a bicarbonate, quant, serum 27 mmol/ L low: 22mmol /Lhigh : 31mmol /L Not Available Not Available 03/16/2025 16:21:01/12/2001/11/2025 CMP, serum or plasm a anion gap, serum or plasma 10 mmol/ L low: 3mmol/ Lhigh: 19mmol /L Not Available Not Available 03/16/2025 16:21:01/12/2001/11/2025 CMP, serum or plasm a calcium, serum or plasma 9.4 mg/dL low: 8.8mg/ dLhigh : 10.6mg /dL Not Available Not Available 03/16/2025 16:21:17 01/12/2001/11/2025 CMP, serum or plasm a protein, total, serum 6.7 g/dL low: 6g/dLh igh: 8.3g/d L Not Available Not Available 03/16/2025 16:21:17 01/12/2001/11/2025 CMP, serum or plasm a albumin, qn, bcg dye, serum or plasma 4.2 g/dL low: 3.2g/d Lhigh: 4.8g/d L Not Available Not Available 03/16/2025 16:21:17 01/12/2001/11/2025 CMP, serum or plasm a globulin, qn, calculated, serum 2.5 g/dL low: 2g/dLh igh: 3.5g/d L Not Available Not Available 03/16/2025 16:21:17 01/12/2001/11/2025 CMP, serum or plasm a albumin/glob ulin, ratio, serum 1.7 low: 1high: 5 Not Available Not Available 03/16/2025 16:21:17 01/12/2001/11/2025 CMP, serum or plasm a AST/SGOT (aspartate aminotransfe rase), serum or plasma 17 text: 8 - 37 IU/L Not Available Not Available 03/16/2025 16:21:17 01/12/2001/11/2025 CMP, serum or plasm a alanine aminotransfe rase, qn, no addition of P-5'-P, serum or plasma 14 text: 5 - 40 IU/L Not Available Not Available 03/16/2025 16:21:17 01/12/2001/11/2025 CMP, serum or plasm a alkaline phosphatase, serum or plasma 66 text: 37 - 145 IU/L Not Available Not Available 03/16/2025 16:21:17 01/12/2001/11/2025 CMP, serum or plasm a bilirubin, total, serum or plasma 0.4 mg/dL low: 0mg/dL high: 1mg/dL Not Available Not Available 03/16/2025 16:21:17 01/12/2001/11/2025 CMP, serum or plasm a glomerular filtration rate/1.73 sq M predicted, qn, creatinine based formula (CKD-epi), serum or plasma or blood >60 low: 60 As of 05/09 , the [facility] has updat ed the creat inine -base d estim ated glome rular filtr ation rate (eGFR cr) to the updat ed CKD-E PI 2020 equat ion. This gaines e mihaela es the race coeff icien t of the older maryu juany n, and was made based on recom menda tions from the [facility] and the [employer] of Nephr ology 's Task Force . The new eGFRc r has simil ar overa ll perfo rmanc e be cteri stics to the older equat ion and has been asses sed to not have poten tial conse quenc es that dispr oport ionat brody affec t any one group of indiv idual s. Howev er, some mild varia tion from the older eGFR equat ion can be expec casa espec ially in young er age patie nts and at highe r eGFRc r value s. Not Available Not Available 03/16/2025 16:21:17 01/12/2001/11/2025 CMP, serum or plasm a no coding or coding display name was found copy to patien t and [facility] Not Available Not Available 16:21:17 01/12/2001/11/2025 CMP, serum or plasm a lab interpretati on abnorm al Not Available Not Available 16:21:17 09/01/19 24 08/28/2023 CT, sinus es, w/o contr ast No observ ation record ed. [email or web address] [facility] [address], [place], [address], 01/15/2024 11:31:29 11/12/19 24 11/12/2023 bone densi ty No observ ation record ed. [email or web address] [address], [place], [address], 11/18/2023 12:13:35 01/27/20 24 01/23/2024 XR, lumba r spine No observ ation record ed. [email or web address] [facility] [address] [facility] [address], [place], [address], 01/30/2024 13:51:29 02/24/20 24 02/24/2024 XR, ankle No observ ation record ed. [email or web address] [facility] [address], [place], [address], 03/08/2024 13:45:57 02/24/20 24 02/24/2024 XR, foot, 3 or more view No observ ation record ed. [place] [id number] [facility] [address], [place], [address], 03/08/2024 13:44:27 02/24/20 24 02/24/2024 XR, hand, 3 or more view No observ ation record ed. [place] [id number] [facility] [address], [place], [address], 03/08/2024 13:43:19 02/24/20 24 02/24/2024 XR, wrist No observ ation record ed. [place] [id number] [facility] [address], [place], [address], 03/08/2024 13:41:53 03/04/20 24 02/03/2024 CT, chest , w/ contr ast EXAMIN ATION: CT CHEST WITH CONTRA ST CLINIC AL INFORM ATION: 73-yea r-old female with right lung base nodule seen on breast MRI. COMPAR AYAAN: Breast MRI 2023: Indet ermina te stabil ity of right lung base nodule measur ing 9 mm, which has possib ly increa sed in size since CTAP from 2020. Dedica casa CT chest is recomm ended. CT abdome n/pelv is 2020 and 2012. TECHNI QUE: Multid etecto r volume tric CT imagin g of the chest was obtain ed after the admini strati on of 50 mL of Omnipa que [address] withou t immedi ate advers e reacti ons. Axial MIP volume render ing provid ed. Sagitt al and osborne l reform atted images were obtain ed. This CT examin ation was perfor med using dose optimi zation techni ques as approp riate, variou sly includ ing the follow ing: *Autom ated exposu re contro l *Adjus tment of mA and/or kV accord ing to patien t size (this includ es techni ques or standa rdized protoc ols for target ed exams where dose is matche d to indica tion/r jayson for exam; i.e. extrem ities or head) *Use of iterat shanti recons tructi on techni que DLP: 166 mGy-cm FINDIN GS: PULMON CHANTELL NODULE S: In the right middle lobe, along the minor fissur e, there is a 10 x 5 x 10 mm nodula r densit y seen (4:358 and fitzgerald image) . This has never been fully includ ed on prior CT abdome n exams but has been presen t since at least 2012 althou gh I cannot assess any change in size since prior study. Some other smalle r pulmon chantell nodule s are presen t, none measur ing more than 5 mm (see fitzgerald images ) with the larges t in the superi or segmen t of the right lower lobe measur ing 4.7 mm (4:247 ). LUNGS AND PLEURA : Biapic al pleura l-pare nchyma l scarri ng is presen t. Mild emphys ematou s change s are seen. Some minima l bronch ial thicke dominick is presen t diffus brody. Some scatte red tiny ground -glass opacit ies are seen, possib ly none larger than 1 cm (see fitzgerald images ). No pleura l effusi ons. MEDIAS TINUM: The medias tinum is unrema rkable . OSBORNE RY ARTERY CALCIU M: Presen t. AXILLA : No lympha denopa thy. UPPER ABDOME N: Unrema rkable . OSSEOU S STRUCT URES: Unrema rkable . IMPRES SOHEILA: 1. The right middle lobe nodule seen on the recent breast MRI measur es 10 mm in [facility] ion. This has been presen t since at least 2012 althou gh I cannot assess any change in size since prior study since the nodule was never fully includ ed on the abdome n CT scans. The most likely diagno sis is that this is a perifi ssural lymph node, but given the histor y of malign marilia, short- term interv al follow up is not unreas onable . 2. Other smalle r pulmon chantell nodule s are presen t, none measur ing more than 5 mm. 3. Mild emphys ematou s change s with some scatte red tiny ground -glass opacit ies. Accord ing to the UPDATE D 2017 [employer] recomm endati ons, the advise d follow up imagin g for a single solid nodule measur ing greate r than 8 mm is consid eratio n of CT at 3 months , PET/CT , or tissue sampli ng as clinic ally approp riate. Electr onical ly signed by: Bright banda MD 2023 02:43 PM EST RP Workst ation: [id number] Thank you for referr ing your patien t to us, Bright banda MD [phone] (Elect brittany ward Signed - 2023 14:43) Copy: [facility] [address] [place] [address] [phone] [email or web address] [facility] ([facility]) [address] [facility] [address], [place], [address], 05/21/2024 10:34:29 06/17/19 25 06/14/2024 CT, chest , w/ contr ast EXAMIN ATION: CT CHEST WITH CONTRA ST CLINIC AL INFORM ATION: Pulmon chantell nodule s. COMPAR AYAAN: 024. TECHNI QUE: Multid etecto r volume tric CT imagin g of the chest was obtain ed after the admini strati on of 50 mL of Omnipa que [address] withou t immedi ate advers e reacti ons. Axial MIP volume render ing provid ed. Sagitt al and osborne l reform atted images were obtain ed. This CT examin ation was perfor med using dose optimi zation techni ques as approp riate, variou sly includ ing the follow ing: *Autom ated exposu re contro l *Adjus tment of mA and/or kV accord ing to patien t size (this includ es techni ques or standa rdized protoc ols for target ed exams where dose is matche d to indica tion/r jayson for exam; i.e. extrem ities or head) *Use of iterat shanti recons tructi on techni que DLP: 176.14 FINDIN GS: LOWER NECK: Slight hetero geneit y again noted to both lobes of thyroi d. LUNGS/ PLEURA : Stable 10 mm nodule along the latera l aspect of the right middle lobe just anteri or to the major fissur e (image 44 series 3). Stable 4 mm nodule within the school occupational therapist ior aspect of the left lower lobe (image 32 series 3). Stable 3 mm periph eral nodule within the school occupational therapist ior aspect of the left upper lobe (image 14 series 3). Stable additi onal 3 mm nodule slight ly inferi or is also in the school occupational therapist ior left upper lobe (image 18 series 3). Stable biapic al, left greate r than right, pleura l-pare nchyma l scarri ng. No new or additi onal signif icant pulmon chantell parenc hymal or pleura l-base d abnorm alitie s noted. No pleura l effusi ons. The trache a and mainst em bronch i are patent . MEDIAS TINUM: Athero sclero tic osborne ry artery calcif icatio ns. No hilar or medias tinal lympha denopa thy. Small hiatal hernia . AXILLA : No lympha denopa thy. UPPER ABDOME N: Unrema rkable . OSSEOU S STRUCT URES: Unrema rkable . IMPRES SOHEILA: Stable chest CT. Contin ued follow -up recomm ended based on guidel harshal and clinic al ground s. [employer] guidel harshal were follow ed. Electr onical ly signed by: Chance Diop MD 2024 03:54 PM EST RP Workst ation: LAPTOP [id number] Thank you for referr ing your patien t to us, Chance Diop MD [phone] (Elect brittany sylvia Signed - 2024 15:54) Copy: [facility] [address] [place] [address] [phone] [facility] ([facility]) [address] [facility] [address], [place], [address], 07/19/2024 10:36:04 08/05/19 25 08/04/2024 [place], thyro id No observ ation record ed. [place] [facility] ([facility]) [address], [place], [address], 08/18/2024 15:31:04 09/15/19 25 06/14/2024 CT, chest , w/ contr ast Addend um: ADDEND UM #[address] and cardia c nuclea r medici ne (myoca rdial perfus ion studie s) imagin g report s in the past 12-fri period : 1 Electr onical ly signed by: Chance Diop MD 2024 01:33 PM EDT RP Workst ation: LAPTOP [id number] Thank you for referr ing your patien t to us, Chance Diop MD [phone] (Elect brittany ward Signed - 2024 13:33) Copy: [facility] [address] [place] [address] [phone] Origin al Report : EXAMIN ATION: CT CHEST WITH CONTRA ST CLINIC AL INFORM ATION: Pulmon chantell nodule s. COMPAR AYAAN: 024. TECHNI QUE: Multid etecto r volume tric CT imagin g of the chest was obtain ed after the admini strati on of 50 mL of Omnipa que [address] withou t immedi ate advers e reacti ons. Axial MIP volume render ing provid ed. Sagitt al and osborne l reform atted images were obtain ed. This CT examin ation was perfor med using dose optimi zation techni ques as approp riate, variou sly includ ing the follow ing: *Autom ated exposu re contro l *Adjus tment of mA and/or kV accord ing to patien t size (this includ es techni ques or standa rdized protoc ols for target ed exams where dose is matche d to indica tion/r jayson for exam; i.e. extrem ities or head) *Use of iterat shanti recons tructi on techni que DLP: 176.14 FINDIN GS: LOWER NECK: Slight hetero geneit y again noted to both lobes of thyroi d. LUNGS/ PLEURA : Stable 10 mm nodule along the latera l aspect of the right middle lobe just anteri or to the major fissur e (image 44 series 3). Stable 4 mm nodule within the school occupational therapist ior aspect of the left lower lobe (image 32 series 3). Stable 3 mm periph eral nodule within the school occupational therapist ior aspect of the left upper lobe (image 14 series 3). Stable additi onal 3 mm nodule slight ly inferi or is also in the school occupational therapist ior left upper lobe (image 18 series 3). Stable biapic al, left greate r than right, pleura l-pare nchyma l scarri ng. No new or additi onal signif icant pulmon chantell parenc hymal or pleura l-base d abnorm alitie s noted. No pleura l effusi ons. The trache a and mainst em bronch i are patent . MEDIAS TINUM: Athero sclero tic osborne ry artery calcif icatio ns. No hilar or medias tinal lympha denopa thy. Small hiatal hernia . AXILLA : No lympha denopa thy. UPPER ABDOME N: Unrema rkable . OSSEOU S STRUCT URES: Unrema rkable . IMPRES SOHEILA: Stable chest CT. Contin ued follow -up recomm ended based on guidel harshal and clinic al ground s. Fleisc hner guidel harshal were follow ed. Electr onical ly signed by: Chance Diop MD 2024 03:54 PM EST RP Workst ation: LAPTOP -[id number] Thank you for referr ing your patien t to us, Chance Diop MD [phone] (Elect brittany sylvia Signed - 2024 15:54) Copy: [facility] [address] [place] [address] [phone] [facility] Radiology ([facility]) [address] [facility] [address], [place], [address], 09/17/2024 14:02:41 10/16/19 25 10/15/2024 US thyro id biops y PROCED URE: IR THYROI D FINE NEEDLE ASPIRA TION REFERR ING PROVID ER: Марина rBiseno MD PROCED URAL PERSON MOISES: Ernestina benito Provid er(s): Charline naik PA-C PREPRO CEDURE DIAGNO SIS: Thyroi d nodule s POSTPR OCEDUR E DIAGNO SIS: Same INDICA TION: Histop atholo gi diagno sis Previo us biopsy of same target (QCDR) : No ADDITI ONAL CLINIC AL HISTOR Y: Thyroi d nodule s. COMPLI CATION S: No immedi ate compli cation s. IMPRES SOHEILA: Image- guided biopsy of 2 thyroi d nodule s: 1.The 1.6 cm left superi or lobe thyroi d nodule 2.The 1.8 cm right midpol e thyroi d nodule PLAN: Specim en(s) sent for cytolo gy with reflex to [facility]. ___ PROCED URE SUMMAR Y: - Percut aneous ultras ound-g uided fine-n eedle aspira tion - Additi onal proced ure(s) : None PROCED URE DETAIL S: PREPRO CEDURE : Refere nce imagin g for biopsy target : Thyroi d ultras ound September 21, 2024 Consen t: Inform ed consen t for the proced ure includ ing risks, benefi ts and altern atives was obtain ed and time-o ut was perfor med prior to the proced ure. Prepar ation: The site was prepar ed and draped using janett lloyd e arash r techni que includ ing cutane ous antise psis. ANESTH ESIA/S EDATIO N: Level of anesth esia/s edatio n: Not applic able Anesth esia/s edatio n admini stered by: Not applic able Total intra- servic e sedati on time (minut es): Not applic able IMAGIN G PRIOR TO BIOPSY : The patien t was positi oned supine on the ultras ound table. Initia l imagin g was perfor med. Biopsy target s: Nodule #1 - Janett l diamet er (cm): 1.6 - Locati on: Left thyroi d - Other findin gs: None Nodule #2 - Janett l diamet er (cm): 1.8 - Locati on: Right thyroi d -Other findin gs: None BIOPSY : 4mL 1% Lidoca ine local anesth esia was admini stered . Under direct ultras ound guidan ce as stated in the proced ure summar y, the biopsy needle was advanc ed to the target and biopsy was perfor med. Nodule #1 - Janett l diamet er (cm): 1.6 - Locati on: Left thyroi d - Other findin gs: None Fine needle aspira tion device : 10 mL syring e Fine needle size: 25 gauge Number of FNA specim ens: 5 Nodule #2 - Janett l diamet er (cm): 1.8 - Locati on: Right thyroi d - Other findin gs: None Fine needle aspira tion device : 10 mL syring e Fine needle size: 25 gauge Number of FNA specim ens: 5 On-sit e biopsy touch prepar ation: No Additi onal sampli ng recomm endati ons: None Prelim inary assess ment of sample adequa cy: Not applic able NEEDLE REMOVA L: The biopsy needle was remove d and a steril e dressi ng was applie d. IMAGIN G FOLLOW ING BIOPSY : Postbi opsy imagin g: Ultras ound Postbi opsy imagin g findin gs: Expect ed post biopsy findin gs. No large hemato ma. ADDITI ONAL DETAIL S: Additi onal descri ption of proced ure: None Equipm ent detail s: None Specim ens remove d: Biopsy sample s as detail ed above Estima casa blood loss (mL): Less than 5 Standa rdized report : SIR_Bi opsyMi scGuid ance_v 3 This proced ure was perfor med and dictat ed by Charline naik PA-C. Interp reted by: Charline naik PA-C I person ally review ed the images and the reside nts prelim inary report and AGREE with the report as it is now presen casa (RADPA L1). Electr onical ly signed by: Linda Garcia MD 2024 07:22 PM EDT RP Workst ation: [id number] 05 Thank you for referr ing your patien t to us, Linda Garcia MD [phone] (Elect brittany ward Signed - 2024 19:22) Copy: THAO Yeager MD [facility] - [facility] [address] [facility] [address] [facility] [place] [address] [phone] [facility] [address] [place] [address] [phone] [facility] Radiology ([facility]) [address] [facility] [address], [place], [address], 10/17/2024 12:39:10 11/02/19 25 10/15/2024 US thyro id biops y Addend um: ADDEND UM #1 CYTOPA THOLOG Y REPORT Spec #: [id number] DIAGNO SIS A. LEFT SUPERI OR THYROI D, FINE NEEDLE ASPIRA TION: Benign (Bethe sda Catego ry II); consis tent with lympho cytic (Rachel motos) thyroi ditis in the proper clinic al contex t. B. RIGHT MID THYROI D, FINE NEEDLE ASPIRA TION: Benign (Bethe sda Catego ry II); consis tent with lympho cytic (Rachel motos) thyroi ditis in the proper clinic al contex t. A copy of this addend ed report with the pathol ogy findin gs will be sent to the referr ing provid er. Electr onical ly signed by: Linda Garcia MD 2024 12:26 PM EDT RP Workst ation: [id number] 12 Thank you for referr ing your patien t to us, Linda Garcia MD [phone] (Vini ward Signed - 2024 12:26) Copy: THAO Yeager MD [facility] - [facility] [address] [facility] [address] [facility] [address] [phone] [facility] [address] [place] [address] [phone] Origin al Report : PROCED URE: IR THYROI D FINE NEEDLE ASPIRA TION REFERR ING PROVID ER: Марина Briseno MD PROCED URAL PERSON MOISES: Ernestina Willett ce Provid er(s): Charline naik PA-C PREPRO CEDURE DIAGNO SIS: Thyroi d nodule s POSTPR OCEDUR E DIAGNO SIS: Same INDICA TION: Histop atholo gi diagno sis Previo us biopsy of same target (QCDR) : No ADDITI ONAL CLINIC AL HISTOR Y: Thyroi d nodule s. COMPLI CATION S: No immedi ate compli cation s. IMPRES SOHEIAL: Image- guided biopsy of 2 thyroi d nodule s: 1.The 1.6 cm left superi or lobe thyroi d nodule 2.The 1.8 cm right midpol e thyroi d nodule PLAN: Specim en(s) sent for cytolo gy with reflex to [facility]. ___ PROCED URE SUMMAR Y: - Percut aneous ultras ound-g uided fine-n eedle aspira tion - Additi onal proced ure(s) : None PROCED URE DETAIL S: PREPRO CEDURE : Refere nce imagin g for biopsy target : Thyroi d ultras ound September 21, 2024 Consen t: Inform ed consen t for the proced ure includ ing risks, benefi ts and altern atives was obtain ed and time-o ut was perfor med prior to the proced ure. Prepar ation: The site was prepar ed and draped using janett l steril e arash r techni que includ ing cutane ous antise psis. ANESTH ESIA/S EDATIO N: Level of anesth esia/s edatio n: Not applic able Anesth esia/s edatio n admini stered by: Not applic able Total intra- servic e sedati on time (minut es): Not applic able IMAGIN G PRIOR TO BIOPSY : The patien t was positi oned supine on the ultras ound table. Initia l imagin g was perfor med. Biopsy target s: Nodule #1 - Janett l diamet er (cm): 1.6 - Locati on: Left thyroi d - Other findin gs: None Nodule #2 - Janett l diamet er (cm): 1.8 - Locati on: Right thyroi d -Other findin gs: None BIOPSY : 4mL 1% Lidoca ine local anesth esia was admini stered . Under direct ultras ound keira ce as stated in the proced ure summar y, the biopsy needle was advanc ed to the target and biopsy was perfor med. Nodule #1 - Janett l diamet er (cm): 1.6 - Locati on: Left thyroi d - Other findin gs: None Fine needle aspira tion device : 10 mL syring e Fine needle size: 25 gauge Number of FNA specim ens: 5 Nodule #2 - Janett l diamet er (cm): 1.8 - Locati on: Right thyroi d - Other findin gs: None Fine needle aspira tion device : 10 mL syring e Fine needle size: 25 gauge Number of FNA specim ens: 5 On-sit e biopsy touch prepar ation: No Additi onal sampli ng recomm endati ons: None Prelim inary assess ment of sample adequa cy: Not applic able NEEDLE REMOVA L: The biopsy needle was remove d and a steril e dressi ng was applie d. IMAGIN G FOLLOW ING BIOPSY : Postbi opsy imagin g: Ultras ound Postbi opsy imagin g findin gs: Expect ed post biopsy findin gs. No large hemato ma. ADDITI ONAL DETAIL S: Additi onal descri ption of proced ure: None Equipm ent detail s: None Specim ens remove d: Biopsy sample s as detail ed above Estima casa blood loss (mL): Less than 5 Standa rdized report : SIR_Bi opsyMi scGuid ance_v 3 This proced ure was perfor med and dictat ed by Charline naik PA-C. Interp reted by: Charline naik PA-C I person ally review ed the images and the reside nts prelim inary report and AGREE with the report as it is now presen casa (RADPA L1). Electr onical ly signed by: Linda Garcia MD 2024 07:22 PM EDT RP Workst ation: FAPRWS 05 Thank you for referr ing your patien t to us, Linda Garcia MD [phone] (Elect brittany ward Signed - 2024 19:22) Copy: THAO [facility]- [facility]HEUMA TOLOGY - [facility] [address] [facility] [address] [place] [address] [phone] [facility] [address] [place] [address] [phone] [facility] Radiology ([facility]) [address] [facility] [address], [place], [address], 11/01/2024 13:05:04 03/21/20 25 03/21/2025 US, abdom en, limit ed No observ ation record ed. [facility] ([facility]) [address] [place], [address], 03/29/2025 12:48:21 03/29/20 25 03/29/2025 US pelvi c doppl er limit ed No observ ation record ed. [facility] ([facility]) [address] [place], [address], 04/09/2025 23:19:22 Result Notes Documentation Provider Name and Address Organization Details Recorded Time Ct, Chest, W/ Contrast : EXAMINATION: CT CHEST WITH CONTRAST CLINICAL INFORMATION: 73-year-old female with right lung base nodule seen on breast MRI. COMPARISON: Breast MRI 10/29/2023: Indeterminate stability of right lung base nodule measuring 9 mm, which has possibly increased in size since CTAP from 10/16/2020. Dedicated CT chest is recommended. CT abdomen/pelvis 10/16/2020 and 11/06/2012. TECHNIQUE: Multidetector volumetric CT imaging of the [...] head) *Use of iterative reconstruction technique DLP: 166 mGy-cm FINDINGS: PULMONARY NODULES: In the right middle lobe, along the minor fissure, there is a 10 x 5 x 10 mm nodular density seen (4:358 and fitzgerald image). This has never been fully included on prior CT abdomen exams but has been present since at least 2012 although I cannot assess any change in size since prior study. Some other smaller pulmonary nodules are present, none measuring more than 5 mm (see fitzgerald images) with the largest in the superior segment of the right lower lobe measuring 4.7 mm (4:247). LUNGS AND PLEURA: Biapical pleural-parenchymal scarring is present. Mild emphysematous changes are seen. Some minimal bronchial thickening is present diffusely. Some scattered tiny ground-glass opacities are seen, possibly none larger than 1 cm (see fitzgerald images). No pleural effusions. MEDIASTINUM: The mediastinum is unremarkable. CORONARY ARTERY CALCIUM: Present. AXILLA: No lymphadenopathy. UPPER ABDOMEN: Unremarkable. OSSEOUS STRUCTURES: Unremarkable. IMPRESSION: 1. The right middle lobe nodule seen on the recent breast MRI measures 10 mm in greatest dimension. This has been present since at least 2012 although I cannot assess any change in size since prior study since the nodule was never fully included on the abdomen CT scans. The most likely diagnosis is that this is a perifissural lymph node, but given the history of malignancy, short-term interval followup is not unreasonable. 2. Other smaller pulmonary nodules are present, none measuring more than 5 mm. 3. Mild emphysematous changes with some scattered tiny ground-glass opacities. According to the UPDATED 2017 Fleischner Society recommendations, the advised followup imaging for a single solid nodule measuring greater than [address] at 3 months, PET/CT, or tissue sampling as clinically appropriate. Electronically signed by: Bright Branham MD 03/04/2024 02:[address] [facility] Thank you for referring your patient to us, Bright Branham MD [phone] (Electronically Signed - 03/04/2024 14:43) Copy: ALEXANDRO DEL TORO MD [facility] [address] [place] [address] Mark bautista, CT - CT [facility] 05/21/2024 10:34:29 Ct, Chest, W/ Contrast : EXAMINATION: CT CHEST WITH CONTRAST CLINICAL INFORMATION: [...] 3). Stable biapical, left greater than right, pleural-parenchymal scarring. No new or additional significant pulmonary parenchymal or pleural-based abnormalities noted. No pleural effusions. The trachea and mainstem bronchi are patent. MEDIASTINUM: Atherosclerotic coronary artery calcifications. No hilar or mediastinal lymphadenopathy. Small hiatal hernia. AXILLA: No lymphadenopathy. UPPER ABDOMEN: Unremarkable. OSSEOUS STRUCTURES: Unremarkable. IMPRESSION: Stable chest CT. Continued follow-up recommended based on guidelines and clinical grounds. Fleischner guidelines were followed. Electronically signed by: Gio Diop MD 06/17/2024 03:54 PM EST RP Thank you for referring your patient to us, Gio Diop MD [phone] (Electronically Signed - 06/17/2024 15:54) Copy: [facility] [address] [place] [address] Mark bautista, CT - CT [facility] 07/19/2024 10:36:04 Ct, Chest, W/ Contrast : Addendum: ADDENDUM #[address] and cardiac nuclear medicine (myocardial perfusion studies) imaging reports in the past 12-month period: 1 Electronically signed by: Gio Diop MD 09/14/2024 01:33 PM EDT RP Thank you for referring your patient to us, Gio Diop MD [phone] (Electronically Signed - 09/14/2024 13:33) Copy: [facility] [address] [place] [address] Original Report: EXAMINATION: CT CHEST WITH CONTRAST CLINICAL INFORMATION: [...] 3). Stable biapical, left greater than right, pleural-parenchymal scarring. No new or additional significant pulmonary parenchymal or pleural-based abnormalities noted. No pleural effusions. The trachea and mainstem bronchi are patent. MEDIASTINUM: Atherosclerotic coronary artery calcifications. No hilar or mediastinal lymphadenopathy. Small hiatal hernia. AXILLA: No lymphadenopathy. UPPER ABDOMEN: Unremarkable. OSSEOUS STRUCTURES: Unremarkable. IMPRESSION: Stable chest CT. Continued follow-up recommended based on guidelines and clinical grounds. Fleischner guidelines were followed. Electronically signed by: Gio Diop MD 06/17/2024 03:[address] [facility] Thank you for referring your patient to us, Gio Diop MD [phone] (Electronically Signed - 06/17/2024 15:54) Copy: ALEXANDRO DEL TORO MD [facility] [address] [place] [address] Leonor Callahan, [address], [address] [place] [address], [place], [address], [place] - [place] [address]/23/2025 14:02:41 Problems Name Problem SNOMED Code Status Onset Date Resolution Date Notes Provider Name and Address Organization Details Recorded Time Problem 86296929 Active No known active problems Not Available [facility] 3 19:42:54 Fibrocyst ic changes of bilateral breasts 19075917234 213628 Active 2015 Fibrocyst ic breast changes of both breasts Nataliia Minor MD [address] [place] [address], [address] [place] [address], [phone] , [place] - [place] [facility] 5 16:02:45 Inconclus shanti mammograp hy finding 10715748418 9104 Active 2015 Inconclus shanti mammogram due to dense breasts Not Available [facility] 3 19:42:50 Taking high risk medicatio n 52942849776 4107 Active 2016 High risk medicatio n use Nataliia Minor MD [address] [place] [address], [phone] , [place] - [place] [facility] 5 16:02:46 Spasmodic torticoll is 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 Active 2016 Spasmodic torticoll is Not Available [facility] 3 19:42:49 Senile osteoporo sis 34338051 Active 2016 Senile osteoporo sis Nataliia Minor MD [address] [place] [address], [address] [place] [address], [phone] , [place] - CT [facility] 5 16:02:45 Allergic rhinitis caused by pollen 30523537 Active 2016 Seasonal allergic rhinitis due to pollen Nataliia Minor MD [address] [place] [address], [address] [place] [address], [phone] , [place] - CT [facility] 5 16:02:45 Rheumatoi d arthritis of multiple joints 563962022 Active 2016 Rheumatoi d arthritis involving multiple sites Nataliia Minor MD [address] [place] [address], [address] [place] [address], [address] , [place] - CT [facility] 5 16:02:46 Gastroeso phageal reflux disease without esophagit is 681441541 Active 2016 Gastroeso phageal reflux disease without esophagit is Nataliia Minor MD [address] [place] [address], [address] , [place] - CT [facility] 5 16:02:45 Body mass index 20-24 - normal 160127293 Active 2016 BMI 22.0-22.9 , adult Not Available [facility] 3 19:42:49 Mixed anxiety and depressiv e disorder 553747863 Active 2016 Anxiety and depressio n Nataliia Minor MD [address] [place] [address], [phone] , [place] - CT [facility] 5 16:02:45 Dyslipide pranav 667397192 Active 2016 Dyslipide pranav Callahan [address], [address] [place] [address] , [place] - CT [facility] 5 14:46:04 Hereditar y essential tremor 745487760 Active 2018 Benign head tremor Nataliia Minor MD [address] [place] [address], [address] , [place] - CT [facility] 5 16:02:46 Rib pain 291545335 Active 2019 Rib pain Not Available [facility] 3 19:42:48 Acute thoracic back pain 455410846 Active 2019 Acute bilateral thoracic back pain Not Available [facility] 3 19:42:49 Nuclear sclerotic cataract 022766347 Active 2020 Nuclear sclerotic cataract of left eye Nucle ar sclerotic cataract of right eye Nataliia Minor MD [address] [place] [address], [address] , [place] - CT [facility] 5 16:02:46 Intercost al neuralgia 643175709 Active 2020 Intercost al neuralgia Nataliia Minor MD [address] [place] [address], [address] , [place] [facility] 5 16:02:45 Thoracic radiculop athy 25285945 Active 2021 Thoracic radiculop athjong Minor MD [address] [place] [address], [facility], [place], [address] , [place] - CT [facility] 5 16:02:46 Pain in thoracic spine 902969758 Active 2021 Thoracic spine pain Not Available [facility] 3 19:42:51 Thoracic spondylos is 001083044 Active 2021 Thoracic spondylos is Nataliia Minor MD [address] [place] [address], [address] [place] [address], [place], [address] , [place] - CT [facility] 5 16:02:46 Chest wall pain 651985649 Active 2021 Chest wall pain, chronic Not Available [facility] 3 19:42:49 Immunodef iciency disorder 547544047 Active 2022 Zia Finley MD [address] [place] [address], [address] [place] [address], [place], [address] , [place] - CT [facility] 3 11:41:29 Sinusitis 57731071 Active 2023 Zia Finley MD [address] [place] [address], [address] [place] [address], [place], [address] , [place] - CT [facility] 4 11:03:06 Nodule of lung 547707029 Active 2023 Nataliia Minor MD [address] [place] [address], [address] [place] [address], [place], [address] , [place] CT - CT [facility] 5 16:02:46 Rheumatoi d arthritis 49542278 Active 2023 GABYB Sheppard [address] [place] [address], [address] [place] [address], [place], [address] , [place] - CT [facility] 4 09:03:51 Acute bronchiti s 17397264 Active 2023 GABBY Sheppard [address] [place] [address], [address] [place] [address], [place], [address] , [place] [facility] 4 11:25:33 Cyst of thyroid 84020381 Active 2024 GABBY Sheppard [address] [place] [address], [address] , [place] [facility] 5 09:30:57 Problem Notes None recorded. Procedures Surgical History Date Name Laterality Status Provider Name and Address Organization Details Recorded Time 03/28/20 25 AWV - female prevention plan completed Myletzi Yeboah [facility] - [facility] 03/28/2025 13:53:01 03/28/20 25 AWV - safety evaluation completed Myletzi Yeboah CT - [facility] 03/28/2025 13:53:01 02/03/20 24 AWV - female prevention plan completed Myletzi Yeboah CT - [facility] 02/03/2024 10:44:07 02/03/20 24 Advance Care Planning Consultation completed candelario Yeboah CT - CT [facility] 02/03/2024 10:44:07 02/03/20 24 AWV - safety evaluation completed letzi Yeboah CT [facility] 02/03/2024 10:44:07 09/19/19 24 colonoscopy completed Nataliia Minor MD [address] [place] [address], [phone], CT - CT [facility] 03/16/2025 16:23:26 01/31/20 23 Advance Care Planning Consultation completed Zia Finley MD [address] [place] [address], [phone], [place] [facility] 01/30/2023 11:20:43 01/31/20 23 AWV - safety evaluation completed Zia Finley MD [address] [place] [address], [phone], CT - [facility] 01/30/2023 11:20:43 01/31/20 23 AWV - female prevention plan completed Zia Finley MD [address] [place] [address], [phone], [place] - [facility] 01/30/2023 11:20:43 02/06/20 22 Date of Last Pap Smear completed Zia Finley MD [facility], [address] [place] [address], [place], [address], CT - CT [facility] 01/30/2023 11:24:10 02/06/20 22 Date of Last Mammogram completed Zia Finley MD [facility], [address] [place] [address], [place], [address], [place] - [place] [facility] 01/30/2023 11:24:28 02/08/20 20 Most Recent Bone Density completed Zia Finley MD [address] [facility], [address] [place] [address], [place], [address], [place] - [place] [facility] 01/30/2023 11:24:40 Imaging Results None recorded. Procedure Notes None recorded. Medical Equipment None Reported. Allergies Allergen ID Allergen Name Allergen Category Reaction Reaction Severity Criticality Documentation Date Start Date Code Code System Note Provider Name and Address Organization Details Recorded Time 784229 pseudoeph edrine Not available palpitati ons Not available high 08/23/20222012 8896 RxNorm Myletzi Yeboah null, [facility] 13:57:49 096169 baclofen medicatio n other Not available high 08/23/20222021 1292 RxNorm Feels like she is melti ng into the groun d after takin g it Myletviviana Yeboah null, [facility] 5 13:57:39 Medications Name Sig Start Date Stop [...] completed Not Available Not Available Not Available [id number] 100 gram-sod sulf 7.5 gram-NaCl-K Cl-ascorbat e-C [...] height Body mass index (BMI) Body weight Respiratory rate Systolic And Diastolic Provider Name and Address Organization Details Last Updated DateTime 05/27/2023 160 cm 23.2 kg/m2 38438.8 8 g 16 /min 130/80 mm[Hg] Zia Finley MD [address] [place] [address], [address] [place] [address], [phone], [facility] 11:05:42 Date Recorded Body height Body mass index (BMI) Body weight Heart rate Oxygen saturation Respiratory rate Body temperature Systolic And Diastolic Provider Name and Address Organization Details Last Updated DateTime 160 cm 23.7 kg/m2 53556.5 9 g 86 /min 97 % 16 /min 98.2 [degF] 108/60 mm[Hg] Mark Yeboah [facility] 14:24:57 Date Recorded Systolic And Diastolic Provider Name and Address Organization Details Last Updated DateTime 02/03/2024 98/52 mm[Hg] GABBY Sheppard [address] [place] [address], [address] [place] [address], [address], [facility] 02/03/2024 11:22:17 Date Recorded Body height Body mass index (BMI) Body weight Provider Name and Address Organization Details Last Updated DateTime 02/03/2024 160 cm 23.1 kg/m2 71010.11 g Mark Yeboah [facility] 02/03/2024 10:44:21 Date Recorded Body weight Heart rate Oxygen saturation Systolic And Diastolic Provider Name and Address Organization Details Last Updated DateTime 03/16/2025 11670.42 g 99 /min 99 % 110/60 mm[Hg] Tona Vance [place] - [place] [facility] 03/16/2025 15:54:42 Date Recorded Body height Body mass index (BMI) Body weight Body temperature Respiratory rate Heart rate Oxygen saturation Systolic And Diastolic Provider Name and Address Organization Details Last Updated DateTime 160.02 cm 23 kg/m2 06471.0 1 g 97.7 [degF] 16 /min 94 /min 98 % 110/62 mm[Hg] Mark Yeboah [place] - [place] [facility] 13:57:11 Social History Question Answer Notes LastModified by DonorSearchizat ion Details LastModified Time Tobacco Smoking Status Former Smoker Not Available [facility] 11/29/2022 06:23:52 Do You Have An Advance Directive? No Information not available 01/30/2023 Do You Wear A Helmet When Biking? No [email or web address] Information not available 01/30/2023 Are You Blind Or Do You Have Difficulty Seeing? No [email or web address] Information not available 01/30/2023 What Is Your Level Of Caffeine Consumption? Occasional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
--- OUTSIDE RECORDS SUMMARY | 2025-04-12 12:43 | XMS_ITS | Clinical Summary ---
Author Organization [facility] Address [address] [place] [address] Care Team Providers Care Executive Administrator Name Role Phone Марина Skinner MD Unavailable Jose Alberto Vásquez MD Unavailable [phone] Sarika Callahan PA-C Primary Care Provider [phone] Allergies Active Allergy Reactions Criticality Noted Date [...] Syringe U/F 31G X 16 1 ML MiscIndications: Seropositive rheumatoid arthritis (HCC) To be used with methotrexate weekly (allowed to substitute for any 1 ml syringe, 1/2 inch needle, 27-31 g) 12 each 3 4 Active methoTREXate 25 MG/ML injectionIndicat ions:Seropositiv e rheumatoid arthritis (HCC) 22.5 mg subcutaneous q week 12 mL 5 Active Active Problems Problem Noted Date Diagnosed Date Acute midline thoracic back pain 12/30/2024 Multinodular goiter 09/07/2024 Costochondritis 10/07/2023 Family history of malignant neoplasm of breast 0 10/07/2023 Lower abdominal pain 05/01/2023 Assessment & Plan (05/01/2023 12:02 PM EST): Large work up in past that has been negative Fleeting pain ?gas Denies constipation with TID colace Seeing DECORATING EQUIPMENT SETTER soon Plan for earlier colonoscopy was due this coming November Age-related osteoporosis wit hout current pathological fracture [...] Encounters Date Type Department Care Team Description 01/14/2025 10:40 AM EDT Office Visit [facility] Department of Rheumatology [place] [address] [place] [address] Annie Correia MD Seropositive rheumatoid arthritis (HCC) (Primary Dx); High risk medication use; Vitamin D insufficiency; Immunosuppression ; Osteoporosis, unspecified osteoporosis type, unspecified pathological fracture presence ; Keratoconjunctivitis sicca; Osteoarthritis of spine, unspecified spinal osteoarthritis complication status, unspecified spinal region from Last 3 Months Family History Medical [...] Sign Reading Time Taken Comments Blood Pressure 106/69 01/14/2025 11:11 AM EDT Pulse 95 01/14/2025 11:11 AM EDT Temperature 36.5 C (97.7 F) 01/14/2025 11:11 AM EDT Respiratory Rate 16 12/02/2023 10:5 5 AM EDT Oxygen Saturation 97% 01/14/2025 11: 11 AM EDT Inhaled Oxygen Concentration - - Weight 59.3 kg (130 lb 12.8 oz) 025 11:11 AM EDT Height 161.3 cm (5' 3.5 ) 01/14/2025 11 :11 AM EDT Body Mass Index 22.81 01/14/2025 11:11 AM EDT Plan of Treatment Upcoming Encounters Date Type Department Care Team (Late st Contact Info) Description 05/06/2025 1:00 PM EST Office Visit [facility] Department of Rheumatology [place] [address] [phone] Annie Correia MD [address] [address] 06/23/2025 9:30 AM EST Office Visit [facility] [address] [phone] Yuridia Mazariegos, YOSEF [address] [address] 06/30/2025 11:00 AM EST Clinical Support [facility] Department of Endocrinology [place] [address] [place] [address] [address] [phone] Марина Skinner MD [address] [place] [address] 08/12/2025 1:00 PM EDT Office Visit [facility] Department of Rheumatology [address] [phone] Annie Correia MD [address] [address] Health Maintenance Due Date Last Done Comments Advance Care Planning 1950 Hepatitis C Virus Screening 1950 DTaP/Tdap/Td Vaccines (1 - Tdap) 02/13/1967 Pneumococcal Vaccines 50+ (1 of 2 - PCV) 02/13/1967 Zoster (Shingles) Vaccine (1 of 2) 02/13/1967 DXA Bone Density (Females,Ages 65 and older) 02/13/2013 RSV Vaccine 50 years and older and Patients (1 - 1-dose 75+ series) 02/13/2023 Influenza Vaccine 11/26/2024 02/20/2024, , 02/21/2021, Additional history exists COVID-19 Vaccine ( season) 2024 04/24/2022, 07/22/2021, 01/13/2021, Additional history exists Mammogram Discontinued 12/25/2020, 11/28, 01/19/2019, Additional history exists Colonoscopy Discontinued 09/19/2023, 03/05/2019 Hepatitis B Vaccines Aged Out No long er eligible based on patient's age to complete this topic Procedures Procedure Name Priority Date/Time Associated Diagnosis Comments VITAMIN D, 25-HYDROXY Routine 01/11/2025 3:00 PM EDT Vitamin D insufficiency C-REACTIVE PROTEIN Routine 01/11/2025 3: 00 PM EDT Seropositive rheumatoid arthritis (HCC) ERYTHROCYTE SEDIMENTATION RATE (ESR) Routine 01/11/2025 3:00 PM EDT Seropositive rheumatoid arthritis (HCC) COMPREHENSIVE METABOLIC PANEL Routine 01/11/2025 3:00 PM EDT High risk medication use COMPLETE BLOOD COUNT, WITH DIFFERENTIAL Routine 01/11/2025 3:00 PM EDT Seropositive rheumatoid arthritis (HCC) IMAGING BREAST/BX/MAMMO Routine 12/25/2020 from Last 3 Months or Most Recently Relevant to Health Maintenance Results * (ABNORMAL) Complete Blood Count, with Differential (01/11/2025 3:00 PM EDT) [facility] WBC 6.61 4.00 - 11.00 Thousand/u L [facility] RBC 4.04 4.04 - 5.48 Million/uL [facility] Hemoglobin 11.9(L) 12.0 - 14.1 g/dL [facility] Hematocrit 37.9 33.5 - 43.3 % [facility] MCV 93.8 80.0 - 97.0 fL [facility] MCH 29.5 27.0 - 31.2 pg [facility] MCHC 31.4(L) 31.8 - 35.4 g/dL [facility] RDW-CV 14.6 11.6 - 14.8 % [facility] Platelet Count 322.0 142.0 - 424.0 Thousand/u L [facility] MPV 10.0 8.0 - 13.0 fL [facility] Neutrophil % 54.9 37.0 - 80.0 % [facility] Lymph % 37.1 10.0 - 50.0 % [facility] Monocytes % 6.2 1.0 - 11.9 % [facility] Eosinophils, % 1.1 0.0 - 6.9 % [facility] Basophils, % 0.5 0.0 - 2.4 % [facility] Absolute Neutrophil Count 3.6 2.0 - 6.9 Thousand/u L [facility] Absolute Lymphocytes 2.5 0.6 - 3.4 Thousand/u L [facility] Absolute Monocytes 0.4 0.1 - 0.8 Thousand/u L [facility] [...] [facility] Blood Blood specimen / Unknown 01/11/2025 3:00 PM EDT 01/11/2025 8:41 PM EDT Narrative [facility] - 01/11/2025 9:07 PM EDT Copy to patient and Sarika NAVAS in [facility] us Annie Correia MD LAB BLOOD ORDERABLES Final R esult Performing Organization Address [facility] [place] [address], * VITAMIN D, 25-HYDROXY (01/11/2025 3:00 PM EDT) Vitamin D, 25 OH, Total 48 30 - 100 ng/mL [facility] Blood Blood specimen / Unknown 01/11/2025 3:00 PM EDT 01/11/2025 8:41 PM EDT Narrative [facility] - 01/11/2025 9:18 PM EDT Copy to patient and Sarika NAVAS in [facility] Annie Correia MD LAB BLOOD ORDERABLES Final R esult Performing Organization Address [facility] [place] [address], * Erythrocyte Sedimentation Rate (ESR) (01/11/2025 3:00 PM EDT) Sedimentation Rate 13.0 0.0 - 30.0 mm/Hr [facility] Blood Blood specimen / Unknown 01/11/2025 3:00 PM EDT 01/11/2025 8:41 PM EDT Narrative [facility] - 01/11/2025 9:12 PM EDT Copy to patient and Sarika NAVAS in [facility] Annie Correia MD LAB BLOOD ORDERABLES Final R esult Performing Organization Address [facility] Co de Phone Number [facility] [address] [place] [address], * C-REACTIVE PROTEIN (01/11/2025 3:00 PM EDT) C-Reactive Protein <3 <5.0 mg/L [facility] Blood Blood specimen / Unknown 01/11/2025 3:00 PM EDT 01/11/2025 8:41 PM EDT Narrative [facility] - 01/11/2025 9:18 PM EDT Copy to patient and Sarika NAVAS in [facility] us Annie Correia MD LAB BLOOD ORDERABLES Final R esult [facility] [address] [place] [address], * (ABNORMAL) Comprehensive Metabolic Panel (01/11/2025 3:00 PM EDT) Glucose 112(H) 70 - 99 mg/dL [facility] Blood Urea Nitrogen 11 7 - 22 mg/dL [facility] Creatinine, Ser 0.7 0.5 - 1.2 mg/dL [facility] Bun / Creat Ratio 16 11 - 30 [facility] Sodium 144 133 - 145 mmol/L [facility] Potassium 4.4 3.3 - 5.1 mmol/L [facility] Chloride 107 96 - 108 mmol/L [facility] CO2 27 22 - 31 mmol/L [facility] Anion Gap 10 3 - 19 mmol/L [facility] Calcium 9.4 8.8 - 10.6 mg/dL [facility] Total Protein 6.7 6.0 - 8.3 g/dL [facility] Albumin 4.2 3.2 - 4.8 g/dL [facility] Globulin 2.5 2.0 - 3.5 g/dL [facility] Albumin/Globulin Ratio 1.7 1.0 - 5.0 [facility] Aspartate Aminotrans (AST) 17 8 - 37 IU/L [facility] Alanine Aminotrans (ALT) 14 5 - 40 IU/L [facility] Alkaline Phosphatase 66 37 - 145 IU/L [facility] Bilirubin, Total 0.4 0.0 - 1.0 mg/dL [facility] GFR Estimated (calculated) >60 >60 [facility] Comment: As of 2021, the [facility] has updated the creatinine- based estimated glomerular filtration rate (eGFRcr) to the updated CKD-EPI 2020 equation. This change removes the race coefficient of the older calculation, and was made based on recommendations from the National Kidney Foundation and the [place] [employer]ph[employer]'s Task Force. The new eGFRcr has similar overall performance characteristics to the older equation and has been assessed to not have potential consequences that disproportionately affect any one group of individuals. However, some mild variation from the older eGFR equation can be expected especially in younger age patients and at higher eGFRcr values. Blood Blood specimen / Unknown 01/11/2025 3:00 PM EDT 01/11/2025 8:41 PM EDT Narrative [facility] - 01/11/2025 9:18 PM EDT Copy to patient and Sarika NAVAS in [facility] Annie Correia MD LAB BLOOD ORDERABLES Final R esult [facility] [address] [place] [id number] [place] [address] * IMAGING BREAST/BX/MAMMO (12/25/2020) Anatomical Region Laterality Modality Other External Provider IMG LEGACY PROCEDURES Final Result from Last 3 Months or Most Recently Relevant to Health Maintenance Insurance MEDICARE PART A & B [facility] [employer] MEDICARE PART A & B FOR LIFE MEDICARE PART A & B FOR LIFE Care Teams Executive Administrator Relationship Specialty Start Date End Date Sarika Callahan PA-C [address] [place] [address] PCP - General 04/05/25 Марина Skinner MD [address] [facility] [address] [place] [address] [facility] Endocr[facility]ology 11/27/22 Jose Alberto Vásquez MD 113 [facility] [address] [place] [address] Gastroenterology 07/02/23
--- OUTSIDE RECORDS SUMMARY | 2025-04-12 12:43 | XMS_ITS | Clinical Summary ---
Author Organization [facility] Address [address] [place] [address] Care Team Providers Care Survey Questionnaire Designer Name Role Phone Pcp, No MD Primary Care Provider Unavailabl e Allergies Active Allergy Reactions Criticality Noted Date Comments Baclofen Other (see comments) High 04/03/2022 Feels like she is melting into the ground after taking it Pseudoephedrine Palpitations High 05/05/2012 Medications cholecalciferol , vitamin D3, 50 mcg (2,000 unit) tablet Take 2,000 Units by mouth. Active clonazePAM (KlonoPIN) 0.5 mg tablet Take 0.5 mg by mouth nightly. 6 Active Prolia 60 mg/mL injection Inject 60 mg under the skin. Active docusate sodium (Colace Clear) 50 mg capsule Take by mouth. 7 Active escitalopram (LEXAPRO) 20 mg tablet escitalopram 20 mg tablet 9 Active ipratropium (ATROVENT) 42 mcg (0.06 %) nasal spray Administer 2 sprays into each nostril in the morning and 2 sprays before bedtime. 5 Active leucovorin 15 mg tablet leucovorin calcium 15 mg tablet 2 Active methotrexate 25 mg/mL syringe 22.5 mg subcutaneous q week 5 Active omeprazole (PriLOSEC) 20 mg capsule 3 Active onabotulinum toxin Type A (Botox) recon soln Take by injection route. 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 Laryngopharyngeal reflux 03/03/2025 Encounters Date Type Department Care Team Description 03/03/2025 11:00 AM EST Office Visit [facility] Department of Otolaryngology [address] [place] [address] Indra Middleton MD Dysphonia (Primary Dx); Vocal cord edema; Laryngopharyngeal reflux 02/28/2025 Orders Only On license of [facility] of Otolaryngology [address] [place] [address] Indra Middleton MD Dysphonia (Primary Dx) from Last 3 Months Social History Tobacco Use Types Packs/Day Years Used Date Smoking Tobacco: Former Cigarettes Tobacco Cessation:Counseling Given: Not Answered Comments Unknown Sex and Gender Information Value Date Recorded Sex Assigned at Not on file Legal Sex Female 1:31 AM EST Gender Identity Not on file Sexual Orientation Not on file Last Filed Vital Signs Vital Sign Reading Time Taken Comments Blood Pressure - - Pulse - - Temperature - - Respiratory Rate - - Oxygen Saturation - - Inhaled Oxygen Concentration - - Weight 58.1 kg (128 lb) 03/03/2025 11:23 AM EST Height 165.1 cm (5' 5 ) 03/03/2025 11:23 AM EST Body Mass Index 21.3 03/03/2025 11:23 AM EST Plan of Treatment Upcoming Encounters Date Type Department Care Team (Late st Contact Info) Description 05/06/2025 9:30 AM EST Procedure visit On license of [facility] of Otolaryngology [address] [place] [address] Indra Middleton MD [address] [facility] [place] [phone] Health Maintenance Due Date Last Done Comments Bone Density Screening 1950 HIV Screening 1950 Hepatitis C Screening 02/13/1966 Zoster Vaccines (1 of 2) 02/13/1967 Medicare Annual Wellness (AWV) 12/28/2022 12/27/2021, 12/25/2020, 12/22/2019, Additional history exists COVID-19 Vaccine (7 - Pfizer risk season) 2025 01/15/2025, 04/24/2022, 07/22/2021, Additional history exists DTaP,Tdap,and Td Vaccines (2 - Td or Tdap) 07/18/2026 07/18/2016 Pneumococcal Vaccine, 50+ Years Completed 05/06/2018, 02/20/2017 Influenza Vaccine Completed 01/15/2025, , 02/07/2023, Additional history exists HPV Vaccines Aged Out No longer eligi ble based on patient's age to complete this topic Hepatitis A Vaccines Aged Out No long er eligible based on patient's age to complete this topic Meningococcal Vaccine Aged Out No supriya satinder eligible based on patient's age to complete this topic Insurance MEDICARE PART A & B [facility] Message [employer] Care Teams Survey Questionnaire Designer Relationship Specialty Start Date End Date Cheri Son MD [address] [place] [phone] PCP - General Internal Medicine 03/01/21
--- OUTSIDE RECORDS SUMMARY | 2025-04-12 12:43 | XMS_ITS | Encounter Summary ---
Author Organization [facility] Address [address] [place] [address] Care Team Providers Care Er Medical Technician Name Role Phone Zia Finley MD Primary Care Provider [phone] Марина Skinner MD Unavailable Jose Alberto Vásquez MD Unavailable [phone] Sarika CallahanC Primary Care Provider [phone] Encounter Details Date Type Department Care Team (Late st Contact Info) Description 08/05/2022 Scanned Document [facility] Department Of Rheumatology [address], [place] [address] Annie Correia MD [address] [place] [address] Social History Tobacco Use Types Packs/Day Years [...] Description 05/06/2025 1:00 PM EST Office Visit [facility] Department of Rheumatology [place] [address] [place] [phone] Annie Correia MD [address] [address] 06/23/2025 9:30 AM EST Office Visit [facility] 113 [facility] [address] [place] [phone] Yuridia Mazariegos PA 113 [facility] 303 [place], [place] [address] 06/30/2025 11:00 AM EST Clinical Support [facility] Department of Endocrinology [place] [address] [place] [address] [address] [place] [phone] Марина Skinner MD [address] [place] [address] 08/12/2025 1:00 PM EDT Office Visit [facility] Department of Rheumatology [place] 160 [facility] [address] [phone] Annie Correia MD [address] [address] documented as of this encounter Visit Diagnoses Not on filedocumented in this encounter Care Teams Er Medical Technician Relationship Specialty Start Date End Date Zia Finley MD [address] [place] [address] PCP - General Internal Medicine 04/25/20 04/04/25 Sarika Callahan PA-C [address] [place] [address] PCP - General 04/05/25 Марина Skinner MD 1260 [facility] [address] [place] [address] [facility] Associate Endocrinology 11/27/22 Jose Alberto Vásquez MD 113 [facility] 301 [place] [address] Gastroenterology 07/02/23 documented as of this encounter
--- OUTSIDE RECORDS SUMMARY | 2025-04-12 12:44 | XMS_ITS | Encounter Summary ---
Author Organization [facility] Address [address] [place] [address] Phone Care Team Providers Care Business Objects Developer Name Role Phone Unavailable Primary Care Provider Unavailabl e Encounter Details Date Type Department Care Team (Late st Contact Info) Description 03/13/2025 Results Follow-Up [facility] [place] [address] [place] [address] Alfonso Del Rosario PA [address] [place] [phone] Urine culture Social History Tobacco Use Types Packs/Day Years Used Date Smoking Tobacco: Former Cigarettes Smokeless Tobacco: Never Alcohol Use Standard Drinks/Week Comments Yes 0 (1 standard drink = 0.6 oz pur e alcohol) socially Comments Unknown Sex and Gender Information Value Date Recorded Sex Assigned at Not on file Legal Sex Female 7:06 AM EST Gender Identity Not on file Sexual Orientation Not on file documented as of this encounter Miscellaneous Notes * Result Encounter Note - Alfonso Del Rosario PA - 03/13/2025 8:38 AM EST Please call patient with results. Urine culture test reviewed as negative. Please advise patient tofollow-up with primary care doctor or return to clinic if worsening symptoms. documented in this encounter Plan of Treatment Not on file documented as of this encounter Visit Diagnoses Not on filedocumented in this encounter
--- OUTSIDE RECORDS SUMMARY | 2025-04-12 12:45 | XMS_ITS | Continuity of Care Document ---
Author Organization [place] - [place] [facility] eVgacaitlin cticut, [place]_CTCMA_IM_19 [place] Address [address] [place] [address] Assessment No assessment recorded. Plan of Treatment Reminders Order Date Submit Date Provider Last Modified By Organization Details Last Modified Time Details Appointments AWV (Medicare ) 2025 01:00P M Sarika Callahan, PAC Not available Not available Not available Lab None recorded. Referral None recorded. Procedures None recorded. Surgeries None recorded. Imaging US, pelvis, transabdo mazin + transvagi nal - Chronic pelvic pressure, R>L, please r/o ovarian pathology 2024 025 [email or web address] Radiology [facility] ([facility]), [address] [facility], [place], [address], 03/29/2025 11:36:41 US, abdomen, limited - RUQ/epiga stric pain, please r/o biliary disease 2024 025 [place] [facility] ([facility]), [address], [place], [address], 03/21/2025 14:09:37 Medication Orders None recorded. Patient TargetsNo targets recorded. Patient InstructionsNo instructions recorded. Reason for Referral None Reported. Results Created Date Observation Date Name Description Value Unit Range Abnormal Flag Note LastModifiedBy Organization Detail LastModifiedTime 03/21/20 25 03/21/2025 US, abdom en, limit ed No observ ation record ed. [place] [facility] ([facility]) [address], [place], [address], 03/29/2025 12:48:21 03/29/20 25 03/29/2025 US pelvi c doppl er limit ed No observ ation record ed. [place] [facility] ([facility]) [address], [place], [address], 04/09/2025 23:19:22 Result Notes None recorded. Problems Name Problem SNOMED Code Status Onset Date Resolution Date Notes Provider Name and Address Organization Details Recorded Time Problem 74666198 Active No known active problems Not Available [facility] 3 19:42:54 Fibrocyst ic changes of bilateral breasts 07328635868 242256 Active 2015 Fibrocyst ic breast changes of both breasts Nataliia Minor MD [address] [place] [address], [address] [place] [address], [address] , [place] [facility] 5 16:02:45 Inconclus shanti mammograp hy finding 63569313758 9104 Active 2015 Inconclus shanti mammogram due to dense breasts Not Available [facility] 3 19:42:50 Taking high risk medicatio n 68878907285 4107 Active 2016 High risk medicatio n use Nataliia Minor MD [address] [place] [address], [address] [place] [address], [address] , [place] [facility] 5 16:02:46 Spasmodic torticoll is 96063176 Active 2016 Spasmodic torticoll is Not Available [facility] 3 19:42:49 Senile osteoporo sis 99309193 Active 2016 Senile osteoporo sis Nataliia Minor MD [address] [place] [address], [address] [place] [address], [address] , [place] [facility] 5 16:02:45 Allergic rhinitis caused by pollen 98051645 Active 2016 Seasonal allergic rhinitis due to pollen Nataliia Minor MD [address] [place] [address], [address] [place] [address], [place], [address] , [place] [facility] 5 16:02:45 Rheumatoi d arthritis of multiple joints 521974046 Active 2016 Rheumatoi d arthritis involving multiple sites Nataliia Minor MD [address] [place] [address], [address] [place] [address], [place], [address] , [place] [facility] 5 16:02:46 Gastroeso phageal reflux disease without esophagit is 791515234 Active 2016 Gastroeso phageal reflux disease without esophagit is Nataliia Minor MD [address] [place] [address], [address] [place] [address], [place], [address] , [place] [facility] 5 16:02:45 Body mass index 20-24 - normal 691042129 Active 2016 BMI 22.0-22.9 , adult Not Available [facility] 3 19:42:49 Mixed anxiety and depressiv e disorder 590261094 Active 2016 Anxiety and depressio n Nataliia Minor MD [address] [place] [address], [address] [place] [address], [place], [address] , [place] [facility] 5 16:02:45 Dyslipide pranav 351525011 Active 2016 Dyslipide pranav Callahan, [address], [address] [place] [address], [place], [address] , [place] [facility] 5 14:46:04 Hereditar y essential tremor 619201118 Active 2018 Benign head tremor Nataliia Minor MD [address] [place] [address], [address] [place] [address], [place], [address] , [place] [facility] 5 16:02:46 Rib pain 617867868 Active 2019 Rib pain Not Available [facility] 3 19:42:48 Acute thoracic back pain 660169675 Active 2019 Acute bilateral thoracic back pain Not Available [facility] 3 19:42:49 Nuclear sclerotic cataract 665569227 Active 2020 Nuclear sclerotic cataract of left eye Nucle ar sclerotic cataract of right eye Nataliia Minor MD [address] [place] [address], [address] [place] [address], [place], [address] , [place] [facility] 5 16:02:46 Intercost al neuralgia 330470843 Active 2020 Intercost al neuralgia Nataliia Minor MD [address] [place] [address], [address] [place] [address], [place], [address] , [place] [facility] 5 16:02:45 Thoracic radiculop athy 47220720 Active 2021 Thoracic radiculop athy Nataliia Minor MD [address] [place] [address], [address] [place] [address], [place], [address] , [place] [facility] 5 16:02:46 Pain in thoracic spine 674045160 Active 2021 Thoracic spine pain Not Available [facility] 3 19:42:51 Thoracic spondylos is 891662854 Active 2021 Thoracic spondylos is Nataliia Minor MD [address] [place] [address], [address] [place] [address], [place], [address] , [place] [facility] 5 16:02:46 Chest wall pain 518813214 Active 2021 Chest wall pain, chronic Not Available [facility] 3 19:42:49 Immunodef iciency disorder 704353873 Active 2022 Zia Finley MD [address] [place] [address], [address] [place] [address], [place], [address] , [place] [facility] 3 11:41:29 Sinusitis 32581015 Active 2023 Zia Finley MD [address] [place] [address], [address] [place] [address], [place], [address] , [place] [facility] 4 11:03:06 Nodule of lung 675178286 Active 2023 Nataliia Minor MD [address] [place] [address], [address] [place] [address], [place], [address] , [place] [facility] 5 16:02:46 Rheumatoi d arthritis 78264818 Active 2023 Sarika Asencioer, PAC [address] [place] [address], [address] [place] [address], [place], [address] , [place] [facility] 4 09:03:51 Acute bronchiti s 54603955 Active 2023 Sarika Luis Mer, PAC [address] [place] [address], [address] [place] [address], [place], [address] , [place] [facility] 4 11:25:33 Cyst of thyroid 15277949 Active 2024 Sarika Asencioer, PAC [address] [place] [address], [address] [place] [address], [place], [address] , [place] [facility] 5 09:30:57 Problem Notes None recorded. Procedures Surgical History Date Name Laterality Status Provider Name and Address Organization Details Recorded Time 03/28/20 25 AWV - female prevention plan completed letviviana Yeboah [place] - [facility] 03/28/2025 13:53:01 03/28/20 25 AWV - safety evaluation completed Myletzi Yeboah [facility] - [facility] 03/28/2025 13:53:01 02/03/20 24 AWV - female prevention plan completed Myletzi Yeboah [place] - [facility] 02/03/2024 10:44:07 02/03/20 24 Advance Care Planning Consultation completed [facility] 02/03/2024 10:44:07 02/03/20 24 AWV - safety evaluation completed letzi Yeboah [place] - [facility] 02/03/2024 10:44:07 09/19/19 24 colonoscopy completed Nataliia Minor MD [address] [place] [address], [address] [place] [address], [place], [address], [place] [facility] 03/16/2025 16:23:26 01/31/20 23 Advance Care Planning Consultation completed Zia Finley MD [address] [place] [address], [address] [place] [address], [place], [address], [place] [facility] 01/30/2023 11:20:43 01/31/20 23 AWV - safety evaluation completed Zia Finley MD [address] [place] [address], [address] [place] [address], [place], [address], [place] [facility] 01/30/2023 11:20:43 01/31/20 23 AWV - female prevention plan completed Zia Finley MD [address] [place] [address], [address] [place] [address], [place], [address], [place] [facility] 01/30/2023 11:20:43 02/06/20 22 Date of Last Pap Smear completed Zia Finley MD [address] [place] [address], [address] [place] [address], [place], [address], [place] [facility] 01/30/2023 11:24:10 02/06/20 22 Date of Last Mammogram completed Zia Finley MD [address] [place] [address], [address] [place] [address], [place], [address], [place] - [facility] 01/30/2023 11:24:28 02/08/20 20 Most Recent Bone Density completed Zia Finley MD [address] [place] [address], [address] [place] [address], [place], [address], [place] [facility] 01/30/2023 11:24:40 Imaging Results None recorded. Procedure Notes None recorded. Medical Equipment None Reported. Allergies Allergen ID Allergen Name Allergen Category Reaction Reaction Severity Criticality Documentation Date Start Date Code Code System Note Provider Name and Address Organization Details Recorded Time 162641 pseudoeph edrine Not available palpitati ons Not available high 08/23/20222012 8896 RxNorm Mark bautista, [place] - [facility] 13:57:49 099251 baclofen medicatio n other Not available high 08/23/20222021 1292 RxNorm Feels like she is melti ng into the groun d after takin g it Mark bautista, [facility] 13:57:39 Medications Name Sig Start Date [...] completed Not Available Not Available Not Available [email or web address] 100 gram-sod sulf 7.5 gram-NaCl-K Cl-ascorbat e-C [...] Available Not Available Vitals Date Recorded Body weight Heart rate Oxygen saturation Systolic And Diastolic Provider Name and Address Organization Details Last Updated DateTime 03/16/2025 14748.42 g 99 /min 99 % 110/60 mm[Hg] Tona Vance [place] [facility] 03/16/2025 15:54:42 Social History Question Answer Notes LastModified by Organizat ion Details LastModified Time Tobacco Smoking Status Former Smoker Not Available [facility] 11/29/2022 06:23:52 Do You Have An Advance Directive? No [email or web address] Information not available 01/30/2023 Do You Wear A Helmet When Biking? No [email or web address] Information not available 01/30/2023 Are You Blind Or Do You Have Difficulty Seeing? No [email or web address] Information not available 01/30/2023 What Is Your Level Of Caffeine Consumption? 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 No [email or web address] Information not available 01/30/2023 Are You Deaf Or Do You Have Serious Difficulty Hearing? No [email or web address] Information not available 01/30/2023 What Type Of Diet Are You Following? REGULAR [email or web address] Information not available 01/30/2023 What Is The Highest Grade Or Level Of School You Have Completed Or The Highest Degree You Have Received? [id number] [email or web address] Information not available 01/30/2023 When Did You Quit Smoking? 16+yearssincelleonard sanchez Information not available 01/30/2023 Are There Any Guns Present In Your Home? No [email or web address] Information not available 01/30/2023 Do You Use Insect Repellent Routinely? No [email or web address] Information not available 01/30/2023 Where Do You Live? SingleLevelHouse Information not available 01/30/2023 How Long Have You Lived There? 12 [email or web address] Information not available 01/30/2023 Do You Have A Medical Power Of Doll Repairer? No [email or web address] Information not available 01/30/2023 What Was The Date Of Your Most Recent Tobacco Screening? 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 1 [email or web address] Information not available 01/30/2023 Do You Have An Out Of Hospital DNR? No Information not available 01/30/2023 What Is Your Current Pack Years? 10packyears [email or web address] Information not available 01/30/2023 Do You Have Any Pets? No [email or web address] Information not available 01/30/2023 What Is Your Relationship Status? [email or web address] Information not available 01/30/2023 Do You Use Your Seat Belt Or Car Seat Routinely? Yes [email or web address] Information not available 01/30/2023 Are You Sexually Active? No [email or web address] Information not available 01/30/2023 Do You Have Smoke And Carbon Monoxide Detectors In Your Home? Yes [email or web address] Information not available 01/30/2023 Are You Passively Exposed To Smoke? No [email or web address] Information not available 01/30/2023 Are There Any Smokers In Your House? No [email or web address] Information not available 01/30/2023 Do You Use Sunscreen Routinely? Yes Information not available 01/30/2023 Has Tobacco Cessation Counseling Been Provided? No [email or web address] Information not available 01/30/2023 How Many Years Have You Smoked Tobacco? 10 [email or web address] Information not available 01/30/2023 Do You Have Difficulty Walking Or Climbing Stairs? No [email or web address] Information not available 01/30/2023 How Many Days In The Past Year Have You Consumed 4 Or More Drinks? 0 [email or web address] Information not available 01/30/2023 Sex: Female Functional Status Question Answer Note LastModified by [employer] ion Details LastModified Time Do you use any illicit or recreational drugs? No [email or web address] Information not available 01/30/2023 Do you or have you ever used any other forms of tobacco or nicotine? No Information not available 01/30/2023 What is your level of alcohol consumption? Occasional [email or web address] Information not available 01/30/2023 Are you currently employed? No [email or web address] Information not available 01/30/2023 Do you have transportation difficulties? No [email or web address] Information not available 01/30/2023 Are you able to walk independently without assistance or assistive devices? YESWOREST [email or web address] Information not available 01/30/2023 Do you have difficulty doing errands alone? No [email or web address] Information not available 01/30/2023 Are you able to care for yourself independently? Yes [email or web address] Information not available 01/30/2023 Do you have difficulty dressing, bathing, grooming, or toileting? No [email or web address] Information not available 01/30/2023 What is your exercise level? Occasional [email or web address] Information not available 01/30/2023 Mental Status Question Answer Note LastModified by [employer] Details LastModified Time Do you feel stressed (tense, restless, nervous, or anxious, or unable to sleep at night)? [id number] [email or web address] Information not available 01/30/2023 Do you have difficulty concentrating, remembering or making decisions? No [email or web address] Information no t available 01/30/2023 Family History [...] adjuvanted, quadrivalent, PF 3 completed Sarika Callahan, [address], [address] [place] [address], [address], [place] [facility] 02/03/2024 11:18:23 COVID-19, mRNA, LNP-S, PF, 30 mcg/0.3 mL dose, kevin-sucrose 2 completed GABBY Sheppard [address] [place] [address], [address] [place] [address], [address], [place] [facility] 02/03/2024 11:18:23 COVID-19, mRNA, LNP-S, bivalent, PF, 30 mcg/0.3 mL dose 2 completed Sarika Callahan [address], [address] [place] [address] [place], [address], [place] [facility] 02/03/2024 11:18:23 pneumococcal polysaccharide PPV23 9 completed Sarika Callahan, PAC [address] [place] [address], [address], [place], [address], [place] [facility] 02/03/2024 11:18:23 Pneumococcal conjugate PCV 13 7 completed Sarika Callahan, PAC [address] [place] [address], [address] Floor, [place], [address], [place] [facility] 02/03/2024 11:18:23 Influenza, high-dose, trivalent, PF 4 completed Not Available [facility] 03/28/2025 13:42:40 COVID-19, mRNA, LNP-S, PF, kevin-sucrose, 30 mcg/0.3 mL 5 completed Not Available [facility] 03/28/2025 13:42:40 Influenza, high-dose, trivalent, PF 5 completed Not Available [facility] 03/28/2025 13:42:40 Tdap 7 completed Not Available [facility] 08/23/2022 23:38:39 COVID-19, mRNA, LNP-S, PF, 30 mcg/0.3 mL dose 1 completed Not Available [facility] 08/23/2022 23:38:45 COVID-19, mRNA, LNP-S, PF, 30 mcg/0.3 mL dose 1 completed Not Available [facility] 08/23/2022 23:38:45 COVID-19, mRNA, LNP-S, PF, 30 mcg/0.3 mL dose 1 completed Not Available [facility] 08/23/2022 23:38:45 Influenza, high-dose, quadrivalent, PF 1 completed Not Available [facility] 08/23/2022 23:38:46 Past Encounters Encounter ID Performer Location Encounter Start Date Encounter Closed Date Diagnosis/Indication Diagnosis SNOMED-CT Code Diagnosis ICD10 Code Diagnosis IMO Codes Diagnosis Note [id number] Nataliia Minor MD [facility]_ IM_[address] [place] [place] [address] [facility] [place] [address] 03/16/2025 15:38:09 03/16/2025 16:34:00 Rheumatoid arthritis of multiple joints 605567003 M06.9 - well controlled - cont reg f/u with rheumatolo gy- cont methotrexa te 22.5mg SC every week Right uppe r quadrant pain 955259033 R10.11 303417 - ddx includes gallstones , GERD- will obtain US RUQ- CMP from 01/11/25 reviewed, normal LFTs Pain in female pelvis 42 8573558 R10.20 079853 - ddx includes pelvic floor dysfunctio n vs ovarian/ut erine pathology (?mass) vs ?constipat ion- UA negative for infection from urgent care on 03/11/25, no vaginal discharge- will obtain pelvic ultrasound Health Concerns Section Related Observation LastModified by Organization Detai ls LastModified Time None Recorded Concern Status LastModified by Organization Details LastModified Time None Recorded Payers Encounter Date Sequence Insurance Name Policy Number Policy Guevara Covered Member ID Guevara Member ID Guarantor Name 03/16/2025 1 MEDICARE B-CT: NGS Kimmy Falk Ham [id number] Kimmy K Ham 03/16/2025 2 FOR LIFE () Kimmy Falk Ham [id number] Kimmy Dileep Ham Notes Date Note Type Note Provider Name and Address Organization Details Recorded Time 03/16/2025 text/html ROS as noted in the HPI [...] with rheumatology, symptoms stable. Nataliia Minor MD [address] [place] [address], [address], [place], [address], [place] [facility] 03/16/2025 17:06:51 OBGyn Episode No OBEpisode recorded.
--- OUTSIDE RECORDS SUMMARY | 2025-04-12 12:45 | XMS_ITS | Encounter Summary ---
Author Organization Formerly [facility] Address [address] [place] [address] Care Team Providers Care Cafeteria Manager Name Role Phone Zia Finley MD Primary Care Provider [phone] Марина Skinner MD Unavailable Jose Alberto Vásquez MD Unavailable [phone] Sarika CallahanC Primary Care Provider [phone] Encounter Details Date Type Department Care Team (Late st Contact Info) Description 10/30/2022 Scanned Document [facility] Department of Endocrinology [address] [address] Endocrinology, Scan Social History Tobacco Use [...] Description 05/06/2025 1:00 PM EST Office Visit [facility] Department of Rheumatology [address] [place] [address] Annie Correia MD [address] [facility] [address] [place] [address] 06/23/2025 9:30 AM EST Office Visit [facility] [address] [facility] [address] [place] [address] Yuridia Mazariegos PA [address] [facility] [address] [place] [address] 06/30/2025 11:00 AM EST Clinical Support [facility] Department of Endocrinology [place] [address] [facility] [address] [place] [phone] Марина Skinner MD [address] [place], [place] [address] 08/12/2025 1:00 PM EDT Office Visit [facility] Department of Rheumatology [place] [address] [place] [address] Annie Correia MD [address] [facility] [address] [place] [address] documented as of this encounter Visit Diagnoses Not on filedocumented in this encounter Care Teams Cafeteria Manager Relationship Specialty Start Date End Date Zia Finley MD [address] [place] [address] PCP - General Internal Medicine 04/25/20 04/04/25 Sarika Callahan PA-C [address] [place] [address] PCP - General 04/05/25 Марина Skinner MD [address] [facility] [address] [place] [phone] Assistant Manager Pt Endocrinology 11/27/22 Jose Alberto Vásquez MD [address] [place] [address] Gastroenterology 07/02/23 documented as of this encounter
--- OUTSIDE RECORDS SUMMARY | 2025-04-12 12:45 | XMS_ITS | Encounter Summary ---
Author Organization [facility] Address [address] [place] [id number] Care Team Providers Care Waste Machine Offbearer Name Role Phone Zia Finley MD Primary Care Provider [phone] Марина Skinner MD Unavailable Jose Alberto Vásquez MD Unavailable [phone] Sarika CallahanC Primary Care Provider [phone] Encounter Details Date Type Department Care Team (Late st Contact Info) Description 06/03/2023 Scanned Document [facility] Department of Endocrinology [address], [place] [address] Endocrinology, Scan Social History Tobacco [...] Description 05/06/2025 1:00 PM EST Office Visit [facility] Department of Rheumatology [address] [place] [phone] Annie Correia MD [address] [place] [address] 06/23/2025 9:30 AM EST Office Visit [facility] [address] [facility] [address] [place] [address] Yuridia Mazariegos PA [address] [facility] [address] [place], [place] [address] 06/30/2025 11:00 AM EST Clinical Support [facility] Department of Endocrinology [place] [address] [place] [address] [address] [phone] Марина Skinner MD [address] [place], [place] [address] 08/12/2025 1:00 PM EDT Office Visit [facility] Department of Rheumatology [place] [address] [phone] Annie Correia MD [address] [address] documented as of this encounter Visit Diagnoses Not on filedocumented in this encounter Care Teams Waste Machine Offbearer Relationship Specialty Start Date End Date Zia Finley MD [address] [place] [address] PCP - General Internal Medicine 04/25/20 04/04/25 Sarika Callahan PA-C [address] [place] [address] PCP - General 04/05/25 Марина Skinner MD [address] [facility] [address] [place] [address] [employer] Endocrinology 11/27/22 Jose Alberto Vásquez MD [address] [place] [address] [address] [place] [address] Gastroenterology 07/02/23 documented as of this encounter
== END 2025-04-12 10:40 | disposition home or self-care (01) ==
LOC: HO.HSMS 10:15
PROVIDERS: PCP Internal Medicine; Visit Provider Psychiatry & Neurology Neurology
DX: G24.3 Spasmodic torticollis (principal)
CPT/HCPCS: 64616

== ENCOUNTER → 2025-04-12 10:14 | Outpatient (BNVA) | payer MEDICARE, OTHER, SELFPAY | PROVIDERS: PCP Internal Medicine; Visit Provider Psychiatry & Neurology Neurology | DX: G24.3 Spasmodic torticollis (principal); M62.838 Other muscle spasm | CPT/HCPCS: 64616; 99211; J0585 ==